=== PATIENT | male | born 1950 | race Caucasian/White ===

== ENCOUNTER → 2024-07-01 13:51 | Outpatient (BNVA) | payer BC, SELFPAY | PROVIDERS: PCP Family Medicine; Visit Provider Surgery ==

== ENCOUNTER 2024-07-19 08:16 | Outpatient (AMB) | payer BC, SELFPAY ==
--- OUTSIDE RECORDS SUMMARY | 2024-07-19 08:30 | XMS_ITS | Encounter Summary ---
Author Organization [facility] Address [address] [place] [address] Care Team Providers Care Journeyman Electrician Name Role Phone Marija King Lovely VARGAS Primary Care Provider [phone] Cathleen Palmer MD Primary Care Provider Encounter Details Date Type Department Care Team ([facility] st Contact Info) Description 11/24/2020 Orders Only [facility] [address] [address] Jose Angel Starkey MD [address] [place] [address] Social History Tobacco Use Types Packs/Day Years Used Date Smoking Tobacco: Former Cigarettes 0.2 51 0 10/31/1964 - 11/01/2015 Smokeless Tobacco: Never Comments:quit 2012 Alcohol Use Standard Drinks/Week Comments Not Asked 0 (1 standard drink = 0.6 oz pur e alcohol) Sex and Gender Information Value Date Recorded Sex Assigned at Male 04/15/2019 8:44 AM EST Legal Sex Male 5:22 AM EDT Gender Identity Male 04/15/2019 8:44 AM EST Sexual Orientation Straight 04/15/2019 8: 44 AM EST documented as of this encounter Miscellaneous Notes * Result Encounter Note - Jose Angel Starkey MD - 11/24/2020 9:45 AM EDT Please let patient know that his blood work from yesterday is stable, and I recommend no changes for now. Thank you. * Result Encounter Note - Malaika Rubio RN - 11/24/2020 9:45 AM EDT My chart message was sent to patient. documented in this encounter Plan of Treatment Upcoming Encounters Date Type Department Care Team (Late st Contact Info) Description 07/11/2025 11:00 AM EDT Office Visit [facility] [address] [facility] [address] [place] [address] Jose Angel Starkey MD [address] [place] [address] 1 yr documented as of this encounter Procedures * Due to [facility] law, this organization might not be sharing negative HIV tests. Procedure Name Priority Date/Time Associated Diagnosis Comments VENIPUNCTURE Routine 11/24/2020 9:45 AM EDT Hypertension, unspecified type documented in this encounter Results * Due to [facility] law, this organization might not be sharing negative HIV tests. * (ABNORMAL) BASIC METABOLIC PANEL WITH (GFR) (11/24/2020 9:45 AM EDT) Glucose 101(H) 65 - 99 mg/dL [facility] Comment: ? Fasting reference interval For someone without known diabetes, a glucose value between 100 and 125 mg/dL is consistent with prediabetes and should be confirmed with a follow-up test. Urea Nitrogen Blood (BUN) 23 7 - 25 mg/dL [facility] Creatinine 1.38(H) 0.70 - 1.18 mg/dL [facility] Comment: For patients >49 years of age, the reference limit for Creatinine is approximately 13% higher for people identified as -Bangladeshi. EGFR 51(L) > OR = 60 mL/min/1. 73m2 [facility] GFR () 59(L) > OR = 60 mL/min/1. 73m2 [facility] BUN/Creatinine Ratio 17 6 - 22 (calc) [facility] Sodium 139 135 - 146 mmol/L [facility] Potassium 4.5 3.5 - 5.3 mmol/L [facility] Chloride 102 98 - 110 mmol/L [facility] Carbon dioxide 28 20 - 32 mmol/L [facility] Calcium 9.3 8.6 - 10.3 mg/dL [facility] 11/24/2020 9:45 AM EDT 11/24/2020 10:29 PM EDT Narrative [facility] - 11/25/2020 12:19 AM EDT Please note that this estimated GFR does not include an adjustment for the patient's height or weight, and can therefore, be viewed as reliable only for patients with heights between 60 and 72 . More precise quantification using a 24-hour urine sample or height-based algorithm is recommended for patients outside of this range of height and for those individuals with more precise needs for GFR calculation. Resulting Agency Comment [id number] us Jose Angel Starkey MD LABORATORY Final Result Performing Organization Address City/State/[facility] Co de Phone Number [facility] [address] [place] [address] documented in this encounter Visit Diagnoses Diagnosis Hypertension, unspecified type documented in this encounter Care Teams Journeyman Electrician Relationship Specialty Start Date End Date Marija King DO PCP - General Family Medicine 08/23/17 05/11/21 [place] [address] PCP - General Family Medicine 09/28/22 documented as of this encounter
--- OUTSIDE RECORDS SUMMARY | 2024-07-19 08:30 | XMS_ITS | Encounter Summary ---
Author Organization [facility] Address [address] [place] [address] Care Team Providers Care Manager Green Name Role Phone Christine Marija Lovely VARGAS Primary Care Provider [phone] Cathleen Palmer MD Primary Care Provider [phone] Reason for Visit * Reason Comments E-prescribing Refill Request Encounter Details Date Type Department Care Team ([facility] Contact Info) Description 06/10/2019 Refill [facility] [address] [address] Jose Angel Starkey MD [address] [place] [address] E-prescribing Refill Request Social History Tobacco Use Types Packs/Day Years [...] AM EST documented as of this encounter Plan of Treatment Upcoming Encounters Date Type Department Care Team ([facility] Contact Info) Description 07/11/2025 11:00 AM EDT Office Visit [facility] [address] [address] Jose Angel Starkey MD [address] [place] [address] 1 yr documented as of this encounter Visit Diagnoses Diagnosis Paroxysmal atrial fibrillation (HCC) Atrial fibrillation documented in this encounter Additional Health Concerns Infection Onset Date Last Indicated Resolved Time COVID-19 Rule-Out 06/08/2020 06/08/2020 06/08/2020 7:17 PM EDT documented as of this encounter Care Teams Manager Green Relationship Specialty Start Date End Date Marija King DO PCP - General Family Medicine 08/23/17 05/11/21 Cathleen Palmer MD [address] [address] PCP - General Family Medicine 09/28/22 documented as of this encounter
--- OUTSIDE RECORDS SUMMARY | 2024-07-19 08:30 | XMS_ITS | Encounter Summary ---
Author Organization [facility] Address [address] [place] [address] Care Team Providers Care Beck Operator Name Role Phone Gabe Do Primary Care Provider [phone] Marija King DO Primary Care Provider [phone] Cathleen Palmer MD Primary Care Provider [phone] Encounter Details Date Type Department Care Team (Late st Contact Info) Description 05/28/2010 Orders Only [facility] [address] [facility] [address] [place] [address] Marcello Ness MD [address] [place] [address] Social History Tobacco Use Types Packs/Day Years Used Date Smoking Tobacco: Every Day Comments:1 cig a day Alcohol Use Standard Drinks/Week Comments Not Asked 0 (1 standard drink = 0.6 oz pur e alcohol) Sex and Gender Information Value Date Recorded Sex Assigned at Male 04/15/2019 8:44 AM EST Legal Sex Male 5:22 AM EDT Gender Identity Male 04/15/2019 8:44 AM EST Sexual Orientation Straight 04/15/2019 8: 44 AM EST documented as of this encounter Progress Notes * Marcello Ness MD - 05/31/2010 2:24 PM EDTQuick Note: Please call and inform patient that he is M,M,R antibody positive and does not require the vaccine. documented in this encounter Plan of Treatment Upcoming Encounters Date Type Department Care Team (Late st Contact Info) Description 07/11/2025 11:00 AM EDT Office Visit [facility] [address] [facility] [address] [place] [address] Jose Angel Starkey MD [address] [place] [address] 1 yr documented as of this encounter Procedures * Due to [place] law, this organization might not be sharing negative HIV tests. Procedure Name Priority Date/Time Associated Diagnosis Comments RUBEOLA IGG AB Routine 05/28/2010 Other specified counseling Need for prophylactic vaccination with typhoid-paratyphoid alone (TAB) Vaccin for DTP RUBELLA IGG AB Routine 05/28/2010 Other specified counseling Need for prophylactic vaccination with typhoid-paratyphoid alone (TAB) Vaccin for DTP MUMPS ANTIBODY (IGG) Routine 05/28/2010 Other specified counseling Need for prophylactic vaccination with typhoid-paratyphoid alone (TAB) Vaccin for DTP documented in this encounter Results * Due to [place] law, this organization might not be sharing negative HIV tests. * MUMPS ANTIBODY (IGG) (05/28/2010) MUMPS VIRUS AB.IGG 2.8 (IMMUNE) SEE BELOW [facility] Comment:REFERENCE: 1.1 OR > INDICATES ANTIBODY 05/28/2010 05/28/2010 3:4 2 PM EST us Marcello Ness MD LABORATORY Final Result [facility] [address] [place] [address] * RUBEOLA IGG AB (05/28/2010) RUBEOLA IGG AB 5.4 (IMMUNE) SEE BELOW [facility] Comment: UNITS: INDEX VALUE REFERENCE: 1.1 OR > INDICATES ANTIBODY 05/28/2010 05/28/2010 3:4 2 PM EST Marcello Ness MD LABORATORY Final Result Performing Organization Address City/[facility]/ZIP Co de Phone Number [facility] [address] [place] [address] * RUBELLA IGG AB (05/28/2010) RUBELLA IGG AB 4.97 (IMMUNE) SEE BELOW [facility] Comment: REFERENCE: 1.1 OR > INDICATES ANTIBODY THE PRESENCE OF RUBELLA IGG ANTIBODY SUGGESTS A CURRENT OR PAST INFECTION OR IMMUNIZATION WITH RUBELLA VIRUS. 05/28/2010 05/28/2010 3:4 2 PM EST Marcello Ness MD LABORATORY Final Result Performing Organization Address [facility] Co de Phone Number [facility] [address] [place] [address] documented in this encounter Visit Diagnoses Diagnosis Other specified counseling Need for prophylactic vaccination with typhoid-paratyphoid alone (TAB) Need for prophylactic vaccination with combined wtwtrforlm-exhekof-vuggdwott (DTP) vaccine documented in this encounter Additional Health Concerns Infection Onset Date Last Indicated Resolved Time COVID-19 Rule-Out 06/08/2020 06/08/2020 06/08/2020 7:17 PM EDT documented as of this encounter Care Teams Beck Operator Relationship Specialty Start Date End Date Gabe Do [facility] [address] [place] [address] PCP - General 03/24/06 08/22/17 Marija King DO [facility] [address] [place] [address] PCP - General Family Medicine 08/23/17 05/11/21 Cathleen Palmer MD [facility] [address] [place] [address] PCP - General Family Medicine 09/28/22 documented as of this encounter
--- OUTSIDE RECORDS SUMMARY | 2024-07-19 08:30 | XMS_ITS | Encounter Summary ---
Author Organization [facility] Address [address] [place] [address] Care Team Providers Care Cement Mixer Name Role Phone HiGabe Primary Care Provider [phone] Marija King DO Primary Care Provider [phone] Cathleen Palmer MD Primary Care Provider [phone] Encounter Details Date Type Department Care Team (Late st Contact Info) Description 08/26/2015 Orders Only [facility] [address] [address] Valentin Vitale MD [address] [place] [address] Medications Social History Tobacco Use Types Packs/Day Years Used Date Smoking Tobacco: Former Comments:quit 2012 Alcohol Use Standard Drinks/Week Comments [...] Description 07/11/2025 11:00 AM EDT Office Visit [facility] [address] [address] oJse Angel Starkey MD [address] [place], [place] [id number] 1 yr documented as of this encounter Visit Diagnoses Diagnosis Paroxysmal atrial fibrillation (HCC)- Primary Atrial fibrillation documented in this encounter Additional Health Concerns Infection Onset Date Last Indicated Resolved Time COVID-19 Rule-Out 06/08/2020 06/08/2020 06/08/2020 7:17 PM EDT documented as of this encounter Care Teams Cement Mixer Relationship Specialty Start Date End Date Gabe Do [facility] [address] [place] [address] PCP - General 03/24/06 08/22/17 Marija King DO [facility] [address] [place] [address] PCP - General Family Medicine 08/23/17 05/11/21 Cathleen Palmer MD [facility] [address] [place] [address] PCP - General Family Medicine 09/28/22 documented as of this encounter
--- OUTSIDE RECORDS SUMMARY | 2024-07-19 08:30 | XMS_ITS | Clinical Summary ---
Author Organization [facility] Address [address] [place] [address] Care Team Providers Care Orderlies Teacher Name Role Phone Cathleen Palmer MD Primary Care Provider [phone] Allergies Active Allergy Reactions Criticality Noted Date Comments Oxycodone Other 01/31/2023 Causes confusion Medications * This document contains information received from the source organization and may not represent a complete record from that organization. Nitroglycerin (NITROSTAT) 0.4 MG SL tabletIndications: Abnormal cardiovascular stress test,Atheroscleros is of coronary artery, angina presence unspecified, unspecified vessel or lesion type, unspecified whether port lions or transplanted heart,Paroxysmal atrial fibrillation (HCC),Hyperlipidem ia, unspecified hyperlipidemia type,Essential hypertension with goal blood pressure less than 130/80 Take one tablet (0.4 mg total) by mouth every 5 (five) minutes if needed for chest pain up to 3 tablets per episode. 90 tablet 3 1 Active famotidine (PEPCID) 20 MG tablet 2 Active Albuterol Sulfate, sensor, 108 (90 Base) MCG/ACT AEROSOL POWDER, BREATH ACTIVATED Inhale 2 puffs every 4 hours by inhalation route as needed. Active DIVALPROEX SODIUM, MIGRAINE, (DEPAKOTE) 500 MG 24 hr tablet TAKE TWO TABLETS BY MOUTH EVERY NIGHT AT BEDTIME 120 tablet 2 3 Active Isosorbide Mononitrate CR (IMDUR) 60 MG 24 hr tablet TAKE 1 TABLET BY MOUTH EVERY DAY IN THE MORNING 90 tablet 3 4 Active amLODIPine Besylate (NORVASC) 10 MG tabletIndications: Hypertension, unspecified type Take one tablet (10 mg total) by mouth 1 (one) time each day. 90 tablet 3 4 Active Rivaroxaban (Xarelto) 20 MG tabletIndications: Paroxysmal atrial fibrillation (HCC) Take one tablet (20 mg total) by mouth 1 (one) time each day with dinner. 90 tablet 3 4 Active Metoprolol Succinate (TOPROL-XL) 50 MG 24 hr tablet Take one tablet (50 mg total) by mouth 1 (one) time each day. 90 tablet 3 4 Active Cyclobenzaprine HCl (FLEXERIL) 10 MG tablet Take 1 tablet by mouth 3 (three) times a day. Active Lisinopril (PRINIVIL,ZESTRIL) 10 MG tabletIndications: Hypertension, unspecified type Take one tablet (10 mg total) by mouth 1 (one) time each day. 90 tablet 3 4 Active Simvastatin (ZOCOR) 40 MG tablet TAKE ONE TABLET (40 MG TOTAL) BY MOUTH EVERY NIGHT. 90 tablet 3 4 Active Wixela Inhub 250-50 MCG/ACT diskus inhaler INHALE 1 PUFF TWICE A DAY 180 each 1 5 Active Active Problems Problem Noted Date Diagnosed Date Paroxysmal atrial fibrillation 06/28/2023 Arteriosclerosis of aorta 05/29/2019 Overview (05/29/2019): Refer to CT of Chest 04/16/2019: There is arteriosclerosis of the aorta and the coronary arteries. Bronchiectasis 05/29/2019 Overview (05/29/2019): Refer to Pulmonary Consult 05/13/2019: Impression: Patient with bronchiectasis Seizure 02/21/2018 Encounters Date Type Department Care Team Description 07/03/2024 3:00 PM EDT Office Visit [facility] [address] [place] [phone] Jayesh Starkey MD Paroxysmal atrial fibrillation (HCC) (Primary Dx); Coronary artery disease, unspecified vessel or lesion type, unspecified whether angina present, unspecified whether port lions or transplanted heart; RBBB (right bundle branch block with left anterior fascicular block) from Last 3 Months Immunizations Name Administration Dates Next Due COVID-19, mRNA (Moderna Pre Fall 2022) Monovalent, 100 mcg/0.5 ml or 50 mcg/0.25 ml dose 08/11/2021,02/08/2021,06/08/2020 COVID-19, mRNA (Moderna Pre Fall 2022) bivalent, 25 mcg/0.25 ml (6 months - 11 years) or 50 mcg/0.5 ml (12+ years) 02/24/2022 Hep A (adult) 05/28/1999 Hep B (adult) 02/05/2004,08/05/2003,12/03/1999 IPV 05/28/1999 Influenza, Quad, Inactivated , Adjuvanted, Preser Fr 02/16/2023,02/08/2021 Influenza,high dose seasonal ,trivalent,PF (Fluzone HD) 04/12/2024 Influenza,high-dose, Quadrivalent 02/24/2022, PCV-20 02/23/2023 PPV23 (Pneumovax) 09/07/2017 Td (adult), adsorbed 05/28/1999 Tdap(Adacel) 05/28/2010 Typhoid, ViCPS 08/05/2003,05/28/1999 Typhoid, parenteral 05/28/2010 Zoster (Shingrix) 02/23/2023 Social History Tobacco Use Types Packs/Day Years Used Date Smoking Tobacco: Former Cigarettes 0.2 51 0 10/31/1964 - 11/01/2015 Passive Smoke Exposure: Past Smokeless Tobacco: Never Tobacco Cessation:Counseling Given: Not Answered Comments:quit 2012 Alcohol Use Standard Drinks/Week Comments Not Asked 0 (1 standard drink = 0.6 oz pur e alcohol) Intimate Partner Violence Answer Date R ecorded Fear of Current or Ex-Partner Not on file Emotionally Abused Not on file 11/02/2022 Physically Abused Not on file 11/02/2022 Sexually Abused Not on file 11/02/2022 Feel Safe at Home Not on file 11/02/2022 Sex and Gender Information Value Date Recorded Sex Assigned at Male 04/15/2019 8:44 AM EST Legal Sex Male 5:22 AM EDT Gender Identity Male 04/15/2019 8:44 AM EST Sexual Orientation Straight 04/15/2019 8: 44 AM EST Last Filed Vital Signs Vital Sign Reading Time Taken Comments Blood Pressure 144/76 07/03/2024 3:05 PM EDT Pulse 67 07/03/2024 3:04 PM EDT Temperature 37.1 ??C (98.7 ??F) 05/28/2010 8:28 AM ES T Respiratory Rate - - Oxygen Saturation 95% 07/03/2024 3:04 PM EDT Inhaled Oxygen Concentration - - Weight 118 kg (259 lb 9.6 oz) 07/03/2024 3:04 PM EDT Height 177.8 cm (5' 10 ) 04/07/2022 2:04 PM EST Body Mass Index 37.25 04/07/2022 2:04 PM EST Plan of Treatment Upcoming Encounters Date Type Department Care Team ([facility] st Contact Info) Description 07/11/2025 11:00 AM EDT Office Visit [facility] Cardiology [address] [address] Jayesh Starkey MD [address] [place] [address] 1 yr Health Maintenance Due Date Last Done Comments Parathyroid Hormone Screening 1949 Colon Cancer Screening 1994 Abdominal Aorta Imaging 2014 DTaP/Tdap/Td (2 - Td or Tdap) 05/28/2020 05/28/2010, 05/28/1999 Zoster (Shingrix) (2 of 2) 04/20/2023 02/23/2023 COVID-19 Vaccine ( season) 2023 02/24/2022, 08/11/2021, 02/08/2021, Additional history exists RSV (1 - 1-dose 75+ series) 2024 Hep A Aged Out 05/28/1999 No longer eligi ble based on patient's age to complete this topic Hepatitis C Screening Completed 08/01/2003 Hep B Completed 02/05/2004, 07/18, 12/03/1999 LDL Cholesterol Discontinued 07/20/2020, 08/27/2015 Upper Endoscopy Discontinued 05/25/2021 Chest Imaging Discontinued 11/02/2022, 09/17, 12/30/2021, Additional history exists Pneumococcal 50+ years Completed 02/23/2023, 2017 EKG Discontinued 06/28/2023, 06/18, 07/20/2020, Additional history exists Influenza Completed 04/12/2024, 01/20, 02/24/2022, Additional history exists HPV Vaccine Aged Out No longer eligi ble based on patient's age to complete this topic Hib Aged Out No longer eligi ble based on patient's age to complete this topic Meningococcal ACWY Aged Out No longer eligible based on patient's age to complete this topic Zoster (Zostavax) Discontinued Procedures * Due to [place] law, this organization might not be sharing negative HIV tests. Procedure Name Priority Date/Time Associated Diagnosis Comments EKG-USE ONLY IN [facility]/OCC MED/CARDIO Routine 06/28/2023 2:25 PM EDT Paroxysmal atrial fibrillation XRAY CHEST, 2 VIEWS, PA & LATERAL (DX: F/U ABNL CXR R91.8/ 793.2) (1 MTH FROM LAST) FC Routine 11/02/2022 12:43 PM EDT ESOPHAGOGASTRODUODENO SCOPY, FLEXIBLE, TRANSORAL; WITH BIOPSY, SINGLE OR MULTIPLE Routine 05/25/2021 Epigastric pain VENIPUNCTURE Routine 07/20/2020 12:05 PM EDT Coronary artery disease, unspecified vessel or lesion type, unspecified whether angina present, unspecified whether port lions or transplanted heart HEP C ANTIBODY (EIA-2) Routine 08/01/2003 4:44 PM EDT from Last 3 Months or Most Recently Relevant to Health Maintenance Results * Due to [place] law, this organization might not be sharing negative HIV tests. * EKG - READ BY ORDERING PROVIDER (06/28/2023 2:25 PM EDT) VENTRICULAR RATE 54 BPM MUS E EKG SYSTEM ATRIAL RATE 54 BPM MUSE EKG SYSTEM P-R INTERVAL 190 ms MUSE EK G SYSTEM QRS DURATION 152 ms MUSE EK G SYSTEM QT 466 ms MUSE EKG SYSTEM QTC 441 ms MUSE EKG SYSTEM P AXIS 9 degrees MUSE EKG SYSTEM R AXIS -35 degrees MUSE EKG SYSTEM T AXIS 9 degrees MUSE EKG SYSTEM EKG INTERPRETATION Sinus bradycardia Left axis deviation Right bundle branch block Abnormal ECG Confirmed by JAYESH STARKEY ([id number]), digital editor KAREN MULTANI ([id number]) on 06/29/2023 7:33:59 AM MUSE EKG SYSTEM 06/28/2023 2:25 PM EDT 06/29/2023 7:33 AM EDT us Jayesh Starkey MD CARDIOVASCULAR-WITH INBSKT RT G Final Result MUSE EKG SYSTEM * XRAY CHEST, 2 VIEWS, PA & LATERAL (DX: F/U ABNL CXR R91.8/ 793.2) (1 MTH FROM LAST) FC (11/02/2022 12:43 PM EDT) Anatomical Region Laterality Modality CHEST Radiographic Erica ging 11/02/2022 5:04 PM EDT Narrative 11/02/2022 5:04 PM EDT CONTRAST: 2 view chest x-ray. Comparison: 09/28/2022 Findings: No consolidation or effusion. Previously noted left base atelectasis has resolved. Cardiac and mediastinal contours are stable. Bones unremarkable. Impression: 1. No acute pulmonary disease. Procedure Note Maninder Isbell MD - 11/02/2022 CONTRAST: 2 view chest x-ray. Comparison: 09/28/2022 Findings: No consolidation or effusion. Previously noted left base atelectasis has resolved. Cardiac and mediastinal contours are stable. Bones unremarkable. Impression: 1. No acute pulmonary disease. us Juan Morse MD IMG XRAY NO CONTRAST ORDERABL ES Final Result * ESOPHAGOGASTRODUODENOSCOPY, FLEXIBLE, TRANSORAL; WITH BIOPSY, SINGLE OR MULTIPLE (05/25/2021) us Aakash Alcantara MD PROCEDURES Final Result * (ABNORMAL) LIPID PANEL WITH REFLEX TO DIRECT LDL (07/20/2020 12:05 PM EDT) Cholesterol 132 <200 mg/dL [facility] HDL Cholesterol 47 > OR = 40 mg/dL [facility] Triglyceride 230(H) <150 mg/dL [facility] Comment: If a non-fasting specimen was collected, consider repeat triglyceride testing on a fasting specimen if clinically indicated. Ash et al. J. of Clin. Lipidol. 2015;9:129-169. LDL Cholesterol 56 mg/dL (calc) [facility] Comment: Reference range: <100 Desirable range <100 mg/dL for primary prevention; ?? <70 mg/dL for patients with CHD or diabetic patients with > or = 2 CHD risk factors. LDL-C is now calculated using the Oliver-López calculation, which is a validated novel method providing better accuracy than the Friedewald equation in the estimation of LDL-C. Oliver SS et al. BEAR. 2013;310(19): 2941-2793 (http://education.[employer].Uniweb.ru/faq/CJP115) CHOL/HDL Ratio 2.8 <5.0 (calc) [facility] Cholesterol Non-HDL 85 <130 mg/dL (calc) [facility] Comment: For patients with diabetes plus 1 major ASCVD risk factor, treating to a non-HDL-C goal of <100 mg/dL (LDL-C of <70 mg/dL) is considered a therapeutic option. 07/20/2020 12:0 5 PM EDT 07/20/2020 9:33 PM EDT Narrative Resulting Agency Comment [id number] us Zhnae Dorantes LOADING MACHINE TOOL SETTER LABORATORY Final Res ult [facility] [address] [place] [address] * HEP C ANTIBODY (EIA-2) (08/01/2003 4:44 PM EDT) HEPATITIS C AB NEGATIVE FC [facility] (CLIA# [id number]) 08/01/2003 4:44 PM EDT 08/01/2003 4:44 PM EDT Narrative [facility] (CLIA# [id number]) - 08/01/2003 4:44 PM EDT Ordered by UNKNOWN PROVIDER SST tube received unspun us Unknown Provider LABORATORY Final Result [facility] (CLIA# [id number]) [address] [place] [address] from Last 3 Months or Most Recently Relevant to Health Maintenance Insurance [employer] FEE FOR SERVICE PPO * Guarantor: [employer] Account Type Relation to Patient Date of Phone Billing Address [place] [address] [place] [address] Care Teams Orderlies Teacher Relationship Specialty Start Date End Date Cathleen Palmer MD [address] [address] PCP - General Family Medicine 09/28/22
--- OUTSIDE RECORDS SUMMARY | 2024-07-19 08:30 | XMS_ITS | Encounter Summary ---
Author Organization [facility] Address [address] [place] [address] Care Team Providers Care Junior Underwriter Name Role Phone Marija King DO Primary Care Provider [phone] Cathleen Palmer MD Primary Care Provider [phone] Encounter Details Date Type Department Care Team ([facility] st Contact Info) Description 07/20/2020 Orders Only [facility] [address] 123 [facility] [address] [place] [address] Zhane Dorantes NP 123 [facility] [address] [place] [address] Social History Tobacco Use Types Packs/Day Years [...] Orientation Straight 04/15/2019 8: 44 AM EST COVID-19 Exposure Response Date Recorded In the last month, have you been in contact with someone who was confirmed or suspected to have Coronavirus / COVID-19? No / Unsure 07/20/2020 11:04 AM EDT documented as of this encounter Miscellaneous Notes * Result Encounter Note - Zhane Dorantes NP - 07/20/2020 12:05 PM EDT Can you please call patient and let him know I reviewed his cholesterol panel and I am VERY HAPPY! I will follow up with him in a few weeks regarding his blood pressures. :) * Result Encounter Note - Emily Saenz - 07/20/2020 12:05 PM EDT Called the patient and reviewed results of his labs as requested. Patient states understanding [facility] is happy with his cholesterol panel but stated he noticed his triglycerides are high. He states he can wait to discuss this at his next appointment, but it is a nurse blood pressure check. Please advise. * Result Encounter Note - Zhane Dorantes NP - 07/20/2020 12:05 PM EDT Yes triglycerides are high but he is trying lifestyle modifications with exercise and dietary changes. So I am not concerned. I can pop in at his nurse blood pressure check and talk with him then. * Result Encounter Note - Emily Saenz - 07/20/2020 12:05 PM EDT Ok thank you. Note added to appointment for nursing to grab you at appointment. * Result Encounter Note - Zhane Dorantes NP - 07/20/2020 12:05 PM EDT Thanks! :) documented in this encounter Plan of Treatment Upcoming Encounters Date Type Department Care Team (Late st Contact Info) Description 07/11/2025 11:00 AM EDT Office Visit [facility] [address] [facility] [address] [place] [address] [place] [address] Jose Angel Starkey MD [address] [place] [address] 1 yr documented as of this encounter Procedures * Due to [facility] law, this organization might not be sharing negative HIV tests. Procedure Name Priority Date/Time Associated Diagnosis Comments VENIPUNCTURE Routine 07/20/2020 12:05 PM EDT Coronary artery disease, unspecified vessel or lesion type, unspecified whether angina present, unspecified whether [place] or transplanted heart documented in this encounter Results * Due to [place] [employer] law, this organization might not be sharing negative HIV tests. * (ABNORMAL) LIPID PANEL WITH REFLEX TO [...] factors. LDL-C is now calculated using the Oliver-Maribel calculation, which is a validated novel method providing better accuracy than the Friedewald equation in the estimation of LDL-C. Oliver SAM et al. BEAR. 2013;310(19): 6008-3878 (http://education.Tippr.Decisive BI/faq/GXV262) CHOL/HDL Ratio 2.8 <5.0 (calc) [facility] Cholesterol Non-HDL 85 <130 mg/dL (calc) [facility] Comment: For patients with diabetes plus 1 major ASCVD risk factor, treating to a non-HDL-C goal of <100 mg/dL (LDL-C of <70 mg/dL) is considered a therapeutic option. 07/20/2020 12:0 5 PM EDT 07/20/2020 9:33 PM EDT Narrative Resulting Agency Comment [id number] us Zhane Dorantes [facility] Final Res ult [facility] [address] [place] [address] documented in this encounter Visit Diagnoses Diagnosis Coronary artery disease, unspecified vessel or lesion type, unspecified whether angina present, unspecified whether [place] or transplanted heart documented in this encounter Care Teams Junior Underwriter Relationship Specialty Start Date End Date Marija King DO PCP - General Family Medicine 08/23/17 05/11/21 Cathleen Palmer MD [address] [address] PCP - General Family Medicine 09/28/22 documented as of this encounter
--- OUTSIDE RECORDS SUMMARY | 2024-07-19 08:30 | XMS_ITS | Encounter Summary ---
Author Organization [facility] Address [address] [place] [address] Care Team Providers Care Perch Mender Name Role Phone Marija King DO Primary Care Provider [phone] Cathleen Palmer MD Primary Care Provider [phone] Reason for Visit * Reason Onset Date Comments Refill Request 06/02/2019 Encounter Details Date Type Department Care Team (Late st Contact Info) Description 06/02/2019 Refill [facility] Pulmonary [address] 123 [facility] [address] [place] [address] Juan Morse MD [address] [place] [address] Refill Request Social History Tobacco Use Types [...] as of this encounter Miscellaneous Notes * Telephone Encounter - Pat Chan RN - 06/03/2019 9:18 AM EDT Med pended. * Telephone Encounter - AkilahLindsay - 06/03/2019 8:47 AM EDT Patient calling to follow up on the request for refills as he would like to have by Monday documented in this encounter Plan of Treatment Upcoming Encounters Date Type Department Care Team (Late st Contact Info) Description 07/11/2025 11:00 AM EDT Office Visit [facility] Cardiology [address] [address] Jose Angel Starkey MD [address] [place] [address] 1 yr documented as of this encounter Visit Diagnoses Not on filedocumented in this encounter Additional Health Concerns Infection Onset Date Last Indicated Resolved Time COVID-19 Rule-Out 06/08/2020 06/08/2020 06/08/2020 7:17 PM EDT documented as of this encounter Care Teams Perch Mender Relationship Specialty Start Date End Date Marija King DO PCP - General Family Medicine 08/23/17 05/11/21 Cathleen Palmer MD [address] [address] PCP - General Family Medicine 09/28/22 documented as of this encounter
--- OUTSIDE RECORDS SUMMARY | 2024-07-19 08:30 | XMS_ITS | Encounter Summary ---
Author Organization [facility] Address [address] [place] [address] Care Team Providers Care Induction Machine Setter Name Role Phone Christine Marija Lovely VARGAS Primary Care Provider [phone] Cathleen Palmre MD Primary Care Provider [phone] Encounter Details Date Type Department Care Team (Late Contact Info) Description 05/03/2019 Orders Only [facility] [address] [place] [phone] Alex Hummel MD [address] [place] [phone] Social History Tobacco Use Types Packs/Day Years [...] Description 07/11/2025 11:00 AM EDT Office Visit [facility] Cardiology [address] [place] [address] Jose Angel Starkey MD [address] [place], [place] [phone] 1 yr documented as of this encounter Procedures * Due to [place] [employer] law, this organization might not be sharing negative HIV tests. Procedure Name Priority Date/Time Associated Diagnosis Comments VENIPUNCTURE Routine 05/03/2019 9:32 AM EST Seizure documented in this encounter Results * Due to [place] [employer] law, this organization might not be sharing negative HIV tests. * (ABNORMAL) VALPROIC ACID (05/03/2019 9:32 AM EST) Valproate 30.5(L) 50.0 - 100.0 mg/L [facility] 05/03/2019 9:32 AM EST 05/04/2019 Narrative Resulting Agency Comment [id number] us Alex Hummel MD LAB SAME DAY RESULT Final Resu lt Performing Organization Address City/State/[facility] Co de Phone Number [facility] [address] [place] [address] documented in this encounter Visit Diagnoses Diagnosis Seizure (HCC) Other convulsions documented in this encounter Additional Health Concerns Infection Onset Date Last Indicated Resolved Time COVID-19 Rule-Out 06/08/2020 06/08/2020 06/08/2020 7:17 PM EDT documented as of this encounter Care Teams Induction Machine Setter Relationship Specialty Start Date End Date Marija King DO PCP - General Family Medicine 08/23/17 05/11/21 Cathleen Palmer MD [address] [address] PCP - General Family Medicine 09/28/22 documented as of this encounter
--- OUTSIDE RECORDS SUMMARY | 2024-07-19 08:30 | XMS_ITS | Encounter Summary ---
Author Organization [facility] Address [address] [place] [address] Care Team Providers Care Janitor Cleaner Name Role Phone Marija King DO Primary Care Provider [phone] Cathleen Palmer MD Primary Care Provider [phone] Encounter Details Date Type Department Care Team (Late Contact Info) Description 05/08/2020 Orders Only [facility] Cardiology [address] [address] Jose Angel Starkey MD [address] [place] [address] Social History Tobacco Use Types Packs/Day Years [...] have Coronavirus / COVID-19? No / Unsure 05/08/2020 10:57 AM EST documented as of this encounter Plan of Treatment Upcoming Encounters Date Type Department Care Team (Late Contact Info) Description 07/11/2025 11:00 AM EDT Office Visit [facility] Cardiology [address] 123 [facility] [address] [place] [address] Jose Angel Starkey MD [address] [place] [address] 1 yr documented as of this encounter Procedures * Due to [facility] law, this organization might not be sharing negative HIV tests. Procedure Name Priority Date/Time Associated Diagnosis Comments VENIPUNCTURE Routine 05/08/2020 11:51 AM EST Chronic chest pain Atherosclerosis of coronary artery, angina presence unspecified, unspecified vessel or lesion type, unspecified whether [place] or transplanted heart [I25.10] CBC INCLUDES DIFFERENTIAL AND PLATELET COUNT Routine 05/08/2020 11:51 AM EST Chronic chest pain Atherosclerosis of coronary artery, angina presence unspecified, unspecified vessel or lesion type, unspecified whether [place] or transplanted heart [I25.10] BASIC METABOLIC PANEL WITH (GFR) Routine 05/08/2020 11:51 AM EST Chronic chest pain Atherosclerosis of coronary artery, angina presence unspecified, unspecified vessel or lesion type, unspecified whether [place] or transplanted heart [I25.10] documented in this encounter Results * Due to [place] [employer] law, this organization might not be sharing negative HIV tests. * (ABNORMAL) BASIC METABOLIC PANEL WITH (GFR) (05/08/2020 11:51 AM EST) Glucose 99 65 - 99 mg/dL [facility] Comment:Fasting reference in terval Urea Nitrogen Blood (BUN) 17 7 - 25 mg/dL [facility] Creatinine 1.21(H) 0.70 - 1.18 mg/dL [facility] Comment: For patients >49 years of age, the reference limit for Creatinine is approximately 13% higher for people identified as -Iranian. EGFR 60 > OR = 60 mL/min/1. 73m2 [facility] GFR () 70 > OR = 60 mL/min/1. 73m2 [facility] BUN/Creatinine Ratio 14 6 - 22 (calc) [facility] Sodium 137 135 - 146 mmol/L [facility] Potassium 4.3 3.5 - 5.3 mmol/L [facility] Chloride 102 98 - 110 mmol/L [facility] Carbon dioxide 28 20 - 32 mmol/L [facility] Calcium 9.2 8.6 - 10.3 mg/dL [facility] 05/08/2020 11:5 1 AM EST 05/08/2020 1:42 PM EST Narrative [facility] - 05/08/2020 4:01 PM EST Please note that this estimated GFR does [...] needs for GFR calculation. Resulting Agency Comment [id number] us Jose Angel Starkey MD LABORATORY Final Result [facility] [address] [place] [address] * CBC INCLUDES DIFFERENTIAL AND PLATELET COUNT (05/08/2020 11:51 AM EST) WBC 6.2 3.8 - 10.8 Thousand/u L [facility] RBC 4.62 4.20 - 5.80 Million/uL [facility] Hemoglobin 14.7 13.2 - 17.1 g/dL [facility] Hematocrit 42.6 38.5 - 50.0 % [facility] MCV 92.2 80.0 - 100.0 fL [facility] MCH 31.8 27.0 - 33.0 pg [facility] MCHC 34.5 32.0 - 36.0 g/dL [facility] RDW 13.2 11.0 - 15.0 % [facility] PLT 181 140 - 400 Thousand/u L [facility] MPV 9.5 7.5 - 12.5 fL [facility] Neutrophils # 3205 1500 - 7800 cells/uL [facility] Lymphocytes # 2331 850 - 3900 cells/uL [facility] Monocytes # 521 200 - 950 cells/uL [facility] Eosinophils # 112 15 - 500 cells/uL [facility] Basophils # 31 0 - 200 cells/uL [facility] Neutrophils % 51.7 % [facility] Lymphocytes % 37.6 % [facility] Monocytes % 8.4 % [facility] Eosinophils % 1.8 % [facility] Basophils % 0.5 % [facility] 05/08/2020 11:5 1 AM EST 05/08/2020 1:42 PM EST Narrative Resulting Agency Comment [id number] Jose Angel Starkey MD LAB SAME DAY RESULT Final Res ult Performing Organization Address [facility] de Phone Number [facility] [address] [place] [phone] * (ABNORMAL) PROTHROMBIN TIME (PT) (INR), BLOOD (05/08/2020 11:51 AM EST) INR 1.2(H) [facility] Comment: Reference Range ? 0.9-1.1 Moderate-intensity Warfarin Therapy 2.0-3.0 Higher-intensity Warfarin Therapy ?? 3.0-4.0 PT 12.7(H) 9.0 - 11.5 sec [facility] Comment: For additional information, please refer to http://education.Axigen Messaging/faq/NIN380 (This link is being provided for informational/ educational purposes only.) 05/08/2020 11:5 1 AM EST 05/08/2020 1:42 PM EST Narrative Resulting Agency Comment [id number] Jose Angel Starkey MD LAB SAME DAY RESULT Final Res ult Performing Organization Address [facility] de Phone Number [facility] [address] [place] [address] documented in this encounter Visit Diagnoses Diagnosis Chronic chest pain Chest pain, unspecified Atherosclerosis of coronary artery, angina presence unspecified, unspecified vessel or lesion type, unspecified whether [place] or transplanted heart [I25.10] documented in this encounter Additional Health Concerns Infection Onset Date Last Indicated Resolved Time COVID-19 Rule-Out 06/08/2020 06/08/2020 06/08/2020 7:17 PM EDT documented as of this encounter Care Teams Janitor Cleaner Relationship Specialty Start Date End Date Marija King DO PCP - General Family Medicine 08/23/17 05/11/21 [place] [address] PCP - General Family Medicine 09/28/22 documented as of this encounter
--- OUTSIDE RECORDS SUMMARY | 2024-07-19 08:31 | XMS_ITS | Encounter Summary ---
Author Organization [facility] Address [address] [place] [address] Care Team Providers Care Employee Relations Consultant Name Role Phone Christine Marija Lovely VARGAS Primary Care Provider [phone] Cathleen Palmer MD Primary Care Provider [phone] Encounter Details Date Type Department Care Team (Late st Contact Info) Description 10/01/2018 [facility] Pulmonary [address] [facility] [address] [place] [address] Juan Morse MD [address] [place] [address] Medications Social History Tobacco Use Types Packs/Day [...] Description 07/11/2025 11:00 AM EDT Office Visit [facility] Cardiology [address] [facility] [address] [place] [address] Jose Angel Starkey MD [address] [place] [address] 1 yr documented as of this encounter Visit Diagnoses Diagnosis Cough documented in this encounter Additional Health Concerns Infection Onset Date Last Indicated Resolved Time COVID-19 Rule-Out 06/08/2020 06/08/2020 06/08/2020 7:17 PM EDT documented as of this encounter Care Teams Employee Relations Consultant Relationship Specialty Start Date End Date Marija King DO PCP - General Family Medicine 08/23/17 05/11/21 Cathleen Palmer MD [address] [address] PCP - General Family Medicine 09/28/22 documented as of this encounter
--- OUTSIDE RECORDS SUMMARY | 2024-07-19 08:31 | XMS_ITS | Encounter Summary ---
Author Organization [facility] Address [address] [place] [address] Care Team Providers Care Ed Case Manager Name Role Phone Cathleen Palmer MD Primary Care Provider [phone] Encounter Details Date Type Department Care Team (Late Contact Info) Description 05/21/2021 Refill [facility] Neurology [address] [facility] [address] [place] [address] Alex Hummel MD [address] [address] Social History Tobacco Use Types Packs/Day Years [...] Description 07/11/2025 11:00 AM EDT Office Visit [facility] Cardiology [address] 123 [facility] [address] [place] [phone] Jose Angel Starkey MD [address] [place] [address] 1 yr documented as of this encounter Visit Diagnoses Not on filedocumented in this encounter Care Teams Ed Case Manager Relationship Specialty Start Date End Date Cathleen Palmer MD [address] [address] PCP - General Family Medicine 09/28/22 documented as of this encounter
--- OUTSIDE RECORDS SUMMARY | 2024-07-19 08:31 | XMS_ITS | Encounter Summary ---
Author Organization [facility] Address [address] [place] [address] Care Team Providers Care Embosser Apprentice Name Role Phone Marija King DO Primary Care Provider [phone] Cathleen Palmer MD Primary Care Provider [phone] Reason for Referral * OUTPT PROCEDURES AND DIAGNOSTICS (Routine) - Closed Specialty Diagnoses / Procedures Referred By Contac t Referred To Contact CT Scan Diagnoses Other nonspecific abnormal finding of lung field Procedures CT CHEST W/O CONTRAST (DX: ? NODULE ON CXR R91.8/ 793.2) (WITHIN 1 WK) Juan Morse MD [address] [place] [address] Phone: tel: fax: Referral ID Status Reason Start Date Expiration Date V isits Requested Visits Authorized [id number] Closed Continuity of Care 04/09/2018 07/08/2018 1 1 Encounter Details Date Type Department Care Team (Late st Contact Info) Description 04/04/[address] [facility] Pulmonary [address] [place] [address] Juan Morse MD [address] [place] [address] Social History Tobacco Use Types Packs/Day Years [...] Description 07/11/2025 11:00 AM EDT Office Visit [facility] Cardiology [address] [place] [address] Jose Angel Starkey MD [address] [place] [address] 1 yr documented as of this encounter Results * Due to [place] state law, this organization might not be sharing negative HIV tests. * (ABNORMAL) CT CHEST W/O CONTRAST (DX: ? NODULE ON CXR R91.8/ 793.2) (WITHIN 1 WK) FC (04/13/2018 9:02 AM EST) [facility](A) [facility] RADIOLOGY SYSTEM Anatomical Region Laterality Modality CHEST Computed Tomogra phy 04/13/2018 9:30 AM EST Narrative 04/13/2018 9:30 AM EST EXAM: ??CT CHEST WO Comparison: CR ??- XRAY CHEST 2 VIEWS PA ?? - 10/31/2017 03:10 PM EDT TECHNIQUE: Helical multidetector imaging performed from the lung apices to the adrenal glands. Images reviewed in reformatted axial, coronal and sagittal planes. ??Imaging was performed with low-dose technique and the latest generation iterative reconstruction and dose-reduction technology. ? FINDINGS: The thyroid gland is normal. ??There is no bulky mediastinal, hilar, or axillary adenopathy. ??There is arteriosclerosis of the aorta and the coronary arteries. ??The central airways are widely patent. Lung windows demonstrate pleural parenchymal scarring at the lung apices. ?? There is a 4 mm right upper lobe pulmonary nodule, image 100. ??3 mm right upper lobe pulmonary nodule, image 101. ??Right middle lobe calcified granuloma, image 156. ??2 mm left lower lobe pulmonary nodule, image 181. ??Mild bilateral lower lobe bronchiectasis with mucous plugging present. ??Patchy consolidation. ?? Bilateral lower lobes suggesting infectious or inflammatory process. ??Bibasilar atelectasis. Axial images through the upper abdomen demonstrate the noncontrast, visualized portions of the liver, pancreas, adrenal glands, and kidneys are normal. ??There are calcified splenic granulomata. There are no suspicious lytic or sclerotic osseous lesions identified. ?? Spondylotic changes of the thoracic spine. IMPRESSION: Bilateral pulmonary nodules measuring between 2 and 4 mm. ??If patient is high risk, consider CT follow-up in 12 months to document ongoing stability. Bilateral lower lobe bronchiectasis with mucous plugging present. Patchy consolidation within the bilateral lower lobe suggesting infectious or inflammatory process. Fleischner 2017 Guidelines were utilized to develop follow up recommendations for this patient. ??The full article can be viewed at: https://goo.gl/emmULK Follow up strategies in solid nodules vary depending on patient risk assessment, with patient's classified as high or low risk. Low risk is associated with young age, smaller nodule size, regular margins, and location in an area other than the upper lobe. High risk factors include older age, heavy smoking, emphysema, carcinogen exposure, larger nodule size, irregular or spiculated margins, and upper lobe location. Nodule size and morphology are the dominant factors. Follow up of subsolid nodules (including ground glass and part solid opacities) is different when compared to solid nodules based on risk of malignancy and a longer doubling time in this group. ??Therefore when follow up is recommended, it is for a longer interval. ?? Also in this group, recommendations may vary depending on a solitary lesion versus multiplicity of lesions. A calculator of estimated risk is available at: https://goo.gl/JEEJEh ##PFU## Procedure Note Gloria Funes MD - 04/13/2018 EXAM: CT CHEST WO Comparison: CR - XRAY CHEST 2 VIEWS PA - 10/31/2017 03:10 PM EDT TECHNIQUE: Helical multidetector imaging performed from the lung apices tothe adrenal glands. Images reviewed in reformatted axial, coronal and sagittal planes. Imaging was performed with low-dose technique and the latest generation iterative reconstruction and dose-reduction technology. FINDINGS: The thyroid gland is normal. There is no bulky mediastinal,hilar, or axillary adenopathy. There is arteriosclerosis of the aorta and the coronary arteries. The central airways are widely patent. Lung windows demonstrate pleural parenchymal scarring at the lung apices. There is a 4 mm right upper lobe pulmonary nodule, image 100. 3 mm rightupper lobe pulmonary nodule, image 101. Right middle lobe calcified granuloma,image 156. 2 mm left lower lobe pulmonary nodule, image 181. Mild bilaterallower lobe bronchiectasis with mucous plugging present. Patchy consolidation. Bilateral lower lobes suggesting infectious or inflammatory process.Bibasilar atelectasis. Axial images through the upper abdomen demonstrate the noncontrast,visualized portions of the liver, pancreas, adrenal glands, and kidneys are normal.There are calcified splenic granulomata. There are no suspicious lytic or sclerotic osseous lesions identified. Spondylotic changes of the thoracic spine. IMPRESSION: Bilateral pulmonary nodules measuring between 2 and 4 mm. If patient ishigh risk, consider CT follow-up in 12 months to document ongoing stability. Bilateral lower lobe bronchiectasis with mucous plugging present. Patchy consolidation within the bilateral lower lobe suggestinginfectious or inflammatory process. Fleischner 2017 Guidelines were utilized to develop follow uprecommendations for this patient. The full article can be viewed at: https://goo.gl/emmULK Follow up strategies in solid nodules vary depending on patient risk assessment, with patient's classified as high or low risk. Low risk is associated with young age, smaller nodule size, regularmargins, and location in an area other than the upper lobe. High risk factors include older age, heavy smoking, emphysema, carcinogen exposure, larger nodule size, irregular or spiculated margins, and upperlobe location. Nodule size and morphology are the dominant factors. Follow up of subsolid nodules (including ground glass and part solidopacities) is different when compared to solid nodules based on risk of malignancyand a longer doubling time in this group. Therefore when follow up isrecommended, it is for a longer interval. Also in this group, recommendations may vary depending on a solitarylesion versus multiplicity of lesions. A calculator of estimated risk is available at: https://goo.gl/JEEJEh ##PFU## us Juan Morse MD IMG CT NO CONTRAST ORDERABLES Final Result documented in this encounter Visit Diagnoses Diagnosis Cough documented in this encounter Additional Health Concerns Infection Onset Date Last Indicated Resolved Time COVID-19 Rule-Out 06/08/2020 06/08/2020 06/08/2020 7:17 PM EDT documented as of this encounter Care Teams Embosser Apprentice Relationship Specialty Start Date End Date Marija King DO PCP - General Family Medicine 08/23/17 05/11/21 [place] [address] PCP - General Family Medicine 09/28/22 documented as of this encounter
--- OUTSIDE RECORDS SUMMARY | 2024-07-19 08:31 | XMS_ITS | Encounter Summary ---
Author Organization [facility] Address [address] [place] [address] Care Team Providers Care Fsr Name Role Phone Marija King DO Primary Care Provider [phone] Encounter Details Date Type Department Care Team (Late st Contact Info) Description 11/17/2020 myChart Message [facility] [employer] Management [address] [place] [address] Mychart, Generic Provider [address] [id number] [facility] Customer Service Request Social History Tobacco Use Types Packs/Day Years Used Date Smoking Tobacco: Former Cigarettes 0.3 55 0 03/20/1964 - 03/20/2011 Smokeless Tobacco: Never Comments:: Alcohol Use Standard Drinks/Week Comments Yes 14 (1 standard drink = 0.6 oz pu re alcohol) pk Sex and Gender Information Value Date Recorded Sex Assigned at Not on file Legal Sex Male 9:18 AM EDT Gender Identity Not on file Sexual Orientation Not on file documented as of this encounter Plan of Treatment Not on file documented as of this encounter Visit Diagnoses Not on filedocumented in this encounter Care Teams Fsr Relationship Specialty Start Date End Date Marija King DO [address] [place] [address] PCP - General 06/03/20 documented as of this encounter
--- OUTSIDE RECORDS SUMMARY | 2024-07-19 08:31 | XMS_ITS | Clinical Summary ---
Author Organization [facility] it Address [address] [place] [address] Care Team Providers Care Edge Plugger Name Role Phone Unavailable Primary Care Provider Unavailabl e Social History Tobacco Use Types Packs/Day Years Used Date Smoking Tobacco: Never Assessed Sex and Gender Information Value Date Recorded Sex Assigned at Not on file Legal Sex Male 11:36 AM EST Gender Identity Not on file Sexual Orientation Not on file Plan of Treatment Health Maintenance Due Date Last Done Comments DTaP,Tdap,and Td Vaccines (1 - Tdap) 1969 Pneumococcal Vaccine: 50+ Ye ars (1 of 1 - PCV) 11/13/1999 Zoster Vaccines (1 of 2) 11/13/1999 Abdominal Aortic Aneurysm (A AA) Screen 02/15/2022 Cholesterol Screening (Lipid Panel) 02/15/2022 Colorectal Cancer Screening: Colonoscopy 02/15/2022 Depression Screening 02/15/2022 Falls Risk Assessment 02/15/2022 Hepatitis C Screening 02/15/2022 Social Influencers of Health Screening 02/15/2022 COVID-19 Vaccine (1 - 2023-2 5 season) 2023 RSV Immunization Adult Patie nts (1 - 1-dose 75+ series) 2024 Influenza Vaccine (Season Ended) 2024 HIB Vaccines Aged Out No longer eligi ble based on patient's age to complete this topic HPV Vaccines Aged Out No longer eligi ble based on patient's age to complete this topic Hepatitis A Vaccines Aged Out No long er eligible based on patient's age to complete this topic Hepatitis B Vaccines Aged Out No long er eligible based on patient's age to complete this topic IPV Vaccines Aged Out No longer eligi ble based on patient's age to complete this topic MMR Vaccines Aged Out No longer eligi ble based on patient's age to complete this topic Meningococcal ACWY Vaccine Aged Out N o longer eligible based on patient's age to complete this topic Meningococcal B Vaccine Aged Out No l onger eligible based on patient's age to complete this topic RSV Immunization Patients Un jovana 20 months Aged Out No longer eligible b ased on patient's age to complete this topic Varicella Vaccines Aged Out No longer eligible based on patient's age to complete this topic
--- OUTSIDE RECORDS SUMMARY | 2024-07-19 08:31 | XMS_ITS | Encounter Summary ---
Author Organization [facility] Address [address] [place] [address] Care Team Providers Care Putty Tinter Maker Name Role Phone Mindy Kingh Lovely VARGAS Primary Care Provider [phone] Cathleen Palmer MD Primary Care Provider [phone] Reason for Visit * Reason Comments Follow Up Encounter Details Date Type Department Care Team ([facility] st Contact Info) Description 02/20/2018 Telephone [facility] Neurology [address] [address] Alex Hummel MD [address] [id number] Follow Up Social History Tobacco Use Types Packs/Day Years [...] 8:44 AM EST Sexual Orientation Straight 04/15/2019 8 :44 AM EST documented as of this encounter Miscellaneous Notes * Telephone Encounter - Duyen Delgadillo - 02/21/2018 10:37 AM EST Spoke to pt - appt scheduled Future Appointments Date Time Provider Department Phone 02/21/18 4:30 PM Alex Hummel MD [facility] [phone] 05/03/18 3:00 PM Juan Morse MD [facility] Pulmonary [address] 08/29/18 3:00 PM Jose Angel Starkey MD [facility] Cardiology [address] * Telephone Encounter - Alex Hummel MD - 02/21/2018 8:41 AM EST I saw the pt in hospital in October. Plan at that time was for him to follow-up with Dr. Coleman, who he had seen previously. Looks like pt never made f/u w/ Dr. Shahid, but called Dr. Shahid's office yesterday asking to be seen same day. Dr. Shahid could not, and then told them she had booked him with another doctor. I happen to have opening from cancellation at 4:30 today in [facility]. Can offer. Notes from hospital Patient: TANISHA HAWKINS Admission Date: 11/05/17 : 48 Patient Status: DIS Donnell Attending of Record: Volodymyr Cruz CONSULTATION REPORT DATE OF ADMISSION: 11/05/2017 CONSULTATION DATE: 11/06/2017 NEUROLOGY CONSULTATION HISTORY OF PRESENT ILLNESS: Mr. Hawkins is a 66-year-old man who is seen in neurologic consultation after a recurrent event of severe amnesia upon awakening. Mr. Hawkins had an event that occurred in July of 2017 where he was at work and then was significantly confused. He did not have any witnessed seizure activity. He had some presyncopal type symptoms associated with this. He was ultimately found to have pneumonia. He was seen by Dr. Aakash Coleman in consultation at that time in the hospital on 08/16/2017. At that time, an EEG was normal. He had a CT and CT angiogram, which showed mild small vessel ischemic disease and was otherwise normal. He did not have an MRI at that time because he had a report of some shrapnel in his chest, felt to be a contraindication to MRI. He then saw Dr. Coleman in clinic on 08/22/2017 and had not had any further events and was discharged from care to follow up on a p.r.n. basis. Later in August, the patient had another event where he had severe amnesia lasting about 4 hours that then resolved. He did not seek medical attention for this. Then, yesterday, the patient awoke not knowing what day it was and asking the same question over and over again. This lasted for 5 to 6 hours and he was prompted to come to the hospital for medical attention by his family. He is now feeling back to normal. His , who is at the bedside at the time of my interview and exam, states that he is 80% back to normal and she still feels like he is not laying down memory or acting quite like himself. His daughter, who was also at the bedside, reported that in the setting of the second event in late August this year he had an aura of a strange smell. He also was noted by his family to not be feeling well the day before each of these events. The patient has 2 to 3 beers daily as a regular routine. The night before this most recent presentation, he had had 5 to 6 beers. The patient thinks this is of no significance. The patient and his are both concerned that Symbicort, which he started for COPD, is causing the spells because they read on the Internet that Symbicort can be associated with memory loss. Mr. Hawkins's past medical history is remarkable for atrial fibrillation for which he is on Xarelto chronically, hypertension, hyperlipidemia, COPD and GERD. HOME MEDICATIONS: Include aspirin 81, Xarelto, simvastatin, Flonase, isosorbide, metoprolol, Symbicort, ranitidine, and an albuterol rescue inhaler. 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 He has some college education. He is a former smoker. He has moderate ongoing alcohol use as above. FAMILY HISTORY: His father had Alzheimer dementia and was diagnosed in his early 70s and at age 83. I reviewed with Mr. Hawkins the concern about shrapnel in his chest. He had an industrial accident in 1970 in which parts of a high [place] steel bearings were shot into his chest wall. He had surgical removal of most of the metal at the time of the accident in 1970, but was told that there were some retained metal fragments that were not pulled out. I reviewed 3 chest x-rays that he has had at our hospital and there is no metallic signal present on these. I reviewed the case with Radiology regarding MRI safety and we think it is likely safe for him to proceed with MRI. I examined Mr. Hawkins. He is a well-developed, well-nourished man who is in no acute distress. Level of arousal is normal. I administered version 7.3 of the [place] Cognitive Assessment. He scored 24/30. He missed 1 point for making an error on the trails B task. He missed 1 point for a subtle error in complex repetition and he missed 4 points on short-term recall. His short-term recall of 5 objects at 5 minutes was 1/5 without prompting. He was 4/5 with categories and 5/5 with multiple choice. ASSESSMENT AND RECOMMENDATIONS: Mr. Hawkins is a 66-year-old man who now presents with a third episode of altered mental status with prominent amnesia in the course of about 3 months. While features of this current presentation are certainly suggestive of transient global amnesia, the recurrent nature of the spells is unusual. This does raise some concern for possible epileptic etiology, and this was discussed with the patient and his family. I attempted, perhaps without success, to explain that I felt why the Symbicort was very unlikely to be associated with these spells as a causative factor. I did advise the patient that he should not drink more than 2 alcoholic beverages in any day as alcohol use can be both the trigger for seizure as well as a trigger for memory dysfunction. It is possible that the patient is underreporting so the alcohol use and there could be a causal connection here. He did not have an ethyl alcohol level checked upon admission. His U-tox was checked and that was normal. I advised that he undergo a repeat EEG. If this were abnormal, it would really point us toward an epileptic etiology, if it is normal it does not really help that much. I also recommended that he undergo an MRI with and without contrast with a seizure protocol to look for any focal abnormalities that might be epileptogenic or look for mesial temporal sclerosis. Discussed with the patient and family the possibility of empirically starting an antiepileptic. He is reluctant to do this. I do not think that we need to restrict his driving at this point in time as none of these spells have involved loss of consciousness from a waking state or loss of motor control. I have recommended to the patient that he establish followup with Dr. Aakash Coleman who he has seen twice before. I will plan to see him in followup in the hospital after the studies are completed. I spent 80 minutes of floor time in Mr. Hawkins's care. The majority of this was in coordination of care and counseling with the patient and his family regarding differential diagnosis and planned evaluation. Electronically Authenticated By: Alex Hummel MD 11/30/2017 02:31 P Alex Hummel MD es TD: 10:37 A TT: 11:09 A Doc #: [id number] cc: MD Alex Das MD Jonathan Tisdell, MD Details: Neuro f/u DOS 11/07/17 Dx: amnesia, transient alteration in awareness Pt seen in f/u. MRI nl (w/ sunny but no thin temporal coronals) EEG nl. Lengthy discussion w/ pt and dtr; later w/ Dr. Coleman. Agreed to start LTG 25 partha x 2 weeks then 25 BID x 2 weeks, then 50 BID. Pt to f/u w/ Dr. Coleman. No need to restrict driving. Avoidance of excess EtOH again reinforced. 45 min for time; thalia in counseling and coord care. at 1142 NOTE FROM T:s office The pt is calling her is experiencing confusion and memory loss all of a sudden she wants to know if they can come in today at any time if you can? Thank you. History Date / Time Action Action By Status Priority Assigned To Action Note 02-20-2018 9:53 AM Create [email or web address] REVIEW NEUROLOGY - [facility]PS - OFFICE STAFF 02-20-2018 9:54 AM [email or web address] REVIEW [email or web address] 02-20-2018 10:38 AM [email or web address] REVIEW Y [email or web address] 02-20-2018 12:26 PM Reply to Sender callie REVIEW Y [email or web address] I cannot see him today, he may have to go to the ED 02-20-2018 12:46 PM [email or web address] REVIEW [email or web address] l/m 02-20-2018 1:22 PM [email or web address] REVIEW [email or web address] I talked to the pt and she said can you fit him in any other day this week she said there not gonna go to the ed because it's too expensive. Im not sure what else to tell her. 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 * Telephone Encounter - Erendira Mccarthy RN - 02/21/2018 8:35 AM EST Per calling back. Please see message below. said last night around 7 p.m. He told hard to describe but I can smell something . said lasted about 3 hours long. could not smell anything; could not describe the smell. Also, please see message below about Sudden memory/confusion. asking is it possible to get him appointment today? . * Telephone Encounter - Duyen Delgadillo - 02/21/2018 8:33 AM EST Pt's calling back in - requesting call back re: pt's memory loss * Telephone Encounter - Duyen Delgadillo - 02/20/2018 2:55 PM EST Pt's calling in again - pt taking Lamotrigine - please call back * Telephone Encounter - Erendira Mccarthy RN - 02/20/2018 2:39 PM EST had sudden memory/confusion. thinks he had a minor seizure . This happened 5:30 a.m. This morning. did not know the year, date, what he was supposed to do today. states seems like all his short term memory is gone . Takes Lamotrigine 25 mg two tabs in a.m. And two tablets at h.s. Pt stopped lamotrigine 3 weeks ago because he ran out of the medicine. Pt stopped the medicine also because was making him confused. Patient asking for office visit gabe please. * Telephone Encounter - Mikaela Lozada - 02/20/2018 1:55 PM EST Baljit called for Tanisha pt of Dr. Hummel, she said he had another episode with his memory today. Please call. documented in this encounter Plan of Treatment Upcoming Encounters Date Type Department Care Team ([facility] st Contact Info) Description 07/11/2025 11:00 AM EDT Office Visit [facility] Cardiology [address] [address] Jose Angel Starkey MD [address] [place] [address] 1 yr documented as of this encounter Visit Diagnoses Not on filedocumented in this encounter Additional Health Concerns Infection Onset Date Last Indicated Resolved Time COVID-19 Rule-Out 06/08/2020 06/08/2020 06/08/2020 7:17 PM EDT documented as of this encounter Care Teams Putty Tinter Maker Relationship Specialty Start Date End Date Marija King DO PCP - General Family Medicine 08/23/17 05/11/21 Cathleen Palmer MD [address] [address] PCP - General Family Medicine 09/28/22 documented as of this encounter
--- OUTSIDE RECORDS SUMMARY | 2024-07-19 08:31 | XMS_ITS | Encounter Summary ---
Author Organization [facility] Address [address] [place] [address] Care Team Providers Care Flag Football Coach Name Role Phone ChristineMarija Lovely VARGAS Primary Care Provider [phone] Cathleen Palmer MD Primary Care Provider [phone] Encounter Details Date Type Department Care Team (Late Contact Info) Description 03/03/2018 Orders Only [facility] Card[facility] [address] [address] Kathryn Bansal DO [address] [place] [address] Medications Social History Tobacco Use Types Packs/Day [...] Description 07/11/2025 11:00 AM EDT Office Visit [facility] Card[facility] [address] [address] Jose Angel Starkey MD [address] [place] [address] 1 yr documented as of this encounter Visit Diagnoses Not on filedocumented in this encounter Additional Health Concerns Infection Onset Date Last Indicated Resolved Time COVID-19 Rule-Out 06/08/2020 06/08/2020 06/08/2020 7:17 PM EDT documented as of this encounter Care Teams Flag Football Coach Relationship Specialty Start Date End Date Marija King DO PCP - General Family Medicine 08/23/17 05/11/21 Cathleen Palmer MD [address] [address] PCP - General Family Medicine 09/28/22 documented as of this encounter
--- OUTSIDE RECORDS SUMMARY | 2024-07-19 08:31 | XMS_ITS | Encounter Summary ---
Author Organization [facility] Address [address] [place] [address] Care Team Providers Care Classification Counselor Name Role Phone Cathleen Palmer MD Primary Care Provider [phone] Encounter Details Date Type Department Care Team (Late Contact Info) Description 12/16/2021 Orders Only [facility] Pulmonary [address] 123 [facility] [address] [place] [phone] Juan Morse MD [address] [place] [address] Medications Social History Tobacco Use Types Packs/Day [...] Description 07/11/2025 11:00 AM EDT Office Visit [facility] Cardiology [address] 123 [facility] [address] [place] [phone] Jose Angel Starkey MD [address] [place] [address] 1 yr documented as of this encounter Visit Diagnoses Not on filedocumented in this encounter Care Teams Classification Counselor Relationship Specialty Start Date End Date Cathleen Palmer MD [address] [address] PCP - General Family Medicine 09/28/22 documented as of this encounter
--- OUTSIDE RECORDS SUMMARY | 2024-07-19 08:31 | XMS_ITS ---
Author Name [facility] Organization Unknown Encounters Encounter Type Encounter Reason Primary Diagnosis Location Date Ambulatory [facility] 12/22/2022 Care Team Organization Name Specialty Phone Email Start Date End Da te [facility] NO PROVIDER Primary Care 04/09/2023 [facility] 023 06/14/2024 [facility] 023 12/22/2022
--- OUTSIDE RECORDS SUMMARY | 2024-07-19 08:31 | XMS_ITS | Encounter Summary ---
Author Organization [facility] Address [address] [place] [address] Care Team Providers Care Tallow Maker Name Role Phone Christine Marija Lovely VARGAS Primary Care Provider [phone] Cathleen Palmer MD Primary Care Provider [phone] Reason for Visit * Reason Onset Date Comments Refill Request 01/28/2019 Encounter Details Date Type Department Care Team (Late Contact Info) Description 01/28/2019 Refill [facility] Cardiology [address] [phone] Kim Roberson, RN Refill Request Social History Tobacco Use Types [...] Description 07/11/2025 11:00 AM EDT Office Visit [facility] Card[facility] [address] [phone] Jose Angel Starkey MD [address] [place] [address] 1 yr documented as of this encounter Visit Diagnoses Not on filedocumented in this encounter Additional Health Concerns Infection Onset Date Last Indicated Resolved Time COVID-19 Rule-Out 06/08/2020 06/08/2020 06/08/2020 7:17 PM EDT documented as of this encounter Care Teams Tallow Maker Relationship Specialty Start Date End Date Marija King DO PCP - General Family Medicine 08/23/17 05/11/21 Cathleen Palmer MD [address] [address] PCP - General Family Medicine 09/28/22 documented as of this encounter
--- OUTSIDE RECORDS SUMMARY | 2024-07-19 08:31 | XMS_ITS | Clinical Summary ---
Author Organization [facility] Address [address] [place] [address] Care Team Providers Care Shine Worker Name Role Phone Marija Kign DO Primary Care Provider [phone] Allergies No known active allergies Medications aspirin 81 mg EC tablet Take 81 mg by mouth daily. Active SYMBICORT 160-4.5 mcg/actuation inhaler Inhale 2 puffs by mouth daily. 5 09/10/2017 Active PROAIR HFA 90 mcg/actuation inhaler INHALE 1 TO 2 PUFFS BY MOUTH EVERY 4 TO 6 HOURS NEEDED 5 06/19/2017 Active fluticasone (FLONASE) 50 mcg/actuation nasal spray SPRAY 1 SPRAY INTO EACH NOSTRIL EVERY DAY 5 10/18/2017 Active ADVAIR DISKUS 100-50 mcg/dose inhaler Inhale 1 puff by mouth 2 times a day. 0 11/07/2017 Active metoprolol succinate XL (TOPROL XL) 25 mg tablet Take 25 mg by mouth daily. 03/03/2018 Active levoFLOXacin (LEVAQUIN) 750 mg tablet 08/18/2017 Active lamoTRIgine (LaMICtal) 25 mg tablet TAKE 1 TAB BY MOUTH EVERY DAY FOR 2 WKS THEN TAKE 2 TAB PER DAY FOR 2 WKS THEN TAKE 50 MG 2X/DAY 2 12/04/2017 Active predniSONE (DELTASONE) 50 mg tablet Take 50 mg by mouth daily. 0 06/19/2017 Active ranitidine (ZANTAC) 150 mg tablet Take 150 mg by mouth every 12 hours. 5 10/11/2017 Active simvastatin (ZOCOR) 40 mg tablet Take 40 mg by mouth nightly. 03/03/2018 Active doxycycline hyclate (VIBRAMYCIN) 100 mg capsule Take 100 mg by mouth 2 times a day. 0 06/19/2017 Active azithromycin (ZITHROMAX) 250 mg tablet Take 250 mg by mouth 3 times a week. mon and mon05/16/2020 Active divalproex ER (DEPAKOTE ER) 500 mg tablet TAKE TWO TABLETS (1,000 MG TOTAL) BY MOUTH EVERY NIGHT AT BEDTIME 05/15/2020 Active isosorbide mononitrate ER (IMDUR) 60 mg tablet TAKE ONE TABLET (60 MG TOTAL) BY MOUTH 1 (ONE) TIME EACH DAY IN THE MORNING 05/16/[address] (PROTONIX) 40 mg tablet Take 1 tablet (40 mg total) by mouth daily. 30 tablet 11 06/09/2020 Active apixaban (Eliquis) 5 mg tablet Take 1 tablet (5 mg total) by mouth every 12 hours. 60 tablet 11 06/09/2020 3:51 PM EDT 06/09/2020 Active Active Problems Problem Noted Date Diagnosed Date Angina pectoris 04/10/2015 Right bundle-branch block 12/05/2014 Benign essential hypertension 12/05/2014 Dyslipidemia 12/05/2014 Smoking 06/29/2012 Arteriosclerosis of coronary artery 06/29/2012 Chest pain 06/29/2012 Family History Medical History Relation Name Comments Other Father Family History of coronary arteriosclerosis Other Paternal Grandfather Family History of coronary arteriosclerosis Relation Name Status Comments Father Paternal Grandfather Social History Tobacco Use Types Packs/Day Years [...] on file Sexual Orientation Not on file Last Filed Vital Signs Vital Sign Reading Time Taken Comments Blood Pressure 139/74 06/09/2020 4:00 PM EDT Pulse 54 06/09/2020 4:45 PM EDT Temperature 36.6 ??C (97.9 ??F) 06/09/2020 11:22 AM E DT Respiratory Rate 18 06/09/2020 4:45 PM EDT Oxygen Saturation 98% 06/09/2020 4:45 PM EDT Inhaled Oxygen Concentration - - Weight 112 kg (247 lb) 06/09/2020 11:22 AM EDT Height 177.8 cm (5' 10 ) 06/09/2020 11:22 AM EDT Body Mass Index 35.44 06/09/2020 11:22 AM EDT Plan of Treatment Health Maintenance Due Date Last Done Comments Cologuard 1950 Colon Cancer Screening 1950 Colonoscopy 1950 FOBT / Fit Test 1950 Hepatitis C Screening 1950 Sigmoidoscopy 1950 Zoster Vaccines (1 of 2) 11/13/1999 DTaP,Tdap,and Td Vaccines (1 - Tdap) 11/19/2002 0903/2002, 05/28/1999 RSV Vaccine (60+ years old a nd patients) (1 - Risk 60-74 years 1-dose series) 2009 Basic Metabolic Panel 12/06/2015 12/05/2014 Pneumococcal Vaccine: 50+ Ye ars (2 of 2 - PCV) 09/07/2018 09/07/2017 COVID-19 Vaccine (2 - season) 2023 Alcohol/Substance Use Screening 03/20/2024 Depression Screening and Follow-Up 03/20/2024 Health Care Proxy Review 03/20/2024 Social Drivers of Health Evelyn ual Screening 03/20/2024 Influenza Vaccine (Season Ended) 2024 03/01/20 20 Hepatitis B Vaccines Completed 02/05/2004, 08/05/2003, 12/03/1999 Procedures * Due to [place] [employer] law, this organization might not be sharing negative HIV tests. Procedure Name Priority Date/Time Associated Diagnosis Comments BASIC METABOLIC PANEL Routine 12/05/2014 9:09 AM EDT from Last 3 Months or Most Recently Relevant to Health Maintenance Results * Due to [place] law, this organization might not be sharing negative HIV tests. * (ABNORMAL) Basic Metabolic Panel (12/05/2014 9:09 AM EDT) Sodium Blood 139 135 - 145 mmol/L [facility] Potassium Blood 4.9 3.5 - 5.3 mmol/L [facility] Chloride Blood 104 97 - 110 mmol/L [facility] Carbon Dioxide 27 24 - 32 mmol/L [facility] Gap 8 5 - 15 [facility] Glucose 102(H) 70 - 99 mg/dL [facility] BUN 9 7 - 23 mg/dL [facility] Creatinine 1.02 0.60 - 1.30 mg/dL [facility] eGFR Non- >60 >60 [facility] Comment: Units = mL/min/1.73 m2 Glomerular Filtration Rate (GFR) is estimated based on the IDMS-Traceable MDRD equation(NKDEP).For Americans multiply results by 1.210. Patients with CKD exhibit values less than 60mL/min/1.73 m2, while results less than 15mL/min/1.73 m2 are consistent with kidney failure. This MDRD equation is not recommended by NKDEP for drug-dosing purposes or for children below 18 years of age. Calcium Blood 9.1 8.7 - 10.7 mg/dL [facility] 12/05/2014 9:09 AM EDT 12/05/2014 9:41 AM EDT us Mitesh Gillespie MD LAB BLOOD ORDERABLES Final Res ult [facility] [address] [place] [address], from Last 3 Months or Most Recently Relevant to Health Maintenance Insurance [employer]IG[employer] PPO/EPO/IND Advance Directives * Full Code (Latest Code Status on File) Date Activated Date Inactivated Comments 06/09/2020 1:31 PM 06/09/2020 7:11 PM * Full Code Date Activated Date Inactivated Comments 06/09/2020 11:18 AM 06/09/2020 1:31 PM Care Teams Shine Worker Relationship Specialty Start Date End Date Marija King DO [address] [place] [address] PCP - General 06/03/20
--- OUTSIDE RECORDS SUMMARY | 2024-07-19 08:31 | XMS_ITS | Encounter Summary ---
Author Organization [facility] Address [address] [place] [address] Care Team Providers Care Mr Teacher Name Role Phone Christine Marija Lovely VARGAS Primary Care Provider [phone] Cathleen Palmer MD Primary Care Provider [phone] Encounter Details Date Type Department Care Team (Late Contact Info) Description 10/31/2017 Orders [facility] Pulmonary [address] [facility] [address] [place] [phone] Juan Morse MD [address] [place] [address] Social History Tobacco Use Types Packs/Day Years [...] Description 07/11/2025 11:00 AM EDT Office Visit [facility] Cardiology [address] [facility] [address] [place] [phone] Jose Angel Starkey MD [address] [place], [place] [id number] 1 yr documented as of this encounter Procedures * Due to [place] state law, this organization might not be sharing negative HIV tests. Procedure Name Priority Date/Time Associated Diagnosis Comments [facility] Routine 10/31/2017 2:46 PM EDT Cough SOB (shortness of breath) CHICKEN FEATHERS (E85)IGE Routine 10/31/2017 2:46 PM EDT Cough SOB (shortness of breath) EOSINOPHILS, ABSOLUTE Routine 10/31/2017 2:46 PM EDT Cough SOB (shortness of breath) documented in this encounter Results * Due to [place] state law, this organization might not be sharing negative HIV tests. * CHICKEN FEATHERS (E85)IGE (10/31/2017 2:46 PM EDT) Chicken Feathers (E85) IgE <0.10 kU/L [facility] Chicken Feathers (E85) Class 0 [facility] 10/31/2017 2:46 PM EDT 10/31/2017 9:49 PM EDT Narrative Resulting Agency Comment [id number] Juan Morse MD LABORATORY Final Result Performing Organization Address [facility]/ZIP Co de Phone Number [facility] [address] [place] [address] * EOSINOPHILS, ABSOLUTE (10/31/2017 2:46 PM EDT) WBC 7.4 3.8 - 10.8 Thousand/u L [facility] Eosinophils # 163 15 - 500 cells/uL [facility] Eosinophils % 2.2 % [facility] 10/31/2017 2:46 PM EDT 10/31/2017 9:49 PM EDT Narrative Resulting Agency Comment [id number] Juan Morse MD LABORATORY Final Result Performing Organization Address City/[facility]/ZIP Co de Phone Number [facility] [address] [place] [address] * [facility] (10/31/2017 2:46 PM EDT) IgE 4 <VU=322 kU/L [facility] Constantino Grass (G6) IgE <0.10 kU/L [facility] Constantino Grass (G6) Class 0 [facility] Effie Grass(Kentucky Blue)(G8) IgE <0.10 kU/L [facility] Effie Grass(Kentucky Blue)(G8) Class 0 [facility] Common Ragweed (Short)(W1) IgE <0.10 kU/L [facility] Common Ragweed (Short)(W1) Class 0 [facility] Uzbek Plantain (W9) IgE <0.10 kU/L [facility] Uzbek Plantain (W9) Class 0 [facility] Rey's Quarters (Goosefoot) (W10) IgE <0.10 kU/L [facility] Rey's Quarters (Goosefoot) (W10) Class 0 [facility] [place] (T7) IgE <0.10 kU/L [facility] [place] (T7) Class 0 [facility] Cat Dander (E1) IgE <0.10 kU/L [facility] Cat Dander (E1) Class 0 [facility] Dog Dander (E5) IgE <0.10 kU/L [facility] Dog Dander (E5) Class 0 [facility] Cladosporium Herbarum (M2) IgE <0.10 kU/L [facility] Cladosporium Herbarum(M2) Class 0 [facility] Alternaria Alternata (M6) IgE <0.10 kU/L [facility] Alternaria Alternata (M6) Class 0 [facility] House Dust (Ripley-Jackie) (H2) IgE <0.10 kU/L [facility] House Dust (Marie-Jackie) (H2) Class 0 [facility] Dermatophagoides Farinae(D2) IgE <0.10 kU/L [facility] Dermatophagoides Farinae(D2) Class 0 [facility] 10/31/2017 2:46 PM EDT 10/31/2017 9:49 PM EDT Narrative Resulting Agency Comment [id number] Juan Morse MD LABORATORY Final Result [facility] [address] [place] [address] documented in this encounter Visit Diagnoses Diagnosis Cough SOB (shortness of breath) Shortness of breath documented in this encounter Additional Health Concerns Infection Onset Date Last Indicated Resolved Time COVID-19 Rule-Out 06/08/2020 06/08/2020 06/08/2020 7:17 PM EDT documented as of this encounter Care Teams Mr Teacher Relationship Specialty Start Date End Date Marija King DO PCP - General Family Medicine 08/23/17 05/11/21 Cathleen Palmer MD [address] [address] PCP - General Family Medicine 09/28/22 documented as of this encounter
--- OUTSIDE RECORDS SUMMARY | 2024-07-19 08:31 | XMS_ITS | Encounter Summary ---
Author Organization [facility] Address [address] [place] [address] Care Team Providers Care Test Developer Name Role Phone Cathleen Palmer MD Primary Care Provider [phone] Reason for Visit * Reason Comments E-prescribing Refill Request Encounter Details Date Type Department Care Team ([facility] st Contact Info) Description 06/14/2021 Refill [facility] Neurology [address] [phone] Alex Hummel MD [address] [facility] [address] [place] [address] [place] [id number] E-prescribing Refill Request Social History Tobacco Use [...] encounter Miscellaneous Notes * Telephone Encounter - Tina Guo RN - 06/14/2021 3:31 PM EDT Any special requests or concerns? none Faxed/E-prescribed medication renewal request(s) for Santos Hawkins 70 y.o. male received from pharmacy. The most recent pharmacy on file was used. Last CPE with this specialty: Not Found Last OV with this specialty: 10/18/2019 Next OV: Future Appointments Date Time Provider Department Phone 07/22/21 10:30 AM Alex Hummel MD [facility] Neurology [address] 05/20/22 10:00 AM Jose Angel Starkey MD [facility] Cardiology [address] Pertinent lab results: Lab Results Component Value Date WBC 6.2 05/08/2020 HGB 14.7 05/08/2020 HCT 39 (L) 06/09/2020 PLATELETS 181 05/08/2020 MCV 92.2 05/08/2020 RDW 13.2 05/08/2020 An open order for CBC does not exist. Lab Results Component Value Date VALPROIC 30.5 (L) 05/03/2019 An open order for a Depakote/Valproic Acid level does not exist. Drug level, platelet count and liver testing recommended yearly for chronic therapy. Based on last lab testing intervals, 1 month supply suggested for Depakote/Valproic Acid. Please arrange updated lab monitoring. No results found for: AST, ALTAn open order for AST, ALT or LFT does not exist. Based recommended yearly WBC count and liver testing, 1 month supply suggested for Ticlopidine due to risk of neutropenia and liver toxicity. Please arrange updated lab monitoring. Allergies: Patient has no known allergies. BP Readings from Last 1 Encounters: 05/17/21 129/65 Current Outpatient Medications on File Prior to Visit Medication Sig Dispense Refill ??? DIVALPROEX SODIUM, MIGRAINE, (DEPAKOTE) 500 MG 24 hr tablet Take two tablets (1,000 mg total) by mouth every night at bedtime 60 tablet 1 ??? Cyclobenzaprine HCl (FLEXERIL) 5 MG tablet 1 pill nightly x 1 week 7 tablet 0 ??? Pantoprazole Sodium (PROTONIX) 40 MG EC tablet Take 40 mg by mouth 1 (one) time each day ??? Metoprolol Succinate (TOPROL-XL) 50 MG 24 hr tablet Take one tablet (50 mg total) by mouth 1 (one) time each day (Patient taking differently: Take 50 mg by mouth 1 (one) time each day Patient is taking 25 mg) 90 tablet 3 ??? Rivaroxaban (Xarelto) tablet Take one tablet (20 mg total) by mouth 1 (one) time each day 90 tablet 3 ??? Simvastatin (ZOCOR) 40 MG tablet TAKE 1 TABLET(40 MG) BY MOUTH EVERY NIGHT AT BEDTIME 90 tablet3 ??? Budesonide-Formoterol Fumarate (Symbicort) 160-4.5 MCG/ACT inhaler Inhale two puffs 2 (two) times a day 30.6 Inhaler 3 ??? Lisinopril (PRINIVIL,ZESTRIL) 10 MG tablet Take one tablet (10 mg total) by mouth 1 (one) time each day 90 tablet 3 ??? amLODIPine Besylate (NORVASC) 10 MG tablet Take one tablet (10 mg total) by mouth 1 (one) time each day Take 1 table 10mg each day 30 tablet 11 ??? Nitroglycerin (NITROSTAT) 0.4 MG SL tablet Take one tablet (0.4 mg total) by mouth every 5 (five) minutes if needed for chest pain up to 3 tablets per episode. 90 tablet 3 ??? Isosorbide Mononitrate CR (IMDUR) 60 MG 24 hr tablet TAKE ONE TABLET (60 MG TOTAL) BY MOUTH 1 (ONE) TIME EACH DAY IN THE MORNING 90 tablet 3 ??? Aspirin 81 MG Tab 1 TABLET DAILY documented in this encounter Plan of Treatment Upcoming Encounters Date Type Department Care Team (Late st Contact Info) Description 07/11/2025 11:00 AM EDT Office Visit [facility] Cardiology [address] [facility] [address] [place] [address] Jose Angel Starkey MD [address] [place] [address] 1 yr documented as of this encounter Visit Diagnoses Not on filedocumented in this encounter Care Teams Test Developer Relationship Specialty Start Date End Date Cathleen Palmer MD [facility] [address] [address] PCP - General Family Medicine 09/28/22 documented as of this encounter
--- OUTSIDE RECORDS SUMMARY | 2024-07-19 08:31 | XMS_ITS | Referral Summary ---
Author Organization [facility] Address [address] [place] [address] Care Team Providers Care Disk Sharpener Name Role Phone Marija King DO Primary Care Provider [phone] Allergies No known active allergies Medications aspirin [...] of coronary artery 06/29/2012 Chest pain 06/29/2012 Social History Tobacco Use Types Packs/Day Years Used Date Smoking Tobacco: Former Cigarettes 0.3 55 0 03/20/1964 - 03/20/2011 Smokeless Tobacco: Never Comments:: Alcohol Use Standard Drinks/Week Comments Yes 14 (1 standard drink = 0.6 oz pu re alcohol) bourbon and coke Sex and Gender Information Value Date Recorded [...] 06/09/2020 11:22 AM EDT Plan of Treatment Not on file Procedures * Due to [place] [employer] law, this organization might not be sharing negative HIV tests. Procedure Name Priority Date/Time Associated Diagnosis Comments BASIC METABOLIC PANEL Routine 12/05/2014 9:09 AM EDT from Last 3 Months or Most Recently Relevant to Health Maintenance Results * Due to [place] [employer] law, this organization might not be sharing negative HIV tests. * (ABNORMAL) Basic Metabolic Panel (12/05/2014 9:09 AM EDT) Sodium Blood 139 135 - 145 mmol/L [facility] Potassium Blood 4.9 3.5 - 5.3 mmol/L [facility] Chloride Blood 104 97 - 110 mmol/L [facility] Carbon Dioxide 27 24 - 32 mmol/L [facility] Gap 8 5 - 15 [facility] Glucose 102(H) 70 - 99 mg/dL [facility] BUN 9 7 - 23 mg/dL [facility] Creatinine 1.02 0.60 - 1.30 mg/dL [facility] eGFR Non- >60 >60 [facility] Comment: Units = [...] Calcium Blood 9.1 8.7 - 10.7 mg/dL [facility] 12/05/2014 9:09 AM EDT 12/05/2014 9:41 AM EDT us Mitesh Gillespie MD LAB BLOOD ORDERABLES Final Res ult [facility] [address] [place] [address], from Last 3 Months or Most Recently Relevant to Health Maintenance Insurance [employer] CIGNA PPO/EPO/IND Advance Directives * Full Code (Latest Code Status on File) Date Activated Date Inactivated Comments 06/09/2020 1:31 PM 06/09/2020 7:11 PM * Full Code Date Activated Date Inactivated Comments 06/09/2020 11:18 AM 06/09/2020 1:31 PM Care Teams Disk Sharpener Relationship Specialty Start Date End Date Marija King DO [address] [place] [address] PCP - General 06/03/20
--- OUTSIDE RECORDS SUMMARY | 2024-07-19 08:31 | XMS_ITS | Encounter Summary ---
Author Organization [facility] Address [address] [place] [address] Care Team Providers Care Business Executive Name Role Phone HiGabe Primary Care Provider [phone] Marija King DO Primary Care Provider [phone] Cathleen Palmer MD Primary Care Provider [phone] Encounter Details Date Type Department Care Team (Late st Contact Info) Description 08/27/2015 Orders Only [facility] Cardiology [address] [phone] Valentin Vitale MD [address] [place] [id number] Social History Tobacco Use Types Packs/Day Years [...] Description 07/11/2025 11:00 AM EDT Office Visit [facility] Cardiology [address] [address] Jose Angel Starkye MD [address] [place], [place] [id number] 1 yr documented as of this encounter Procedures * Due to [place] state law, this organization might not be sharing negative HIV tests. Procedure Name Priority Date/Time Associated Diagnosis Comments CBC INCLUDES DIFFERENTIAL AND PLATELET COUNT Routine 08/27/2015 8:34 AM EDT Abnormal cardiovascular stress test Atherosclerosis of coronary artery, angina presence unspecified, unspecified vessel or lesion type, unspecified whether [place] or transplanted heart [I25.10] Paroxysmal atrial fibrillation (HCC) [I48.0] Hyperlipidemia, unspecified hyperlipidemia type [E78.5] Essential hypertension with goal blood pressure less than 130/80 [I10] TSH, 3RD GENERATION Routine 08/27/2015 8 :34 AM EDT Abnormal cardiovascular stress test Atherosclerosis of coronary artery, angina presence unspecified, unspecified vessel or lesion type, unspecified whether [place] or transplanted heart [I25.10] Paroxysmal atrial fibrillation (HCC) [I48.0] Hyperlipidemia, unspecified hyperlipidemia type [E78.5] Essential hypertension with goal blood pressure less than 130/80 [I10] LIPID PANEL WITH REFLEX TO DIRECT LDL Routine 08/27/2015 8:34 AM EDT Abnormal cardiovascular stress test Atherosclerosis of coronary artery, angina presence unspecified, unspecified vessel or lesion type, unspecified whether [place] or transplanted heart [I25.10] Paroxysmal atrial fibrillation (HCC) [I48.0] Hyperlipidemia, unspecified hyperlipidemia type [E78.5] Essential hypertension with goal blood pressure less than 130/80 [I10] BASIC METABOLIC PANEL WITH (GFR) Routine 08/27/2015 8:34 AM EDT Abnormal cardiovascular stress test Atherosclerosis of coronary artery, angina presence unspecified, unspecified vessel or lesion type, unspecified whether [place] or transplanted heart [I25.10] Paroxysmal atrial fibrillation (HCC) [I48.0] Hyperlipidemia, unspecified hyperlipidemia type [E78.5] Essential hypertension with goal blood pressure less than 130/80 [I10] documented in this encounter Results * Due to [place] law, this organization might not be sharing negative HIV tests. * (ABNORMAL) LIPID PANEL WITH REFLEX TO DIRECT LDL (08/27/2015 8:34 AM EDT) Cholesterol 112(L) 125 - 200 mg/dL [facility] Comment:{CHOLESTEROL, TOTAL {[id number]) HDL Cholesterol 39(L) > OR = 40 mg/dL [facility] Comment:{HDL CHOLESTEROL {[id number]) Triglyceride 176(H) <150 mg/dL [facility] Comment:{TRIGLYCERIDES {[id number]) LDL Cholesterol 38 <130 mg/dL (calc) [facility] Comment: {LDL-CHOLESTEROL {[id number]) Desirable range <100 mg/dL for patients with CHD or diabetes and <70 mg/dL for diabetic patients with known heart disease. CHOL/HDL Ratio 2.9 < OR = 5.0 (calc) [facility] Comment:{CHOL/HDLC RATIO {[id number]) Cholesterol Non-HDL 73 mg/dL (calc) [facility] Comment: {NON HDL CHOLESTEROL {[id number]) Target for non-HDL cholesterol is 30 mg/dL higher than LDL cholesterol target. 08/27/2015 8:34 AM EDT 08/27/2015 7:39 PM EDT Narrative Resulting Agency Comment [id number] Valentin Vitale MD LABORATORY Final Result Performing Organization Address [facility] Co de Phone Number [facility] [address] [place] [address] * TSH, 3RD GENERATION (08/27/2015 8:34 AM EDT) TSH 1.24 0.40 - 4.50 mIU/L [facility] Comment:{TSH {[id number]) 08/27/2015 8:34 AM EDT 08/27/2015 7:39 PM EDT Narrative Resulting Agency Comment [id number] Valentin Vitale MD LABORATORY Final Result Performing Organization Address [facility] Co de Phone Number [facility] [address] [place] [address] * BASIC METABOLIC PANEL WITH (GFR) (08/27/2015 8:34 AM EDT) [facility] Glucose 99 65 - 99 mg/dL [facility] Comment: {GLUCOSE {[id number]) ? Fasting reference interval Urea Nitrogen Blood (BUN) 12 7 - 25 mg/dL [facility] Comment:{UREA NITROGEN (BUN) {[id number]) Creatinine 1.10 0.70 - 1.25 mg/dL [facility] Comment: {CREATININE {[id number]) For patients >49 years of age, the reference limit for Creatinine is approximately 13% higher for people identified as -[place]. GFR 70 > OR = 60 mL/min/1 .73m2 [facility] Comment:{eGFR NON-AFR. AMERI CAN {[id number]) GFR () 81 > OR = 60 mL/min/1 .73m2 [facility] Comment:{eGFR AMERIC AN {[id number]) BUN/Creatinine Ratio NOT APPLICABLE (calc) [facility] Comment:{BUN/CREATININE RATI O {[id number]) Sodium 139 135 - 146 mmol/L [facility] Comment:{SODIUM {[id number]) Potassium 4.7 3.5 - 5.3 mmol/L [facility] Comment:{POTASSIUM {[id number]) Chloride 105 98 - 110 mmol/L [facility] Comment:{CHLORIDE {[id number]) Carbon dioxide 26 19 - 30 mmol/L [facility] Comment:{CARBON DIOXIDE {[id number]) Calcium 9.4 8.6 - 10.3 mg/dL [facility] Comment:{CALCIUM {[id number]) 08/27/2015 8:34 AM EDT 08/27/2015 7:39 PM EDT Narrative [facility] - 08/28/2015 1:33 AM EDT Please note that this estimated [...] needs for GFR calculation. Resulting Agency Comment [id number] Valentin Vitale MD LABORATORY Final Result [facility] [address] [place] [address] * CBC INCLUDES DIFFERENTIAL AND PLATELET COUNT (08/27/2015 8:34 AM EDT) WBC 6.0 3.8 - 10.8 Thousand/u L [facility] Comment:{WHITE BLOOD CELL CO UNT {[id number]) RBC 4.88 4.20 - 5.80 Million/uL [facility] Comment:{RED BLOOD CELL COUN T {[id number]) Hemoglobin 15.2 13.2 - 17.1 g/dL [facility] Comment:{HEMOGLOBIN {[id number]) Hematocrit 44.6 38.5 - 50.0 % [facility] Comment:{HEMATOCRIT {[id number]) MCV 91.5 80.0 - 100.0 fL [facility] Comment:{MCV {[id number]) MCH 31.2 27.0 - 33.0 pg [facility] Comment:{MCH {[id number]) MCHC 34.1 32.0 - 36.0 g/dL [facility] Comment:{MCHC {[id number]) RDW 12.9 11.0 - 15.0 % [facility] Comment:{RDW {[id number]) PLT 191 140 - 400 Thousand/u L [facility] Comment:{PLATELET COUNT {[id number]) MPV 8.9 7.5 - 11.5 fL [facility] Comment:{MPV {[id number]) Neutrophils # 2856 1500 - 7800 cells/uL [facility] Comment:{ABSOLUTE NEUTROPHIL S {[id number]) Lymphocytes # 2508 850 - 3900 cells/uL [facility] Comment:{ABSOLUTE LYMPHOCYTE S {[id number]) Monocytes # 486 200 - 950 cells/uL [facility] Comment:{ABSOLUTE MONOCYTES {[id number]) Eosinophils # 126 15 - 500 cells/uL [facility] Comment:{ABSOLUTE EOSINOPHIL S {[id number]) Basophils # 24 0 - 200 cells/uL [facility] Comment:{ABSOLUTE BASOPHILS {[id number]) Neutrophils % 47.6 % [facility] Comment:{NEUTROPHILS {[id number]) Lymphocytes % 41.8 % [facility] Comment:{LYMPHOCYTES {[id number]) Monocytes % 8.1 % [facility] Comment:{MONOCYTES {[id number]) Eosinophils % 2.1 % [facility] Comment:{EOSINOPHILS {[id number]) Basophils % 0.4 % [facility] Comment:{BASOPHILS {[id number]) 08/27/2015 8:34 AM EDT 08/27/2015 7:39 PM EDT Narrative Resulting Agency Comment [id number] us Valentin Vitale MD LAB SAME DAY RESULT Final Resul t Performing Organization Address City/State/[facility] Co de Phone Number [facility] [address] [place] [address] documented in this encounter Visit Diagnoses Diagnosis Abnormal cardiovascular stress test Other nonspecific abnormal cardiovascular system function study Atherosclerosis of coronary artery, angina presence unspecified, unspecified vessel or lesion type, unspecified whether [place] or transplanted heart [I25.10] Paroxysmal atrial fibrillation (HCC) [I48.0] Atrial fibrillation Hyperlipidemia, unspecified hyperlipidemia type [E78.5] Essential hypertension with goal blood pressure less than 130/80 [I10] documented in this encounter Additional Health Concerns Infection Onset Date Last Indicated Resolved Time COVID-19 Rule-Out 06/08/2020 06/08/2020 06/08/2020 7:17 PM EDT documented as of this encounter Care Teams Business Executive Relationship Specialty Start Date End Date Gabe Do [facility] [address] [place] [address] PCP - General 03/24/06 08/22/17 Marija King DO [facility] [address] [place] [address] PCP - General Family Medicine 08/23/17 05/11/21 [place] [address] PCP - General Family Medicine 09/28/22 documented as of this encounter
--- OUTSIDE RECORDS SUMMARY | 2024-07-19 08:32 | XMS_ITS | Encounter Summary ---
Author Organization [facility] Address [address] [place] [address] Care Team Providers Care Job Tracer Name Role Phone Christine Marija Lovely VARGAS Primary Care Provider [phone] Cathleen Palmer MD Primary Care Provider [phone] Reason for Visit * Reason Onset Date Comments Refill Request 01/28/2019 Encounter Details Date Type Department Care Team (Late Contact Info) Description 01/28/2019 Refill [facility] Cardiology [address] [phone] Kim Roberson, RN Refill Request Social History [...] Description 07/11/2025 11:00 AM EDT Office Visit [facility] Cardiology [address] [phone] Jose Angel Starkey MD [address] [place] [address] 1 yr documented as of this encounter Visit Diagnoses Not on filedocumented in this encounter Additional Health Concerns Infection Onset Date Last Indicated Resolved Time COVID-19 Rule-Out 06/08/2020 06/08/2020 06/08/2020 7:17 PM EDT documented as of this encounter Care Teams Job Tracer Relationship Specialty Start Date End Date Marija King DO PCP - General Family Medicine 08/23/17 05/11/21 Cathleen Palmer MD [address] [address] PCP - General Family Medicine 09/28/22 documented as of this encounter
--- OUTSIDE RECORDS SUMMARY | 2024-07-19 08:32 | XMS_ITS | Encounter Summary ---
Author Organization [facility] Address [address] [place] [address] Care Team Providers Care Electric Range Assembler Name Role Phone Marija King DO Primary Care Provider [phone] Cathleen Palmer MD Primary Care Provider [phone] Encounter Details Date Type Department Care Team (Late Contact Info) Description 12/19/2018 [facility] Pulmonary [address] [facility] [address] [place] [address] Juan Morse MD [address] [place] [address] Social History Tobacco Use Types Packs/Day Years [...] as of this encounter Progress Notes * Tina Fonseca RN - 12/19/2018 3:36 PM EDT FunCaptchat message sent on 12/27 documented in this encounter Plan of Treatment Upcoming Encounters Date Type Department Care Team (Late st Contact Info) Description 07/11/2025 11:00 AM EDT Office Visit [facility] Cardiology [address] [facility] [address] [place] [address] Jose Angel Starkey MD [address] [place] [address] 1 yr documented as of this encounter Procedures * Due to [place] [employer] law, this organization might not be sharing negative HIV tests. Procedure Name Priority Date/Time Associated Diagnosis Comments C-REACTIVE PROTEIN (CRP) - INFLAMMATION Routine 12/19/2018 3:36 PM EDT Recurrent respiratory infection IMMUNOGLOBULIN G,SUBCLASSES 1-4 SERUM Routine 12/19/2018 3:36 PM EDT Recurrent respiratory infection VENIPUNCTURE Routine 12/19/2018 3:36 PM EDT Recurrent respiratory infection documented in this encounter Results * Due to [place] [employer] law, this organization might not be sharing negative HIV tests. * C-REACTIVE PROTEIN (CRP) - INFLAMMATION (12/19/2018 3:36 PM EDT) C reactive protein 0.9 <8.0 mg/L [facility] 12/19/2018 3:36 PM EDT 12/19/2018 11:34 PM EDT Narrative Resulting Agency Comment [id number] Juan Morse MD LABORATORY Final Result Performing Organization Address City/State/[facility] Co de Phone Number [facility] [address] [place] [address] * IMMUNOGLOBULIN QUANTITATION (IGG, IGM, IGA) (12/19/2018 3:36 PM EDT) IgA 142 20 - 320 mg/dL [facility] IgG 1024 600 - 1540 mg/dL [facility] IgM 112 50 - 300 mg/dL [facility] 12/19/2018 3:36 PM EDT 12/19/2018 11:34 PM EDT Narrative Resulting Agency Comment [id number] Juan Morse MD LABORATORY Final Result Performing Organization Address City/[facility]/ZIP Co de Phone Number [facility] [address] [place] [address] * IMMUNOGLOBULIN G,SUBCLASSES 1-4 SERUM (12/19/2018 3:36 PM EDT) IgG subclass 1 504 382 - 929 mg/dL [facility] IgG subclass 2 391 241 - 700 mg/dL [facility] IgG subclass 3 58 22 - 178 mg/dL [facility] IgG subclass 4 14.9 4 - 86 mg/dL [facility] IgG 959 600 - 1540 mg/dL [facility] 12/19/2018 3:36 PM EDT 12/19/2018 11:34 PM EDT Narrative Resulting Agency Comment [id number] Juan Morse MD LABORATORY Final Result Performing Organization Address City/[facility] Co de Phone Number [facility] [address] [place] [address] documented in this encounter Visit Diagnoses Diagnosis Recurrent respiratory infection Other diseases of respiratory system, not elsewhere classified documented in this encounter Additional Health Concerns Infection Onset Date Last Indicated Resolved Time COVID-19 Rule-Out 06/08/2020 06/08/2020 06/08/2020 7:17 PM EDT documented as of this encounter Care Teams Electric Range Assembler Relationship Specialty Start Date End Date Marija King DO PCP - General Family Medicine 08/23/17 05/11/21 Cathleen Palmer MD [address] [address] PCP - General Family Medicine 09/28/22 documented as of this encounter
--- OUTSIDE RECORDS SUMMARY | 2024-07-19 08:32 | XMS_ITS | Encounter Summary ---
Author Organization [facility] Address [address] [place] [address] Care Team Providers Care Radar Tester Name Role Phone Cathleen Palmer MD Primary Care Provider [phone] Encounter Details Date Type Department Care Team (Late st Contact Info) Description 09/29/[address] [facility] Pulmonary [address] [facility] [address] [place] [phone] Juan Morse MD [address] [place] [address] Social History Tobacco Use Types Packs/Day Years Used Date Smoking Tobacco: Former Cigarettes 0.2 51 0 10/31/1964 - 11/01/2015 Passive Smoke Exposure: Never Smokeless Tobacco: Never Comments:quit 2012 Alcohol Use [...] Description 07/11/2025 11:00 AM EDT Office Visit [facility] Cardiology [address] [facility] [address] [place] [phone] Jose Angel Starkey MD [address] [place] [address] 1 yr documented as of this encounter Results * Due to [place] state law, this organization might not be sharing negative HIV tests. * XRAY CHEST, 2 VIEWS, PA & LATERAL (DX: F/U ABNL CXR R91.8/ 793.2) (1 MTH FROM LAST) FC (11/02/2022 12:43 PM EDT) Anatomical Region Laterality Modality CHEST Radiographic Eriac ging 11/02/2022 5:04 PM EDT Narrative 11/02/2022 [...] unremarkable. Impression: 1. No acute pulmonary disease. Juan Morse MD IMG XRAY NO CONTRAST ORDERABL ES Final Result documented in this encounter Visit Diagnoses Not on filedocumented in this encounter Care Teams Radar Tester Relationship Specialty Start Date End Date Cathleen Palmer MD [facility] [address] [address] PCP - General Family Medicine 09/28/22 documented as of this encounter
--- NOTE | 2024-07-19 09:09 | A.OFFVIS_ITS ---
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 Allergies No Known Allergies Allergy (Verified 07/19/24 09:12) Medication List - Last Reconciled 07/19/24 by Ciro Gardner MD amlodipine 10 mg PO DAILY cholecalciferol (vitamin D3) 1,250 mcg PO QWEEK divalproex ER 1,000 mg PO BEDTIME famotidine (Pepcid) 20 mg PO DAILY fluticasone propion-salmeterol 250-50 mcg/dose (Wixela Inhub) inhalation isosorbide mononitrate ER 60 mg PO DAILY lisinopril 10 mg PO DAILY mecobalamin (vitamin B12) 1,000 mcg PO DAILY metoprolol succinate ER 50 mg PO DAILY rivaroxaban (Xarelto) 20 mg PO DAILY simvastatin 40 mg PO BEDTIME HPI 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: Details: Start time: 9.06am, End time: 10.06am ?I spent 55 minutes speaking with the patient on the phone plus an additional 5 minutes reviewing and updating records for a total of 60 minutes HPI Comments Details: Previous weight loss efforts: WW, GLP-1: stopped due to kidney problem Wakes up: 6.30am, Sleeps: 10.15pm Breakfast: 9am (Muffin) 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, 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) Dinner: 6pm (kittitian food) Snacks: 10am (nuts, candy), 4pm (nuts and candy), 9pm (same) Exercise: None Beverages: Coffee: (2 cups/d with black), tea: none, soda: (zero calories Yates drink), juice: none, ETOH: (1/wk glass of wine) [facility] Medical History (Updated 07/19/24 @ 10:00 by Ciro Gardner MD) Bronchitis Asthma Seizure Hyperlipidemia Sleep apnea with use of continuous positive airway pressure (CPAP) GERD (gastroesophageal reflux disease) CAD (coronary artery disease) Hypertension BMI 36.0-36.9,adult Obesity Surgical History (Updated 07/01/24 @ 14:26 by QING Sheldon) History of cardiac cath H/O colonoscopy Social History (Updated 07/01/24 @ 14:28 by QING Sheldon) Alcohol intake: current Alcohol intake frequency: a few times a month Alcohol type: beer Comment: a beer per every few months Patient Tobacco Use Status: Former Tobacco user Telehealth Telehealth Telehealth Platform: Telephone Location of provider rendering services: practice address Location of patient: address on file Patient Identification confirmed using: Name, : Yes Telehealth method: voice only Patient verbally consented to treatment: Yes Patient verbally consented to billing insurance company: Yes Patient informed of any privacy concerns related to visit: Yes Minutes spent on Phone/Video with Pt.: 60 Assessment & Plan Assessment & Plan (1) Obesity: Code(s): E66.9 - Obesity, unspecified Category: Medical Qualifiers: Obesity type: due to excess calories Obesity classification: adult class 2 (BMI 35 - 39.9) Serious obesity comorbidity presence: with serious comorbidity Body mass index: BMI 36.0-36.9 Qualified Code(s): E66.812 - Obesity, class 2; E66.01 - Morbid (severe) obesity due to excess calories; Z68.36 - Body mass index [BMI] 36.0-36.9, adult Plan: 1.? Plan for lap sleeve gastrectomy. If diaphragmatic or ventral hernias are present at time of surgery, these will be repaired laparoscopically as well. I emphasized the importance of close follow-up, adherence to instructions and good communication. The surgery does not replace the need to change your lifestlyle which is the cause of the obesity problem. The surgery provides the motivation to try again to change your lifestyle, it reduces the appetite and make the transition to a better lifestyle easier and doubles the amount of weight you would lose compared to doing the lifestyle change without the surgery. You will need to be on a liquid diet with protein shakes for 2 weeks before surgery to maximize weight loss and boost your nutritional status to recover better from surgery and also for the first two weeks after surgery to let the stomach heal before we introduce other foods. After the first 2 weeks we will introduce protein bars and soft foods like scrambled eggs, cottage cheese and yogurt and after the 6th week will introduce meat, fish and cooked vege tables in small amounts. Over time you should be able to eat everything in small amounts. Side effects like nausea, vomiting, heartburn or abdominal pain are not common in the practice unless you are not following in the practice. This operation requires lifetime commitment to following in our practice and communication with me. You will much less weight and experience side effects if you don?t communicate or not following in the practice. Complications are rare and in our practice is about 1/10 of the national average. However, you can develop bleeding that may require transfusion (hasn?t happened for year in the practice), you may from complications (we did not have any deaths in the practice) and infections. Infections are usually a result of breakdown in communication or not understanding or following directions correctly. They are difficult to treat, they can happen during the first 6 weeks, they may require to be in the hospital for weeks or even months, not being able to eat by mouth and you may have drains and surgeries to try and correct the issue. 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 2. You will receive a link of our software becky to generate an individualized nutritional and exercise plan specific for you. Please send me a screenshot of the plans you will generate Meal to include lean meat (beef, fish, pork, turkey, chicken), or tajik yogurt, or egg whites, or beans with a salad with olive oil and fruits (berries, pears, apples, kiwi). Avoid salt, breads, potatoes, rice, pasta, desserts. ?3. If you choose shakes, each shake would be drunk slowly, like coffee in a period of 2 hours. ?4. If you choose bars, cut each bar in 4 pieces and eat each piece in 30min ?to make each bar last 2 hours. ?5. I emphasized the importance of measuring accurately the food portion and measure it when serving the food in plate ?6. The meal portions include a specific number of forks of meat and salad. You always eat the meat portion but you can replace up to half of salad/vegetables portion with rice, potatoes or pasta, or a fruit ?if you like. The less you do it the better weight loss will be. ?7. One full-size fork is what it can be scooped on the fork without falling aside and not what can be bit with the fork. Use regular forks like those you find in a typical restaurant. ?8.? Please buy the body composition scale we discussed and send me weight measurements as soon as possible and then once a week. Always include your diet and exercise plan. 9. The best choice would be to purchase a stationary bike at home that can track calories. You can create and exercise plan with the [place] becky. ?10. Goal is to lose at least 1.5-2lbs per week ?11. Goal to lose 10% of your weight before surgery, which is about 26lbs. Ultimate weight goal: 225lbs before surgery 12. Please follow the diet plan exactly without any change. If you don't like something about the plan or you feel hungry you need to communicate with me so I can help you revise the plan. You should not change the plan yourself. 13. To be scheduled for EGD due to the history of GERD. The possibility of biopsies was discussed. Patient needs to avoid use of NSAIDs and aspirin for 1 week prior to EGD. You must be on liquids only the day before your endoscopy. Risks of perforation and bleeding was discussed with the patient. This will be an outpatient procedure with IV sedation. Orders: Orders Hemoglobin A1c Today E66.9 - Obesity, unspecified, E78.5 - Hyperlipidemia, unspecified, G47.30 - Sleep apnea, unspecified, I10 - Essential (primary) hypertension, I25.10 - Atherosclerotic heart disease of [place] coronary artery without angina pectoris, J45.909 - Unspecified asthma, uncomplicated, K21.9 - Gastro-esophageal reflux disease without esophagitis, Z68.36 - Body mass index [BMI] 36.0-36.9, adult H Pylori Breath Test Today E66.9 - Obesity, unspecified, E78.5 - Hyperlipidemia, unspecified, G47.30 - Sleep apnea, unspecified, I10 - Essential (primary) hypertension, I25.10 - Atherosclerotic heart disease of [place] coronary artery without angina pectoris, J45.909 - Unspecified asthma, uncomplicated, K21.9 - Gastro-esophageal reflux disease without esophagitis, Z68.36 - Body mass index [BMI] 36.0-36.9, adult Lipid Panel Today E66.9 - Obesity, unspecified, E78.5 - Hyperlipidemia, unspecified, G47.30 - Sleep apnea, unspecified, I10 - Essential (primary) hypertension, I25.10 - Atherosclerotic heart disease of [place] coronary artery without angina pectoris, J45.909 - Unspecified asthma, uncomplicated, K21.9 - Gastro-esophageal reflux disease without esophagitis, Z68.36 - Body mass index [BMI] 36.0-36.9, adult Comprehensive Met. Panel Today E66.9 - Obesity, unspecified, E78.5 - Hyperlipidemia, unspecified, G47.30 - Sleep apnea, unspecified, I10 - Essential (primary) hypertension, I25.10 - Atherosclerotic heart disease of [place] coronary artery without angina pectoris, J45.909 - Unspecified asthma, uncomplicated, K21.9 - Gastro-esophageal reflux disease without esophagitis, Z68.36 - Body mass index [BMI] 36.0-36.9, adult Zinc Today E66.9 - Obesity, unspecified, E78.5 - Hyperlipidemia, unspecified, G47.30 - Sleep apnea, unspecified, I10 - Essential (primary) hypertension, I25.10 - Atherosclerotic heart disease of [place] coronary artery without angina pectoris, J45.909 - Unspecified asthma, uncomplicated, K21.9 - Gastro-esophageal reflux disease without esophagitis, Z68.36 - Body mass index [BMI] 36.0-36.9, adult Vitamin B1 Today E66.9 - Obesity, unspecified, E78.5 - Hyperlipidemia, unspecified, G47.30 - Sleep apnea, unspecified, I10 - Essential (primary) hypertension, I25.10 - Atherosclerotic heart disease of [place] coronary artery without angina pectoris, J45.909 - Unspecified asthma, uncomplicated, K21.9 - Gastro-esophageal reflux disease without esophagitis, Z68.36 - Body mass index [BMI] 36.0-36.9, adult Vitamin A Today E66.9 - Obesity, unspecified, E78.5 - Hyperlipidemia, unspecified, G47.30 - Sleep apnea, unspecified, I10 - Essential (primary) hypertension, I25.10 - Atherosclerotic heart disease of [place] coronary artery without angina pectoris, J45.909 - Unspecified asthma, uncomplicated, K21.9 - Gastro-esophageal reflux disease without esophagitis, Z68.36 - Body mass index [BMI] 36.0-36.9, adult Vitamin D 25-OH Total Today E66.9 - Obesity, unspecified, E78.5 - Hyperlipidemia, unspecified, G47.30 - Sleep apnea, unspecified, I10 - Essential (primary) hypertension, I25.10 - Atherosclerotic heart disease of [place] cor onary artery without angina pectoris, J45.909 - Unspecified asthma, uncomplicated, K21.9 - Gastro-esophageal reflux disease without esophagitis, Z68.36 - Body mass index [BMI] 36.0-36.9, adult XR chest 2V Today E66.9 - Obesity, unspecified, E78.5 - Hyperlipidemia, unspecified, G47.30 - Sleep apnea, unspecified, I10 - Essential (primary) hypertension, I25.10 - Atherosclerotic heart disease of [place] coronary artery without angina pectoris, J45.909 - Unspecified asthma, uncomplicated, K21.9 - Gastro-esophageal reflux disease without esophagitis, Z68.36 - Body mass index [BMI] 36.0-36.9, adult Insulin Today E66.9 - Obesity, unspecified, E78.5 - Hyperlipidemia, unspecified, G47.30 - Sleep apnea, unspecified, I10 - Essential (primary) hypert ension, I25.10 - Atherosclerotic heart disease of [place] coronary artery without angina pectoris, J45.909 - Unspecified asthma, uncomplicated, K21.9 - Gastro- esophageal reflux disease without esophagitis, Z68.36 - Body mass index [BMI] 36.0-36.9, adult Complete Blood Count Auto Diff Today E66.9 - Obesity, unspecified, E78.5 - Hyperlipidemia, unspecified, G47.30 - Sleep apnea, unspecified, I10 - Essential (primary) hypertension, I25.10 - Atherosclerotic heart disease of [place] coronary artery without angina pectoris, J45.909 - Unspecified asthma, uncomplicated, K21.9 - Gastro-esophageal reflux disease without esophagitis, Z68.36 - Body mass index [BMI] 36.0-36.9, adult IRON PROFILE Today E66.9 - Obesity, unspecified, E78.5 - Hyperlipidemia, unspecified, G47.30 - Sleep apnea, unspecified, I10 - Essential (primary) hypertension, I25.10 - Atherosclerotic heart disease of [place] coronary artery without angina pectoris, J45.909 - Unspecified asthma, uncomplicated, K21.9 - Gastro-esophageal reflux disease without esophagitis, Z68.36 - Body mass index [BMI] 36.0-36.9, adult Vitamin B12 and Folate Today E66.9 - Obesity, unspecified, E78.5 - Hyperlipidemia, unspecified, G47.30 - Sleep apnea, unspecified, I10 - Essential (primary) hypertension, I25.10 - Atherosclerotic heart disease of [place] coronary artery without angina pectoris, J45.909 - Unspecified asthma, uncomplicated, K21.9 - Gastro-esophageal reflux disease without esophagitis, Z68.36 - Body mass index [BMI] 36.0-36.9, adult C Reactive Protein Today E66.9 - Obesity, unspecified, E78.5 - Hyperlipidemia, unspecified, G47.30 - Sleep apnea, unspecified, I10 - Essential (primary) hypertension, I25.10 - Atherosclerotic heart disease of [place] coronary artery without angina pectoris, J45.909 - Unspecified asthma, uncomplicated, K21.9 - Gastro-esophageal reflux disease without esophagitis, Z68.36 - Body mass index [BMI] 36.0-36.9, adult TSH reflex Free T4 Today E66.9 - Obesity, unspecified, E78.5 - Hyperlipidemia, unspecified, G47.30 - Sleep apnea, unspecified, I10 - Essential (primary) h ypertension, I25.10 - Atherosclerotic heart disease of [place] coronary artery without angina pectoris, J45.909 - Unspecified asthma, uncomplicated, K21.9 - Gastro-esophageal reflux disease without esophagitis, Z68.36 - Body mass index [BMI] 36.0-36.9, adult Ferritin Today E66.9 - Obesity, unspecified, E78.5 - Hyperlipidemia, unspecified, G47.30 - Sleep apnea, unspecified, I10 - Essential (primary) hypertension, I25.10 - Atherosclerotic heart disease of [place] coronary artery without angina pectoris, J45.909 - Unspecified asthma, uncomplicated, K21.9 - Gastro-esophageal reflux disease without esophagitis, Z68.36 - Body mass index [BMI] 36.0-36.9, adult US abdomen comp w elastography Today E66.9 - Obesity, unspecified, E78.5 - Hyperlipidemia, unspecified, G47.30 - Sleep apnea, unspecified, I10 - Essential (primary) hypertension, I25.10 - Atherosclerotic heart disease of [place] coronary artery without angina pectoris, J45.909 - Unspecified asthma, uncomplicated, K21.9 - Gastro-esophageal reflux disease without esophagitis, Z68.36 - Body mass index [BMI] 36.0-36.9, adult ECG 12 lead EKG Today E66.9 - Obesity, unspecified, E78.5 - Hyperlipidemia, unspecified, G47.30 - Sleep apnea, unspecified, I10 - Essential (primary) hypertension, I25.10 - Atherosclerotic heart disease of [place] coronary artery without angina pectoris, J45.909 - Unspecified asthma, uncomplicated, K21.9 - Gastro-esophageal reflux disease without esophagitis, Z68.36 - Body mass index [BMI] 36.0-36.9, adult CO upper GI w air Today E66.9 - Obesity, unspecified, E78.5 - Hyperlipidemia, unspecified, G47.30 - Sleep apnea, unspecified, I10 - Essential (primary) hypertension, I25.10 - Atherosclerotic heart disease of [place] coronary artery without angina pectoris, J45.909 - Unspecified asthma, uncomplicated, K21.9 - Gastro-esophageal reflux disease without esophagitis, Z68.36 - Body mass index [BMI] 36.0-36.9, adult Referrals Behavioral Health Referral E66.9 - Obesity, unspecified, E78.5 - Hyperlipidemia, unspecified, G47.30 - Sleep apnea, unspecified, I10 - Essential (primary) hypertension, I25.10 - Atherosclerotic heart disease of [place] coronary artery without angina pectoris, J45.909 - Unspecified asthma, uncomplicated, K21.9 - Gastro-esophageal reflux disease without esophagitis, Z68.36 - Body mass index [BMI] 36.0-36.9, adult Nutrition/Dietitian Referral E66.9 - Obesity, unspecified, E78.5 - Hyperlipidemia, unspecified, G47.30 - Sleep apnea, unspecified, I10 - Essential (primary) hypertension, I25.10 - Atherosclerotic heart disease of [place] coronary artery without angina pectoris, J45.909 - Unspecified asthma, uncomplicated, K21.9 - Gastro-esophageal reflux disease without esophagitis, Z68.36 - Body mass index [BMI] 36.0-36.9, adult
[2024-07-19 09:30] VITALS: BMI 36.1
== END 2024-07-19 10:07 | disposition home or self-care (01) ==
LOC: HO.HBS 08:16
PROVIDERS: PCP Family Medicine; Visit Provider Surgery
DX: E66.01 Morbid (severe) obesity due to excess calories (principal); E66.812 Obesity, class 2; Z68.36 Body mass index [BMI] 36.0-36.9, adult
CPT/HCPCS: 99205

== ENCOUNTER → 2024-07-29 08:41 | Outpatient (REF) | payer BC, SELFPAY ==
--- NOTE | ~2024-07-29 | XR_ITS ---
EXAMINATION: XR CHEST CLINICAL INFORMATION: E66.9 - Obesity, unspecified COMPARISON: None available. TECHNIQUE: 2 views of the chest were obtained. FINDINGS: The cardiac, hilar, and mediastinal contours are normal. The lungs are clear bilaterally. There is no pneumothorax or pleural effusion. There is no focal osseous or soft tissue abnormality. XR/XR chest 2V IMPRESSION: No active pulmonary disease. Electronically signed by: Mateo Asif MD 07/29/2024 10:00 AM EDT
--- OUTSIDE RECORDS SUMMARY | 2024-07-29 08:46 | XMS_ITS | Encounter Summary ---
Author Organization [facility] Address [address] [place] [address] Care Team Providers Care Textile Examiner Name Role Phone HiGabe Primary Care Provider [phone] Marija King DO Primary Care Provider [phone] Cathleen Palmer MD Primary Care Provider [phone] Encounter Details Date Type Department Care Team (Late st Contact Info) Description 08/27/2015 Orders Only [facility] Cardiology [address] [address] Valentin Vitale MD [address] [place] [address] Social History Tobacco Use Types Packs/Day Years [...] Description 07/11/2025 11:00 AM EDT Office Visit [facility] Cardiology [address] [address] Jose Angel Starkey MD [address] [place], [place] [id number] 1 yr documented as of this encounter Procedures * Due to [place] state law, this organization might not be sharing negative HIV tests. Procedure Name Priority Date/Time Associated Diagnosis Comments CBC INCLUDES DIFFERENTIAL AND PLATELET COUNT Routine 08/27/2015 8:34 AM EDT Abnormal cardiovascular stress test Atherosclerosis of coronary artery, angina presence unspecified, unspecified vessel or lesion type, unspecified whether [place] or transplanted heart [I25.10] Paroxysmal atrial fibrillation (HCC) [I48.0] Hyperlipidemia, unspecified hyperlipidemia type [E78.5] Essential hypertension with goal blood pressure less than 130/80 [I10] TSH, 3RD GENERATION Routine 08/27/2015 8 :34 AM EDT Abnormal cardiovascular stress test Atherosclerosis of coronary artery, angina presence unspecified, unspecified vessel or lesion type, unspecified whether [place] or transplanted heart [I25.10] Paroxysmal atrial fibrillation (HCC) [I48.0] Hyperlipidemia, unspecified hyperlipidemia type [E78.5] Essential hypertension with goal blood pressure less than 130/80 [I10] LIPID PANEL WITH REFLEX TO DIRECT LDL Routine 08/27/2015 8:34 AM EDT Abnormal cardiovascular stress test Atherosclerosis of coronary artery, angina presence unspecified, unspecified vessel or lesion type, unspecified whether [place] or transplanted heart [I25.10] Paroxysmal atrial fibrillation (HCC) [I48.0] Hyperlipidemia, unspecified hyperlipidemia type [E78.5] Essential hypertension with goal blood pressure less than 130/80 [I10] BASIC METABOLIC PANEL WITH (GFR) Routine 08/27/2015 8:34 AM EDT Abnormal cardiovascular stress test Atherosclerosis of coronary artery, angina presence unspecified, unspecified vessel or lesion type, unspecified whether [place] or transplanted heart [I25.10] Paroxysmal atrial fibrillation (HCC) [I48.0] Hyperlipidemia, unspecified hyperlipidemia type [E78.5] Essential hypertension with goal blood pressure less than 130/80 [I10] documented in this encounter Results * Due to [place] [employer] law, this organization might not be sharing negative HIV tests. * (ABNORMAL) LIPID PANEL WITH REFLEX TO DIRECT LDL (08/27/2015 8:34 AM EDT) Cholesterol 112(L) 125 - 200 mg/dL [facility] Comment:{CHOLESTEROL, TOTAL {[id number]) HDL Cholesterol 39(L) > OR = 40 mg/dL [facility] Comment:{HDL CHOLESTEROL {[id number]) Triglyceride 176(H) <150 mg/dL [facility] Comment:{TRIGLYCERIDES {[id number]) LDL Cholesterol 38 <130 mg/dL (calc) [facility] Comment: {LDL-CHOLESTEROL {[id number]) Desirable range <100 mg/dL for patients with CHD or diabetes and <70 mg/dL for diabetic patients with known heart disease. CHOL/HDL Ratio 2.9 < OR = 5.0 (calc) [facility] Comment:{CHOL/HDLC RATIO {[id number]) Cholesterol Non-HDL 73 mg/dL (calc) [facility] Comment: {NON HDL CHOLESTEROL {[id number]) Target for non-HDL cholesterol is 30 mg/dL higher than LDL cholesterol target. 08/27/2015 8:34 AM EDT 08/27/2015 7:39 PM EDT Narrative Resulting Agency Comment [id number] Valentin Vitale MD LABORATORY Final Result Performing Organization Address [facility] Co de Phone Number [facility] [address] [place] [address] * TSH, 3RD GENERATION (08/27/2015 8:34 AM EDT) TSH 1.24 0.40 - 4.50 mIU/L [facility] Comment:{TSH {[id number]) 08/27/2015 8:34 AM EDT 08/27/2015 7:39 PM EDT Narrative Resulting Agency Comment [id number] Valentin Vitale MD LABORATORY Final Result Performing Organization Address [facility] Co de Phone Number [facility] [address] [place] [address] * BASIC METABOLIC PANEL WITH (GFR) (08/27/2015 8:34 AM EDT) [facility] Glucose 99 65 - 99 mg/dL [facility] Comment: {GLUCOSE {[id number]) ? Fasting reference interval Urea Nitrogen Blood (BUN) 12 7 - 25 mg/dL [facility] Comment:{UREA NITROGEN (BUN) {[id number]) Creatinine 1.10 0.70 - 1.25 mg/dL [facility] Comment: {CREATININE {[id number]) For patients >49 years of age, the reference limit for Creatinine is approximately 13% higher for people identified as -Romanian. GFR 70 > OR = 60 mL/min/1 .73m2 [facility] Comment:{eGFR NON-AFR. AMERI CAN {[id number]) GFR () 81 > OR = 60 mL/min/1 .73m2 [facility] Comment:{eGFR AMERIC AN {[id number]) BUN/Creatinine Ratio NOT APPLICABLE (calc) [facility] Comment:{BUN/CREATININE RATI O {[id number]) Sodium 139 135 - 146 mmol/L [facility] Comment:{SODIUM {[id number]) Potassium 4.7 3.5 - 5.3 mmol/L [facility] Comment:{POTASSIUM {[id number]) Chloride 105 98 - 110 mmol/L [facility] Comment:{CHLORIDE {[id number]) Carbon dioxide 26 19 - 30 mmol/L [facility] Comment:{CARBON DIOXIDE {[id number]) Calcium 9.4 8.6 - 10.3 mg/dL [facility] Comment:{CALCIUM {[id number]) 08/27/2015 8:34 AM EDT 08/27/2015 7:39 [...] needs for GFR calculation. Resulting Agency Comment [id number] Valentin Vitale MD LABORATORY Final Result [facility] [address] [place] [address] * CBC INCLUDES DIFFERENTIAL AND PLATELET COUNT (08/27/2015 8:34 AM EDT) WBC 6.0 3.8 - 10.8 Thousand/u L [facility] Comment:{WHITE BLOOD CELL CO UNT {[id number]) RBC 4.88 4.20 - 5.80 Million/uL [facility] Comment:{RED BLOOD CELL COUN T {[id number]) Hemoglobin 15.2 13.2 - 17.1 g/dL [facility] Comment:{HEMOGLOBIN {[id number]) Hematocrit 44.6 38.5 - 50.0 % [facility] Comment:{HEMATOCRIT {[id number]) MCV 91.5 80.0 - 100.0 fL [facility] Comment:{MCV {[id number]) MCH 31.2 27.0 - 33.0 pg [facility] Comment:{MCH {[id number]) MCHC 34.1 32.0 - 36.0 g/dL [facility] Comment:{MCHC {[id number]) RDW 12.9 11.0 - 15.0 % [facility] Comment:{RDW {[id number]) PLT 191 140 - 400 Thousand/u L [facility] Comment:{PLATELET COUNT {[id number]) MPV 8.9 7.5 - 11.5 fL [facility] Comment:{MPV {[id number]) Neutrophils # 2856 1500 - 7800 cells/uL [facility] Comment:{ABSOLUTE NEUTROPHIL S {[id number]) Lymphocytes # 2508 850 - 3900 cells/uL [facility] Comment:{ABSOLUTE LYMPHOCYTE S {[id number]) Monocytes # 486 200 - 950 cells/uL [facility] Comment:{ABSOLUTE MONOCYTES {[id number]) Eosinophils # 126 15 - 500 cells/uL [facility] Comment:{ABSOLUTE EOSINOPHIL S {[id number]) Basophils # 24 0 - 200 cells/uL [facility] Comment:{ABSOLUTE BASOPHILS {[id number]) Neutrophils % 47.6 % [facility] Comment:{NEUTROPHILS {[id number]) Lymphocytes % 41.8 % [facility] Comment:{LYMPHOCYTES {[id number]) Monocytes % 8.1 % [facility] Comment:{MONOCYTES {[id number]) Eosinophils % 2.1 % [facility] Comment:{EOSINOPHILS {[id number]) Basophils % 0.4 % [facility] Comment:{BASOPHILS {[id number]) 08/27/2015 8:34 AM EDT 08/27/2015 7:39 PM EDT Narrative Resulting Agency Comment [id number] us Valentin Vitale MD LAB SAME DAY RESULT Final Resul t Performing Organization Address City/State/[place] Co de Phone Number [facility] [address] [place] [address] documented in this encounter Visit Diagnoses Diagnosis Abnormal cardiovascular stress test Other nonspecific abnormal cardiovascular system function study Atherosclerosis of coronary artery, angina presence unspecified, unspecified vessel or lesion type, unspecified whether [place] or transplanted heart [I25.10] Paroxysmal atrial fibrillation (HCC) [I48.0] Atrial fibrillation Hyperlipidemia, unspecified hyperlipidemia type [E78.5] Essential hypertension with goal blood pressure less than 130/80 [I10] documented in this encounter Additional Health Concerns Infection Onset Date Last Indicated Resolved Time COVID-19 Rule-Out 06/08/2020 06/08/2020 06/08/2020 7:17 PM EDT documented as of this encounter Care Teams Textile Examiner Relationship Specialty Start Date End Date Gabe Do [facility] [address] [place] [address] PCP - General 03/24/06 08/22/17 Marija King DO [facility] [address] [place] [address] PCP - General Family Medicine 08/23/17 05/11/21 [place] [address] PCP - General Family Medicine 09/28/22 documented as of this encounter
--- OUTSIDE RECORDS SUMMARY | 2024-07-29 08:46 | XMS_ITS | Encounter Summary ---
Author Organization [facility] Address [address] [place] [address] Care Team Providers Care It Senior Software Engineer Java Name Role Phone Marija King DO Primary Care Provider [phone] Cathleen Palmer MD Primary Care Provider [phone] Encounter Details Date Type Department Care Team (Late Contact Info) Description 12/19/2018 [facility] Pulmonary [address] [facility] [address] [place] [address] Juan Morse MD [address] [place] [address] Social History Tobacco Use Types Packs/Day Years [...] Fonseca RN - 12/19/2018 3:36 PM EDT Black-I Roboticst message sent on 12/27 documented in this encounter Plan of Treatment Upcoming Encounters Date Type Department Care Team (Late st Contact Info) Description 07/11/2025 11:00 AM EDT Office Visit [facility] Cardiology [address] [facility] [address] [place] [address] Jose Angel Starkey MD [address] [place] [address] 1 yr documented as of this encounter Procedures * Due to [place] [employer] law, this organization might not be sharing negative HIV tests. Procedure Name Priority Date/Time Associated Diagnosis Comments C-REACTIVE PROTEIN (CRP) - INFLAMMATION Routine 12/19/2018 3:36 PM EDT Recurrent respiratory infection IMMUNOGLOBULIN G,SUBCLASSES 1-4 SERUM Routine 12/19/2018 3:36 PM EDT Recurrent respiratory infection VENIPUNCTURE Routine 12/19/2018 3:36 PM EDT Recurrent respiratory infection documented in this encounter Results * Due to [place] [employer] law, this organization might not be sharing negative HIV tests. * C-REACTIVE PROTEIN (CRP) - INFLAMMATION (12/19/2018 3:36 PM EDT) C reactive protein 0.9 <8.0 mg/L [facility] 12/19/2018 3:36 PM EDT 12/19/2018 11:34 PM EDT Narrative Resulting Agency Comment [id number] Juan Morse MD LABORATORY Final Result Performing Organization Address City/State/[facility] Co de Phone Number [facility] [address] [place] [address] * IMMUNOGLOBULIN QUANTITATION (IGG, IGM, IGA) (12/19/2018 3:36 PM EDT) IgA 142 20 - 320 mg/dL [facility] IgG 1024 600 - 1540 mg/dL [facility] IgM 112 50 - 300 mg/dL [facility] 12/19/2018 3:36 PM EDT 12/19/2018 11:34 PM EDT Narrative Resulting Agency Comment [id number] us Juan Morse MD LABORATORY Final Result Performing Organization Address City/[facility]/ZIP Co de Phone Number [facility] [address] [place] [address] * IMMUNOGLOBULIN G,SUBCLASSES 1-4 SERUM (12/19/2018 3:36 [...] 11:34 PM EDT Narrative Resulting Agency Comment [id number] Juan Morse MD LABORATORY Final Result Performing Organization Address City/[facility] Co de Phone Number [facility] [address] [place] [address] documented in this encounter Visit Diagnoses Diagnosis Recurrent respiratory infection Other diseases of respiratory system, not elsewhere classified documented in this encounter Additional Health Concerns Infection Onset Date Last Indicated Resolved Time COVID-19 Rule-Out 06/08/2020 06/08/2020 06/08/2020 7:17 PM EDT documented as of this encounter Care Teams It Senior Software Engineer Java Relationship Specialty Start Date End Date Marija King DO PCP - General Family Medicine 08/23/17 05/11/21 Cathleen Palmer MD [address] [address] PCP - General Family Medicine 09/28/22 documented as of this encounter
--- OUTSIDE RECORDS SUMMARY | 2024-07-29 08:46 | XMS_ITS | Encounter Summary ---
Author Organization [facility] Address [address] [place] [address] Care Team Providers Care Senior Sustainability Advisor Name Role Phone Christine Marija Lovely VARGAS Primary Care Provider [phone] Cathleen Palmer MD Primary Care Provider [phone] Reason for Visit * Reason Onset Date Comments Refill Request 01/28/2019 Encounter Details Date Type Department Care Team (Late Contact Info) Description 01/28/2019 Refill [facility] Cardiology [address] [phone] Kim Roberson, RN Refill Request Social History [...] Description 07/11/2025 11:00 AM EDT Office Visit [facility] Cardiology [address] [phone] Jose Angel Starkey MD [address] [place] [address] 1 yr documented as of this encounter Visit Diagnoses Not on filedocumented in this encounter Additional Health Concerns Infection Onset Date Last Indicated Resolved Time COVID-19 Rule-Out 06/08/2020 06/08/2020 06/08/2020 7:17 PM EDT documented as of this encounter Care Teams Senior Sustainability Advisor Relationship Specialty Start Date End Date Marija King DO PCP - General Family Medicine 08/23/17 05/11/21 Cathleen Palmer MD [address] [address] PCP - General Family Medicine 09/28/22 documented as of this encounter
--- OUTSIDE RECORDS SUMMARY | 2024-07-29 08:46 | XMS_ITS | Clinical Summary ---
Author Organization [facility] Address [address] [place] [address] Care Team Providers Care Grocery Store Clerk Name Role Phone Marija King DO Primary Care Provider [phone] Allergies No known active allergies Medications aspirin [...] 02/05/2004, 08/05/2003, 12/03/1999 Procedures * Due to [place] [employer] law, this organization might not be sharing negative HIV tests. Procedure Name Priority Date/Time Associated Diagnosis Comments BASIC METABOLIC PANEL Routine 12/05/2014 9:09 AM EDT from Last 3 Months or Most Recently Relevant to Health Maintenance Results * Due to [place] [employer] law, this organization might not be sharing negative HIV tests. * (ABNORMAL) Basic Metabolic Panel (12/05/2014 9:09 AM EDT) Sodium Blood 139 135 - 145 mmol/L [facility] Potassium Blood 4.9 3.5 - 5.3 mmol/L [facility] Chloride Blood 104 97 - 110 mmol/L [facility] Carbon Dioxide 27 24 - 32 mmol/L [facility] Gap 8 5 - 15 [facility] Glucose 102(H) 70 - 99 mg/dL [facility] BUN 9 7 - 23 mg/dL [facility] Creatinine 1.02 0.60 - 1.30 mg/dL [facility] eGFR Non- >60 >60 [facility] Comment: Units = mL/min/1.73 [...] Calcium Blood 9.1 8.7 - 10.7 mg/dL [facility] 12/05/2014 9:09 AM EDT 12/05/2014 9:41 AM EDT us Mitesh Gillespie MD LAB BLOOD ORDERABLES Final Res ult [facility] [address] [place] [address], from Last 3 Months or Most Recently Relevant to Health Maintenance Insurance [address] [employer] PPO/EPO/IND Advance Directives * Full Code (Latest Code Status on File) Date Activated Date Inactivated Comments 06/09/2020 1:31 PM 06/09/2020 7:11 PM * Full Code Date Activated Date Inactivated Comments 06/09/2020 11:18 AM 06/09/2020 1:31 PM Care Teams Grocery Store Clerk Relationship Specialty Start Date End Date Marija King DO [address] [place] [address] PCP - General 06/03/20
--- OUTSIDE RECORDS SUMMARY | 2024-07-29 08:46 | XMS_ITS | Encounter Summary ---
Author Organization [facility] Address [address] [place] [address] Care Team Providers Care Local Company Intermodal Truck Driver Name Role Phone Cathleen Palmer MD Primary Care Provider [phone] Encounter Details Date Type Department Care Team (Late Contact Info) Description 12/16/2021 Orders Only [facility] Pulmonary [address] [facility] [address] [place] [address] Juan Morse MD [address] [place] [address] Medications Social History Tobacco Use Types Packs/Day [...] Description 07/11/2025 11:00 AM EDT Office Visit [facility] Cardiology [address] [facility] [address] [place] [phone] Jose Angel Starkey MD [address] [place] [address] 1 yr documented as of this encounter Visit Diagnoses Not on filedocumented in this encounter Care Teams Local Company Intermodal Truck Driver Relationship Specialty Start Date End Date Cathleen Palmer MD [address] [address] PCP - General Family Medicine 09/28/22 documented as of this encounter
--- OUTSIDE RECORDS SUMMARY | 2024-07-29 08:46 | XMS_ITS | Clinical Summary ---
Author Organization [facility] it Address [address] [place] [address] Care Team Providers Care Taper And Floater Name Role Phone Unavailable Primary Care Provider [...]
--- OUTSIDE RECORDS SUMMARY | 2024-07-29 08:46 | XMS_ITS | Encounter Summary ---
Author Organization [facility] Address [address] [place] [address] Care Team Providers Care Surveillance Supervisor Name Role Phone Christine Marija Lovely VARGAS Primary Care Provider [phone] Cathleen Palmer MD Primary Care Provider [phone] Reason for Visit * Reason Onset Date Comments Refill Request 01/28/2019 Encounter Details Date Type Department Care Team (Late Contact Info) Description 01/28/2019 Refill [facility] Cardiology [address] [phone] Kim Roberson, RN Refill Request Social History [...] Description 07/11/2025 11:00 AM EDT Office Visit [facility] Cardiology [address] [phone] Jose Angel Starkey MD [address] [place] [address] 1 yr documented as of this encounter Visit Diagnoses Not on filedocumented in this encounter Additional Health Concerns Infection Onset Date Last Indicated Resolved Time COVID-19 Rule-Out 06/08/2020 06/08/2020 06/08/2020 7:17 PM EDT documented as of this encounter Care Teams Surveillance Supervisor Relationship Specialty Start Date End Date Marija King DO PCP - General Family Medicine 08/23/17 05/11/21 Cathleen Palmer MD [address] [address] PCP - General Family Medicine 09/28/22 documented as of this encounter
--- OUTSIDE RECORDS SUMMARY | 2024-07-29 08:46 | XMS_ITS | Encounter Summary ---
Author Organization [facility] Address [address] [place] [address] Care Team Providers Care Restorer Paper And Prints Name Role Phone Cathleen Palmer MD Primary Care Provider [phone] Encounter Details Date Type Department Care Team (Late st Contact Info) Description 09/29/2022 Orders Only [facility] Pulmonary [address] [facility] [address] [place] [phone] Juan Morse MD [address] [place] [address] Social History Tobacco Use Types Packs/Day Years [...] [facility] [address] [facility] [address] [place] [phone] Jose Angel Starkey MD [address] [place] [address] 1 yr documented as of this encounter Results * Due to [place] state law, this organization might not be [...] on filedocumented in this encounter Care Teams Restorer Paper And Prints Relationship Specialty Start Date End Date Cathleen Palmer MD [facility] [address] [address] PCP - General Family Medicine 09/28/22 documented as of this encounter
--- OUTSIDE RECORDS SUMMARY | 2024-07-29 08:46 | XMS_ITS | Encounter Summary ---
Author Organization [facility] Address [address] [place] [address] Care Team Providers Care Credit Collections Clerk Name Role Phone Marija King DO Primary Care Provider Cathleen Palmer MD Primary Care Provider [phone] Reason for Visit * Reason Onset Date Comments Refill Request 06/02/2019 Encounter Details Date Type Department Care Team (Late st Contact Info) Description 06/02/2019 Refill [facility] Pulmonary [address] [facility] [address] [place] [address] Juan Morse MD [address] [place] [address] Refill Request Social History Tobacco Use Types [...] Description 07/11/2025 11:00 AM EDT Office Visit [facility] Cardiology [address] [address] Jose Angel Starkey MD [address] [place] [address] 1 yr documented as of this encounter Visit Diagnoses Not on filedocumented in this encounter Additional Health Concerns Infection Onset Date Last Indicated Resolved Time COVID-19 Rule-Out 06/08/2020 06/08/2020 06/08/2020 7:17 PM EDT documented as of this encounter Care Teams Credit Collections Clerk Relationship Specialty Start Date End Date Marija King DO PCP - General Family Medicine 08/23/17 05/11/21 Cathleen Palmer MD [address] [address] PCP - General Family Medicine 09/28/22 documented as of this encounter
--- OUTSIDE RECORDS SUMMARY | 2024-07-29 08:46 | XMS_ITS | Encounter Summary ---
Author Organization [facility] Address [address] [place] [address] Care Team Providers Care Finance Controller Name Role Phone Marija King DO Primary Care Provider Cathleen Palmer MD Primary Care Provider [phone] Reason for Referral * OUTPT PROCEDURES AND DIAGNOSTICS (Routine) - Closed Specialty Diagnoses / Procedures Referred By Contac t Referred To Contact CT Scan Diagnoses Other nonspecific abnormal finding of lung field Procedures CT CHEST W/O CONTRAST (DX: ? NODULE ON CXR R91.8/ 793.2) (WITHIN 1 WK) Juan Morse MD [address] [place] [address] Phone: tel: fax: Referral ID Status Reason Start Date Expiration Date V isits Requested Visits Authorized [id number] Closed Continuity of Care 04/09/2018 07/08/2018 1 1 Encounter Details Date Type Department Care Team (Late st Contact Info) Description 04/04/2018 Orders Only [facility] Pulmonary [address] [facility] [address] [place] [address] Juan Morse MD [address] [place] [address] Social History Tobacco Use Types Packs/Day Years [...] Description 07/11/2025 11:00 AM EDT Office Visit [facility] Cardiology [address] [facility] [address] [place] [address] Jose Angel Starkey MD [address] [place] [address] 1 yr documented as of this encounter Results * Due to [place] state law, this organization might not be sharing negative HIV tests. * (ABNORMAL) CT CHEST W/O CONTRAST (DX: ? NODULE ON CXR R91.8/ 793.2) (WITHIN 1 WK) FC (04/13/2018 9:02 AM EST) [facility](A) [facility] Anatomical Region Laterality Modality CHEST [...] documented as of this encounter Care Teams Finance Controller Relationship Specialty Start Date End Date Marija Kign DO PCP - General Family Medicine 08/23/17 05/11/21 [place] [address] PCP - General Family Medicine 09/28/22 documented as of this encounter
--- OUTSIDE RECORDS SUMMARY | 2024-07-29 08:46 | XMS_ITS | Encounter Summary ---
Author Organization [facility] Address [address] [place] [address] Care Team Providers Care Conversion Worker Name Role Phone Christine Marija Lovely VARGAS Primary Care Provider Cathleen Palmer MD Primary Care Provider [phone] Encounter Details Date Type Department Care Team (Late Contact Info) Description 10/31/2017 Orders [facility] Pulmonary [address] [facility] [address] [place] [phone] Juan Mores MD [address] [place] [address] Social History Tobacco Use Types Packs/Day Years [...] 07/11/2025 11:00 AM EDT Office Visit [facility] Cardiology [address] 123 [facility] [address] [place] [address] Jose Angle Starkey MD [address] [place], [place] [id number] 1 yr documented as of this encounter [...] this encounter Results * Due to [place] state law, this organization might not be sharing negative HIV tests. * CHICKEN FEATHERS (E85)IGE (10/31/2017 2:46 PM EDT) Chicken Feathers (E85) IgE <0.10 kU/L [facility] Chicken Feathers (E85) Class 0 [facility] 10/31/2017 2:46 PM EDT 10/31/2017 9:49 PM EDT Narrative Resulting Agency Comment [id number] Juan Morse MD LABORATORY Final Result Performing Organization Address [facility]/ZIP Co de Phone Number [facility] [address] [place] [address] * EOSINOPHILS, ABSOLUTE (10/31/2017 2:46 PM EDT) WBC 7.4 3.8 - 10.8 Thousand/u L [facility] Eosinophils # 163 15 - 500 cells/uL [facility] Eosinophils % 2.2 % [facility] 10/31/2017 2:46 PM EDT 10/31/2017 9:49 PM EDT Narrative Resulting Agency Comment [id number] Juan Morse MD LABORATORY Final Result Performing Organization Address City/[facility]/ZIP Co de Phone Number [facility] [address] [place] [address] * [facility] (10/31/2017 2:46 PM EDT) IgE 4 <ZG=124 kU/L [facility] Constantino Grass (G6) IgE <0.10 kU/L [facility] Constantino Grass (G6) Class 0 [facility] Effie Grass([place] Blue)(G8) IgE <0.10 kU/L [facility] Effie Grass([place] Blue)(G8) Class 0 [facility] Common Ragweed (Short)(W1) IgE <0.10 kU/L [facility] Common Ragweed (Short)(W1) Class 0 [facility] Malian Plantain (W9) IgE <0.10 kU/L [facility] Malian Plantain (W9) Class 0 [facility] Rey's Quarters (Goosefoot) (W10) IgE <0.10 kU/L [facility] [place]'s Quarters (Goosefoot) (W10) Class 0 [facility] B[place]y [place] (T7) IgE <0.10 kU/L [facility] [place] (T7) Class 0 [facility] Cat Dander [...] (M6) Class 0 [facility] House Dust ([place]top[place]-Jackie) (H2) IgE <0.10 kU/L [facility] House Dust (Marie-Jackie) (H2) Class 0 [facility] Dermatophagoides Farinae(D2) IgE <0.10 kU/L [facility] Dermatophagoides Farinae(D2) Class 0 [facility] 10/31/2017 2:46 PM EDT 10/31/2017 9:49 PM EDT Narrative Resulting Agency Comment [id number] us Juan Morse MD LABORATORY Final Result [facility] [address] [place] [address] documented in this encounter Visit Diagnoses Diagnosis Cough SOB (shortness of breath) Shortness of breath documented in this encounter Additional Health Concerns Infection Onset Date Last Indicated Resolved Time COVID-19 Rule-Out 06/08/2020 06/08/2020 06/08/2020 7:17 PM EDT documented as of this encounter Care Teams Conversion Worker Relationship Specialty Start Date End Date Marija King DO PCP - General Family Medicine 08/23/17 05/11/21 Cathleen Palmer MD [address] [address] PCP - General Family Medicine 09/28/22 documented as of this encounter
--- OUTSIDE RECORDS SUMMARY | 2024-07-29 08:46 | XMS_ITS | Encounter Summary ---
Author Organization [facility] Address [address] [place] [address] Care Team Providers Care Bulk Clerk Name Role Phone Cathleen Palmer MD Primary Care Provider [phone] Reason for Visit * Reason Comments E-prescribing Refill Request Encounter Details Date Type Department Care Team ([facility] st Contact Info) Description 06/14/2021 Refill [facility] Neurology [address] [address] Alex Hummel MD 123 [facility] [address] [place] [address] [place] [address] E-prescribing Refill Request Social History Tobacco Use [...] Phone 07/22/21 10:30 AM Alex Hummel MD [facility] Neurology [address] 05/20/22 10:00 AM Jose Angel Starkey MD [facility] Cardiology [address] Pertinent lab results: Lab [...] Description 07/11/2025 11:00 AM EDT Office Visit [facility] Cardiology [address] 123 [facility] [address] [place] [address] Jose Angel Starkey MD [address] [place] [address] 1 yr documented as of this encounter Visit Diagnoses Not on filedocumented in this encounter Care Teams Bulk Clerk Relationship Specialty Start Date End Date Cathleen Palmer MD [facility] [address] [address] PCP - General Family Medicine 09/28/22 documented as of this encounter
--- OUTSIDE RECORDS SUMMARY | 2024-07-29 08:46 | XMS_ITS | Encounter Summary ---
Author Organization [facility] Address [address] [place] [address] Care Team Providers Care Business Asst Name Role Phone ChristineMarija Lovely VARGAS Primary Care Provider [phone] Cathleen Palmer MD Primary Care Provider [phone] Encounter Details Date Type Department Care Team (Late Contact Info) Description 03/03/2018 Orders Only [facility] Cardiology [address] [address] Kathryn Bansal DO [address] [place] [address] Medications Social History Tobacco Use Types Packs/Day [...] [facility] Card[facility] [address] [address] Jose Angel Starkey MD [address] [place] [address] 1 yr documented as of this encounter Visit Diagnoses Not on filedocumented in this encounter Additional Health Concerns Infection Onset Date Last Indicated Resolved Time COVID-19 Rule-Out 06/08/2020 06/08/2020 06/08/2020 7:17 PM EDT documented as of this encounter Care Teams Business Asst Relationship Specialty Start Date End Date Marija King DO PCP - General Family Medicine 08/23/17 05/11/21 Cathleen Palmer MD [address] [address] PCP - General Family Medicine 09/28/22 documented as of this encounter
--- OUTSIDE RECORDS SUMMARY | 2024-07-29 08:46 | XMS_ITS | Encounter Summary ---
Author Organization [facility] Address [address] [place] [address] Care Team Providers Care Wig Stylist Name Role Phone Cathleen Palmer MD Primary Care Provider [phone] Reason for Visit * Reason Onset Date Comments Refill Request 07/23/2024 Encounter Details Date Type Department Care Team ([facility] st Contact Info) Description 07/23/[address] [facility] Cardiology [address] [address] Jose Angel Starkey MD [address] [place] [address] Refill Request Social History Tobacco Use Types Packs/Day Years Used Date Smoking Tobacco: Former Cigarettes 0.2 51 0 10/31/1964 - 11/01/2015 Passive Smoke Exposure: Past Smokeless Tobacco: Never Comments:quit 2012 Alcohol Use [...] encounter Miscellaneous Notes * Telephone Encounter - Johnston, Sarah, Pharmacy Navigator - 07/24/2024 12:06 PM EDT Any special requests or concerns? none Patient, Santos Hawkins 73 y.o. male sent a ZEBt message with request to renew medication(s). When do you need the medication? by tomorrow Last CPE with this specialty: Not Found Last OV with this specialty: 07/03/2024 Next OV: Future Appointments Date Time Provider Department Phone 07/11/25 11:00 AM Jose Angel Starkey MD [facility] Cardiology [address] Verified pharmacy with patient. Pertinent lab results: No labs suggested for any medication orders signed or pended in this encounter. Refresh if any orders changed. Allergies: Oxycodone Pended medication order(s) and sent to provider. Patient expects medication renewal unless notifiedby this office. BP Readings from Last 1 Encounters: 07/03/24 (!) 144/76 Outstanding Radiology Orders Test Ordered Date Ordering Provider XRAY CHEST, 2 VIEWS, PA & LATERAL (DX: DYSPNEA) 12/16/2021 Jose Angel Starkey MD Current Outpatient Medications on File Prior to Visit Medication Sig Dispense Refill Wixela Inhub 250-50 MCG/ACT diskus inhaler INHALE 1 PUFF TWICE A DAY 180 each 1 Simvastatin (ZOCOR) 40 MG tablet TAKE ONE TABLET (40 MG TOTAL) BY MOUTH EVERY NIGHT. 90 tablet 3 Lisinopril (PRINIVIL,ZESTRIL) 10 MG tablet Take one tablet (10 mg total) by mouth 1 (one) time eachday. 90 tablet 3 Cyclobenzaprine HCl (FLEXERIL) 10 MG tablet Take 1 tablet by mouth 3 (three) times a day. amLODIPine Besylate (NORVASC) 10 MG tablet Take one tablet (10 mg total) by mouth 1 (one) time eachday. 90 tablet 3 Rivaroxaban (Xarelto) 20 MG tablet Take one tablet (20 mg total) by mouth 1 (one) time each day with dinner. 90 tablet 3 Metoprolol Succinate (TOPROL-XL) 50 MG 24 hr tablet Take one tablet (50 mg total) by mouth 1 (one) time each day. 90 tablet 3 Isosorbide Mononitrate CR (IMDUR) 60 MG 24 hr tablet TAKE 1 TABLET BY MOUTH EVERY DAY IN THE MORNING 90 tablet 3 DIVALPROEX SODIUM, MIGRAINE, (DEPAKOTE) 500 MG 24 hr tablet TAKE TWO TABLETS BY MOUTH EVERY NIGHT AT BEDTIME 120 tablet 2 Albuterol Sulfate, sensor, 108 (90 Base) MCG/ACT AEROSOL POWDER, BREATH ACTIVATED Inhale 2 puffs every 4 hours by inhalation route as needed. famotidine (PEPCID) 20 MG tablet Nitroglycerin (NITROSTAT) 0.4 MG SL tablet Take one tablet (0.4 mg total) by mouth every 5 (five) minutes if needed for chest pain up to 3 tablets per episode. 90 tablet 3 documented in this encounter Plan of Treatment Upcoming Encounters Date Type Department Care Team ([facility] st Contact Info) Description 07/11/2025 11:00 AM EDT Office Visit [facility] Cardiology Suite [facility] [address] [address] Jose Angel Starkey MD [address] [place] [address] 1 yr documented as of this encounter Visit Diagnoses Not on filedocumented in this encounter Care Teams Wig Stylist Relationship Specialty Start Date End Date Cathleen Palmer MD [address] [address] PCP - General Family Medicine 09/28/22 documented as of this encounter
--- OUTSIDE RECORDS SUMMARY | 2024-07-29 08:46 | XMS_ITS | Encounter Summary ---
Author Organization [facility] Address [address] [place] [address] Care Team Providers Care Digitizer Operator Name Role Phone Marija King DO Primary Care Provider [phone] Cathleen Palmer MD Primary Care Provider [phone] Encounter Details Date Type Department Care Team (Late Contact Info) Description 05/08/2020 Orders Only [facility] Cardiology [address] [address] Jose Angel Starkey MD [address] [place] [address] Social History Tobacco Use Types Packs/Day Years [...] Description 07/11/2025 11:00 AM EDT Office Visit [facility] Cardiology [address] 123 [facility] [address] [place] [address] Jose Angel Starkey MD [address] [place] [address] 1 yr documented as of this encounter Procedures * Due to [facility] law, this organization might not be sharing negative HIV tests. Procedure Name Priority Date/Time Associated Diagnosis Comments VENIPUNCTURE Routine 05/08/2020 11:51 AM EST Chronic chest pain Atherosclerosis of coronary artery, angina presence unspecified, unspecified vessel or lesion type, unspecified whether [place] or transplanted heart [I25.10] CBC INCLUDES DIFFERENTIAL AND PLATELET COUNT Routine 05/08/2020 11:51 AM EST Chronic chest pain Atherosclerosis of coronary artery, angina presence unspecified, unspecified vessel or lesion type, unspecified whether [place] or transplanted heart [I25.10] BASIC METABOLIC PANEL WITH (GFR) Routine 05/08/2020 11:51 AM EST Chronic chest pain Atherosclerosis of coronary artery, angina presence unspecified, unspecified vessel or lesion type, unspecified whether [place] or transplanted heart [I25.10] documented in this encounter Results * Due to [place] [employer] law, this organization might not be sharing [...] approximately 13% higher for people identified as -Luxembourger. EGFR 60 > OR = 60 mL/min/1. [...] needs for GFR calculation. Resulting Agency Comment [id number] us Jose Angel Starkey MD LABORATORY Final Result [facility] [address] [place] [address] * CBC INCLUDES DIFFERENTIAL AND PLATELET COUNT [...] 1:42 PM EST Narrative Resulting Agency Comment [id number] Jose Angel Starkey MD LAB SAME DAY RESULT Final Res ult Performing Organization Address [facility] de Phone Number [facility] [address] [place] [phone] * (ABNORMAL) PROTHROMBIN TIME (PT) (INR), BLOOD (05/08/2020 11:51 AM EST) INR 1.2(H) [facility] Comment: Reference Range ? 0.9-1.1 Moderate-intensity Warfarin Therapy 2.0-3.0 Higher-intensity Warfarin Therapy ?? 3.0-4.0 PT 12.7(H) 9.0 - 11.5 sec [facility] Comment: For additional information, please refer to http://education.CashEdge/faq/RSD787 (This link is being provided for informational/ educational purposes only.) 05/08/2020 11:5 1 AM EST 05/08/2020 1:42 PM EST Narrative Resulting Agency Comment [id number] Jose Angel Starkey MD LAB SAME DAY RESULT Final Res ult Performing Organization Address [facility] de Phone Number [facility] [address] [place] [address] documented in this encounter Visit Diagnoses Diagnosis Chronic chest pain Chest pain, unspecified Atherosclerosis of coronary artery, angina presence unspecified, unspecified vessel or lesion type, unspecified whether [place] or transplanted heart [I25.10] documented in this encounter Additional Health Concerns Infection Onset Date Last Indicated Resolved Time COVID-19 Rule-Out 06/08/2020 06/08/2020 06/08/2020 7:17 PM EDT documented as of this encounter Care Teams Digitizer Operator Relationship Specialty Start Date End Date Marija King DO PCP - General Family Medicine 08/23/17 05/11/21 [place] [address] PCP - General Family Medicine 09/28/22 documented as of this encounter
--- OUTSIDE RECORDS SUMMARY | 2024-07-29 08:46 | XMS_ITS | Encounter Summary ---
Author Organization [facility] Address [address] [place] [address] Care Team Providers Care Marine Engine Mechanic Name Role Phone Christine Marija Lovely VARGAS Primary Care Provider [phone] Cathleen Palmer MD Primary Care Provider [phone] Encounter Details Date Type Department Care Team (Late st Contact Info) Description 10/01/2018 [facility] Pulmonary [address] 123 [facility] [address] [place] [address] Juan Morse MD [address] [place] [address] Medications Social History Tobacco Use Types Packs/Day [...] Description 07/11/2025 11:00 AM EDT Office Visit [facility] Cardiology [address] 123 [facility] [address] [place] [address] Jose Angel Starkey MD [address] [place] [address] 1 yr documented as of this encounter Visit Diagnoses Diagnosis Cough documented in this encounter Additional Health Concerns Infection Onset Date Last Indicated Resolved Time COVID-19 Rule-Out 06/08/2020 06/08/2020 06/08/2020 7:17 PM EDT documented as of this encounter Care Teams Marine Engine Mechanic Relationship Specialty Start Date End Date Marija King DO PCP - General Family Medicine 08/23/17 05/11/21 Cathleen Palmer MD [address] [address] PCP - General Family Medicine 09/28/22 documented as of this encounter
--- OUTSIDE RECORDS SUMMARY | 2024-07-29 08:46 | XMS_ITS | Encounter Summary ---
Author Organization [facility] Address [address] [place] [address] Care Team Providers Care Dye House Hand Name Role Phone Cathleen Palmer MD Primary Care Provider [phone] Encounter Details Date Type Department Care Team (Late Contact Info) Description 05/21/2021 Refill [facility] Neurology [address] [facility] 230 [place] [address] Alex Hummel MD [address] [address] Social History Tobacco Use Types Packs/Day Years [...] 07/11/2025 11:00 AM EDT Office Visit [facility] Cardiology [address] 123 [facility] 290 [place] [address] Jose Angel Starkey MD [address] [place] [address] 1 yr documented as of this encounter Visit Diagnoses Not on filedocumented in this encounter Care Teams Dye House Hand Relationship Specialty Start Date End Date Cathleen Palmer MD [address] [address] PCP - General Family Medicine 09/28/22 documented as of this encounter
--- OUTSIDE RECORDS SUMMARY | 2024-07-29 08:46 | XMS_ITS | Encounter Summary ---
Author Organization [facility] Address [address] [place] [address] Care Team Providers Care Contact And Service Clerks Supervisor Name Role Phone Mindy Kingh Lovely VARGAS Primary Care Provider [phone] Cathleen Palmer MD Primary Care Provider [phone] Reason for Visit * Reason Comments Follow Up Encounter Details Date Type Department Care Team ([facility] st Contact Info) Description 02/20/2018 Telephone [facility] Neurology [address] [address] Alex Hummel MD [address] [id number] Follow Up Social History Tobacco Use Types [...] Phone 02/21/18 4:30 PM Alex Hummel MD [facility] [phone] 05/03/18 3:00 PM Juan Morse MD [facility] Pulmonary [address] 08/29/18 3:00 PM Jose Angel Starkey MD [facility] Cardiology [address] * Telephone Encounter - [...] 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 He has some college education. He is [...] normal. I administered version 7.3 of the Alvin Cognitive Assessment. He scored 24/30. 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, I could see him next week possibly [...] Upcoming Encounters Date Type Department Care Team ([facility] st Contact Info) Description 07/11/2025 11:00 AM EDT Office Visit [facility] Cardiology [address] [address] Jose Angel Starkey MD [address] [place] [address] 1 yr documented as of this encounter Visit Diagnoses Not on filedocumented in this encounter Additional Health Concerns Infection Onset Date Last Indicated Resolved Time COVID-19 Rule-Out 06/08/2020 06/08/2020 06/08/2020 7:17 PM EDT documented as of this encounter Care Teams Contact And Service Clerks Supervisor Relationship Specialty Start Date End Date Marija King DO PCP - General Family Medicine 08/23/17 05/11/21 Cathleen Palmer MD [address] [address] PCP - General Family Medicine 09/28/22 documented as of this encounter
--- OUTSIDE RECORDS SUMMARY | 2024-07-29 08:46 | XMS_ITS | Encounter Summary ---
Author Organization [facility] Address [address] [place] [address] Care Team Providers Care Spooling Supervisor Name Role Phone Marija King Lovely VARGAS Primary Care Provider [phone] Cathleen Palmer MD Primary Care Provider [phone] Encounter Details Date Type Department Care Team ([facility] st Contact Info) Description 11/24/2020 Orders Only [facility] Cardiology [address] [address] Jose Angel Starkey MD 123 [place] [address] Social History Tobacco Use Types Packs/Day Years [...] Description 07/11/2025 11:00 AM EDT Office Visit [facility] Cardiology [address] 123 [facility] 290 [place] [address] Jose Angel Starkey MD [address] [place] [address] 1 yr documented as of this encounter Procedures * Due to [facility] law, this organization might not be sharing negative HIV tests. Procedure Name Priority Date/Time Associated Diagnosis Comments VENIPUNCTURE Routine 11/24/2020 9:45 AM EDT Hypertension, unspecified type documented in this encounter Results * Due to [facility] law, this organization might not be [...] approximately 13% higher for people identified as -Namibian. EGFR 51(L) > OR = 60 mL/min/1. [...] needs for GFR calculation. Resulting Agency Comment [id number] us Jose Angel Starkey MD LABORATORY Final Result Performing Organization Address City/State/[facility] Co de Phone Number [facility] [address] [place] [address] documented in this encounter Visit Diagnoses Diagnosis Hypertension, unspecified type documented in this encounter Care Teams Spooling Supervisor Relationship Specialty Start Date End Date Marija King DO PCP - General Family Medicine 08/23/17 05/11/21 [place] [address] PCP - General Family Medicine 09/28/22 documented as of this encounter
--- OUTSIDE RECORDS SUMMARY | 2024-07-29 08:46 | XMS_ITS | Encounter Summary ---
Author Organization [facility] Address [address] [place] [address] Care Team Providers Care Field Naturalist Name Role Phone Gabe Do Primary Care Provider [phone] Marija King DO Primary Care Provider [phone] Cathleen Palmer MD Primary Care Provider [phone] Encounter Details Date Type Department Care Team (Late st Contact Info) Description 05/28/2010 Orders Only [facility] Infectious Disease [address] [facility] [address] [place] [address] Marcello Ness MD [address] [place] [address] Social History Tobacco Use Types Packs/Day Years [...] Description 07/11/2025 11:00 AM EDT Office Visit [facility] Cardiology [address] [facility] [address] [place] [address] Jose Angel Starkey MD [address] [place] [address] 1 yr documented as of this encounter Procedures * Due to [place] [employer] law, this organization might not be sharing [...] in this encounter Results * Due to [place] [employer] law, this organization might not be sharing negative HIV tests. * MUMPS ANTIBODY (IGG) (05/28/2010) MUMPS VIRUS AB.IGG 2.8 (IMMUNE) SEE BELOW [facility] Comment:REFERENCE: 1.1 OR > INDICATES ANTIBODY 05/28/2010 05/28/2010 3:4 2 PM EST us Marcello Ness MD LABORATORY Final Result [facility] [address] [place] [address] * RUBEOLA IGG AB (05/28/2010) RUBEOLA IGG AB 5.4 (IMMUNE) SEE BELOW [facility] Comment: UNITS: INDEX VALUE REFERENCE: 1.1 OR > INDICATES ANTIBODY 05/28/2010 05/28/2010 3:4 2 PM EST Marcello Ness MD LABORATORY Final Result Performing Organization Address City/[facility]/ZIP Co de Phone Number [facility] [address] [place] [address] * RUBELLA IGG AB (05/28/2010) RUBELLA IGG AB 4.97 (IMMUNE) SEE BELOW [facility] Comment: REFERENCE: 1.1 OR > INDICATES ANTIBODY THE PRESENCE OF RUBELLA IGG ANTIBODY SUGGESTS A CURRENT OR PAST INFECTION OR IMMUNIZATION WITH RUBELLA VIRUS. 05/28/2010 05/28/2010 3:4 2 PM EST Marcello Ness MD LABORATORY Final Result Performing Organization Address [facility] Co de Phone Number [facility] [address] [place] [address] documented in this encounter Visit Diagnoses Diagnosis Other specified counseling Need for prophylactic vaccination with typhoid-paratyphoid alone (TAB) Need for prophylactic vaccination with combined nxpwvckgbp-pnylpjq-nshmbzgff (DTP) vaccine documented in this encounter Additional Health Concerns Infection Onset Date Last Indicated Resolved Time COVID-19 Rule-Out 06/08/2020 06/08/2020 06/08/2020 7:17 PM EDT documented as of this encounter Care Teams Field Naturalist Relationship Specialty Start Date End Date Gabe Do [facility] [address] [place] [address] PCP - General 03/24/06 08/22/17 Marija King DO [facility] [address] [place] [address] PCP - General Family Medicine 08/23/17 05/11/21 Cathleen Palmer MD [facility] [address] [place] [address] PCP - General Family Medicine 09/28/22 documented as of this encounter
--- OUTSIDE RECORDS SUMMARY | 2024-07-29 08:46 | XMS_ITS | Encounter Summary ---
Author Organization [facility] Address [address] [place] [address] Care Team Providers Care Rhia Name Role Phone Marija King DO Primary Care Provider [phone] Cathleen Palmer MD Primary Care Provider [phone] Encounter Details Date Type Department Care Team ([facility] st Contact Info) Description 07/20/2020 Orders Only [facility] Cardiology [address] [facility] [address] [place] [address] Zhane Dorantes NP 123 [facility] [address] [place] [address] Social History Tobacco Use Types Packs/Day Years [...] his labs as requested. Patient states understanding PUBLIC INFORMATION DIRECTOR is happy with his cholesterol panel but [...] Description 07/11/2025 11:00 AM EDT Office Visit [facility] Cardiology [address] 123 [facility] [address] [place] [address] [place] [address] Jose Angel Starkey MD [address] [place] [address] 1 yr documented as of this encounter Procedures * Due to [place] [facility] law, this organization might not be sharing negative HIV tests. Procedure Name Priority Date/Time Associated Diagnosis Comments VENIPUNCTURE Routine 07/20/2020 12:05 PM EDT Coronary artery disease, unspecified vessel or lesion type, unspecified whether angina present, unspecified whether apache or transplanted heart documented in this encounter Results * Due to [place] [employer] law, this organization might not be sharing [...] LDL-C. Oliver SAM et al. BEAR. 2013;310(19): 8024-6858 (http://education.Zomato.Red Dot Payment/faq/GWT761) CHOL/HDL Ratio 2.8 <5.0 (calc) [facility] Cholesterol Non-HDL 85 <130 mg/dL (calc) [facility] Comment: For patients with diabetes plus 1 major ASCVD risk factor, treating to a non-HDL-C goal of <100 mg/dL (LDL-C of <70 mg/dL) is considered a therapeutic option. 07/20/2020 12:0 5 PM EDT 07/20/2020 9:33 PM EDT Narrative Resulting Agency Comment [id number] us Zhane Dorantes PUBLIC INFORMATION DIRECTOR LABORATORY Final Res ult [facility] [address] [place] [address] documented in this encounter Visit Diagnoses Diagnosis Coronary artery disease, unspecified vessel or lesion type, unspecified whether angina present, unspecified whether apache or transplanted heart documented in this encounter Care Teams Rhia Relationship Specialty Start Date End Date Marija King DO PCP - General Family Medicine 08/23/17 05/11/21 Cathleen Palmer MD [address] [address] PCP - General Family Medicine 09/28/22 documented as of this encounter
--- OUTSIDE RECORDS SUMMARY | 2024-07-29 08:46 | XMS_ITS | Encounter Summary ---
Author Organization [facility] Address [address] [place] [address] Care Team Providers Care Commercial Parts Professional Name Role Phone Christine Marija Lovely VARGAS Primary Care Provider [phone] Cathleen Palmer MD Primary Care Provider [phone] Encounter Details Date Type Department Care Team (Late Contact Info) Description 05/03/2019 Orders Only [facility] [address] [place] [phone] Alex Hummel MD [address] [place] [address] [phone] Social History Tobacco Use Types Packs/Day Years [...] Description 07/11/2025 11:00 AM EDT Office Visit [facility] Cardiology [address] [place] [address] Jose Angel Starkey MD [address] [place], [place] [id number] 1 yr documented as of this encounter Procedures * Due to [place] [employer] law, this organization might not be sharing negative HIV tests. Procedure Name Priority Date/Time Associated Diagnosis Comments VENIPUNCTURE Routine 05/03/2019 9:32 AM EST Seizure documented in this encounter Results * Due to [place] [employer] law, this organization might not be sharing negative HIV tests. * (ABNORMAL) VALPROIC ACID (05/03/2019 9:32 AM EST) Valproate 30.5(L) 50.0 - 100.0 mg/L [facility] 05/03/2019 9:32 AM EST 05/04/2019 Narrative Resulting Agency Comment [id number] us Alex Hummel MD LAB SAME DAY RESULT Final Resu lt Performing Organization Address City/State/[facility] Co de Phone Number [facility] [address] [place] [address] documented in this encounter Visit Diagnoses Diagnosis Seizure (HCC) Other convulsions documented in this encounter Additional Health Concerns Infection Onset Date Last Indicated Resolved Time COVID-19 Rule-Out 06/08/2020 06/08/2020 06/08/2020 7:17 PM EDT documented as of this encounter Care Teams Commercial Parts Professional Relationship Specialty Start Date End Date Marija King DO PCP - General Family Medicine 08/23/17 05/11/21 Cathleen Palmer MD [address] [address] PCP - General Family Medicine 09/28/22 documented as of this encounter
--- OUTSIDE RECORDS SUMMARY | 2024-07-29 08:46 | XMS_ITS | Referral Summary ---
Author Organization [facility] Address [address] [place] [address] Care Team Providers Care Animal Bounty Hunter Name Role Phone Marija King DO Primary Care Provider [phone] Allergies No known active allergies Medications aspirin [...] Not on file Procedures * Due to [place] [employer] law, this organization might not be sharing negative HIV tests. Procedure Name Priority Date/Time Associated Diagnosis Comments BASIC METABOLIC PANEL Routine 12/05/2014 9:09 AM EDT from Last 3 Months or Most Recently Relevant to Health Maintenance Results * Due to [place] [employer] law, this organization might not be sharing negative HIV tests. * (ABNORMAL) Basic Metabolic Panel (12/05/2014 9:09 AM EDT) Sodium Blood 139 135 - 145 mmol/L [facility] Potassium Blood 4.9 3.5 - 5.3 mmol/L [facility] Chloride Blood 104 97 - 110 mmol/L [facility] Carbon Dioxide 27 24 - 32 mmol/L [facility] Gap 8 5 - 15 [facility] Glucose 102(H) 70 - 99 mg/dL [facility] BUN 9 7 - 23 mg/dL [facility] Creatinine 1.02 0.60 - 1.30 mg/dL [facility] eGFR Non- >60 >60 [facility] Comment: Units = mL/min/1.73 [...] Calcium Blood 9.1 8.7 - 10.7 mg/dL [facility] 12/05/2014 9:09 AM EDT 12/05/2014 9:41 AM EDT us Mitesh Gillespie MD LAB BLOOD ORDERABLES Final Res ult [facility] [address] [place] [address], from Last 3 Months or Most Recently Relevant to Health Maintenance Insurance [employer] CIGNA PPO/EPO/IND Advance Directives * Full Code (Latest Code Status on File) Date Activated Date Inactivated Comments 06/09/2020 1:31 PM 06/09/2020 7:11 PM * Full Code Date Activated Date Inactivated Comments 06/09/2020 11:18 AM 06/09/2020 1:31 PM Care Teams Animal Bounty Hunter Relationship Specialty Start Date End Date Marija King DO [address] [place] [address] PCP - General 06/03/20
--- OUTSIDE RECORDS SUMMARY | 2024-07-29 08:46 | XMS_ITS | Clinical Summary ---
Author Organization [facility] Address [address] [place] [address] Care Team Providers Care University Manager Name Role Phone Cathleen Palmer MD Primary Care Provider [phone] Allergies Active Allergy Reactions Criticality Noted Date Comments Oxycodone Other 01/31/2023 Causes confusion Medications * This document contains information received from the source organization and may not represent a complete record from that organization. Nitroglycerin (NITROSTAT) 0.4 MG SL tabletIndications: Abnormal cardiovascular stress test,Atheroscleros is of coronary artery, angina presence unspecified, unspecified vessel or lesion type, unspecified whether zuni or transplanted heart,Paroxysmal atrial fibrillation (HCC),Hyperlipidem ia, unspecified hyperlipidemia type,Essential hypertension with goal blood pressure less than 130/80 Take one tablet (0.4 mg total) by mouth every 5 (five) minutes if needed for chest pain up to 3 tablets per episode. 90 tablet 3 05/08/19 21 Active famotidine (PEPCID) 20 MG tablet 03/20/19 22 Active Albuterol Sulfate, sensor, 108 (90 Base) MCG/ACT AEROSOL POWDER, BREATH ACTIVATED Inhale 2 puffs every 4 hours by inhalation route as needed. Active DIVALPROEX SODIUM, MIGRAINE, (DEPAKOTE) 500 MG 24 hr tablet TAKE TWO TABLETS BY MOUTH EVERY NIGHT AT BEDTIME 120 tablet 2 01/26/20 23 Active amLODIPine Besylate (NORVASC) 10 MG tabletIndications: Hypertension, unspecified type Take one tablet (10 mg total) by mouth 1 (one) time each day. 90 tablet 3 11/21/19 24 Active Rivaroxaban (Xarelto) 20 MG tabletIndications: Paroxysmal atrial fibrillation (HCC) Take one tablet (20 mg total) by mouth 1 (one) time each day with dinner. 90 tablet 3 11/21/19 24 Active Metoprolol Succinate (TOPROL-XL) 50 MG 24 hr tablet Take one tablet (50 mg total) by mouth 1 (one) time each day. 90 tablet 3 11/21/19 24 Active Cyclobenzaprine HCl (FLEXERIL) 10 MG tablet Take 1 tablet by mouth 3 (three) times a day. Active Lisinopril (PRINIVIL,ZESTRIL) 10 MG tabletIndications: Hypertension, unspecified type Take one tablet (10 mg total) by mouth 1 (one) time each day. 90 tablet 3 12/11/19 24 Active Simvastatin (ZOCOR) 40 MG tablet TAKE ONE TABLET (40 MG TOTAL) BY MOUTH EVERY NIGHT. 90 tablet 3 12/12/19 24 Active Wixela Inhub 250-50 MCG/ACT diskus inhaler INHALE 1 PUFF TWICE A DAY 180 each 1 04/17/19 25 Active Isosorbide Mononitrate CR (IMDUR) 60 MG 24 hr tablet Take one tablet (60 mg total) by mouth 1 (one) time each day in the morning. 90 tablet 3 07/25/19 25 Active Isosorbide Mononitrate CR (IMDUR) 60 MG 24 hr tablet TAKE 1 TABLET BY MOUTH EVERY DAY IN THE MORNING 90 tablet 3 06/28/19 24 025 Discontin ued(Reord er (No Cancel Rx)) Active Problems Problem Noted Date Diagnosed Date Paroxysmal atrial fibrillation 06/28/2023 Arteriosclerosis of aorta 05/29/2019 Overview (05/29/2019): Refer to CT of Chest 04/16/2019: There is arteriosclerosis of the aorta and the coronary arteries. Bronchiectasis 05/29/2019 Overview (05/29/2019): Refer to Pulmonary Consult 05/13/2019: Impression: Patient with bronchiectasis Seizure 02/21/2018 Encounters Date Type Department Care Team Description 07/23/2024 [facility] Cardiology [address] [place] [phone] Jayesh Starkey MD Refill Request 07/03/2024 3:00 PM EDT Office Visit [facility] Cardiology [address] [place] [phone] Jayesh Starkey MD Paroxysmal atrial fibrillation (HCC) (Primary Dx); Coronary artery disease, unspecified vessel or lesion type, unspecified whether angina present, unspecified whether zuni or transplanted heart; RBBB (right bundle branch [...] Upcoming Encounters Date Type Department Care Team ([facility] st Contact Info) Description 07/11/2025 11:00 AM EDT Office Visit [facility] Cardiology [address] [place] [phone] Jayesh Starkey MD [address] [place] [address] 1 yr Health Maintenance Due Date Last [...] Zoster (Zostavax) Discontinued Procedures * Due to [place] state [...] type, unspecified whether angina present, unspecified whether zuni or transplanted heart HEP C ANTIBODY (EIA-2) Routine 08/01/2003 4:44 PM EDT from Last 3 Months or Most Recently Relevant to Health Maintenance Results * Due to [place] state law, [...] Abnormal ECG Confirmed by JAYESH STARKEY ([id number]), acquisition editor KAREN MULTANI ([id number]) on 06/29/2023 7:33:59 [...] TRANSORAL; WITH BIOPSY, SINGLE OR MULTIPLE (05/25/2021) Aakash Alcantara MD PROCEDURES Final Result * [...] LDL-C. Oliver SAM et al. BEAR. 2013;310(19): 7151-2812 (http://education.ISIS sentronics/faq/EAI422) CHOL/HDL Ratio 2.8 <5.0 (calc) [facility] Cholesterol Non-HDL 85 <130 mg/dL (calc) [facility] Comment: For patients with diabetes plus 1 major ASCVD risk factor, treating to a non-HDL-C goal of <100 mg/dL (LDL-C of <70 mg/dL) is considered a therapeutic option. 07/20/2020 12:0 5 PM EDT 07/20/2020 9:33 PM EDT Narrative Resulting Agency Comment [id number] us Zhane Dorantes AIRPLANE GAS TANK LINER ASSEMBLER LABORATORY Final Res ult [facility] [address] [place] [address] * HEP C ANTIBODY (EIA-2) (08/01/2003 4:44 PM EDT) HEPATITIS C AB NEGATIVE [facility] (CLIA# [id number]) 08/01/2003 4:44 PM EDT 08/01/2003 4:44 PM EDT Narrative [facility] (CLIA# [id number]) - 08/01/2003 4:44 PM EDT Ordered by UNKNOWN PROVIDER SST tube received unspun us Unknown Provider LABORATORY Final Result [facility] (CLIA# [id number]) [address] [place] [address] from Last 3 Months or Most Recently Relevant to Health Maintenance Insurance [employer] FEE FOR SERVICE PPO * Guarantor: Strap Account Type Relation to Patient Date of Phone Billing Address [employer] [address] [place] [address] Care Teams University Manager Relationship Specialty Start Date End Date Cathleen Palmer MD [address] [address] PCP - General Family Medicine 09/28/22
--- OUTSIDE RECORDS SUMMARY | 2024-07-29 08:46 | XMS_ITS | Encounter Summary ---
Author Organization [facility] Address [address] [place] [address] Care Team Providers Care Polish Maker Name Role Phone HiGabe Primary Care Provider [phone] Marija King DO Primary Care Provider [phone] Cathleen Palmer MD Primary Care Provider [phone] Encounter Details Date Type Department Care Team (Late st Contact Info) Description 08/26/2015 Orders Only [facility] Cardiology [address] [phone] Valentin Vitale MD [address] [place] [phone] Medications Social History Tobacco Use Types Packs/Day [...] Description 07/11/2025 11:00 AM EDT Office Visit [facility] Cardiology [address] [address] Jose Angel Starkey MD [address] [place], [place] [id number] 1 yr documented as of this encounter Visit Diagnoses Diagnosis Paroxysmal atrial fibrillation (HCC)- Primary Atrial fibrillation documented in this encounter Additional Health Concerns Infection Onset Date Last Indicated Resolved Time COVID-19 Rule-Out 06/08/2020 06/08/2020 06/08/2020 7:17 PM EDT documented as of this encounter Care Teams Polish Maker Relationship Specialty Start Date End Date Gabe Do [facility] [address] [place] [address] PCP - General 03/24/06 08/22/17 Marija King DO [facility] [address] [place] [address] PCP - General Family Medicine 08/23/17 05/11/21 Cathleen Palmer MD [facility] [address] [place] [address] PCP - General Family Medicine 09/28/22 documented as of this encounter
--- OUTSIDE RECORDS SUMMARY | 2024-07-29 08:46 | XMS_ITS | Encounter Summary ---
Author Organization [facility] Address [address] [place] [address] Care Team Providers Care Water Hauler Name Role Phone Christine Marija Loevly VARGAS Primary Care Provider Cathleen Palmer MD Primary Care Provider [phone] Reason for Visit * Reason Comments E-prescribing Refill Request Encounter Details Date Type Department Care Team ([facility] Contact Info) Description 06/10/2019 Refill [facility] Cardiology [address] [address] Jose Angel Starkey MD [address] [place] [address] E-prescribing Refill Request Social History Tobacco Use [...] Upcoming Encounters Date Type Department Care Team ([facility] Contact Info) Description 07/11/2025 11:00 AM EDT Office Visit [facility] Cardiology [address] [address] Jose Angel Starkey MD [address] [place] [address] 1 yr documented as of this encounter Visit Diagnoses Diagnosis Paroxysmal atrial fibrillation (HCC) Atrial fibrillation documented in this encounter Additional Health Concerns Infection Onset Date Last Indicated Resolved Time COVID-19 Rule-Out 06/08/2020 06/08/2020 06/08/2020 7:17 PM EDT documented as of this encounter Care Teams Water Hauler Relationship Specialty Start Date End Date Marija King DO PCP - General Family Medicine 08/23/17 05/11/21 Cathleen Palmer MD [address] [address] PCP - General Family Medicine 09/28/22 documented as of this encounter
--- OUTSIDE RECORDS SUMMARY | 2024-07-29 08:46 | XMS_ITS | Encounter Summary ---
Author Organization [facility] Address [address] [place] [address] Care Team Providers Care Traffic Enumerator Name Role Phone Marija King DO Primary Care Provider [phone] Encounter Details Date Type Department Care Team (Late st Contact Info) Description 11/17/2020 myChart Message [facility] Revenue Cycle Management [address] [place] [address] Mychart, Generic Provider [address] [place] [phone] [facility] Customer Service Request Social History Tobacco Use [...] on filedocumented in this encounter Care Teams Traffic Enumerator Relationship Specialty Start Date End Date Marija King DO [address] [place] [address] PCP - General 06/03/20 documented as of this encounter
[2024-07-29 09:03] LABS: MANUAL DIFF FLAG NO
--- NOTE | 2024-07-29 09:09 | ECG_ITS ---
Test Reason : OBESITY Blood Pressure : */* mmHG Vent. Rate : 61 BPM Atrial Rate : 61 BPM P-R Int : 186 ms QRS Dur : 154 ms QT Int : 448 ms P-R-T Axes : 57 -43 32 degrees QTcB Int : 450 ms Normal sinus rhythm Left axis deviation Right bundle branch block Abnormal ECG No previous ECGs available Referred By: Ciro Gardner Electronically Signed By: PAULINO RAZA MD
[2024-07-29 09:18] LABS: Basophils Percent Auto 0.6 % (0-2); Eosinophils Absolute Auto 0.1 X10*3/uL (0.0-0.4); Hematocrit 40.5 % (42.0-52.0); Hemoglobin 14.2 g/dl (14.0-18.0); Imm Gran Abs Auto 0.02 X10*3/uL (0.00-0.03); Imm Gran Pct Auto 0.3 % (0.0-0.4); Lymphocytes Absolute Auto 1.7 X10*3/uL (1.2-4.9); Lymphocytes Percent Auto 26.8 % (20-40); Mean Corpuscular HGB Conc 35.1 g/dl (31.0-36.0); Mean Corpuscular Hemoglobin 30.1 pg (27.0-33.0); Mean Platelet Volume 9.9 fL (9.4-12.4); Monocytes Absolute Auto 0.7 X10*3/uL (0.1-1.2); Monocytes Percent Auto 10.8 % (2-11); Neutrophils Absolute Auto 3.8 x10*3/uL (2.0-8.3); Neutrophils Percent Auto 59.5 % (45-73); Platelet Count 221 X10*3/uL (160-400); Red Blood Count 4.71 X10*6/uL (4.60-5.80); Red Cell Distribution Width 12.1 % (11.0-16.0); White Blood Count 6.4 X10*3/uL (4.8-10.8)
[2024-07-29 09:24] LABS: Estimated Average Glucose 108 mg/dL; Hemoglobin A1C 129.6734 umol/L; Hemoglobin A1c % 5.4 % (<6.0); Total Hemoglobin (HGBA1C) 3667.2918 umol/L
[2024-07-29 10:01] LABS: Alanine Aminotransferase 21 U/L (0-40); Albumin Level 4.5 g/dL (3.5-5.0); Alkaline Phosphatase 39 U/L (39-117); Anion Gap 15 (12-20); Aspartate Amino Transferase 25 U/L (5-37); Bilirubin Total 1.2 mg/dL (0.0-1.0); Blood Urea Nitrogen 31 mg/dL (9-16); C Reactive Protein 1.17 mg/dL (< or = 0.50); Calcium 9.8 mg/dL (8.4-10.2); Carbon Dioxide 26 mmol/L (22-29); Chloride 101 mmol/L (96-108); Cholesterol 104 mg/dL (<200); Estimated Glomerular Filt Rate 54; Glucose Random 95 mg/dL (60-115); HDL Cholesterol 35 mg/dL (>40); Iron 71 mcg/dL (45-160); LDL Cholesterol Calculated 50 mg/dL (<100); Percent Iron Saturation 24 % (15-50); Sodium 137 mmol/L (135-145); Total Iron Binding Capacity 301 mcg/dL (228-428); Total Protein 7.2 g/dL (6.5-8.0); Triglycerides 99 mg/dL (<150); Unsaturated Iron Binding 230 ug/dL
[2024-07-29 10:40] LABS: Folate 16.4 ng/mL (> or = 4.0); Vitamin B12 396 pg/mL (200-900)
[2024-07-29 10:42] LABS: Ferritin 327 ng/mL (20-250); TSH reflex Free T4 1.23 uIU/mL (0.32-4.0); Vitamin D 25-OH Total 65.3 ng/mL (>30)
[2024-07-29 10:45] LABS: Insulin 8 uU/mL (2-29)
== END ==
LOC: HO.CARD 08:41
PROVIDERS: PCP Family Medicine; Visit Provider Surgery
DX: I25.10 Atherosclerotic heart disease of native coronary artery without angina pectoris (principal); I10 Essential (primary) hypertension; E66.9 Obesity, unspecified; Z68.36 Body mass index [BMI] 36.0-36.9, adult; E78.5 Hyperlipidemia, unspecified; K21.9 Gastro-esophageal reflux disease without esophagitis; J45.909 Unspecified asthma, uncomplicated; G47.30 Sleep apnea, unspecified; Z13.1 Encounter for screening for diabetes mellitus
CPT/HCPCS: 36415; 71046; 80053; 80061; 82306; 82607; 82728; 82746; 83036; 83525; 83540; 84425; 84443; 84590; 84630; 85025; 86140; 93005

== ENCOUNTER → 2024-07-29 09:07 | Outpatient (BNV) | payer BC, SELFPAY | PROVIDERS: PCP Family Medicine; Visit Provider Radiology Diagnostic Radiology | DX: E66.9 Obesity, unspecified (principal) | CPT/HCPCS: 71046 ==

== ENCOUNTER → 2024-07-29 09:09 | Outpatient (BNV) | payer BC, SELFPAY | PROVIDERS: PCP Family Medicine; Visit Provider Internal Medicine Cardiovascular Disease | DX: I45.10 Unspecified right bundle-branch block (principal); R94.31 Abnormal electrocardiogram [ECG] [EKG] | CPT/HCPCS: 93010 ==

== ENCOUNTER 2024-08-02 11:11 | Outpatient (AMB) | payer BC, SELFPAY ==
--- NOTE | 2024-08-02 11:00 | A.OFFWM_ITS ---
Intake Intake Visit Reasons: TV BH Intake Allergies No Known Allergies Allergy (Verified 07/19/24 09:12) [facility] Medical History (Updated 07/29/24 @ 21:08 by Ciro Gardner MD) Bronchitis Asthma Seizure Hyperlipidemia Sleep apnea with use of continuous positive airway pressure (CPAP) GERD (gastroesophageal reflux disease) CAD (coronary artery disease) Hypertension BMI 36.0-36.9,adult Obesity Surgical History (Updated 07/01/24 @ 14:26 by QING Sheldon) History of cardiac cath H/O colonoscopy Social History (Updated 07/01/24 @ 14:28 by QING Sheldon) Alcohol intake: current Alcohol intake frequency: a few times a month Alcohol type: beer Comment: a beer per every few months Patient Tobacco Use Status: Former Tobacco user Behavioral Health Assessment Weight Management Therapy Therapy Notes Details The patient is a 73-year-old male presenting for an initial visit to begin a behavioral health assessment as part of the surgical weight loss program. Presenting Concerns Referral Source WMP-Provider. Meet Dr Triana on 07/19/2024 Reason for referral Completion of behavioral health assessment as part of process for weight-loss surgery. Precipitating Event Obesity. Initial weight 251Lbs. Living Situation Current Living Situation Own At risk of losing current housing? No Satisfied with current living situation? Yes Comments PT lives with his , your 11 year old daughter and [id number]. Food/Weight/Diet Expectations of change PT started the program on 07/19/2024 at 251Lbs, The Initial goal is to lose 10% of your weight before surgery, which is about 26lbs. Ultimate weight goal: 225 Lbs. before surgery Weight as of 08/02/2024: 239.4. Patient wants to improve his health and hopefully be at 180 Lbs in about a year. PT is implementing the following: Current meal plan: 2 shakes, 2 bars, and 1 meal. Exercise plan: scale: Yes. Communication with provider: yes, Sundays. History/Relationship with food Example of meals before starting the program: Breakfast: Lunch: Dinner: Snacks: Drinks/Liquids: History/Relationship with weight In the last 10 years, the patient's Lowest weight was and highest History/Relationship with dieting Zainsunita - 2023. Lost 20 lbs. He was having kidney issues, so he had to stop. Social History Family history and relationship on his 3rd marriage. 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 Has 5 children. Oldest 55, youngest 11. Parents . He has a sister and a brother. Parental/Familial mix chemist obligations 11 year old daughter. Developmental history and status None. Social support , family. Community support PCP. Voodoo/Spirituality None. Cultural/Ethnic information . Legal Involvement and History Current or historical involvement with the legal system? None. Education Highest grade completed Bachelors degree. Preferred learning style Auditory Currently enrolled in educational program? No Interested in further educational program? No Employment Employment Status Retired (Worked in [employer]. ) Wants help to find employment? No Meaningful activities Ride motorcycle. Financial Situation Describe current financial situation Comfortable and Occasional struggle Service Service? No Mental Health and Addiction Treatment Current/Past substance abuse? No Comments Alcohol: 1 or less at month. Cigarettes/Tobacco: None Cannabis/Edibles: None Current/Past addictive behavior concerns? No Psychiatric history PT has never been in counseling, denies ever been in crisis or inpatient for mental health. There is no history and/or current concern about SI/Sa and self-harm or other harm. Medical and Physical Health Summary Additional Medical History not covered in history None aditional Sexual History concerns None. Physical exam in the last year? No (upcoming in September/2024.) Pain Screening Current pain? No Pain in the last few months? No Medications Is the patient compliant with medications? Yes (Vit D3, Vit B12 d/c.) Does the patient have Lord Guardian in place? Not applicable Does the patient use complimentary health approaches? No Trauma/Abuse History History of trauma? No Questionnaires PHQ-9 Over the last 2 weeks, how often have you been bothered by any of the following problems? 1. Little interest or pleasure in doing things: not at all 2. Feeling down, depressed, or hopeless: not at all 3. Trouble falling or staying asleep, or sleeping too much: not at all 4. Feeling tired or having little energy: several days 5. Poor appetite or overeating: several days 6. Feeling bad about yourself - or that you are a failure or have let yourself or your family down: not at all 7. Trouble concentrating on things, such as reading the newspaper or watching television: not at all 8. Moving or speaking so slowly that other people could have noticed. Or the opposite - being so fidgety or restless that you have been moving around a lot more than usual: several days 9. Thoughts that you would be better off or of hurting yourself in some way: not at all Total score: 3 Depression Screening Interpretation: Negative (from new PT pack) Depression Screening Done: Yes Source: Developed by Drs. Julián Pete, Minoo Pires, Eric Coto and colleagues, with an educational saima from [employer]. Binge Eating Scale Group 1 A. I don't feel self-conscious about my wt. or body size when I'm with others. B. I feel concerned about how I look to others, but it normally does not make me fell disappointed with myself C. I do get self-conscious about my appearance and wt. which makes me feel disappointed in myself. D. I feel very self-conscious about my wt. and frequently I feel intense shame and disgust for myself. I try to avoid social contacts because of my self- consciousness. Response Group 1: A Group 2 A. I don't have any difficulty eating slowly in the proper manner. B. Although I seem to gobble down foods, I don't end up feeling stuffed because of eating to much. C. At times, I tend to eat quickly and then, I feel uncomfortably full afterwards. D. I have the habit of bolting down my food, without really chewing it. When this happens I usually feel uncomfortably stuffed because I've eaten to much. Response Group 2: C Group 3 A. I feel capable to control my eating urges when I want to. B. I feel like I have failed to control my eating more than the average person. C. I feel utterly helpless when it comes to feeling in control of my eating urges. D. Because I feel so helpless about controlling my eating I have become very desperate about trying to get control. Response Group 3: D Group 4 A. I don't have the habit of eating when I'm bored. B. I sometimes eat when I'm bored, but often I'm able to get busy and get my mind off food. C. I have a regular habit of eating when I'm bored, but occasionally, I can use some other activity to get my mind off eating. D. I have a strong habit of eating when I'm bored. Nothing seems to help me breath the habit. Response Group 4: D Group 5 A. I'm usually physically hungry when I eat something. B. Occasionally, I eat something on impulse even though I really am not hungry. C. I have the regular habit of eating foods, that I might not really enjoy, to satisfy a hungry feeling even though physically, I don't need the food. D. Although I'm not physically hungry, I get a hungry feeling in my mouth that only seems to be satisfied when I eat a food, like sandwich, that fills my mouth. Sometimes, when I eat the food to satisfy my mouth hunger, I then spit the food out so I won't gain weight. Response Group 5: B Group 6 A. I don't feel any guilt or self-hate after I overeat. B. After I overeat, occasionally I feel guilt or self-hate. C. Almost all the time I experience strong guilt or self-hate after I overeat. Response Group 6: A Group 7 A. I don't lose total control of my eating when dieting even after periods when I overeat. B. Sometimes when I eat a forbidden food on a diet, I feel like I blew it and eat even more. C. Frequently, I have the habit of saying to myself, I've blown it now, why not go all the way, when I overeat on a diet. When that happens I eat more. D. I have a regular habit of starting a strict diets for myself but I break the diets by going on an eating binge. My life seems to be either a feast or famine. Response Group 7: A Group 8 A. I rarely eat so much food that I feel uncomfortably stuffed afterwards. B. Usually about once a month, I each such a quantity of food, I end up feeling very stuffed. C. I have regular periods during the month when I eat large amounts of food, either at mealtime or at snacks. D. I eat so much food that I regularly feel quite uncomfortable after eating and sometimes a bit nauseous. Response Group 8: C Group 9 A. My level of calorie intake does not go up very high or go down very low on a regular basis. B. Sometimes after I overeat, I will try to reduce my caloric intake to almost nothing to compensate for the excess calories I've eaten. C. I have a regular habit of overeating during the night. It seems that my routine is not to be hungry in the morning but overeat in the evening. D. In my adult years, I have had week-long periods where I practically starve myself. This follows periods when I overeat. It seems I live a life of either feast or famine. Response Group 9: B Group 10 A. I usually am able to stop eating when I want to. I know when enough is enough. B. Every so often, I experience a compulsion to eat which I can't seem to control. C. Frequently, I experience strong urges to eat which I seem unable to control, but at other times I can control my eating urges. D. I feel incapable of controlling urges to eat. I have a fear of not being able to stop eating voluntarily. Response Group 10: C Group 11 A. I don't have any problem stopping eating when I feel full. B. I usually can stop eating when I feel full but occasionally overeat leaving me feeling uncomfortably stuffed. C. I have a problem stopping eating once I start and usually I feel uncomfortably stuffed after I eat a meal. D. Because I have a problem not being able to stop eating when I want, I sometimes have to induce vomiting to relieve my stuffed feeling. Response Group 11: C Group 12 A. I seem to eat just as much when I'm with others, Family social gatherings as when I'm by myself. B. Sometimes, when I'm with other persons, I don't eat as much as I want to eat because I'm self-conscious about my eating. C. Frequently, I eat only a small amount of food when others are present, because I'm very embarrassed about my eating. D. I feel so ashamed about overeating that I pick times to overeat when I know no one will see me. I feel like a closet eater. Response Group 12: A Group 13 A. I eat three meals a day with only an occasional between meal snack. B. I eat 3 meals a day, but I also normally snack between meals. C. When I am snacking heavily, I get in the habit of skipping regular meals. D. There are regular periods when I seem to be continually eating, with no planned meals. Response Group 13: B Group 14 A. I don't think much about trying to control unwanted eating urges. B. At least some of the time, I feel my thoughts are pre-occupied with trying to control my eating urges. C. I feel that frequently I spend much time thinking about how much I ate or about trying not to eat anymore. D. It seems to me that most of my waking hours are pre-occupied by thoughts about eating or not eating. I feel like I'm constantly struggling not to eat. Response Group 14: A Group 15 A. I don't think about food a great deal. B. I have strong craving for food but they last only for brief periods of time. C. I have days when I can't seem to think about anything else but food. D. Most of my days seem to be pre-occupied with thoughts about food. I feel like I live to eat. Response Group 15: B Group 16 A. I usually know whether or not I'm physically hungry. I take the right portion of food to satisfy me. B. Occasionally, I feel uncertain about knowing whether or not I'm physically hungry. A these times it's hard to know how much food I should take to satisfy me. C. Even though I might know how many calories I should eat, I don't have any idea what is a normal amount of food for me. Response Group 16: C Binge Eating Score: 20 Score less than 17 Minimal Risk Score between 18-26 Moderate Risk Score between 27-46 High Risk Assessment & Plan Assessment & Plan (1) Adjustment disorder: Code(s): F43.20 - Adjustment disorder, unspecified (2) Pre-bariatric surgery psychological evaluation: Code(s): Z71.89 - Other specified counseling Plan The patient is scheduled to return in approximately two weeks to complete the assessment. Based on the information gathered thus far, he appears to be a strong candidate for weight-loss surgery. Next Appointment: August 19, 2024, at 11:00 AM (Phone Call) Telehealth Telehealth Telehealth Platform: [facility] Location of provider rendering services: other Location of patient: address on file Patient Identification confirmed using: Name, : Yes Telehealth method: voice only Patient verbally consented to treatment: Yes Patient verbally consented to billing insurance company: Yes Patient informed of any privacy concerns related to visit: Yes Minutes spent on Phone/Video with Pt.: 50 Coding Level of Care Code New Pt Tele Psy Diag Rogelio ([id number]) Patient Type New Diagnoses Adjustment disorder F43.20 Pre-bariatric surgery psychological evaluation Z71.89 Time Spent (min) 50
--- OUTSIDE RECORDS SUMMARY | 2024-08-02 11:37 | XMS_ITS | Encounter Summary ---
Author Organization [facility] Address [address] [place] [address] Care Team Providers Care Game Engineer Name Role Phone HiGabe Primary Care Provider [phone] Marija King DO Primary Care Provider [phone] Cathleen Palmer MD Primary Care Provider [phone] Encounter Details Date Type Department Care Team (Late st Contact Info) Description 08/26/[address] [facility] Cardiology [address] [address] Valentin Vitale MD [address] [place] [id number] Medications Social History Tobacco Use Types Packs/Day [...] 07/11/2025 11:00 AM EDT Office Visit [facility] Cardiology [address] [address] Jose Angel Starkey MD [address] [place], [place] [id number] 1 yr documented as of this encounter Visit Diagnoses Diagnosis Paroxysmal atrial fibrillation (HCC)- Primary Atrial fibrillation documented in this encounter Additional Health Concerns Infection Onset Date Last Indicated Resolved Time COVID-19 Rule-Out 06/08/2020 06/08/2020 06/08/2020 7:17 PM EDT documented as of this encounter Care Teams Game Engineer Relationship Specialty Start Date End Date Gabe Do [facility] [address] [place] [address] PCP - General 03/24/06 08/22/17 Marija King DO [facility] [address] [place] [address] PCP - General Family Medicine 08/23/17 05/11/21 Cathleen Palmer MD [facility] [address] [place] [address] PCP - General Family Medicine 09/28/22 documented as of this encounter
--- OUTSIDE RECORDS SUMMARY | 2024-08-02 11:37 | XMS_ITS | Encounter Summary ---
Author Organization [facility] Address [address] [place] [address] Care Team Providers Care Gas Leak Tester Name Role Phone Cathleen Palmer MD Primary Care Provider [phone] Encounter Details Date Type Department Care Team (Late Contact Info) Description 05/21/2021 Refill [facility] Neurology [address] 123 [facility] [address] [place] [address] Alex Hummel MD [address] [address] Social History Tobacco Use Types Packs/Day Years [...] Description 07/11/2025 11:00 AM EDT Office Visit [facility] Cardiology [address] 123 [facility] [address] [place] [phone] Jose Angel Starkey MD [address] [place] [address] 1 yr documented as of this encounter Visit Diagnoses Not on filedocumented in this encounter Care Teams Gas Leak Tester Relationship Specialty Start Date End Date Cathleen Palmer MD [address] [address] PCP - General Family Medicine 09/28/22 documented as of this encounter
--- OUTSIDE RECORDS SUMMARY | 2024-08-02 11:37 | XMS_ITS | Clinical Summary ---
Author Organization [facility] Address [address] [place] [address] Care Team Providers Care Receiving Barn Custodian Name Role Phone Cathleen Palmer MD Primary Care Provider [phone] Allergies Active Allergy Reactions Criticality Noted Date Comments Oxycodone Other 01/31/2023 Causes confusion Medications * This document contains information received from the source organization and may not represent a complete record from that organization. Nitroglycerin (NITROSTAT) 0.4 MG SL tabletIndications: Abnormal cardiovascular stress test,Atheroscleros is of coronary artery, angina presence unspecified, unspecified vessel or lesion type, unspecified whether [place] or transplanted heart,Paroxysmal atrial fibrillation (HCC),Hyperlipidem ia, [...] Date Type Department Care Team Description 07/23/2024 [facility] Cardiology [address] [place] [phone] Jayesh Starkey MD Refill Request 07/03/2024 3:00 PM EDT Office Visit [facility] Cardiology [address] [place] [phone] Jayesh Starkey MD Paroxysmal atrial fibrillation (HCC) (Primary Dx); Coronary artery disease, unspecified vessel or lesion type, unspecified whether angina present, unspecified whether [place] or transplanted heart; RBBB (right bundle branch [...] Upcoming Encounters Date Type Department Care Team ([facility] st Contact Info) Description 07/11/2025 11:00 AM EDT Office Visit [facility] Cardiology [address] [place] [address] Jayesh Starkey MD [address] [place] [address] 1 yr Health Maintenance Due Date Last [...] Zoster (Zostavax) Discontinued Procedures * Due to [place] state law, [...] type, unspecified whether angina present, unspecified whether [place] or transplanted heart HEP C ANTIBODY (EIA-2) Routine 08/01/2003 4:44 PM EDT from Last 3 Months or Most Recently Relevant to Health Maintenance Results * Due to [place] state law, [...] Abnormal ECG Confirmed by JAYESH STARKEY ([id number]), editor book KAREN MULTANI ([id number]) on 06/29/2023 7:33:59 AM [...] factors. LDL-C is now calculated using the Olivre-López calculation, which is a validated novel method providing better accuracy than the Friedewald equation in the estimation of LDL-C. Oliver SAM et al. BEAR. 2013;310(19): 3449-4583 (http://education.[employer]/faq/KCX482) CHOL/HDL Ratio 2.8 <5.0 (calc) [facility] Cholesterol Non-HDL 85 <130 mg/dL (calc) [facility] Comment: For patients with diabetes plus 1 major ASCVD risk factor, treating to a non-HDL-C goal of <100 mg/dL (LDL-C of <70 mg/dL) is considered a therapeutic option. 07/20/2020 12:0 5 PM EDT 07/20/2020 9:33 PM EDT Narrative Resulting Agency Comment [id number] us Zhane Dorantes [facility] Final Res ult [facility] [address] [place] [address] * HEP C ANTIBODY (EIA-2) (08/01/2003 4:44 PM EDT) HEPATITIS C AB NEGATIVE [facility] (CLIA# [id number]) 08/01/2003 4:44 PM EDT 08/01/2003 4:44 PM EDT Narrative [facility] (CLIA# [id number]) - 08/01/2003 4:44 PM EDT Ordered by UNKNOWN PROVIDER SST tube received unspun us Unknown Provider LABORATORY Final Result [facility] (CLIA# [id number]) [address] [place] [address] from Last 3 Months or Most Recently Relevant to Health Maintenance Insurance [employer] FEE FOR SERVICE PPO * Guarantor: [employer] Account Type Relation to Patient Date of Phone Billing Address [employer] [address] [place] [address] Care Teams Receiving Barn Custodian Relationship Specialty Start Date End Date Cathleen Palmer MD [address] [address] PCP - General Family Medicine 09/28/22
--- OUTSIDE RECORDS SUMMARY | 2024-08-02 11:37 | XMS_ITS | Encounter Summary ---
Author Organization [facility] Address [address] [place] [address] Care Team Providers Care Digital Watch Assembler Name Role Phone Cathleen Palmer MD Primary Care Provider [phone] Encounter Details Date Type Department Care Team (Late Contact Info) Description 12/16/2021 Orders Only [facility] Pulmonary [address] 123 [facility] [address] [place] [phone] Juan [place] MD [address] [place] [address] Medications Social History Tobacco Use Types Packs/Day [...] 07/11/2025 11:00 AM EDT Office Visit [facility] Cardiology [address] 123 [facility] [address] [place] [phone] Jose Angel Starkey MD [address] [place] [address] 1 yr documented as of this encounter Visit Diagnoses Not on filedocumented in this encounter Care Teams Digital Watch Assembler Relationship Specialty Start Date End Date Cathleen Palmer MD [address] [address] PCP - General Family Medicine 09/28/22 documented as of this encounter
--- OUTSIDE RECORDS SUMMARY | 2024-08-02 11:37 | XMS_ITS | Encounter Summary ---
Author Organization [facility] Address [address] [place] [address] Care Team Providers Care Compliance Vice President Name Role Phone Gabe Do Primary Care Provider [phone] Marija King DO Primary Care Provider [phone] Cathleen Palmer MD Primary Care Provider [phone] Encounter Details Date Type Department Care Team (Late st Contact Info) Description 05/28/2010 Orders Only [facility] Infectious Disease [address] [facility] [address] [place] [address] Marcello Ness MD [address] [place] [address] Social History Tobacco Use Types Packs/Day Years [...] 07/11/2025 11:00 AM EDT Office Visit [facility] Cardiology [address] [facility] [address] [place] [address] Jose Angel Starkey MD [address] [place] [address] 1 yr documented as of this encounter Procedures * Due to [place] Possibility [employer] law, this organization might not be sharing [...] this encounter Results * Due to [place] Possibility [employer] law, this organization might not be sharing negative HIV tests. * MUMPS ANTIBODY (IGG) (05/28/2010) MUMPS VIRUS AB.IGG 2.8 (IMMUNE) SEE BELOW [facility] Comment:REFERENCE: 1.1 OR > INDICATES ANTIBODY 05/28/2010 05/28/2010 3:4 2 PM EST us Marcello Ness MD LABORATORY Final Result [facility] [address] [place] [address] * RUBEOLA IGG AB (05/28/2010) RUBEOLA IGG AB 5.4 (IMMUNE) SEE BELOW [facility] Comment: UNITS: INDEX VALUE REFERENCE: 1.1 OR > INDICATES ANTIBODY 05/28/2010 05/28/2010 3:4 2 PM EST Marcello Ness MD LABORATORY Final Result Performing Organization Address City/[facility]/ZIP Co de Phone Number [facility] [address] [place] [address] * RUBELLA IGG AB (05/28/2010) RUBELLA IGG AB 4.97 (IMMUNE) SEE BELOW [facility] Comment: REFERENCE: 1.1 OR > INDICATES ANTIBODY THE PRESENCE OF RUBELLA IGG ANTIBODY SUGGESTS A CURRENT OR PAST INFECTION OR IMMUNIZATION WITH RUBELLA VIRUS. 05/28/2010 05/28/2010 3:4 2 PM EST Marcello Ness MD LABORATORY Final Result Performing Organization Address [facility] Co de Phone Number [facility] [address] [place] [address] documented in this encounter Visit Diagnoses Diagnosis Other specified counseling Need for prophylactic vaccination with typhoid-paratyphoid alone (TAB) Need for prophylactic vaccination with combined szgumaxmhi-vlueiqn-ppsrejrgt (DTP) vaccine documented in this encounter Additional Health Concerns Infection Onset Date Last Indicated Resolved Time COVID-19 Rule-Out 06/08/2020 06/08/2020 06/08/2020 7:17 PM EDT documented as of this encounter Care Teams Compliance Vice President Relationship Specialty Start Date End Date Gabe Do [facility] [address] [place] [address] PCP - General 03/24/06 08/22/17 Marija King DO [facility] [address] [place] [address] PCP - General Family Medicine 08/23/17 05/11/21 Cathleen Palmer MD [facility] [address] [place] [address] PCP - General Family Medicine 09/28/22 documented as of this encounter
--- OUTSIDE RECORDS SUMMARY | 2024-08-02 11:37 | XMS_ITS | Referral Summary ---
Author Organization [facility] Address [address] [place] [address] Care Team Providers Care Floor Press Operator Name Role Phone Marija King DO Primary Care Provider [phone] Allergies No known active allergies Medications aspirin [...] Not on file Procedures * Due to [place] Platter law, this organization might not be sharing negative HIV tests. Procedure Name Priority Date/Time Associated Diagnosis Comments BASIC METABOLIC PANEL Routine 12/05/2014 9:09 AM EDT from Last 3 Months or Most Recently Relevant to Health Maintenance Results * Due to [place] Platter law, this organization might not be sharing negative HIV tests. * (ABNORMAL) Basic Metabolic Panel (12/05/2014 9:09 AM EDT) Sodium Blood 139 135 - 145 mmol/L [facility] Potassium Blood 4.9 3.5 - 5.3 mmol/L [facility] Chloride Blood 104 97 - 110 mmol/L [facility] Carbon Dioxide 27 24 - 32 mmol/L [facility] Gap 8 5 - 15 [facility] Glucose 102(H) 70 - 99 mg/dL [facility] BUN 9 7 - 23 mg/dL [facility] Creatinine 1.02 0.60 - 1.30 mg/dL [facility] eGFR Non- >60 >60 [facility] Comment: Units = mL/min/1.73 [...] Calcium Blood 9.1 8.7 - 10.7 mg/dL [facility] 12/05/2014 9:09 AM EDT 12/05/2014 9:41 AM EDT us Mitesh Gillespie MD LAB BLOOD ORDERABLES Final Res ult [facility] [address] [place] [address], from Last 3 Months or Most Recently Relevant to Health Maintenance Insurance [employer] CIGNA PPO/EPO/IND Advance Directives * Full Code (Latest Code Status on File) Date Activated Date Inactivated Comments 06/09/2020 1:31 PM 06/09/2020 7:11 PM * Full Code Date Activated Date Inactivated Comments 06/09/2020 11:18 AM 06/09/2020 1:31 PM Care Teams Floor Press Operator Relationship Specialty Start Date End Date Marija King DO [address] [place] [address] PCP - General 06/03/20
--- OUTSIDE RECORDS SUMMARY | 2024-08-02 11:37 | XMS_ITS | Encounter Summary ---
Author Organization [facility] Address [address] [place] [address] Care Team Providers Care Scoring Machine Operator Name Role Phone Marija King DO Primary Care Provider [phone] Cathleen Palmer MD Primary Care Provider [phone] Reason for Referral * OUTPT PROCEDURES AND DIAGNOSTICS (Routine) - Closed Specialty Diagnoses / Procedures Referred By Contac t Referred To Contact CT Scan Diagnoses Other nonspecific abnormal finding of lung field Procedures CT CHEST W/O CONTRAST (DX: ? NODULE ON CXR R91.8/ 793.2) (WITHIN 1 WK) Juan [place] MD [address] [place] [address] Phone: tel: fax: Referral ID Status Reason Start Date Expiration Date V isits Requested Visits Authorized [id number] Closed Continuity of Care 04/09/2018 07/08/2018 1 1 Encounter Details Date Type Department Care Team (Late st Contact Info) Description 04/04/2018 Orders Only [facility] Pulmonary [address] 123 [facility] [address] [place] [address] Juan [place] MD [address] [place] [address] Social History Tobacco Use Types Packs/Day Years [...] Description 07/11/2025 11:00 AM EDT Office Visit [facility] Cardiology [address] [facility] [address] [place] [address] Jose Angel Starkey MD [address] [place] [address] 1 yr documented as of this encounter Results * Due to [place] state law, this organization might not be sharing negative HIV tests. * (ABNORMAL) CT CHEST W/O CONTRAST (DX: ? NODULE ON CXR R91.8/ 793.2) (WITHIN 1 WK) FC (04/13/2018 9:02 AM EST) [facility](A) [facility] Anatomical Region Laterality Modality CHEST [...] documented as of this encounter Care Teams Scoring Machine Operator Relationship Specialty Start Date End Date Marija King DO PCP - General Family Medicine 08/23/17 05/11/21 [place] [address] PCP - General Family Medicine 09/28/22 documented as of this encounter
--- OUTSIDE RECORDS SUMMARY | 2024-08-02 11:37 | XMS_ITS | Encounter Summary ---
Author Organization [facility] Address [address] [place] [address] Care Team Providers Care Raw Juice Weigher Name Role Phone ChristineMarija Lovely VARGAS Primary Care Provider [phone] Cathleen Palmer MD Primary Care Provider [phone] Encounter Details Date Type Department Care Team (Late Contact Info) Description 03/03/2018 Orders Only [facility] Cardiology [address] [address] Kathryn Bansal DO [address] [place] [address] Medications Social History Tobacco Use Types Packs/Day [...] Description 07/11/2025 11:00 AM EDT Office Visit [facility] Cardiology [address] [address] Jose Angel Starkey MD [address] [place] [address] 1 yr documented as of this encounter Visit Diagnoses Not on filedocumented in this encounter Additional Health Concerns Infection Onset Date Last Indicated Resolved Time COVID-19 Rule-Out 06/08/2020 06/08/2020 06/08/2020 7:17 PM EDT documented as of this encounter Care Teams Raw Juice Weigher Relationship Specialty Start Date End Date Marija King DO PCP - General Family Medicine 08/23/17 05/11/21 Cathleen Palmer MD [address] [address] PCP - General Family Medicine 09/28/22 documented as of this encounter
--- OUTSIDE RECORDS SUMMARY | 2024-08-02 11:37 | XMS_ITS | Encounter Summary ---
Author Organization [facility] Address [address] [place] [address] Care Team Providers Care Stone Sandblaster Name Role Phone Christine Marija Lovely VARGAS Primary Care Provider [phone] Cathleen Palmer MD Primary Care Provider [phone] Encounter Details Date Type Department Care Team (Late st Contact Info) Description 10/01/2018 [facility] Pulmonary [address] [facility] [address] [place] [address] Juan [place] MD [address] [place] [address] Medications Social History Tobacco Use Types Packs/Day [...] Description 07/11/2025 11:00 AM EDT Office Visit [facility] Cardiology [address] [facility] [address] [place] [address] Jose Angel Starkey MD [address] [place] [address] 1 yr documented as of this encounter Visit Diagnoses Diagnosis Cough documented in this encounter Additional Health Concerns Infection Onset Date Last Indicated Resolved Time COVID-19 Rule-Out 06/08/2020 06/08/2020 06/08/2020 7:17 PM EDT documented as of this encounter Care Teams Stone Sandblaster Relationship Specialty Start Date End Date Marija King DO PCP - General Family Medicine 08/23/17 05/11/21 Cathleen Palmer MD [address] [address] PCP - General Family Medicine 09/28/22 documented as of this encounter
--- OUTSIDE RECORDS SUMMARY | 2024-08-02 11:37 | XMS_ITS | Encounter Summary ---
Author Organization [facility] Address [address] [place] [address] Care Team Providers Care Range Scientist Name Role Phone Marija King DO Primary Care Provider [phone] Cathleen Palmer MD Primary Care Provider Reason for Visit * Reason Onset Date Comments Refill Request 06/02/2019 Encounter Details Date Type Department Care Team (Late st Contact Info) Description 06/02/2019 Refill [facility] Pulmonary [address] 123 [facility] [address] [place] [address] Juan [place] MD [address] [place] [address] Refill Request Social History Tobacco Use Types [...] Visit [facility] Cardiology [address] [address] Jose Angel Starkey MD [address] [place] [address] 1 yr documented as of this encounter Visit Diagnoses Not on filedocumented in this encounter Additional Health Concerns Infection Onset Date Last Indicated Resolved Time COVID-19 Rule-Out 06/08/2020 06/08/2020 06/08/2020 7:17 PM EDT documented as of this encounter Care Teams Range Scientist Relationship Specialty Start Date End Date Marija King DO PCP - General Family Medicine 08/23/17 05/11/21 Cathleen Palmer MD [address] [address] PCP - General Family Medicine 09/28/22 documented as of this encounter
--- OUTSIDE RECORDS SUMMARY | 2024-08-02 11:37 | XMS_ITS | Encounter Summary ---
Author Organization [facility] Address [address] [place] [address] Care Team Providers Care Podiatrist Orthopedic Name Role Phone Marija King DO Primary Care Provider [phone] Cathleen Palmer MD Primary Care Provider [phone] Encounter Details Date Type Department Care Team ([facility] st Contact Info) Description 07/20/2020 Orders Only [facility] Cardiology [address] 123 [facility] [address] [place] [address] Zhane Dorantes NP 123 [facility] [address] [place] [address] Social History Tobacco Use Types Packs/Day Years [...] his labs as requested. Patient states understanding [facility] is happy with his cholesterol panel but [...] 07/11/2025 11:00 AM EDT Office Visit [facility] Cardiology [address] 123 [facility] [address] [place] [address] [place] [address] Jose Angel Starkey MD [address] [place] [address] 1 yr documented as of this encounter Procedures * Due to [facility] law, this organization might not be sharing negative HIV tests. Procedure Name Priority Date/Time Associated Diagnosis Comments VENIPUNCTURE Routine 07/20/2020 12:05 PM EDT Coronary artery disease, unspecified vessel or lesion type, unspecified whether angina present, unspecified whether torres martinez or transplanted heart documented in this encounter Results * Due to [place] InSample law, this organization might not be sharing [...] LDL-C. Oliver SAM et al. BEAR. 2013;310(19): 1548-6019 (http://education.[employer]/faq/FEP867) CHOL/HDL Ratio 2.8 <5.0 (calc) [facility] Cholesterol Non-HDL 85 <130 mg/dL (calc) [facility] Comment: For patients with diabetes plus 1 major ASCVD risk factor, treating to a non-HDL-C goal of <100 mg/dL (LDL-C of <70 mg/dL) is considered a therapeutic option. 07/20/2020 12:0 5 PM EDT 07/20/2020 9:33 PM EDT Narrative Resulting Agency Comment [id number] us Zhane Dorantes [facility] Final Res ult [facility] [address] [place] [address] documented in this encounter Visit Diagnoses Diagnosis Coronary artery disease, unspecified vessel or lesion type, unspecified whether angina present, unspecified whether torres martinez or transplanted heart documented in this encounter Care Teams Podiatrist Orthopedic Relationship Specialty Start Date End Date Marija King DO PCP - General Family Medicine 08/23/17 05/11/21 Cathleen Palmer MD [address] [address] PCP - General Family Medicine 09/28/22 documented as of this encounter
--- OUTSIDE RECORDS SUMMARY | 2024-08-02 11:37 | XMS_ITS | Encounter Summary ---
Author Organization [facility] Address [address] [place] [address] Care Team Providers Care Stage Setting Painter Apprentice Name Role Phone Christine Marija Lovely VARGAS Primary Care Provider [phone] Cathleen Palmer MD Primary Care Provider [phone] Encounter Details Date Type Department Care Team (Late Contact Info) Description 10/31/2017 Orders [facility] Pulmonary [address] [facility] [address] [place] [phone] Juan Morse MD [address] [place] [address] Social History Tobacco Use Types Packs/Day Years [...] Description 07/11/2025 11:00 AM EDT Office Visit [facility] Cardiology [address] [facility] [address] [place] [phone] Jose Angel Starkey MD [address] [place], [place] [id number] 1 yr documented as of this encounter Procedures * Due to [place] state law, this [...] 9:49 PM EDT Narrative Resulting Agency Comment [id number] Juan Morse MD LABORATORY Final Result Performing Organization Address [facility]/ZIP Co de Phone Number [facility] [address] [place] [address] * EOSINOPHILS, ABSOLUTE (10/31/2017 2:46 PM EDT) WBC 7.4 3.8 - 10.8 Thousand/u L [facility] Eosinophils # 163 15 - 500 cells/uL [facility] Eosinophils % 2.2 % [facility] 10/31/2017 2:46 PM EDT 10/31/2017 9:49 PM EDT Narrative Resulting Agency Comment [id number] Juan Morse MD LABORATORY Final Result Performing Organization Address City/[facility]/ZIP Co de Phone Number [facility] [address] [place] [address] * [facility] (10/31/2017 2:46 PM EDT) IgE 4 <CD=073 kU/L [facility] Constantino Grass (G6) IgE <0.10 kU/L [facility] Constantino Grass (G6) Class 0 [facility] Effie Grass(Kentucky Blue)(G8) IgE <0.10 kU/L [facility] Effie Grass([place]ent[place] Blue)(G8) Class 0 [facility] Common Ragweed (Short)(W1) IgE <0.10 kU/L [facility] Common Ragweed (Short)(W1) Class 0 [facility] Venezuelan Plantain (W9) IgE <0.10 kU/L [facility] Venezuelan Plantain (W9) Class 0 [facility] Rey's Quarters (Goosefoot) (W10) IgE <0.10 kU/L [facility] Rey's Quarters (Goosefoot) (W10) Class 0 [facility] Alna (T7) IgE <0.10 kU/L [facility] Alna (T7) Class 0 [facility] Cat Dander [...] (M6) Class 0 [facility] House Dust ([place]-Jackie) (H2) IgE <0.10 kU/L [facility] House Dust (Marie-Jackie) (H2) Class 0 [facility] Dermatophagoides Farinae(D2) IgE <0.10 kU/L [facility] Dermatophagoides Farinae(D2) Class 0 [facility] 10/31/2017 2:46 PM EDT 10/31/2017 9:49 PM EDT Narrative Resulting Agency Comment [id number] us Juan Morse MD LABORATORY Final Result [facility] [address] [place] [address] documented in this encounter Visit Diagnoses Diagnosis Cough SOB (shortness of breath) Shortness of breath documented in this encounter Additional Health Concerns Infection Onset Date Last Indicated Resolved Time COVID-19 Rule-Out 06/08/2020 06/08/2020 06/08/2020 7:17 PM EDT documented as of this encounter Care Teams Stage Setting Painter Apprentice Relationship Specialty Start Date End Date Marija King DO PCP - General Family Medicine 08/23/17 05/11/21 Cathleen Palmer MD [address] [address] PCP - General Family Medicine 09/28/22 documented as of this encounter
--- OUTSIDE RECORDS SUMMARY | 2024-08-02 11:37 | XMS_ITS | Encounter Summary ---
Author Organization [facility] Address [address] [place] [address] Care Team Providers Care Agronomy Instructor Name Role Phone Marija King DO Primary Care Provider [phone] Encounter Details Date Type Department Care Team (Late st Contact Info) Description 11/17/2020 myChart Message [facility] Management [address] [place] [address] Mychart, Generic Provider [address] [id number] [facility] Customer Service Request Social History Tobacco [...] on filedocumented in this encounter Care Teams Agronomy Instructor Relationship Specialty Start Date End Date Marija King DO [address] [place] [address] PCP - General 06/03/20 documented as of this encounter
--- OUTSIDE RECORDS SUMMARY | 2024-08-02 11:37 | XMS_ITS | Encounter Summary ---
Author Organization [facility] Address [address] [place] [address] Care Team Providers Care Outboard Motor Assembler Name Role Phone Mindy Kingh Lovely VARGAS Primary Care Provider [phone] Cathleen Palmer MD Primary Care Provider [phone] Reason for Visit * Reason Comments Follow Up Encounter Details Date Type Department Care Team ([facility] st Contact Info) Description 02/20/2018 Telephone [facility] Neurology [address] [address] Alex Hummel MD [address] [id number] Follow Up Social History Tobacco Use Types [...] Phone 02/21/18 4:30 PM Alex Hummel MD [facility] [phone] 05/03/18 3:00 PM Juan Morse MD [facility] Pulmonary [address] 08/29/18 3:00 PM Jose Angel Starkey MD [facility] Cardiology [address] * Telephone Encounter - [...] 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 He has some college education. 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, I could see him next week possibly [...] Upcoming Encounters Date Type Department Care Team ([facility] st Contact Info) Description 07/11/2025 11:00 AM EDT Office Visit [facility] Cardiology [address] [address] Jose Angel Starkey MD [address] [place] [address] 1 yr documented as of this encounter Visit Diagnoses Not on filedocumented in this encounter Additional Health Concerns Infection Onset Date Last Indicated Resolved Time COVID-19 Rule-Out 06/08/2020 06/08/2020 06/08/2020 7:17 PM EDT documented as of this encounter Care Teams Outboard Motor Assembler Relationship Specialty Start Date End Date Marija King DO PCP - General Family Medicine 08/23/17 05/11/21 Cathleen Palmer MD [address] [address] PCP - General Family Medicine 09/28/22 documented as of this encounter
--- OUTSIDE RECORDS SUMMARY | 2024-08-02 11:37 | XMS_ITS | Encounter Summary ---
Author Organization [facility] Address [address] [place] [address] Care Team Providers Care Fixed Wing Pilot Name Role Phone Cathleen Palmer MD Primary Care Provider [phone] Encounter Details Date Type Department Care Team (Late st Contact Info) Description 09/29/2022 Orders Only [facility] Pulmonary [address] 123 [facility] [address] [place] [phone] Juan Morse MD [address] [place] [address] Social History Tobacco Use Types Packs/Day Years [...] Description 07/11/2025 11:00 AM EDT Office Visit [facility] Cardiology [address] [facility] [address] [place] [phone] Jose Angel Starkey MD [address] [place] [address] 1 yr documented as of this encounter Results * Due to [place] state law, this organization might not be [...] on filedocumented in this encounter Care Teams Fixed Wing Pilot Relationship Specialty Start Date End Date Cathleen Palmer MD [facility] [address] [address] PCP - General Family Medicine 09/28/22 documented as of this encounter
--- OUTSIDE RECORDS SUMMARY | 2024-08-02 11:37 | XMS_ITS | Encounter Summary ---
Author Organization [facility] Address [address] [place] [address] Care Team Providers Care Mr Teacher Name Role Phone Christine Marija Lovely VARGAS Primary Care Provider [phone] Cathleen Palmer MD Primary Care Provider [phone] Encounter Details Date Type Department Care Team (Late Contact Info) Description 05/03/2019 Orders Only [facility] [address] [place] [phone] Alex Hummel MD [address] [place] [phone] Social History Tobacco Use Types Packs/Day Years [...] Description 07/11/2025 11:00 AM EDT Office Visit [facility] [address] [place] [phone] Jose Angel Starkey MD [address] [place], [place] [phone] 1 yr documented as of this encounter Procedures * Due to [place] [employer] law, this organization might not be sharing negative HIV tests. Procedure Name Priority Date/Time Associated Diagnosis Comments VENIPUNCTURE Routine 05/03/2019 9:32 AM EST Seizure documented in this encounter Results * Due to [place] [employer] law, this organization might not be sharing negative HIV tests. * (ABNORMAL) VALPROIC ACID (05/03/2019 9:32 AM EST) Valproate 30.5(L) 50.0 - 100.0 mg/L [facility] 05/03/2019 9:32 AM EST 05/04/2019 Narrative Resulting Agency Comment [id number] us Alex Hummel MD LAB SAME DAY RESULT Final Resu lt Performing Organization Address City/State/[facility] Co de Phone Number [facility] [address] [place] [address] documented in this encounter Visit Diagnoses Diagnosis Seizure (HCC) Other convulsions documented in this encounter Additional Health Concerns Infection Onset Date Last Indicated Resolved Time COVID-19 Rule-Out 06/08/2020 06/08/2020 06/08/2020 7:17 PM EDT documented as of this encounter Care Teams Mr Teacher Relationship Specialty Start Date End Date Marija King DO PCP - General Family Medicine 08/23/17 05/11/21 Cathleen Palmer MD [address] [address] PCP - General Family Medicine 09/28/22 documented as of this encounter
--- OUTSIDE RECORDS SUMMARY | 2024-08-02 11:37 | XMS_ITS | Clinical Summary ---
Author Organization [facility] it Address [address] [place] [address] Care Team Providers Care Counter Maker Name Role Phone Unavailable Primary Care Provider [...]
--- OUTSIDE RECORDS SUMMARY | 2024-08-02 11:37 | XMS_ITS | Encounter Summary ---
Author Organization [facility] Address [address] [place] [address] Care Team Providers Care Manager Utilization Management Name Role Phone Marija King DO Primary Care Provider [phone] Cathleen Palmer MD Primary Care Provider [phone] Encounter Details Date Type Department Care Team (Late Contact Info) Description 12/19/2018 [facility] Pulmonary [address] 123 [facility] [address] [place] [address] Juan Morse MD [address] [place] [address] Social History Tobacco Use Types Packs/Day Years [...] Fonseca RN - 12/19/2018 3:36 PM EDT [employer] message sent on 12/27 documented in this encounter Plan of Treatment Upcoming Encounters Date Type Department Care Team (Late st Contact Info) Description 07/11/2025 11:00 AM EDT Office Visit [facility] Cardiology [address] [facility] [address] [place] [address] Jose Angel Starkey MD [address] [place] [address] 1 yr documented as of this encounter Procedures * Due to [place] [employer] law, this organization might not be sharing negative HIV tests. Procedure Name Priority Date/Time Associated Diagnosis Comments C-REACTIVE PROTEIN (CRP) - INFLAMMATION Routine 12/19/2018 3:36 PM EDT Recurrent respiratory infection IMMUNOGLOBULIN G,SUBCLASSES 1-4 SERUM Routine 12/19/2018 3:36 PM EDT Recurrent respiratory infection VENIPUNCTURE Routine 12/19/2018 3:36 PM EDT Recurrent respiratory infection documented in this encounter Results * Due to [place] [employer] law, this organization might not be sharing negative HIV tests. * C-REACTIVE PROTEIN (CRP) - INFLAMMATION (12/19/2018 3:36 PM EDT) C reactive protein 0.9 <8.0 mg/L [facility] 12/19/2018 3:36 PM EDT 12/19/2018 11:34 PM EDT Narrative Resulting Agency Comment [id number] Juan Morse MD LABORATORY Final Result Performing Organization Address City/State/[facility] Co de Phone Number [facility] [address] [place] [address] * IMMUNOGLOBULIN QUANTITATION (IGG, IGM, IGA) (12/19/2018 3:36 PM EDT) IgA 142 20 - 320 mg/dL [facility] IgG 1024 600 - 1540 mg/dL [facility] IgM 112 50 - 300 mg/dL [facility] 12/19/2018 3:36 PM EDT 12/19/2018 11:34 PM EDT Narrative Resulting Agency Comment [id number] us Juan Morse MD LABORATORY Final Result Performing Organization Address City/[facility]/ZIP Co de Phone Number [facility] [address] [place] [address] * IMMUNOGLOBULIN G,SUBCLASSES 1-4 SERUM (12/19/2018 3:36 [...] 11:34 PM EDT Narrative Resulting Agency Comment [id number] Juan Morse MD LABORATORY Final Result Performing Organization Address City/[facility] Co de Phone Number [facility] [address] [place] [address] documented in this encounter Visit Diagnoses Diagnosis Recurrent respiratory infection Other diseases of respiratory system, not elsewhere classified documented in this encounter Additional Health Concerns Infection Onset Date Last Indicated Resolved Time COVID-19 Rule-Out 06/08/2020 06/08/2020 06/08/2020 7:17 PM EDT documented as of this encounter Care Teams Manager Utilization Management Relationship Specialty Start Date End Date Marija King DO PCP - General Family Medicine 08/23/17 05/11/21 Cathleen Palmer MD [address] [address] PCP - General Family Medicine 09/28/22 documented as of this encounter
--- OUTSIDE RECORDS SUMMARY | 2024-08-02 11:37 | XMS_ITS | Encounter Summary ---
Author Organization [facility] Address [address] [place] [address] Care Team Providers Care Airplane Gastank Liner Assembler Name Role Phone Christine Marija Lovely VARGAS Primary Care Provider [phone] Cathleen Palmer MD Primary Care Provider [phone] Reason for Visit * Reason Comments E-prescribing Refill Request Encounter Details Date Type Department Care Team ([facility] Contact Info) Description 06/10/2019 Refill [facility] Cardiology [address] [address] Jose Angel Starkey MD [address] [place] [address] E-prescribing Refill Request Social History Tobacco Use [...] Upcoming Encounters Date Type Department Care Team ([facility] Contact Info) Description 07/11/2025 11:00 AM EDT Office Visit [facility] Cardiology [address] [address] Jose Angel Starkey MD [address] [place] [address] 1 yr documented as of this encounter Visit Diagnoses Diagnosis Paroxysmal atrial fibrillation (HCC) Atrial fibrillation documented in this encounter Additional Health Concerns Infection Onset Date Last Indicated Resolved Time COVID-19 Rule-Out 06/08/2020 06/08/2020 06/08/2020 7:17 PM EDT documented as of this encounter Care Teams Airplane Gastank Liner Assembler Relationship Specialty Start Date End Date Marija King DO PCP - General Family Medicine 08/23/17 05/11/21 Cathleen Palmer MD [address] [address] PCP - General Family Medicine 09/28/22 documented as of this encounter
--- OUTSIDE RECORDS SUMMARY | 2024-08-02 11:37 | XMS_ITS | Encounter Summary ---
Author Organization [facility] Address [address] [place] [address] Care Team Providers Care Electronics Production Supervisor Name Role Phone HiGabe Primary Care Provider [phone] Marija King DO Primary Care Provider [phone] Cathleen Palmer MD Primary Care Provider [phone] Encounter Details Date Type Department Care Team (Late st Contact Info) Description 08/27/2015 Orders Only [facility] Cardiology [address] [address] Valentin Vitale MD [address] [place] [id number] Social History Tobacco Use Types Packs/Day Years [...] 07/11/2025 11:00 AM EDT Office Visit [facility] Cardiology [address] [address] Jose Angel Starkey MD [address] [place], [place] [id number] 1 yr documented as of this encounter Procedures * Due to [place] state law, this organization might not be sharing negative HIV tests. Procedure Name Priority Date/Time Associated Diagnosis Comments CBC INCLUDES DIFFERENTIAL AND PLATELET COUNT Routine 08/27/2015 8:34 AM EDT Abnormal cardiovascular stress test Atherosclerosis of coronary artery, angina presence unspecified, unspecified vessel or lesion type, unspecified whether poarch or transplanted heart [I25.10] Paroxysmal atrial fibrillation (HCC) [I48.0] Hyperlipidemia, unspecified hyperlipidemia type [E78.5] Essential hypertension with goal blood pressure less than 130/80 [I10] TSH, 3RD GENERATION Routine 08/27/2015 8 :34 AM EDT Abnormal cardiovascular stress test Atherosclerosis of coronary artery, angina presence unspecified, unspecified vessel or lesion type, unspecified whether poarch or transplanted heart [I25.10] Paroxysmal atrial fibrillation (HCC) [I48.0] Hyperlipidemia, unspecified hyperlipidemia type [E78.5] Essential hypertension with goal blood pressure less than 130/80 [I10] LIPID PANEL WITH REFLEX TO DIRECT LDL Routine 08/27/2015 8:34 AM EDT Abnormal cardiovascular stress test Atherosclerosis of coronary artery, angina presence unspecified, unspecified vessel or lesion type, unspecified whether poarch or transplanted heart [I25.10] Paroxysmal atrial fibrillation (HCC) [I48.0] Hyperlipidemia, unspecified hyperlipidemia type [E78.5] Essential hypertension with goal blood pressure less than 130/80 [I10] BASIC METABOLIC PANEL WITH (GFR) Routine 08/27/2015 8:34 AM EDT Abnormal cardiovascular stress test Atherosclerosis of coronary artery, angina presence unspecified, unspecified vessel or lesion type, unspecified whether poarch or transplanted heart [I25.10] Paroxysmal atrial fibrillation (HCC) [I48.0] Hyperlipidemia, unspecified hyperlipidemia type [E78.5] Essential hypertension with goal blood pressure less than 130/80 [I10] documented in this encounter Results * Due to [place] [employer] law, this organization might not be sharing negative HIV tests. * (ABNORMAL) LIPID PANEL WITH REFLEX TO DIRECT LDL (08/27/2015 8:34 AM EDT) Cholesterol 112(L) 125 - 200 mg/dL [facility] Comment:{CHOLESTEROL, TOTAL {[id number]) HDL Cholesterol 39(L) > OR = 40 mg/dL [facility] Comment:{HDL CHOLESTEROL {[id number]) Triglyceride 176(H) <150 mg/dL [facility] Comment:{TRIGLYCERIDES {[id number]) LDL Cholesterol 38 <130 mg/dL (calc) [facility] Comment: {LDL-CHOLESTEROL {[id number]) Desirable range <100 mg/dL for patients with CHD or diabetes and <70 mg/dL for diabetic patients with known heart disease. CHOL/HDL Ratio 2.9 < OR = 5.0 (calc) [facility] Comment:{CHOL/HDLC RATIO {[id number]) Cholesterol Non-HDL 73 mg/dL (calc) [facility] Comment: {NON HDL CHOLESTEROL {[id number]) Target for non-HDL cholesterol is 30 mg/dL higher than LDL cholesterol target. 08/27/2015 8:34 AM EDT 08/27/2015 7:39 PM EDT Narrative Resulting Agency Comment [id number] Valentin Vitale MD LABORATORY Final Result Performing Organization Address [facility] Co de Phone Number [facility] [address] [place] [address] * TSH, 3RD GENERATION (08/27/2015 8:34 AM EDT) TSH 1.24 0.40 - 4.50 mIU/L [facility] Comment:{TSH {[id number]) 08/27/2015 8:34 AM EDT 08/27/2015 7:39 PM EDT Narrative Resulting Agency Comment [id number] Valentin Vitale MD LABORATORY Final Result Performing Organization Address [facility] Co de Phone Number [facility] [address] [place] [address] * BASIC METABOLIC PANEL WITH (GFR) (08/27/2015 8:34 AM EDT) [facility] Glucose 99 65 - 99 mg/dL [facility] Comment: {GLUCOSE {[id number]) ? Fasting reference interval Urea Nitrogen Blood (BUN) 12 7 - 25 mg/dL [facility] Comment:{UREA NITROGEN (BUN) {[id number]) Creatinine 1.10 0.70 - 1.25 mg/dL [facility] Comment: {CREATININE {[id number]) For patients >49 years of age, the reference limit for Creatinine is approximately 13% higher for people identified as -Puerto Rican. GFR 70 > OR = 60 mL/min/1 .73m2 [facility] Comment:{eGFR NON-AFR. AMERI CAN {[id number]) GFR () 81 > OR = 60 mL/min/1 .73m2 [facility] Comment:{eGFR AMERIC AN {[id number]) BUN/Creatinine Ratio NOT APPLICABLE (calc) [facility] Comment:{BUN/CREATININE RATI O {[id number]) Sodium 139 135 - 146 mmol/L [facility] Comment:{SODIUM {[id number]) Potassium 4.7 3.5 - 5.3 mmol/L [facility] Comment:{POTASSIUM {[id number]) Chloride 105 98 - 110 mmol/L [facility] Comment:{CHLORIDE {[id number]) Carbon dioxide 26 19 - 30 mmol/L [facility] Comment:{CARBON DIOXIDE {[id number]) Calcium 9.4 8.6 - 10.3 mg/dL [facility] Comment:{CALCIUM {[id number]) 08/27/2015 8:34 AM EDT 08/27/2015 7:39 [...] needs for GFR calculation. Resulting Agency Comment [id number] us Valentin Vitale MD LABORATORY Final Result [facility] [address] [place] [address] * CBC INCLUDES DIFFERENTIAL AND PLATELET COUNT (08/27/2015 8:34 AM EDT) WBC 6.0 3.8 - 10.8 Thousand/u L [facility] Comment:{WHITE BLOOD CELL CO UNT {[id number]) RBC 4.88 4.20 - 5.80 Million/uL [facility] Comment:{RED BLOOD CELL COUN T {[id number]) Hemoglobin 15.2 13.2 - 17.1 g/dL [facility] Comment:{HEMOGLOBIN {[id number]) Hematocrit 44.6 38.5 - 50.0 % [facility] Comment:{HEMATOCRIT {[id number]) MCV 91.5 80.0 - 100.0 fL [facility] Comment:{MCV {[id number]) MCH 31.2 27.0 - 33.0 pg [facility] Comment:{MCH {[id number]) MCHC 34.1 32.0 - 36.0 g/dL [facility] Comment:{MCHC {[id number]) RDW 12.9 11.0 - 15.0 % [facility] Comment:{RDW {[id number]) PLT 191 140 - 400 Thousand/u L [facility] Comment:{PLATELET COUNT {[id number]) MPV 8.9 7.5 - 11.5 fL [facility] Comment:{MPV {[id number]) Neutrophils # 2856 1500 - 7800 cells/uL [facility] Comment:{ABSOLUTE NEUTROPHIL S {[id number]) Lymphocytes # 2508 850 - 3900 cells/uL [facility] Comment:{ABSOLUTE LYMPHOCYTE S {[id number]) Monocytes # 486 200 - 950 cells/uL [facility] Comment:{ABSOLUTE MONOCYTES {[id number]) Eosinophils # 126 15 - 500 cells/uL [facility] Comment:{ABSOLUTE EOSINOPHIL S {[id number]) Basophils # 24 0 - 200 cells/uL [facility] Comment:{ABSOLUTE BASOPHILS {[id number]) Neutrophils % 47.6 % [facility] Comment:{NEUTROPHILS {[id number]) Lymphocytes % 41.8 % [facility] Comment:{LYMPHOCYTES {[id number]) Monocytes % 8.1 % [facility] Comment:{MONOCYTES {[id number]) Eosinophils % 2.1 % [facility] Comment:{EOSINOPHILS {[id number]) Basophils % 0.4 % [facility] Comment:{BASOPHILS {[id number]) 08/27/2015 8:34 AM EDT 08/27/2015 7:39 PM EDT Narrative Resulting Agency Comment [id number] us Valentin Vitale MD LAB SAME DAY RESULT Final Resul t Performing Organization Address City/State/[facility] Co de Phone Number [facility] [address] [place] [address] documented in this encounter Visit Diagnoses Diagnosis Abnormal cardiovascular stress test Other nonspecific abnormal cardiovascular system function study Atherosclerosis of coronary artery, angina presence unspecified, unspecified vessel or lesion type, unspecified whether poarch or transplanted heart [I25.10] Paroxysmal atrial fibrillation (HCC) [I48.0] Atrial fibrillation Hyperlipidemia, unspecified hyperlipidemia type [E78.5] Essential hypertension with goal blood pressure less than 130/80 [I10] documented in this encounter Additional Health Concerns Infection Onset Date Last Indicated Resolved Time COVID-19 Rule-Out 06/08/2020 06/08/2020 06/08/2020 7:17 PM EDT documented as of this encounter Care Teams Electronics Production Supervisor Relationship Specialty Start Date End Date Gabe Do [facility] [address] [place] [address] PCP - General 03/24/06 08/22/17 Marija King DO [facility] [address] [place] [address] PCP - General Family Medicine 08/23/17 05/11/21 [place] [address] PCP - General Family Medicine 09/28/22 documented as of this encounter
--- OUTSIDE RECORDS SUMMARY | 2024-08-02 11:37 | XMS_ITS | Encounter Summary ---
Author Organization [facility] Address [address] [place] [address] Care Team Providers Care Digital Learning Platforms Manager Name Role Phone Marija King DO Primary Care Provider [phone] Cathleen Palmer MD Primary Care Provider [phone] Encounter Details Date Type Department Care Team (Late Contact Info) Description 05/08/2020 Orders Only [facility] Cardiology [address] [address] Jose Angel Starkey MD [address] [place] [address] Social History Tobacco Use Types Packs/Day Years [...] Description 07/11/2025 11:00 AM EDT Office Visit [facility] Cardiology [address] [facility] [address] [place] [address] Jose Angel Starkey MD [address] [place] [address] 1 yr documented as of this encounter Procedures * Due to [facility] law, this organization might not be sharing negative HIV tests. Procedure Name Priority Date/Time Associated Diagnosis Comments VENIPUNCTURE Routine 05/08/2020 11:51 AM EST Chronic chest pain Atherosclerosis of coronary artery, angina presence unspecified, unspecified vessel or lesion type, unspecified whether confed[place] gosh[place] or transplanted heart [I25.10] CBC INCLUDES DIFFERENTIAL AND PLATELET COUNT Routine 05/08/2020 11:51 AM EST Chronic chest pain Atherosclerosis of coronary artery, angina presence unspecified, unspecified vessel or lesion type, unspecified whether conf[place] gosh[place] or transplanted heart [I25.10] BASIC METABOLIC PANEL WITH (GFR) Routine 05/08/2020 11:51 AM EST Chronic chest pain Atherosclerosis of coronary artery, angina presence unspecified, unspecified vessel or lesion type, unspecified whether conf[place] g[place] or transplanted heart [I25.10] documented in this encounter Results * Due to [place] [employer] law, this organization might not be sharing [...] approximately 13% higher for people identified as -Beninese. EGFR 60 > OR = 60 mL/min/1. [...] needs for GFR calculation. Resulting Agency Comment [id number] us Jose Angel Starkey MD LABORATORY Final Result [facility] [address] [place] [address] * CBC INCLUDES DIFFERENTIAL AND PLATELET COUNT [...] 1:42 PM EST Narrative Resulting Agency Comment [id number] Jose Angel Starkey MD LAB SAME DAY RESULT Final Res ult Performing Organization Address [facility] de Phone Number [facility] [address] [place] [phone] * (ABNORMAL) PROTHROMBIN TIME (PT) (INR), BLOOD (05/08/2020 11:51 AM EST) INR 1.2(H) [facility] Comment: Reference Range ? 0.9-1.1 Moderate-intensity Warfarin Therapy 2.0-3.0 Higher-intensity Warfarin Therapy ?? 3.0-4.0 PT 12.7(H) 9.0 - 11.5 sec [facility] Comment: For additional information, please refer to http://education.[employer]/faq/QGB027 (This link is being provided for informational/ educational purposes only.) 05/08/2020 11:5 1 AM EST 05/08/2020 1:42 PM EST Narrative Resulting Agency Comment [id number] Jose Angel Starkey MD LAB SAME DAY RESULT Final Res ult Performing Organization Address [facility] de Phone Number [facility] [address] [place] [address] documented in this encounter Visit Diagnoses Diagnosis Chronic chest pain Chest pain, unspecified Atherosclerosis of coronary artery, angina presence unspecified, unspecified vessel or lesion type, unspecified whether confed[place] gosh[place] or transplanted heart [I25.10] documented in this encounter Additional Health Concerns Infection Onset Date Last Indicated Resolved Time COVID-19 Rule-Out 06/08/2020 06/08/2020 06/08/2020 7:17 PM EDT documented as of this encounter Care Teams Digital Learning Platforms Manager Relationship Specialty Start Date End Date Marija King DO PCP - General Family Medicine 08/23/17 05/11/21 [place] [address] PCP - General Family Medicine 09/28/22 documented as of this encounter
--- OUTSIDE RECORDS SUMMARY | 2024-08-02 11:37 | XMS_ITS | Encounter Summary ---
Author Organization [facility] Address [address] [place] [address] Care Team Providers Care Report Analyst Name Role Phone Christine Marija Lovely VARGAS Primary Care Provider [phone] Cathleen Palmer MD Primary Care Provider [phone] Reason for Visit * Reason Onset Date Comments Refill Request 01/28/2019 Encounter Details Date Type Department Care Team (Late Contact Info) Description 01/28/2019 Refill [facility] Cardiology [address] [phone] Kim Roberson, RN Refill Request Social History [...] Description 07/11/2025 11:00 AM EDT Office Visit [facility] Cardiology [address] [phone] Jose Angel Starkey MD [address] [place] [address] 1 yr documented as of this encounter Visit Diagnoses Not on filedocumented in this encounter Additional Health Concerns Infection Onset Date Last Indicated Resolved Time COVID-19 Rule-Out 06/08/2020 06/08/2020 06/08/2020 7:17 PM EDT documented as of this encounter Care Teams Report Analyst Relationship Specialty Start Date End Date Marija King DO PCP - General Family Medicine 08/23/17 05/11/21 Cathleen Palmer MD [address] [address] PCP - General Family Medicine 09/28/22 documented as of this encounter
--- OUTSIDE RECORDS SUMMARY | 2024-08-02 11:37 | XMS_ITS | Clinical Summary ---
Author Organization [facility] Address [address] [place] [address] Care Team Providers Care Campaign Fundraiser Name Role Phone Marija King DO Primary Care Provider [phone] Allergies No known active allergies Medications aspirin [...] 02/05/2004, 08/05/2003, 12/03/1999 Procedures * Due to [place] [employer] law, this organization might not be sharing negative HIV tests. Procedure Name Priority Date/Time Associated Diagnosis Comments BASIC METABOLIC PANEL Routine 12/05/2014 9:09 AM EDT from Last 3 Months or Most Recently Relevant to Health Maintenance Results * Due to [place] [employer] law, this organization might not be sharing negative HIV tests. * (ABNORMAL) Basic Metabolic Panel (12/05/2014 9:09 AM EDT) Sodium Blood 139 135 - 145 mmol/L [facility] Potassium Blood 4.9 3.5 - 5.3 mmol/L [facility] Chloride Blood 104 97 - 110 mmol/L [facility] Carbon Dioxide 27 24 - 32 mmol/L [facility] Gap 8 5 - 15 [facility] Glucose 102(H) 70 - 99 mg/dL [facility] BUN 9 7 - 23 mg/dL [facility] Creatinine 1.02 0.60 - 1.30 mg/dL [facility] eGFR Non- >60 >[address] [facility] Comment: Units = [...] Calcium Blood 9.1 8.7 - 10.7 mg/dL [facility] 12/05/2014 9:09 AM EDT 12/05/2014 9:41 AM EDT us Mitesh Gillespie MD LAB BLOOD ORDERABLES Final Res ult [facility] [address] [place] [address], from Last 3 Months or Most Recently Relevant to Health Maintenance Insurance [employer] PPO/EPO/[place] Advance Directives * Full Code (Latest Code Status on File) Date Activated Date Inactivated Comments 06/09/2020 1:31 PM 06/09/2020 7:11 PM * Full Code Date Activated Date Inactivated Comments 06/09/2020 11:18 AM 06/09/2020 1:31 PM Care Teams Campaign Fundraiser Relationship Specialty Start Date End Date Marija King DO [address] [place] [address] PCP - General 06/03/20
--- OUTSIDE RECORDS SUMMARY | 2024-08-02 11:37 | XMS_ITS | Encounter Summary ---
Author Organization [facility] Address [address] [place] [address] Care Team Providers Care Cabinet Installer Name Role Phone Cathleen Palmer MD Primary Care Provider [phone] Reason for Visit * Reason Comments E-prescribing Refill Request Encounter Details Date Type Department Care Team ([facility] st Contact Info) Description 06/14/2021 Refill [facility] Neurology [address] [address] Alex Hummel MD [address] [facility] [place] [address] [place] [address] E-prescribing Refill Request Social History Tobacco Use [...] Phone 07/22/21 10:30 AM Alex Hummel MD [facility] [address] 05/20/22 10:00 AM Jose Angel Starkey MD [facility] Cardiology [address] Pertinent lab results: [...] Description 07/11/2025 11:00 AM EDT Office Visit [facility] Cardiology [address] [facility] [address] [place] [address] Jose Angel Starkey MD [address] [place] [address] 1 yr documented as of this encounter Visit Diagnoses Not on filedocumented in this encounter Care Teams Cabinet Installer Relationship Specialty Start Date End Date Cathleen Palmer MD [facility] [address] [address] PCP - General Family Medicine 09/28/22 documented as of this encounter
--- OUTSIDE RECORDS SUMMARY | 2024-08-02 11:37 | XMS_ITS | Encounter Summary ---
Author Organization [facility] Address [address] [place] [address] Care Team Providers Care Branch Account Manager Name Role Phone Marija King Lovely VARGAS Primary Care Provider [phone] Cathleen Palmer MD Primary Care Provider [phone] Encounter Details Date Type Department Care Team ([facility] st Contact Info) Description 11/24/2020 Orders Only [facility] Cardiology [address] [address] Jose Angel Starkey MD [address] [place] [address] Social History Tobacco Use Types Packs/Day Years [...] Description 07/11/2025 11:00 AM EDT Office Visit [facility] Cardiology [address] [facility] [address] [place] [address] Jose Angel Starkey MD [address] [place] [address] 1 yr documented as of this encounter Procedures * Due to [facility] law, this organization might not be sharing negative HIV tests. Procedure Name Priority Date/Time Associated Diagnosis Comments VENIPUNCTURE Routine 11/24/2020 9:45 AM EDT Hypertension, unspecified type documented in this encounter Results * Due to [facility] law, this organization might not be [...] approximately 13% higher for people identified as -Belgian. EGFR 51(L) > OR = 60 mL/min/1. [...] needs for GFR calculation. Resulting Agency Comment [id number] us Jose Angel Starkey MD LABORATORY Final Result Performing Organization Address City/State/[facility] Co de Phone Number [facility] [address] [place] [address] documented in this encounter Visit Diagnoses Diagnosis Hypertension, unspecified type documented in this encounter Care Teams Branch Account Manager Relationship Specialty Start Date End Date Marija King DO PCP - General Family Medicine 08/23/17 05/11/21 [place] [address] PCP - General Family Medicine 09/28/22 documented as of this encounter
--- OUTSIDE RECORDS SUMMARY | 2024-08-02 11:38 | XMS_ITS | Encounter Summary ---
Author Organization [facility] Address [address] [place] [address] Care Team Providers Care Assistant Customer Service Manager Name Role Phone Christine Marija Lovely VARGAS Primary Care Provider [phone] Cathleen Palmer MD Primary Care Provider [phone] Reason for Visit * Reason Onset Date Comments Refill Request 01/28/2019 Encounter Details Date Type Department Care Team (Late Contact Info) Description 01/28/2019 Refill [facility] Cardiology [address] [phone] Kim Roberson, RN Refill Request Social History [...] Description 07/11/2025 11:00 AM EDT Office Visit [facility] Cardiology [address] [phone] Jose Angel Starkey MD [address] [place] [address] 1 yr documented as of this encounter Visit Diagnoses Not on filedocumented in this encounter Additional Health Concerns Infection Onset Date Last Indicated Resolved Time COVID-19 Rule-Out 06/08/2020 06/08/2020 06/08/2020 7:17 PM EDT documented as of this encounter Care Teams Assistant Customer Service Manager Relationship Specialty Start Date End Date Marija King DO PCP - General Family Medicine 08/23/17 05/11/21 Cathleen Palmer MD [address] [address] PCP - General Family Medicine 09/28/22 documented as of this encounter
== END 2024-08-02 12:05 | disposition home or self-care (01) ==
LOC: HO.HBST 11:11
PROVIDERS: PCP Family Medicine; Visit Provider Counselor Mental Health
DX: F43.20 Adjustment disorder, unspecified (principal); Z71.89 Other specified counseling
CPT/HCPCS: 90791

== ENCOUNTER → 2024-08-02 11:11 | Outpatient (BNVA) | payer BC, SELFPAY | PROVIDERS: PCP Family Medicine; Visit Provider Counselor Mental Health ==

== ENCOUNTER 2024-08-19 11:04 | Outpatient (AMB) | payer BC, SELFPAY ==
--- NOTE | 2024-08-19 11:00 | A.OFFWM_ITS ---
Intake Intake Visit Reasons: TV BH F/U Allergies No Known Allergies Allergy (Verified 07/19/24 09:12) [facility] Medical History (Updated 08/11/24 @ 12:40 by Ciro Gardner MD) Bronchitis Asthma Seizure Hyperlipidemia Sleep apnea with use of continuous positive airway pressure (CPAP) GERD (gastroesophageal reflux disease) CAD (coronary artery disease) Hypertension BMI 36.0-36.9,adult Obesity Surgical History (Updated 07/01/24 @ 14:26 by Morales Feliciano [facility]) History of cardiac cath H/O colonoscopy Social History (Updated 07/01/24 @ 14:28 by Morales Feliciano CCM) Alcohol intake: current Alcohol intake frequency: a few times a month Alcohol type: beer Comment: a beer per every few months Patient Tobacco Use Status: Former Tobacco user Behavioral Health Assessment Weight Management Therapy Therapy Notes Details The patient is a 73-year-old male who presented for a follow-up visit to complete the behavioral health assessment as part of the surgical weight loss program. He reports a strong interest in improving his quality of life and has been actively engaged in the program since 07/19/2024, starting at a weight of 251 lbs. As of today?s visit, his weight is 228 lbs. The patient reports consistent adherence to the recommended meal and exercise plan and notes positive changes in his eating habits, increased awareness of satiety cues, and an overall improvement in his relationship with food. He denies any history of mental health treatment, psychiatric hospitalizations, or behavioral health crises. He also reports no current or past concerns related to suicidal ideation, suicide attempts, self-harm, or harm to others. There is no history of substance use, and he reports no recent or ongoing concerns related to emotional or stress-related eating. Standardized screening tools were administered, with results from the Binge Eating Scale (BES) indicating a low risk for binge eating behavior. Patient Health Questionnaire (PHQ) scores showed no active symptoms or concerns related to depression. Additionally, the mental status examination was within normal li mits, indicating no impairments in cognitive or emotional functioning. Based on the current assessment, the patient demonstrates appropriate psychological readiness to proceed with bariatric surgery. He appears motivated, is making measurable progress, and is actively participating in lifestyle changes. Presenting Concerns Referral Source WMP-Provider. Meet Dr Triana on 07/19/2024 Reason for referral Completion of behavioral health assessment as part of process for weight-loss surgery. Precipitating Event Obesity. Initial weight 251Lbs. Living Situation Current Living Situation Own At risk of losing current housing? No Satisfied with current living situation? Yes Comments PT lives with his , your 11 year old daughter and [id number]. Food/Weight/Diet Expectations of change PT started the program on 07/19/2024 at 251Lbs, The Initial goal is to lose 10% of your weight before surgery, which is about 26lbs. Ultimate weight goal: 225 Lbs. before surgery Weight as of 08/02/2024: 239.4. Weight as of today 08/19/2024: 228 lbs. Patient wants to improve his health and hopefully be at 180 lbs in about a year. PT is implementing the following: Current meal plan: 2 shakes, 2 bars, and 1 meal. Exercise plan: daily walk (does over a mile) for 150 calories and 150 calories on the bike. scale: Yes. Communication with provider: yes, Sundays. History/Relationship with food The patient reports a long-standing enjoyment of food and notes that, due to frequent travel for work, he became accustomed to trying a variety of foods and eating larger portions. He acknowledges a pattern of eating quickly and often out of boredom. However, he denies engaging in stress- or emotionally driven eating behaviors. Example of meals before starting the program: Breakfast: Ervin's breakfast sandwich. Lunch: Big Mac with fries and soda. Dinner: steak and a beer. Snacks: different sweets. candy, chocolate, pastries. Drinks/Liquids: soda: none. Water: 4 at day with some pack 0 karina flavor. Energy drinks: none. Juice: none. Coffee: 2 cups in the morning with w/artificial sweetener. History/Relationship with weight PT denies being overweight in childhood, he was very active in his early 20s. He doesn't remember the last time he was under 200Lbs. He believes weight has been an issue for him for the last 20 years. In the last 10 years, the patient's Lowest weight was 230 lbs. and the highest. History/Relationship with dieting [place] - 2023. Lost 20 lbs. He was having kidney issues, so he had to stop. Atkins, gym membership, self-diet. Binge Eating Do you frequently eat large amounts of food in short periods of time, not feeling physically hungry? No Do you feel out of control when you eat a large amount of food in a short period of time? No Do you eat large amounts of food rapidly and typically alone? No Night Eating Do you wake up at least once during the night to eat? No If you wake up in the night, do you find that it is necessary to eat something in order to fall back asleep? No Do you have little or no appetite in the morning and feel very hungry in the evening, often overeating between dinner and when you go to bed? No Social History Family history and relationship on his 3rd marriage. 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 Has 5 children. Oldest 55, youngest 11. Parents . He has a sister and a brother. Parental/Familial shade hanger obligations 11 year old daughter. Developmental history and status None. Social support , family. Community support PCP. Zoroastrianism/Spirituality None. Cultural/Ethnic information . Legal Involvement and History Current or historical involvement with the legal system? None. Education Highest grade completed Bachelors degree. Preferred learning style Auditory Currently enrolled in educational program? No Interested in further educational program? 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 ) Wants help to find employment? No Meaningful activities Ride motorcycle. Financial Situation Describe current financial situation Comfortable and Occasional struggle Service Service? No Mental Health and Addiction Treatment Current/Past substance abuse? No Comments Alcohol: 1 or less at month. Cigarettes/Tobacco: None Cannabis/Edibles: None Current/Past addictive behavior concerns? No Psychiatric history PT has never been in counseling, denies ever been in crisis or inpatient for mental health. There is no history and/or current concern about SI/Sa and self-harm or other harm. Medical and Physical Health Summary Additional Medical History not covered in history None aditional Sexual History concerns None. Physical exam in the last year? No (upcoming in September/2024.) Pain Screening Current pain? No Pain in the last few months? No Medications Is the patient compliant with medications? Yes (Vit D3, Vit B12 d/c.) Does the patient have Lord Guardian in place? Not applicable Does the patient use complimentary health approaches? No Trauma/Abuse History History of trauma? No Questionnaires PHQ-9 Over the last 2 weeks, how often have you been bothered by any of the following problems? 1. Little interest or pleasure in doing things: not at all 2. Feeling down, depressed, or hopeless: not at all 3. Trouble falling or staying asleep, or sleeping too much: not at all 4. Feeling tired or having little energy: not at all 5. Poor appetite or overeating: not at all 6. Feeling bad about yourself - or that you are a failure or have let yourself or your family down: not at all 7. Trouble concentrating on things, such as reading the newspaper or watching television: not at all 8. Moving or speaking so slowly that other people could have noticed. Or the opposite - being so fidgety or restless that you have been moving around a lot more than usual: not at all 9. Thoughts that you would be better off or of hurting yourself in some way: not at all Total score: 0 Depression Screening Interpretation: Negative Depression Screening Done: Yes 41045 - PHQ-9 Billing: Yes Source: Developed by Drs. Julián Pete, Minoo Pires, Eric Coto and colleagues, with an educational saima from [employer]. Binge Eating Scale Group 1 A. I don't feel self-conscious about my wt. or body size when I'm with others. B. I feel concerned about how I look to others, but it normally does not make me fell disappointed with myself C. I do get self-conscious about my appearance and wt. which makes me feel disappointed in myself. D. I feel very self-conscious about my wt. and frequently I feel intense shame and disgust for myself. I try to avoid social contacts because of my self-consci ousness. Response Group 1: A Group 2 A. I don't have any difficulty eating slowly in the proper manner. B. Although I seem to gobble down foods, I don't end up feeling stuffed because of eating to much. C. At times, I tend to eat quickly and then, I feel uncomfortably full af terwards. D. I have the habit of bolting down my food, without really chewing it. When this happens I usually feel uncomfortably stuffed because I've eaten to much. Response Group 2: C Group 3 A. I feel capable to control my eating urges when I want to. B. I feel like I have failed to control my eating more than the average person. C. I feel utterly helpless when it comes to feeling in control of my eating urges. D. Because I feel so helpless about controlling my eating I have become very desperate about trying to get control. Response Group 3: D Group 4 A. I don't have the habit of eating when I'm bored. B. I sometimes eat when I'm bored, but often I'm able to get busy and get my mind off food. C. I have a regular habit of eating when I'm bored, but occasionally, I can use some other activity to get my mind off eating. D. I have a strong habit of eating when I'm bored. Nothing seems to help me breath the habit. Response Group 4: D Group 5 A. I'm usually physically hungry when I eat something. B. Occasionally, I eat something on impulse even though I really am not hungry. C. I have the regular habit of eating foods, that I might not really enjoy, to satisfy a hungry feeling even though physically, I don't need the food. D. Although I'm not physically hungry, I get a hungry feeling in my mouth that only seems to be satisfied when I eat a food, like sandwich, that fills my mouth. Sometimes, when I eat the food to satisfy my mouth hunger, I then spit the food out so I won't gain weight. Response Group 5: B Group 6 A. I don't feel any guilt or self-hate after I overeat. B. After I overeat, occasionally I feel guilt or self-hate. C. Almost all the time I experience strong guilt or self-hate after I overeat. Response Group 6: A Group 7 A. I don't lose total control of my eating when dieting even after periods when I overeat. B. Sometimes when I eat a forbidden food on a diet, I feel like I blew it and eat even more. C. Frequently, I have the habit of saying to myself, I've blown it now, why not go all the way, when I overeat on a diet. When that happens I eat more. D. I have a regular habit of starting a strict diets for myself but I break the diets by going on an eating binge. My life seems to be either a feast or famine. Response Group 7: A Group 8 A. I rarely eat so much food that I feel uncomfortably stuffed afterwards. B. Usually about once a month, I each such a quantity of food, I end up feeling very stuffed. C. I have regular periods during the month when I eat large amounts of food, either at mealtime or at snacks. D. I eat so much food that I regularly feel quite uncomfortable after eating and sometimes a bit nauseous. Response Group 8: C Group 9 A. My level of calorie intake does not go up very high or go down very low on a regular basis. B. Sometimes after I overeat, I will try to reduce my caloric intake to almost nothing to compensate for the excess calories I've eaten. C. I have a regular habit of overeating during the night. It seems that my routine is not to be hungry in the morning but overeat in the evening. D. In my adult years, I have had week-long periods where I practically starve myself. This follows periods when I overeat. It seems I live a life of either feast or famine. Response Group 9: B Group 10 A. I usually am able to stop eating when I want to. I know when enough is enough. B. Every so often, I experience a compulsion to eat which I can't seem to control. C. Frequently, I experience strong urges to eat which I seem unable to control, but at other times I can control my eating urges. D. I feel incapable of controlling urges to eat. I have a fear of not being able to stop eating voluntarily. Response Group 10: C Group 11 A. I don't have any problem stopping eating when I feel full. B. I usually can stop eating when I feel full but occasionally overeat leaving me feeling uncomfortably stuffed. C. I have a problem stopping eating once I start and usually I feel uncomfortably stuffed after I eat a meal. D. Because I have a problem not being able to stop eating when I want, I sometimes have to induce vomiting to relieve my stuffed feeling. Response Group 11: C Group 12 A. I seem to eat just as much when I'm with others, Family social gatherings as when I'm by myself. B. Sometimes, when I'm with other persons, I don't eat as much as I want to eat because I'm self-conscious about my eating. C. Frequently, I eat only a small amount of food when others are present, because I'm very embarrassed about my eating. D. I feel so ashamed about overeating that I pick times to overeat when I know no one will see me. I feel like a closet eater. Response Group 12: A Group 13 A. I eat three meals a day with only an occasional between meal snack. B. I eat 3 meals a day, but I also normally snack between meals. C. When I am snacking heavily, I get in the habit of skipping regular meals. D. There are regular periods when I seem to be continually eating, with no planned meals. Response Group 13: B Group 14 A. I don't think much about trying to control unwanted eating urges. B. At least some of the time, I feel my thoughts are pre-occupied with trying to control my eating urges. C. I feel that frequently I spend much time thinking about how much I ate or about trying not to eat anymore. D. It seems to me that most of my waking hours are pre-occupied by thoughts about eating or not eating. I feel like I'm constantly struggling not to eat. Response Group 14: A Group 15 A. I don't think about food a great deal. B. I have strong craving for food but they last only for brief periods of time. C. I have days when I can't seem to think about anything else but food. D. Most of my days seem to be pre-occupied with thoughts about food. I feel like I live to eat. Response Group 15: B Group 16 A. I usually know whether or not I'm physically hungry. I take the right portion of food to satisfy me. B. Occasionally, I feel uncertain about knowing whether or not I'm physically hungry. A these times it's hard to know how much food I should take to satisfy me. C. Even though I might know how many calories I should eat, I don't have any idea what is a normal amount of food for me. Response Group 16: C Binge Eating Score: 20 Score less than 17 Minimal Risk Score between 18-26 Moderate Risk Score between 27-46 High Risk Assessment & Plan Assessment & Plan (1) Adjustment disorder: Code(s): F43.20 - Adjustment disorder, unspecified (2) Pre-bariatric surgery psychological evaluation: Code(s): Z71.89 - Other specified counseling Plan From a behavioral health standpoint, the patient is cleared to proceed and may be submitted for surgery when clinically appropriate. A post-operative follow-up is recommended within 1 to 3 weeks after surgery to monitor psychological adjustment, assess ongoing needs, and support continued progress. Next becky: 1-3 weeks PO. Telehealth Telehealth Telehealth Platform: [email or web address] Location of provider rendering services: other (Home office. [place], [place]) Location of patient: address on file Patient Identification confirmed using: Name, : Yes Telehealth method: voice only Patient verbally consented to treatment: Yes Patient verbally consented to billing insurance company: Yes Patient informed of any privacy concerns related to visit: Yes Minutes spent on Phone/Video with Pt.: 45 Coding Level of Care Code Established Pt Tele Psytx >53 mins (02131) Patient Type Established Diagnoses Adjustment disorder F43.20 Pre-bariatric surgery psychological evaluation Z71.89 Additional Codes PHQ-9 - 60216 - PHQ-9 Billing: Yes ([id number]) Time Spent (min) 60
--- OUTSIDE RECORDS SUMMARY | 2024-08-19 12:17 | XMS_ITS | Clinical Summary ---
Author Organization [facility] Address [address] [place] [address] Care Team Providers Care Fall Intern Name Role Phone Cathleen Palmer MD Primary Care Provider Allergies Active Allergy Reactions Criticality Noted Date Comments Oxycodone Other 01/31/2023 Causes confusion Medications * This document contains information received from the source organization and may not represent a complete record from that organization. Nitroglycerin (NITROSTAT) 0.4 MG SL tabletIndications: Abnormal cardiovascular stress test,Atheroscleros is of coronary artery, angina presence unspecified, unspecified vessel or lesion type, unspecified whether yomba shoshone or transplanted heart,Paroxysmal atrial fibrillation (HCC),Hyperlipidem ia, [...] Date Type Department Care Team Description 07/23/2024 [facility] Cardiology [address] [place] [phone] Jayesh Starkey MD Refill Request 07/03/2024 3:00 PM EDT Office Visit [facility] Cardiology [address] [place] [phone] Jayesh Starkey MD Paroxysmal atrial fibrillation (HCC) (Primary Dx); Coronary artery disease, unspecified vessel or lesion type, unspecified whether angina present, unspecified whether yomba shoshone or transplanted heart; RBBB (right bundle branch block with left anterior fascicular block) from Last 3 Months Immunizations Immunization Administration Dates Next Due COVID-19, mRNA (Moderna [...] Upcoming Encounters Date Type Department Care Team ([facility] st Contact Info) Description 07/11/2025 11:00 AM EDT Office Visit [facility] Cardiology [address] [place] [phone] Jayesh Starkey MD [address] [place] [address] 1 yr Health Maintenance Due Date Last [...] Zoster (Zostavax) Discontinued Procedures * Due to [place] state law, this [...] type, unspecified whether angina present, unspecified whether yomba shoshone or transplanted heart HEP C ANTIBODY (EIA-2) Routine 08/01/2003 4:44 PM EDT from Last 3 Months or Most Recently Relevant to Health Maintenance Results * Due to [place] state law, [...] Abnormal ECG Confirmed by JAYESH STARKEY ([id number]), scientific editor KAREN MULTANI ([id number]) on 06/29/2023 7:33:59 [...] LDL-C. Oliver SAM et al. BEAR. 2013;310(19): 5320-9435 (http://education.Joyus/faq/GEZ001) CHOL/HDL Ratio 2.8 <5.0 (calc) [facility] Cholesterol Non-HDL 85 <130 mg/dL (calc) [facility] Comment: For patients with diabetes plus 1 major ASCVD risk factor, treating to a non-HDL-C goal of <100 mg/dL (LDL-C of <70 mg/dL) is considered a therapeutic option. 07/20/2020 12:0 5 PM EDT 07/20/2020 9:33 PM EDT Narrative Resulting Agency Comment [id number] us Zhane Dorantes BIOMEDICAL MANAGER LABORATORY Final Res ult [facility] [address] [place] [address] * HEP C ANTIBODY (EIA-2) (08/01/2003 4:44 PM EDT) HEPATITIS C AB NEGATIVE [facility] (CLIA# [id number]) 08/01/2003 4:44 PM EDT 08/01/2003 4:44 PM EDT Narrative [facility] (CLIA# [id number]) - 08/01/2003 4:44 PM EDT Ordered by UNKNOWN PROVIDER SST tube received unspun us Unknown Provider LABORATORY Final Result [facility] (CLIA# [id number]) [address] [place] [address] from Last 3 Months or Most Recently Relevant to Health Maintenance Insurance BCBS FEE FOR SERVICE PPO * Guarantor: [employer] Account Type Relation to Patient Date of Phone Billing Address [employer] [address] [place] [address] Care Teams Fall Intern Relationship Specialty Start Date End Date Cathleen Palmer MD [address] [address] PCP - General Family Medicine 09/28/22
== END 2024-08-19 12:06 | disposition home or self-care (01) ==
LOC: HO.HBST 11:04
PROVIDERS: PCP Family Medicine; Visit Provider Counselor Mental Health
DX: F43.20 Adjustment disorder, unspecified (principal); Z71.89 Other specified counseling
CPT/HCPCS: 90837

== ENCOUNTER → 2024-08-19 11:04 | Outpatient (BNVA) | payer BC, SELFPAY | PROVIDERS: PCP Family Medicine; Visit Provider Counselor Mental Health ==

== ENCOUNTER 2024-08-20 08:41 | Outpatient (REF) | payer BC, SELFPAY ==
--- NOTE | ~2024-08-20 | FL_ITS ---
EXAMINATION: XR FLUOROSCOPY UPPER GI WITH AIR CLINICAL INFORMATION: Obesity. COMPARISON: None available. TECHNIQUE: Routine upper GI air contrast study was performed in upright and lying position. FINDINGS: Following oral administration of thick barium and effervescent granules there is normal propagation of bolus from the oral cavity through the pharynx, esophagus into stomach without obstruction, narrowing or stricture. No laryngeal penetration or aspiration seen. On plain patient supine and prone there is mild to moderate gastroesophageal reflux without hiatal hernia. The course, caliber and peristalsis stomach, duodenal bulb and this CT is normal. The mucosal pattern of stomach and duodenum is normal. FLUOROSCOPY TIME: 1 minute 28 seconds DOSE AREA PRODUCT: 1578 uGy-m2 (microgray-meter squared) FL/FL upper GI w air IMPRESSION: There is moderate gastroesophageal reflux without hiatal hernia. Rest of the upper GI exam is unremarkable. Electronically signed by: Moshe Mac MD 08/20/2024 10:56 AM EDT
--- OUTSIDE RECORDS SUMMARY | 2024-08-20 09:07 | XMS_ITS | Clinical Summary ---
Author Organization [facility] Address [address] [place] [address] Care Team Providers Care Natural Resource Officer Name Role Phone Cathleen Palmer MD Primary Care Provider [phone] Allergies Active Allergy Reactions Criticality Noted Date Comments Oxycodone Other 01/31/2023 Causes confusion Medications * This document contains information received from the source organization and may not represent a complete record from that organization. Nitroglycerin (NITROSTAT) 0.4 MG SL tabletIndications: Abnormal cardiovascular stress test,Atheroscleros is of coronary artery, angina presence unspecified, unspecified vessel or lesion type, unspecified whether t[place] apache or transplanted heart,Paroxysmal atrial fibrillation (HCC),Hyperlipidem ia, [...] Type Department Care Team Description 07/23/[facility] [address] [place] [phone] Jayesh Starkey MD Refill Request 07/03/2024 3:00 PM EDT Office Visit [facility] Cardiology [address] [place] [phone] Jayesh Starkey MD Paroxysmal atrial fibrillation (HCC) (Primary Dx); Coronary artery disease, unspecified vessel or lesion type, unspecified whether angina present, unspecified whether t[place] apache or transplanted heart; RBBB (right bundle branch [...] Upcoming Encounters Date Type Department Care Team ([facility] st Contact Info) Description 07/11/2025 11:00 AM EDT Office Visit [facility] Cardiology [address] [place] [phone] Jayesh Starkey MD [address] [place] [address] 1 yr Health Maintenance Due Date Last [...] Zoster (Zostavax) Discontinued Procedures * Due to [place] state law, [...] type, unspecified whether angina present, unspecified whether t[place] apache or transplanted heart HEP C ANTIBODY (EIA-2) Routine 08/01/2003 4:44 PM EDT from Last 3 Months or Most Recently Relevant to Health Maintenance Results * Due to [place] state [...] Abnormal ECG Confirmed by JAYESH STARKEY (132), features editor KAREN MULTANI ([id number]) on 06/29/2023 7:33:59 [...] LDL-C. Oliver SAM et al. BEAR. 2013;310(19): 8927-6674 (http://education.Branded Reality/faq/QGD269) CHOL/HDL Ratio 2.8 <5.0 (calc) [facility] Cholesterol Non-HDL 85 <130 mg/dL (calc) [facility] Comment: For patients with diabetes plus 1 major ASCVD risk factor, treating to a non-HDL-C goal of <100 mg/dL (LDL-C of <70 mg/dL) is considered a therapeutic option. 07/20/2020 12:0 5 PM EDT 07/20/2020 9:33 PM EDT Narrative Resulting Agency Comment [id number] us Zhane Dorantes REACH TRUCK OPERATOR LABORATORY Final Res ult [facility] [address] [place] [address] * HEP C ANTIBODY (EIA-2) (08/01/2003 4:44 PM EDT) HEPATITIS C AB NEGATIVE [facility] (CLIA# [id number]) 08/01/2003 4:44 PM EDT 08/01/2003 4:44 PM EDT Narrative [facility] (CLIA# [id number]) - 08/01/2003 4:44 PM EDT Ordered by UNKNOWN PROVIDER SST tube received unspun us Unknown Provider LABORATORY Final Result [facility] (CLIA# [id number]) [address] [place] [address] from Last 3 Months or Most Recently Relevant to Health Maintenance Insurance BCBS FEE FOR SERVICE PPO * Guarantor: [employer] Account Type Relation to Patient Date of Phone Billing Address [employer] [address] [place] [address] Care Teams Natural Resource Officer Relationship Specialty Start Date End Date Cathleen Palmer MD [address] [address] PCP - General Family Medicine 09/28/22
== END 2024-08-20 08:42 | disposition home or self-care (01) ==
LOC: HO.XRAY 08:41
PROVIDERS: PCP Family Medicine; Visit Provider Surgery
DX: E66.9 Obesity, unspecified (principal); Z68.36 Body mass index [BMI] 36.0-36.9, adult; E78.5 Hyperlipidemia, unspecified; I25.10 Atherosclerotic heart disease of native coronary artery without angina pectoris; I10 Essential (primary) hypertension; K21.9 Gastro-esophageal reflux disease without esophagitis; J45.909 Unspecified asthma, uncomplicated; G47.30 Sleep apnea, unspecified
CPT/HCPCS: 74246

== ENCOUNTER → 2024-08-20 08:43 | Outpatient (BNV) | payer BC, SELFPAY | PROVIDERS: PCP Family Medicine; Visit Provider Radiology Diagnostic Radiology | DX: K21.9 Gastro-esophageal reflux disease without esophagitis (principal) | CPT/HCPCS: 74246 ==

== ENCOUNTER → 2024-09-03 07:28 | Outpatient (BNV) | payer BC, SELFPAY | PROVIDERS: PCP Family Medicine; Visit Provider Radiology Diagnostic Radiology | DX: N28.1 Cyst of kidney, acquired (principal) | CPT/HCPCS: 76700 ==

== ENCOUNTER 2024-09-03 08:28 | Outpatient (REF) | payer BC, SELFPAY ==
--- NOTE | ~2024-09-03 | US_ITS ---
EXAMINATION: US COMPLETE ABDOMEN WITH LIVER ELASTOGRAPHY CLINICAL INFORMATION: Obesity, unspecified. COMPARISON: None available. TECHNIQUE: Real-time imaging of the abdominal viscera. Noninvasive ultrasound liver fibrosis assessment is performed using Bala ElastPQ point quantification shear wave elastography (pSWE) with a C5-2 MHz transducer. Multiple elastography samples are obtained. FINDINGS: PANCREAS: The visualized pancreatic head and body are normal in appearance. The remainder of the pancreas is obscured from visualization by the overlying bowel gas. ABDOMINAL AORTA: No aortic aneurysm is seen. INFERIOR VENA CAVA: Visualized portions are normal. LIVER: The liver demonstrates normal size and contour. There is diffusely increased parenchymal echogenicity. No focal lesion or intrahepatic biliary duct dilatation. The right lobe measures 15.0 cm in length. The left lobe measures 11.9 cm in length. Portal flow is towards the liver (hepatopetal). Shear wave liver elastography median stiffness is 1.2 m/s (reference: normal median stiffness is 1.3 m/s or less). IQR/median stiffness to assess sampling precision is 0.22 (reference: good quality data set is IQR/median stiffness of 0.15 or less). GALLBLADDER: The gallbladder is physiologically distended without evidence of stones, sludge, polyps, wall thickening or pericholecystic fluid. COMMON BILE DUCT: Normal in caliber measuring 0.3 cm in diameter. RIGHT KIDNEY: No hydronephrosis. No renal calculi or focal parenchymal lesions. The kidney measures 10.8 cm in maximum dimension. LEFT KIDNEY: No hydronephrosis. No renal calculi or focal parenchymal lesions. The kidney measures 12.0 cm in maximum dimension. There is an upper pole simple cyst measuring 1.3 cm. SPLEEN: Unremarkable. The spleen measures 11.0 cm in maximum dimension. FREE FLUID: None seen. US/US abdomen comp w elastography IMPRESSION: 1. Mildly diffusely increased echogenicity to the liver, suggestive of hepatic steatosis. No focal discrete lesion evident. No intra or extrahepatic biliary dilatation. 2. Liver elastography: Although measurements suggest a high probability of normal liver stiffness, there is statistical variability of the sampling which decreases accuracy. 3. Normal gallbladder. 4. There is a simple upper pole left renal cyst measuring 1.3 cm. Kidneys are otherwise normal. REFERENCE: Society of Radiologists in Ultrasound Liver Stiffness Thresholds (2019): LIVER STIFFNESS THRESHOLDS: *Liver Stiffness equal or less than 1.3 m/s: High probability of being normal. *Liver Stiffness less than 1.7 m/s: In the absence of other known clinical signs, rules out compensated advanced chronic liver disease. *Liver Stiffness 1.7-2.1 m/s: Suggestive of compensated advanced chronic liver disease but need further test for confirmation. *Liver Stiffness over 2.1 m/s: Rules in compensated advanced chronic liver disease. *Liver Stiffness over 2.4 m/s: Suggestive of clinically significant portal hypertension. QUALITY OF DATA SET: *IQR/Median value equal or less than 0.15 implies a quality data set. *IQR/Median value over 0.15 implies a poor quality data set. SIGNIFICANT CHANGE FROM PRIOR EXAM: Significant change if liver stiffness measurement is 10% or greater from prior exam. OTHER CONSIDERATIONS: The stage of liver fibrosis may be overestimated in the setting of acute hepatitis, liver inflammation, elevated liver function tests, hepatic vascular congestion, obstructive cholestasis, non-fasting state, and infiltrative diseases such as amyloidosis and lymphoma. In some patients with NAFLD, the liver stiffness thresholds for compensated advanced chronic liver disease may be lower. In causes other than viral hepatitis and NAFLD, liver stiffness thresholds are not well established. Electronically signed by: Mateo Asif MD 09/03/2024 08:35 AM EDT
--- OUTSIDE RECORDS SUMMARY | 2024-09-03 08:42 | XMS_ITS | Clinical Summary ---
Author Organization [facility] Address [address] [place] [address] Care Team Providers Care Materials Mgmt Tech Name Role Phone Cathleen Palmer MD Primary Care Provider [phone] Allergies Active Allergy Reactions Criticality Noted Date Comments Oxycodone Other 01/31/2023 Causes confusion Medications * This document contains information received from the source organization and may not represent a complete record from that organization. Nitroglycerin (NITROSTAT) 0.4 MG SL tabletIndications: Abnormal cardiovascular stress test,Atheroscleros is of coronary artery, angina presence unspecified, unspecified vessel or lesion type, unspecified whether three affiliated or transplanted heart,Paroxysmal atrial fibrillation (HCC),Hyperlipidem ia, [...] AT BEDTIME 120 tablet 2 3 Active amLODIPine Besylate (NORVASC) 10 MG tabletIndications: [...] A DAY 180 each 1 5 Active Isosorbide Mononitrate CR (IMDUR) 60 MG 24 hr tablet Take one tablet (60 mg total) by mouth 1 (one) time each day in the morning. 90 tablet 3 5 Active Active Problems Problem Noted Date Diagnosed Date Paroxysmal atrial fibrillation 06/28/2023 Arteriosclerosis of aorta 05/29/2019 Overview (05/29/2019): Refer to CT of Chest 04/16/2019: There is arteriosclerosis of the aorta and the coronary arteries. Bronchiectasis 05/29/2019 Overview (05/29/2019): Refer to Pulmonary Consult 05/13/2019: Impression: Patient with bronchiectasis Seizure 02/21/2018 Encounters Date Type Department Care Team Description 07/23/2024 Refill [facility] Cardiology [address] [phone] Jayesh Starkey MD Refill Request 07/03/2024 3:00 PM EDT Office Visit [facility] Cardiology [address] [phone] Jayesh Starkey MD Paroxysmal atrial fibrillation (HCC) (Primary Dx); Coronary artery disease, unspecified vessel or lesion type, unspecified whether angina present, unspecified whether three affiliated or transplanted heart; RBBB (right bundle branch [...] 11:00 AM EDT Office Visit [facility] Cardiology [address] [facility] [address] [place] [address] Jayesh Starkey MD [address] [place] [address] 1 yr Health Maintenance Due Date Last [...] (Zostavax) Discontinued Procedures * Due to [place] FITiST law, this organization might not be sharing [...] type, unspecified whether angina present, unspecified whether three affiliated or transplanted heart HEP C ANTIBODY (EIA-2) Routine 08/01/2003 4:44 PM EDT from Last 3 Months or Most Recently Relevant to Health Maintenance Results * Due to [place] FITiST law, this organization might not be sharing [...] Abnormal ECG Confirmed by JAYESH STARKEY (132), publishing editor KAREN MULTANI ([id number]) on 06/29/2023 7:33:59 [...] LDL-C. Oliver SS et al. BEAR. 2013;310(19): 9328-5486 (http://education.[employer].The Spoken Thought/faq/ZWP924) CHOL/HDL Ratio 2.8 <5.0 (calc) [facility] Cholesterol Non-HDL 85 <130 mg/dL (calc) [facility] Comment: For patients with diabetes plus 1 major ASCVD risk factor, treating to a non-HDL-C goal of <100 mg/dL (LDL-C of <70 mg/dL) is considered a therapeutic option. 07/20/2020 12:0 5 PM EDT 07/20/2020 9:33 PM EDT Narrative Resulting Agency Comment [id number] Zhane Dorantes WING MAILER MACHINE OPERATOR LABORATORY Final Res ult [facility] [address] [place] [address] * HEP C ANTIBODY (EIA-2) (08/01/2003 4:44 PM EDT) HEPATITIS C AB NEGATIVE [facility] (CLIA# [id number]) 08/01/2003 4:44 PM EDT 08/01/2003 4:44 PM EDT Narrative [facility] (CLIA# [id number]) - 08/01/2003 4:44 PM EDT Ordered by UNKNOWN PROVIDER SST tube received unspun us Unknown Provider LABORATORY Final Result [facility] (CLIA# [id number]) [address] [place] [address] from Last 3 Months or Most Recently Relevant to Health Maintenance Insurance BCBS FEE FOR SERVICE PPO * Guarantor: [employer] Account Type Relation to Patient Date of Phone Billing Address [address] [place] [address] Care Teams Materials Mgmt Tech Relationship Specialty Start Date End Date Cathleen Palmer MD [address] [address] PCP - General Family Medicine 09/28/22
== END 2024-09-03 08:29 | disposition home or self-care (01) ==
LOC: HO.US 08:28
PROVIDERS: PCP Family Medicine; Visit Provider Surgery
DX: E66.9 Obesity, unspecified (principal); Z68.36 Body mass index [BMI] 36.0-36.9, adult; E78.5 Hyperlipidemia, unspecified; I25.10 Atherosclerotic heart disease of native coronary artery without angina pectoris; I10 Essential (primary) hypertension; K21.9 Gastro-esophageal reflux disease without esophagitis; J45.909 Unspecified asthma, uncomplicated; G47.30 Sleep apnea, unspecified
CPT/HCPCS: 76700; 76981

== ENCOUNTER 2024-09-05 11:53 | Day surgery (SDC) | payer BC, SELFPAY ==
--- OUTSIDE RECORDS SUMMARY | 2024-07-30 15:03 | XMS_ITS | Encounter Summary ---
Author Organization [facility] Address [address] [place] [address] Care Team Providers Care Railroad Yard Worker Name Role Phone Gabe Do Primary Care Provider [phone] Marija King DO Primary Care Provider [phone] Cathleen Palmer MD Primary Care Provider [phone] Encounter Details Date Type Department Care Team (Late st Contact Info) Description 05/28/2010 Orders Only [facility] Infectious Disease [address] [facility] [address] [place] [address] Marcello Ness MD [address] [place] [address] Social History Tobacco Use Types Packs/Day Years [...] Description 07/11/2025 11:00 AM EDT Office Visit [facility] Cardiology [address] [facility] [address] [place] [address] Jose Angel Starkey MD [address] [place] [address] 1 yr documented as of this encounter Procedures * Due to [place] [employer] law, this organization might not be sharing [...] in this encounter Results * Due to [place] [employer] law, this organization might not be sharing negative HIV tests. * MUMPS ANTIBODY (IGG) (05/28/2010) MUMPS VIRUS AB.IGG 2.8 (IMMUNE) SEE BELOW [facility] Comment:REFERENCE: 1.1 OR > INDICATES ANTIBODY 05/28/2010 05/28/2010 3:4 2 PM EST us Marcello Ness MD LABORATORY Final Result [facility] [address] [place] [address] * RUBEOLA IGG AB (05/28/2010) RUBEOLA IGG AB 5.4 (IMMUNE) SEE BELOW [facility] Comment: UNITS: INDEX VALUE REFERENCE: 1.1 OR > INDICATES ANTIBODY 05/28/2010 05/28/2010 3:4 2 PM EST Marcello Ness MD LABORATORY Final Result Performing Organization Address City/[facility]/ZIP Co de Phone Number [facility] [address] [place] [address] * RUBELLA IGG AB (05/28/2010) RUBELLA IGG AB 4.97 (IMMUNE) SEE BELOW [facility] Comment: REFERENCE: 1.1 OR > INDICATES ANTIBODY THE PRESENCE OF RUBELLA IGG ANTIBODY SUGGESTS A CURRENT OR PAST INFECTION OR IMMUNIZATION WITH RUBELLA VIRUS. 05/28/2010 05/28/2010 3:4 2 PM EST Marcello Ness MD LABORATORY Final Result Performing Organization Address [facility] Co de Phone Number [facility] [address] [place] [address] documented in this encounter Visit Diagnoses Diagnosis Other specified counseling Need for prophylactic vaccination with typhoid-paratyphoid alone (TAB) Need for prophylactic vaccination with combined orcfojcyzo-hmptxok-daafchelp (DTP) vaccine documented in this encounter Additional Health Concerns Infection Onset Date Last Indicated Resolved Time COVID-19 Rule-Out 06/08/2020 06/08/2020 06/08/2020 7:17 PM EDT documented as of this encounter Care Teams Railroad Yard Worker Relationship Specialty Start Date End Date Gabe Do [facility] [address] [place] [address] PCP - General 03/24/06 08/22/17 Marija King DO [facility] [address] [place] [address] PCP - General Family Medicine 08/23/17 05/11/21 Cathleen Palmer MD [facility] [address] [place] [address] PCP - General Family Medicine 09/28/22 documented as of this encounter
--- OUTSIDE RECORDS SUMMARY | 2024-07-30 15:03 | XMS_ITS | Encounter Summary ---
Author Organization [facility] Address [address] [place] [address] Care Team Providers Care Furniture Associate Name Role Phone Cathleen Palmer MD Primary Care Provider [phone] Reason for Visit * Reason Comments E-prescribing Refill Request Encounter Details Date Type Department Care Team ([facility] st Contact Info) Description 06/14/2021 Refill [facility] Neurology [address] [address] Alex Hummel MD 123 [facility] [address] [place] [address] E-prescribing Refill Request Social History Tobacco Use [...] Phone 07/22/21 10:30 AM Alex Hummel MD [facility] Neurology [address] 05/20/22 10:00 AM Jose Angel Starkey MD [facility] Cardiology [address] Pertinent lab results: Lab [...] Description 07/11/2025 11:00 AM EDT Office Visit [facility] Cardiology [address] 123 [facility] [address] [place] [address] Jose Angel Starkey MD [address] [place] [address] 1 yr documented as of this encounter Visit Diagnoses Not on filedocumented in this encounter Care Teams Furniture Associate Relationship Specialty Start Date End Date Cathleen Palmer MD [facility] [address] [address] PCP - General Family Medicine 09/28/22 documented as of this encounter
--- OUTSIDE RECORDS SUMMARY | 2024-07-30 15:03 | XMS_ITS | Encounter Summary ---
Author Organization [facility] Address [address] [place] [address] Care Team Providers Care Manufacturing Worker Name Role Phone Christine Marija Lovely VARGAS Primary Care Provider [phone] Cathleen Palmer MD Primary Care Provider [phone] Encounter Details Date Type Department Care Team (Late st Contact Info) Description 10/01/2018 [facility] Pulmonary [address] 123 [facility] [address] [place] [address] Juan Morse MD [address] [place] [address] Medications Social History Tobacco Use Types Packs/Day [...] 07/11/2025 11:00 AM EDT Office Visit [facility] Cardiology [address] 123 [facility] [address] [place] [address] Jose Angel Starkey MD [address] [place] [address] 1 yr documented as of this encounter Visit Diagnoses Diagnosis Cough documented in this encounter Additional Health Concerns Infection Onset Date Last Indicated Resolved Time COVID-19 Rule-Out 06/08/2020 06/08/2020 06/08/2020 7:17 PM EDT documented as of this encounter Care Teams Manufacturing Worker Relationship Specialty Start Date End Date Marija King DO PCP - General Family Medicine 08/23/17 05/11/21 Cathleen Palmer MD [address] [address] PCP - General Family Medicine 09/28/22 documented as of this encounter
--- OUTSIDE RECORDS SUMMARY | 2024-07-30 15:03 | XMS_ITS | Encounter Summary ---
Author Organization [facility] Address [address] [place] [address] Care Team Providers Care Painter Set Name Role Phone Christine Marija Lovely VARGAS Primary Care Provider [phone] Cathleen Palmer MD Primary Care Provider [phone] Encounter Details Date Type Department Care Team (Late Contact Info) Description 10/31/2017 Orders [facility] Pulmonary [address] 123 [facility] [address] [place] [address] Juan Morse MD [address] [place] [address] Social History Tobacco Use Types Packs/Day Years [...] Description 07/11/2025 11:00 AM EDT Office Visit [facility] Cardiology [address] 123 [facility] [address] [place] [address] Jose Angel Starkey MD [address] [place], [place] [id number] 1 yr documented as of this encounter Procedures * Due to [place] state law, this [...] in this encounter Results * Due to [place] state law, this organization might not be sharing negative HIV tests. * CHICKEN FEATHERS (E85)IGE (10/31/2017 2:46 PM EDT) Chicken Feathers (E85) IgE <0.10 kU/L [facility] Chicken Feathers (E85) Class 0 [facility] 10/31/2017 2:46 PM EDT 10/31/2017 9:49 PM EDT Narrative Resulting Agency Comment [id number] Juan Morse MD LABORATORY Final Result Performing Organization Address [facility]/ZIP Co de Phone Number [facility] [address] [place] [address] * EOSINOPHILS, ABSOLUTE (10/31/2017 2:46 PM EDT) WBC 7.4 3.8 - 10.8 Thousand/u L [facility] Eosinophils # 163 15 - 500 cells/uL [facility] Eosinophils % 2.2 % [facility] 10/31/2017 2:46 PM EDT 10/31/2017 9:49 PM EDT Narrative Resulting Agency Comment [id number] Juan Morse MD LABORATORY Final Result Performing Organization Address City/[facility]/ZIP Co de Phone Number [facility] [address] [place] [address] * [facility] (10/31/2017 2:46 PM EDT) IgE 4 <BC=947 kU/L [facility] Constantino Grass (G6) IgE <0.10 kU/L [facility] Constantino Grass (G6) Class 0 [facility] Effie Grass(Kentucky Blue)(G8) IgE <0.10 kU/L [facility] Effie Grass(Kentucky Blue)(G8) Class 0 [facility] Common Ragweed (Short)(W1) IgE <0.10 kU/L [facility] Common Ragweed (Short)(W1) Class 0 [facility] Bruneian Plantain (W9) IgE <0.10 kU/L [facility] Bruneian Plantain (W9) Class 0 [facility] Rey's Quarters (Goosefoot) (W10) IgE <0.10 kU/L [facility] Rey's Quarters (Goosefoot) (W10) Class 0 [facility] [place] (T7) IgE <0.10 kU/L [facility] [place] (T7) Class 0 [facility] Cat Dander [...] (M6) Class 0 [facility] House Dust ([place]-Jackie) (H2) IgE <0.10 kU/L [facility] House Dust (Marie-Jackie) (H2) Class 0 [facility] Dermatophagoides Farinae(D2) IgE <0.10 kU/L [facility] Dermatophagoides Farinae(D2) Class 0 [facility] 10/31/2017 2:46 PM EDT 10/31/2017 9:49 PM EDT Narrative Resulting Agency Comment [id number] Juan Morse MD LABORATORY Final Result [facility] [address] [place] [address] documented in this encounter Visit Diagnoses Diagnosis Cough SOB (shortness of breath) Shortness of breath documented in this encounter Additional Health Concerns Infection Onset Date Last Indicated Resolved Time COVID-19 Rule-Out 06/08/2020 06/08/2020 06/08/2020 7:17 PM EDT documented as of this encounter Care Teams Painter Set Relationship Specialty Start Date End Date Marija King DO PCP - General Family Medicine 08/23/17 05/11/21 Cathleen Palmer MD [address] [address] PCP - General Family Medicine 09/28/22 documented as of this encounter
--- OUTSIDE RECORDS SUMMARY | 2024-07-30 15:03 | XMS_ITS | Encounter Summary ---
Author Organization [facility] Address [address] [place] [address] Care Team Providers Care Home Health Care Coordinator Name Role Phone Mindy Kingh Lovely VARGAS Primary Care Provider [phone] Cathleen Palmer MD Primary Care Provider [phone] Reason for Visit * Reason Comments Follow Up Encounter Details Date Type Department Care Team ([facility] st Contact Info) Description 02/20/2018 Telephone [facility] Neurology [address] [address] Alex Hummel MD [address] [id number] Follow Up Social History Tobacco Use Types [...] Phone 02/21/18 4:30 PM Alex Hummel MD [facility] [phone] 05/03/18 3:00 PM Juan Morse MD [facility] Pulmonary [address] 08/29/18 3:00 PM Jose Angel Starkey MD [facility] Cardiology [address] * Telephone Encounter [...] 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 He has some college education. 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, I could see him next week possibly [...] Upcoming Encounters Date Type Department Care Team ([facility] st Contact Info) Description 07/11/2025 11:00 AM EDT Office Visit [facility] Cardiology [address] [address] Jose Angel Starkey MD [address] [place] [address] 1 yr documented as of this encounter Visit Diagnoses Not on filedocumented in this encounter Additional Health Concerns Infection Onset Date Last Indicated Resolved Time COVID-19 Rule-Out 06/08/2020 06/08/2020 06/08/2020 7:17 PM EDT documented as of this encounter Care Teams Home Health Care Coordinator Relationship Specialty Start Date End Date Marija King DO PCP - General Family Medicine 08/23/17 05/11/21 Cathleen Palmer MD [address] [address] PCP - General Family Medicine 09/28/22 documented as of this encounter
--- OUTSIDE RECORDS SUMMARY | 2024-07-30 15:03 | XMS_ITS | Encounter Summary ---
Author Organization [facility] Address [address] [place] [address] Care Team Providers Care Renewable Energy Broker Name Role Phone Marija King DO Primary Care Provider [phone] Cathleen Palmer MD Primary Care Provider [phone] Reason for Visit * Reason Onset Date Comments Refill Request 06/02/2019 Encounter Details Date Type Department Care Team (Late st Contact Info) Description 06/02/2019 Refill [facility] Pulmonary [address] 123 [facility] [address] [place] [address] Juan Morse MD [address] [place] [address] Refill Request Social History Tobacco Use Types [...] 07/11/2025 11:00 AM EDT Office Visit [facility] Cardiology [address] [address] Jose Angel Starkey MD [address] [place] [address] 1 yr documented as of this encounter Visit Diagnoses Not on filedocumented in this encounter Additional Health Concerns Infection Onset Date Last Indicated Resolved Time COVID-19 Rule-Out 06/08/2020 06/08/2020 06/08/2020 7:17 PM EDT documented as of this encounter Care Teams Renewable Energy Broker Relationship Specialty Start Date End Date Marija King DO PCP - General Family Medicine 08/23/17 05/11/21 Cathleen Palmer MD [address] [address] PCP - General Family Medicine 09/28/22 documented as of this encounter
--- OUTSIDE RECORDS SUMMARY | 2024-07-30 15:03 | XMS_ITS | Encounter Summary ---
Author Organization [facility] Address [address] [place] [address] Care Team Providers Care Patient Experience Coordinator Name Role Phone Marija King DO Primary Care Provider [phone] Cathleen Palmer MD Primary Care Provider [phone] Encounter Details Date Type Department Care Team ([facility] st Contact Info) Description 07/20/2020 Orders Only [facility] Cardiology [address] 123 [facility] [address] [place] [address] Zhane Dorantes NP 123 [facility] [address] [place] [address] Social History Tobacco Use Types Packs/Day Years [...] his labs as requested. 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 Procedure Name Priority Date/Time Associated Diagnosis Comments VENIPUNCTURE Routine 07/20/2020 12:05 PM EDT Coronary artery disease, unspecified vessel or lesion type, unspecified whether angina present, unspecified whether chuloonawick or transplanted heart documented in this encounter Results * Due to [place] [employer] law, this organization might not be sharing [...] LDL-C. Oliver SAM et al. BEAR. 2013;310(19): 8453-7648 (http://education.ClickTale.SEDLine/faq/JKK887) CHOL/HDL Ratio 2.8 <5.0 (calc) [facility] Cholesterol Non-HDL 85 <130 mg/dL (calc) [facility] Comment: For patients with diabetes plus 1 major ASCVD risk factor, treating to a non-HDL-C goal of <100 mg/dL (LDL-C of <70 mg/dL) is considered a therapeutic option. 07/20/2020 12:0 5 PM EDT 07/20/2020 9:33 PM EDT Narrative Resulting Agency Comment [id number] us Zhane Dorantes MANAGER [employer] LABORATORY Final Res ult [facility] [address] [place] [address] documented in this encounter Visit Diagnoses Diagnosis Coronary artery disease, unspecified vessel or lesion type, unspecified whether angina present, unspecified whether chuloonawick or transplanted heart documented in this encounter Care Teams Patient Experience Coordinator Relationship Specialty Start Date End Date Marija King DO PCP - General Family Medicine 08/23/17 05/11/21 Cathleen Palmer MD [address] [address] PCP - General Family Medicine 09/28/22 documented as of this encounter
--- OUTSIDE RECORDS SUMMARY | 2024-07-30 15:03 | XMS_ITS | Encounter Summary ---
Author Organization [facility] Address [address] [place] [address] Care Team Providers Care Animal Care Service Worker Name Role Phone IhGabe Primary Care Provider [phone] Marija King DO Primary Care Provider [phone] Cathleen Palmer MD Primary Care Provider Encounter Details Date Type Department Care Team (Late st Contact Info) Description 08/27/2015 Orders Only [facility] Cardiology [address] [address] Valentin Vitale MD [address] [place] [address] Social History Tobacco Use Types Packs/Day Years [...] Description 07/11/2025 11:00 AM EDT Office Visit [facility] Cardiology [address] [address] Jose Angel Strakey MD [address] [place], [place] [address] 1 yr documented as of this encounter Procedures * Due to [place] state law, this organization might not be sharing negative HIV tests. Procedure Name Priority Date/Time Associated Diagnosis Comments CBC INCLUDES DIFFERENTIAL AND PLATELET COUNT Routine 08/27/2015 8:34 AM EDT Abnormal cardiovascular stress test Atherosclerosis of coronary artery, angina presence unspecified, unspecified vessel or lesion type, unspecified whether [place] or transplanted heart [I25.10] Paroxysmal atrial fibrillation (HCC) [I48.0] Hyperlipidemia, unspecified hyperlipidemia type [E78.5] Essential hypertension with goal blood pressure less than 130/80 [I10] TSH, 3RD GENERATION Routine 08/27/2015 8 :34 AM EDT Abnormal cardiovascular stress test Atherosclerosis of coronary artery, angina presence unspecified, unspecified vessel or lesion type, unspecified whether [place] or transplanted heart [I25.10] Paroxysmal atrial fibrillation (HCC) [I48.0] Hyperlipidemia, unspecified hyperlipidemia type [E78.5] Essential hypertension with goal blood pressure less than 130/80 [I10] LIPID PANEL WITH REFLEX TO DIRECT LDL Routine 08/27/2015 8:34 AM EDT Abnormal cardiovascular stress test Atherosclerosis of coronary artery, angina presence unspecified, unspecified vessel or lesion type, unspecified whether [place] or transplanted heart [I25.10] Paroxysmal atrial fibrillation (HCC) [I48.0] Hyperlipidemia, unspecified hyperlipidemia type [E78.5] Essential hypertension with goal blood pressure less than 130/80 [I10] BASIC METABOLIC PANEL WITH (GFR) Routine 08/27/2015 8:34 AM EDT Abnormal cardiovascular stress test Atherosclerosis of coronary artery, angina presence unspecified, unspecified vessel or lesion type, unspecified whether [place] or transplanted heart [I25.10] Paroxysmal atrial fibrillation (HCC) [I48.0] Hyperlipidemia, unspecified hyperlipidemia type [E78.5] Essential hypertension with goal blood pressure less than 130/80 [I10] documented in this encounter Results * Due to [place] [employer] law, this organization might not be sharing negative HIV tests. * (ABNORMAL) LIPID PANEL WITH REFLEX TO DIRECT LDL (08/27/2015 8:34 AM EDT) Cholesterol 112(L) 125 - 200 mg/dL [facility] Comment:{CHOLESTEROL, TOTAL {[id number]) HDL Cholesterol 39(L) > OR = 40 mg/dL [facility] Comment:{HDL CHOLESTEROL {[id number]) Triglyceride 176(H) <150 mg/dL [facility] Comment:{TRIGLYCERIDES {[id number]) LDL Cholesterol 38 <130 mg/dL (calc) [facility] Comment: {LDL-CHOLESTEROL {[id number]) Desirable range <100 mg/dL for patients with CHD or diabetes and <70 mg/dL for diabetic patients with known heart disease. CHOL/HDL Ratio 2.9 < OR = 5.0 (calc) [facility] Comment:{CHOL/HDLC RATIO {[id number]) Cholesterol Non-HDL 73 mg/dL (calc) [facility] Comment: {NON HDL CHOLESTEROL {[id number]) Target for non-HDL cholesterol is 30 mg/dL higher than LDL cholesterol target. 08/27/2015 8:34 AM EDT 08/27/2015 7:39 PM EDT Narrative Resulting Agency Comment [id number] Valentin Vitale MD LABORATORY Final Result Performing Organization Address [facility] Co de Phone Number [facility] [address] [place] [address] * TSH, 3RD GENERATION (08/27/2015 8:34 AM EDT) TSH 1.24 0.40 - 4.50 mIU/L [facility] Comment:{TSH {[id number]) 08/27/2015 8:34 AM EDT 08/27/2015 7:39 PM EDT Narrative Resulting Agency Comment [id number] Valentin Vitale MD LABORATORY Final Result Performing Organization Address [facility] Co de Phone Number [facility] [address] [place] [address] * BASIC METABOLIC PANEL WITH (GFR) (08/27/2015 8:34 AM EDT) [facility] Glucose 99 65 - 99 mg/dL [facility] Comment: {GLUCOSE {[id number]) ? Fasting reference interval Urea Nitrogen Blood (BUN) 12 7 - 25 mg/dL [facility] Comment:{UREA NITROGEN (BUN) {[id number]) Creatinine 1.10 0.70 - 1.25 mg/dL [facility] Comment: {CREATININE {[id number]) For patients >49 years of age, the reference limit for Creatinine is approximately 13% higher for people identified as -Romanian. GFR 70 > OR = 60 mL/min/1 .73m2 [facility] Comment:{eGFR NON-AFR. AMERI CAN {[id number]) GFR () 81 > OR = 60 mL/min/1 .73m2 [facility] Comment:{eGFR AMERIC AN {[id number]) BUN/Creatinine Ratio NOT APPLICABLE (calc) [facility] Comment:{BUN/CREATININE RATI O {[id number]) Sodium 139 135 - 146 mmol/L [facility] Comment:{SODIUM {[id number]) Potassium 4.7 3.5 - 5.3 mmol/L [facility] Comment:{POTASSIUM {[id number]) Chloride 105 98 - 110 mmol/L [facility] Comment:{CHLORIDE {[id number]) Carbon dioxide 26 19 - 30 mmol/L [facility] Comment:{CARBON DIOXIDE {[id number]) Calcium 9.4 8.6 - 10.3 mg/dL [facility] Comment:{CALCIUM {[id number]) 08/27/2015 8:34 AM EDT 08/27/2015 7:39 [...] needs for GFR calculation. Resulting Agency Comment [id number] Valentin Vitale MD LABORATORY Final Result [facility] [address] [place] [address] * CBC INCLUDES DIFFERENTIAL AND PLATELET COUNT (08/27/2015 8:34 AM EDT) WBC 6.0 3.8 - 10.8 Thousand/u L [facility] Comment:{WHITE BLOOD CELL CO UNT {[id number]) RBC 4.88 4.20 - 5.80 Million/uL [facility] Comment:{RED BLOOD CELL COUN T {[id number]) Hemoglobin 15.2 13.2 - 17.1 g/dL [facility] Comment:{HEMOGLOBIN {[id number]) Hematocrit 44.6 38.5 - 50.0 % [facility] Comment:{HEMATOCRIT {[id number]) MCV 91.5 80.0 - 100.0 fL [facility] Comment:{MCV {[id number]) MCH 31.2 27.0 - 33.0 pg [facility] Comment:{MCH {[id number]) MCHC 34.1 32.0 - 36.0 g/dL [facility] Comment:{MCHC {[id number]) RDW 12.9 11.0 - 15.0 % [facility] Comment:{RDW {[id number]) PLT 191 140 - 400 Thousand/u L [facility] Comment:{PLATELET COUNT {[id number]) MPV 8.9 7.5 - 11.5 fL [facility] Comment:{MPV {[id number]) Neutrophils # 2856 1500 - 7800 cells/uL [facility] Comment:{ABSOLUTE NEUTROPHIL S {[id number]) Lymphocytes # 2508 850 - 3900 cells/uL [facility] Comment:{ABSOLUTE LYMPHOCYTE S {[id number]) Monocytes # 486 200 - 950 cells/uL [facility] Comment:{ABSOLUTE MONOCYTES {[id number]) Eosinophils # 126 15 - 500 cells/uL [facility] Comment:{ABSOLUTE EOSINOPHIL S {[id number]) Basophils # 24 0 - 200 cells/uL [facility] Comment:{ABSOLUTE BASOPHILS {[id number]) Neutrophils % 47.6 % [facility] Comment:{NEUTROPHILS {[id number]) Lymphocytes % 41.8 % [facility] Comment:{LYMPHOCYTES {[id number]) Monocytes % 8.1 % [facility] Comment:{MONOCYTES {[id number]) Eosinophils % 2.1 % [facility] Comment:{EOSINOPHILS {[id number]) Basophils % 0.4 % [facility] Comment:{BASOPHILS {[id number]) 08/27/2015 8:34 AM EDT 08/27/2015 7:39 PM EDT Narrative Resulting Agency Comment [id number] us Valentin Vitale MD LAB SAME DAY RESULT Final Resul t Performing Organization Address City/State/[facility] Co de Phone Number [facility] [address] [place] [address] documented in this encounter Visit Diagnoses Diagnosis Abnormal cardiovascular stress test Other nonspecific abnormal cardiovascular system function study Atherosclerosis of coronary artery, angina presence unspecified, unspecified vessel or lesion type, unspecified whether [place] or transplanted heart [I25.10] Paroxysmal atrial fibrillation (HCC) [I48.0] Atrial fibrillation Hyperlipidemia, unspecified hyperlipidemia type [E78.5] Essential hypertension with goal blood pressure less than 130/80 [I10] documented in this encounter Additional Health Concerns Infection Onset Date Last Indicated Resolved Time COVID-19 Rule-Out 06/08/2020 06/08/2020 06/08/2020 7:17 PM EDT documented as of this encounter Care Teams Animal Care Service Worker Relationship Specialty Start Date End Date Gabe Do [facility] [address] [place] [address] PCP - General 03/24/06 08/22/17 Marija King DO [facility] [address] [place] [address] PCP - General Family Medicine 08/23/17 05/11/21 [place] [address] PCP - General Family Medicine 09/28/22 documented as of this encounter
--- OUTSIDE RECORDS SUMMARY | 2024-07-30 15:03 | XMS_ITS | Encounter Summary ---
Author Organization [facility] Address [address] [place] [address] Care Team Providers Care Mitten Stitcher Name Role Phone Marija King Lovely VARGAS Primary Care Provider [phone] Cathleen Palmer MD Primary Care Provider [phone] Encounter Details Date Type Department Care Team ([facility] st Contact Info) Description 11/24/2020 Orders Only [facility] Cardiology [address] [address] Jose Angel Starkey MD [address] [place] [address] Social History Tobacco Use Types Packs/Day Years [...] Description 07/11/2025 11:00 AM EDT Office Visit [facility] Cardiology [address] 123 [facility] [address] [place] [address] Jose Angel Starkey MD [address] [place] [address] 1 yr documented as of this encounter Procedures * Due to [facility] law, this organization might not be sharing negative HIV tests. Procedure Name Priority Date/Time Associated Diagnosis Comments VENIPUNCTURE Routine 11/24/2020 9:45 AM EDT Hypertension, unspecified type documented in this encounter Results * Due to [facility] law, this organization might not be [...] approximately 13% higher for people identified as -Sudanese. EGFR 51(L) > OR = 60 mL/min/1. [...] needs for GFR calculation. Resulting Agency Comment [id number] us Jose Angel Starkey MD LABORATORY Final Result Performing Organization Address City/State/[facility] Co de Phone Number [facility] [address] [place] [address] documented in this encounter Visit Diagnoses Diagnosis Hypertension, unspecified type documented in this encounter Care Teams Mitten Stitcher Relationship Specialty Start Date End Date Marija King DO PCP - General Family Medicine 08/23/17 05/11/21 [place] [address] PCP - General Family Medicine 09/28/22 documented as of this encounter
--- OUTSIDE RECORDS SUMMARY | 2024-07-30 15:03 | XMS_ITS | Encounter Summary ---
Author Organization [facility] Address [address] [place] [address] Care Team Providers Care Eap Specialist Name Role Phone Christine Marija Lovely VARGAS Primary Care Provider [phone] Cathleen Palmer MD Primary Care Provider [phone] Encounter Details Date Type Department Care Team (Late Contact Info) Description 05/03/2019 Orders Only [facility] [address] [place] [phone] Alex Hummel MD [address] [place] [address] [id number] Social History Tobacco Use Types Packs/Day Years [...] 07/11/2025 11:00 AM EDT Office Visit [facility] [address] [place] [address] Jose Angel Starkey MD [address] [place], [place] [phone] 1 yr documented as of this encounter Procedures * Due to [place] [employer] law, this organization might not be sharing negative HIV tests. Procedure Name Priority Date/Time Associated Diagnosis Comments VENIPUNCTURE Routine 05/03/2019 9:32 AM EST Seizure documented in this encounter Results * Due to [place] [employer] law, this organization might not be sharing negative HIV tests. * (ABNORMAL) VALPROIC ACID (05/03/2019 9:32 AM EST) Valproate 30.5(L) 50.0 - 100.0 mg/L [facility] 05/03/2019 9:32 AM EST 05/04/2019 Narrative Resulting Agency Comment [id number] us Alex Hummel MD LAB SAME DAY RESULT Final Resu lt Performing Organization Address City/State/[facility] Co de Phone Number [facility] [address] [place] [address] documented in this encounter Visit Diagnoses Diagnosis Seizure (HCC) Other convulsions documented in this encounter Additional Health Concerns Infection Onset Date Last Indicated Resolved Time COVID-19 Rule-Out 06/08/2020 06/08/2020 06/08/2020 7:17 PM EDT documented as of this encounter Care Teams Eap Specialist Relationship Specialty Start Date End Date Marija King DO PCP - General Family Medicine 08/23/17 05/11/21 Cathleen Palmer MD [address] [address] PCP - General Family Medicine 09/28/22 documented as of this encounter
--- OUTSIDE RECORDS SUMMARY | 2024-07-30 15:03 | XMS_ITS | Encounter Summary ---
Author Organization [facility] Address [address] [place] [address] Care Team Providers Care Street Light Lamp Cleaner Name Role Phone Marija King DO Primary Care Provider [phone] Cathleen Palmer MD Primary Care Provider [phone] Encounter Details Date Type Department Care Team (Late Contact Info) Description 05/08/2020 Orders Only [facility] Cardiology [address] [address] Jose Angel Starkey MD [address] [place] [address] Social History Tobacco Use Types Packs/Day Years [...] 07/11/2025 11:00 AM EDT Office Visit [facility] Cardiology [address] 123 [facility] [address] [place] [address] Jose Angel Starkey MD [address] [place] [address] 1 yr documented as of this encounter Procedures * Due to [facility] law, this organization might not be sharing negative HIV tests. Procedure Name Priority Date/Time Associated Diagnosis Comments VENIPUNCTURE Routine 05/08/2020 11:51 AM EST Chronic chest pain Atherosclerosis of coronary artery, angina presence unspecified, unspecified vessel or lesion type, unspecified whether [place] or transplanted heart [I25.10] CBC INCLUDES DIFFERENTIAL AND PLATELET COUNT Routine 05/08/2020 11:51 AM EST Chronic chest pain Atherosclerosis of coronary artery, angina presence unspecified, unspecified vessel or lesion type, unspecified whether [place] or transplanted heart [I25.10] BASIC METABOLIC PANEL WITH (GFR) Routine 05/08/2020 11:51 AM EST Chronic chest pain Atherosclerosis of coronary artery, angina presence unspecified, unspecified vessel or lesion type, unspecified whether [place] or transplanted heart [I25.10] documented in this encounter Results * Due to [place] [employer] law, this organization might not be sharing [...] approximately 13% higher for people identified as -German. EGFR 60 > OR = 60 mL/min/1. [...] needs for GFR calculation. Resulting Agency Comment [id number] us Jose Angel Starkey MD LABORATORY Final Result [facility] [address] [place] [address] * CBC INCLUDES DIFFERENTIAL AND PLATELET COUNT [...] 1:42 PM EST Narrative Resulting Agency Comment [id number] Jose Angel Starkey MD LAB SAME DAY RESULT Final Res ult Performing Organization Address [facility] de Phone Number [facility] [address] [place] [phone] * (ABNORMAL) PROTHROMBIN TIME (PT) (INR), BLOOD (05/08/2020 11:51 AM EST) INR 1.2(H) [facility] Comment: Reference Range ? 0.9-1.1 Moderate-intensity Warfarin Therapy 2.0-3.0 Higher-intensity Warfarin Therapy ?? 3.0-4.0 PT 12.7(H) 9.0 - 11.5 sec [facility] Comment: For additional information, please refer to http://education.PageScience/faq/LFC365 (This link is being provided for informational/ educational purposes only.) 05/08/2020 11:5 1 AM EST 05/08/2020 1:42 PM EST Narrative Resulting Agency Comment [id number] Jose Angel Starkey MD LAB SAME DAY RESULT Final Res ult Performing Organization Address [facility] de Phone Number [facility] [address] [place] [address] documented in this encounter Visit Diagnoses Diagnosis Chronic chest pain Chest pain, unspecified Atherosclerosis of coronary artery, angina presence unspecified, unspecified vessel or lesion type, unspecified whether [place] or transplanted heart [I25.10] documented in this encounter Additional Health Concerns Infection Onset Date Last Indicated Resolved Time COVID-19 Rule-Out 06/08/2020 06/08/2020 06/08/2020 7:17 PM EDT documented as of this encounter Care Teams Street Light Lamp Cleaner Relationship Specialty Start Date End Date Marija King DO PCP - General Family Medicine 08/23/17 05/11/21 [place] [address] PCP - General Family Medicine 09/28/22 documented as of this encounter
--- OUTSIDE RECORDS SUMMARY | 2024-07-30 15:03 | XMS_ITS | Encounter Summary ---
Author Organization [facility] Address [address] [place] [address] Care Team Providers Care Back Panel Padder Name Role Phone Christine Marija Lovely VARGAS Primary Care Provider [phone] Cathleen Palmer MD Primary Care Provider [phone] Reason for Visit * Reason Comments E-prescribing Refill Request Encounter Details Date Type Department Care Team ([facility] Contact Info) Description 06/10/2019 Refill [facility] Cardiology [address] [address] Jose Angel Starkey MD [address] [place] [address] E-prescribing Refill Request Social History Tobacco Use [...] Upcoming Encounters Date Type Department Care Team ([facility] Contact Info) Description 07/11/2025 11:00 AM EDT Office Visit [facility] Cardiology [address] [address] Jose Angel Starkey MD [address] [place] [address] 1 yr documented as of this encounter Visit Diagnoses Diagnosis Paroxysmal atrial fibrillation (HCC) Atrial fibrillation documented in this encounter Additional Health Concerns Infection Onset Date Last Indicated Resolved Time COVID-19 Rule-Out 06/08/2020 06/08/2020 06/08/2020 7:17 PM EDT documented as of this encounter Care Teams Back Panel Padder Relationship Specialty Start Date End Date Marija King DO PCP - General Family Medicine 08/23/17 05/11/21 Cathleen Palmer MD [address] [address] PCP - General Family Medicine 09/28/22 documented as of this encounter
--- OUTSIDE RECORDS SUMMARY | 2024-07-30 15:03 | XMS_ITS | Encounter Summary ---
Author Organization [facility] Address [address] [place] [address] Care Team Providers Care Commercial Or Institutional Cleaner Name Role Phone Marija King DO Primary Care Provider [phone] Cathleen Palmer MD Primary Care Provider [phone] Reason for Referral * OUTPT PROCEDURES AND DIAGNOSTICS (Routine) - Closed Specialty Diagnoses / Procedures Referred By Contac t Referred To Contact CT Scan Diagnoses Other nonspecific abnormal finding of lung field Procedures CT CHEST W/O CONTRAST (DX: ? NODULE ON CXR R91.8/ 793.2) (WITHIN 1 WK) Juan Morse MD [address] [place] [address] Phone: tel: fax: Referral ID Status Reason Start Date Expiration Date V isits Requested Visits Authorized [id number] Closed Continuity of Care 04/09/2018 07/08/2018 1 1 Encounter Details Date Type Department Care Team (Late st Contact Info) Description 04/04/2018 Orders Only [facility] Pulmonary [address] [facility] [address] [place] [address] Juan Morse MD [address] [place] [address] Social History Tobacco Use Types Packs/Day Years [...] Description 07/11/2025 11:00 AM EDT Office Visit [facility] Cardiology [address] [facility] [address] [place] [address] Jose Angel Starkey MD [address] [place] [address] 1 yr documented as of this encounter Results * Due to [place] state law, this organization might not be sharing negative HIV tests. * (ABNORMAL) CT CHEST W/O CONTRAST (DX: ? NODULE ON CXR R91.8/ 793.2) (WITHIN 1 WK) FC (04/13/2018 9:02 AM EST) [facility] Anatomical Region [...] as of this encounter Care Teams Commercial Or Institutional Cleaner Relationship Specialty Start Date End Date Marija King DO PCP - General Family Medicine 08/23/17 05/11/21 [place] [address] PCP - General Family Medicine 09/28/22 documented as of this encounter
--- OUTSIDE RECORDS SUMMARY | 2024-07-30 15:03 | XMS_ITS | Clinical Summary ---
Author Organization [facility] Address [address] [place] [address] Care Team Providers Care Canteen Manager Name Role Phone Cathleen Palmer MD Primary Care Provider [phone] Allergies Active Allergy Reactions Criticality Noted Date Comments Oxycodone Other 01/31/2023 Causes confusion Medications * This document contains information received from the source organization and may not represent a complete record from that organization. Nitroglycerin (NITROSTAT) 0.4 MG SL tabletIndications: Abnormal cardiovascular stress test,Atheroscleros is of coronary artery, angina presence unspecified, unspecified vessel or lesion type, unspecified whether [place] or transplanted heart,Paroxysmal atrial fibrillation (HCC),Hyperlipidem ia, [...] Date Type Department Care Team Description 07/23/2024 [facility] Cardiology [address] [place] [phone] Jayesh Starkey MD Refill Request 07/03/2024 3:00 PM EDT Office Visit [facility] Cardiology [address] [place] [phone] Jayesh Starkey MD Paroxysmal atrial fibrillation (HCC) (Primary Dx); Coronary artery disease, unspecified vessel or lesion type, unspecified whether angina present, unspecified whether [place] or transplanted heart; RBBB (right bundle branch [...] Upcoming Encounters Date Type Department Care Team ([facility] st Contact Info) Description 07/11/2025 11:00 AM EDT Office Visit [facility] Cardiology [address] [place] [address] Jayesh Starkey MD [address] [place] [address] 1 yr Health Maintenance Due Date Last [...] Zoster (Zostavax) Discontinued Procedures * Due to [place] state law, this organization might not be [...] type, unspecified whether angina present, unspecified whether [place] or transplanted heart HEP C ANTIBODY (EIA-2) Routine 08/01/2003 4:44 PM EDT from Last 3 Months or Most Recently Relevant to Health Maintenance Results * Due to [place] state law, this organization might not be [...] Abnormal ECG Confirmed by JAYESH STARKEY ([id number]), manuscript editor KAREN MULTANI ([id number]) on 06/29/2023 7:33:59 [...] LDL-C. Oliver SAM et al. BEAR. 2013;310(19): 3680-7962 (http://education.DoveConviene/faq/PMI332) CHOL/HDL Ratio 2.8 <5.0 (calc) [facility] Cholesterol Non-HDL 85 <130 mg/dL (calc) [facility] Comment: For patients with diabetes plus 1 major ASCVD risk factor, treating to a non-HDL-C goal of <100 mg/dL (LDL-C of <70 mg/dL) is considered a therapeutic option. 07/20/2020 12:0 5 PM EDT 07/20/2020 9:33 PM EDT Narrative Resulting Agency Comment [id number] us Zhane Dorantes METAL CHECKER LABORATORY Final Res ult [facility] [address] [place] [address] * HEP C ANTIBODY (EIA-2) (08/01/2003 4:44 PM EDT) HEPATITIS C AB NEGATIVE [facility] (CLIA# [id number]) 08/01/2003 4:44 PM EDT 08/01/2003 4:44 PM EDT Narrative [facility] (CLIA# [id number]) - 08/01/2003 4:44 PM EDT Ordered by UNKNOWN PROVIDER SST tube received unspun us Unknown Provider LABORATORY Final Result [facility] (CLIA# [id number]) [address] [place] [address] from Last 3 Months or Most Recently Relevant to Health Maintenance Insurance [employer] FEE FOR SERVICE PPO * Guarantor: [employer] [place] Account Type Relation to Patient Date of Phone Billing Address [employer] [address] [place] [address] Care Teams Canteen Manager Relationship Specialty Start Date End Date Cathleen Palmer MD [address] [address] PCP - General Family Medicine 09/28/22
--- OUTSIDE RECORDS SUMMARY | 2024-07-30 15:03 | XMS_ITS | Encounter Summary ---
Author Organization [facility] Address [address] [place] [address] Care Team Providers Care Physical Meteorologist Name Role Phone HiGabe Primary Care Provider [phone] Marija King DO Primary Care Provider [phone] Cathleen Palmer MD Primary Care Provider [phone] Encounter Details Date Type Department Care Team (Late st Contact Info) Description 08/26/2015 Orders Only [facility] Cardiology [address] [address] Valentin Vitale MD [address] [place] [phone] Medications Social History Tobacco Use Types Packs/Day [...] 07/11/2025 11:00 AM EDT Office Visit [facility] Cardiology [address] [address] Jose Angel Starkey MD [address] [place], [place] [phone] 1 yr documented as of this encounter Visit Diagnoses Diagnosis Paroxysmal atrial fibrillation (HCC)- Primary Atrial fibrillation documented in this encounter Additional Health Concerns Infection Onset Date Last Indicated Resolved Time COVID-19 Rule-Out 06/08/2020 06/08/2020 06/08/2020 7:17 PM EDT documented as of this encounter Care Teams Physical Meteorologist Relationship Specialty Start Date End Date Gabe Do [facility] [address] [place] [address] PCP - General 03/24/06 08/22/17 Marija King DO [facility] [address] [place] [address] PCP - General Family Medicine 08/23/17 05/11/21 Cathleen Palmer MD [facility] [address] [place] [address] PCP - General Family Medicine 09/28/22 documented as of this encounter
--- OUTSIDE RECORDS SUMMARY | 2024-07-30 15:03 | XMS_ITS | Encounter Summary ---
Author Organization [facility] Address [address] [place] [address] Care Team Providers Care Button Buttonhole Marker Name Role Phone Cathleen Palmer MD Primary Care Provider [phone] Encounter Details Date Type Department Care Team (Late Contact Info) Description 12/16/2021 Orders Only [facility] Pulmonary [address] 123 [facility] [address] [place] [phone] Juan Morse MD [address] [place] [address] Medications Social History Tobacco Use Types Packs/Day [...] Description 07/11/2025 11:00 AM EDT Office Visit [facility] Cardiology [address] 123 [facility] [address] [place] [phone] Jose Angel Starkey MD [address] [place] [address] 1 yr documented as of this encounter Visit Diagnoses Not on filedocumented in this encounter Care Teams Button Buttonhole Marker Relationship Specialty Start Date End Date Cathleen Palmer MD [address] [address] PCP - General Family Medicine 09/28/22 documented as of this encounter
--- OUTSIDE RECORDS SUMMARY | 2024-07-30 15:03 | XMS_ITS | Encounter Summary ---
Author Organization [facility] Address [address] [place] [address] Care Team Providers Care Instructor Correspondence School Name Role Phone Cathleen Palmer MD Primary Care Provider [phone] Encounter Details Date Type Department Care Team (Late Contact Info) Description 05/21/2021 Refill [facility] Neurology [address] 123 [facility] [address] [place] [address] Alex Hummel MD [address] [address] Social History Tobacco Use Types Packs/Day Years [...] Description 07/11/2025 11:00 AM EDT Office Visit [facility] Cardiology [address] [facility] [address] [place] [phone] Jose Angel Starkey MD [address] [place] [address] 1 yr documented as of this encounter Visit Diagnoses Not on filedocumented in this encounter Care Teams Instructor Correspondence School Relationship Specialty Start Date End Date Cathleen Palmer MD [address] [address] PCP - General Family Medicine 09/28/22 documented as of this encounter
--- OUTSIDE RECORDS SUMMARY | 2024-07-30 15:03 | XMS_ITS | Encounter Summary ---
Author Organization [facility] Address [address] [place] [address] Care Team Providers Care Police Records Clerk Name Role Phone ChristineMarija Lovely VARGAS Primary Care Provider [phone] Cathleen Palmer MD Primary Care Provider [phone] Encounter Details Date Type Department Care Team (Late Contact Info) Description 03/03/2018 Orders Only [facility] Cardiology [address] [address] Kathryn Bansal DO [address] [place] [address] Medications Social History Tobacco Use Types Packs/Day [...] 11:00 AM EDT Office Visit [facility] Cardiology [address] [address] Jose Angel Starkey MD [address] [place] [address] 1 yr documented as of this encounter Visit Diagnoses Not on filedocumented in this encounter Additional Health Concerns Infection Onset Date Last Indicated Resolved Time COVID-19 Rule-Out 06/08/2020 06/08/2020 06/08/2020 7:17 PM EDT documented as of this encounter Care Teams Police Records Clerk Relationship Specialty Start Date End Date Marija King DO PCP - General Family Medicine 08/23/17 05/11/21 Cathleen Palmer MD [address] [address] PCP - General Family Medicine 09/28/22 documented as of this encounter
--- OUTSIDE RECORDS SUMMARY | 2024-07-30 15:04 | XMS_ITS | Encounter Summary ---
Author Organization [facility] Address [address] [place] [address] Care Team Providers Care First Grade Teacher Name Role Phone Mindy Kingh Lovely VARGAS Primary Care Provider [phone] Cathleen Palmer MD Primary Care Provider [phone] Reason for Visit * Reason Onset Date Comments Refill Request 01/28/2019 Encounter Details Date Type Department Care Team (Late Contact Info) Description 01/28/[address] [facility] Cardiology [address] [phone] Kim Roberson, RN Refill Request Social History [...] 07/11/2025 11:00 AM EDT Office Visit [facility] Cardiology [address] [phone] Jose Angel Starkey MD [address] [place] [address] 1 yr documented as of this encounter Visit Diagnoses Not on filedocumented in this encounter Additional Health Concerns Infection Onset Date Last Indicated Resolved Time COVID-19 Rule-Out 06/08/2020 06/08/2020 06/08/2020 7:17 PM EDT documented as of this encounter Care Teams First Grade Teacher Relationship Specialty Start Date End Date Marija King DO PCP - General Family Medicine 08/23/17 05/11/21 Cathleen Palmer MD [address] [address] PCP - General Family Medicine 09/28/22 documented as of this encounter
--- OUTSIDE RECORDS SUMMARY | 2024-07-30 15:04 | XMS_ITS | Encounter Summary ---
Author Organization [facility] Address [address] [place] [address] Care Team Providers Care Head Of Stock Name Role Phone Marija King DO Primary Care Provider [phone] Encounter Details Date Type Department Care Team (Late st Contact Info) Description 11/17/2020 myChart Message [facility] Revenue Cycle Management [address] [place] [address] Mychart, Generic Provider [address] [phone] [facility] Customer Service Request Social History Tobacco Use [...] on filedocumented in this encounter Care Teams Head Of Stock Relationship Specialty Start Date End Date Marija King DO [address] [place] [address] PCP - General 06/03/20 documented as of this encounter
--- OUTSIDE RECORDS SUMMARY | 2024-07-30 15:04 | XMS_ITS | Encounter Summary ---
Author Organization [facility] Address [address] [place] [address] Care Team Providers Care Hvac Commercial Salesperson Name Role Phone Mindy Kingh Lovely VARGAS Primary Care Provider [phone] Cathleen Palmer MD Primary Care Provider [phone] Reason for Visit * Reason Onset Date Comments Refill Request 01/28/2019 Encounter Details Date Type Department Care Team (Late Contact Info) Description 01/28/2019 Refill [facility] Cardiology [address] [phone] Kim Roberson, RN Refill Request Social History [...] 07/11/2025 11:00 AM EDT Office Visit [facility] Cardiology [address] [phone] Jose Angel Starkey MD [address] [place] [address] 1 yr documented as of this encounter Visit Diagnoses Not on filedocumented in this encounter Additional Health Concerns Infection Onset Date Last Indicated Resolved Time COVID-19 Rule-Out 06/08/2020 06/08/2020 06/08/2020 7:17 PM EDT documented as of this encounter Care Teams Hvac Commercial Salesperson Relationship Specialty Start Date End Date Marija King DO PCP - General Family Medicine 08/23/17 05/11/21 Cathleen Palmer MD [address] [address] PCP - General Family Medicine 09/28/22 documented as of this encounter
--- OUTSIDE RECORDS SUMMARY | 2024-07-30 15:04 | XMS_ITS | Clinical Summary ---
Author Organization [facility] Address [address] [place] [address] Care Team Providers Care Corporate Manager Name Role Phone Marija King DO Primary Care Provider Allergies No known active allergies Medications aspirin [...] 08/05/2003, 12/03/1999 Procedures * Due to [place] [employer] law, this organization might not be sharing negative HIV tests. Procedure Name Priority Date/Time Associated Diagnosis Comments BASIC METABOLIC PANEL Routine 12/05/2014 9:09 AM EDT from Last 3 Months or Most Recently Relevant to Health Maintenance Results * Due to [place] [employer] law, this organization might not be sharing negative HIV tests. * (ABNORMAL) Basic Metabolic Panel (12/05/2014 9:09 AM EDT) Sodium Blood 139 135 - 145 mmol/L [facility] Potassium Blood 4.9 3.5 - 5.3 mmol/L [facility] Chloride Blood 104 97 - 110 mmol/L [facility] Carbon Dioxide 27 24 - 32 mmol/L [facility] Gap 8 5 - 15 [facility] Glucose 102(H) 70 - 99 mg/dL [facility] BUN 9 7 - 23 mg/dL [facility] Creatinine 1.02 0.60 - 1.30 mg/dL [facility] eGFR Non- >60 >60 [facility] Comment: Units = [...] Calcium Blood 9.1 8.7 - 10.7 mg/dL [facility] 12/05/2014 9:09 AM EDT 12/05/2014 9:41 AM EDT us Mitesh Gillespie MD LAB BLOOD ORDERABLES Final Res ult [facility] [address] [place] [address], from Last 3 Months or Most Recently Relevant to Health Maintenance Insurance [employer] CIGNA PPO/EPO/IND Advance Directives * Full Code (Latest Code Status on File) Date Activated Date Inactivated Comments 06/09/2020 1:31 PM 06/09/2020 7:11 PM * Full Code Date Activated Date Inactivated Comments 06/09/2020 11:18 AM 06/09/2020 1:31 PM Care Teams Corporate Manager Relationship Specialty Start Date End Date Marija King DO [address] [place] [address] PCP - General 06/03/20
--- OUTSIDE RECORDS SUMMARY | 2024-07-30 15:04 | XMS_ITS | Encounter Summary ---
Author Organization [facility] Address [address] [place] [address] Care Team Providers Care City Driver Name Role Phone Cathleen Palmer MD Primary Care Provider Encounter Details Date Type Department Care Team (Late st Contact Info) Description 09/29/2022 Orders Only [facility] Pulmonary [address] [facility] [address] [place] [id number] Juan Morse MD [address] [place] [address] Social History Tobacco Use Types Packs/Day Years [...] Description 07/11/2025 11:00 AM EDT Office Visit [facility] Cardiology [address] [facility] [address] [place] [id number] Jose Angel Starkey MD [address] [place] [address] 1 yr documented as of this encounter Results * Due to [place] state law, this organization might not be [...] on filedocumented in this encounter Care Teams City Driver Relationship Specialty Start Date End Date Cathleen Palmer MD [facility] [address] [address] PCP - General Family Medicine 09/28/22 documented as of this encounter
--- OUTSIDE RECORDS SUMMARY | 2024-07-30 15:04 | XMS_ITS | Clinical Summary ---
Author Organization [facility] it Address [address] [place] [address] Care Team Providers Care Drone Operator Name Role Phone Unavailable Primary Care Provider [...]
--- OUTSIDE RECORDS SUMMARY | 2024-07-30 15:04 | XMS_ITS | Encounter Summary ---
Author Organization [facility] Address [address] [place] [address] Care Team Providers Care Digital Content Specialist Name Role Phone Marija King DO Primary Care Provider [phone] Cathleen Palmer MD Primary Care Provider [phone] Encounter Details Date Type Department Care Team (Late Contact Info) Description 12/19/2018 [facility] Pulmonary [address] [facility] [address] [place] [address] Juan Morse MD [address] [place] [address] Social History Tobacco Use Types Packs/Day Years [...] Fonseca RN - 12/19/2018 3:36 PM EDT [employer] message sent on 12/27 documented in this encounter Plan of Treatment Upcoming Encounters Date Type Department Care Team (Late st Contact Info) Description 07/11/2025 11:00 AM EDT Office Visit [facility] Cardiology [address] [facility] [address] [place] [address] Jose Angel Starkey MD [address] [place] [address] 1 yr documented as of this encounter Procedures * Due to [place] [employer] law, this organization might not be sharing negative HIV tests. Procedure Name Priority Date/Time Associated Diagnosis Comments C-REACTIVE PROTEIN (CRP) - INFLAMMATION Routine 12/19/2018 3:36 PM EDT Recurrent respiratory infection IMMUNOGLOBULIN G,SUBCLASSES 1-4 SERUM Routine 12/19/2018 3:36 PM EDT Recurrent respiratory infection VENIPUNCTURE Routine 12/19/2018 3:36 PM EDT Recurrent respiratory infection documented in this encounter Results * Due to [place] [employer] law, this organization might not be sharing negative HIV tests. * C-REACTIVE PROTEIN (CRP) - INFLAMMATION (12/19/2018 3:36 PM EDT) C reactive protein 0.9 <8.0 mg/L [facility] 12/19/2018 3:36 PM EDT 12/19/2018 11:34 PM EDT Narrative Resulting Agency Comment [id number] Juan Morse MD LABORATORY Final Result Performing Organization Address City/State/[facility] Co de Phone Number [facility] [address] [place] [address] * IMMUNOGLOBULIN QUANTITATION (IGG, IGM, IGA) (12/19/2018 3:36 PM EDT) IgA 142 20 - 320 mg/dL [facility] IgG 1024 600 - 1540 mg/dL [facility] IgM 112 50 - 300 mg/dL [facility] 12/19/2018 3:36 PM EDT 12/19/2018 11:34 PM EDT Narrative Resulting Agency Comment [id number] Juan Morse MD LABORATORY Final Result Performing Organization Address City/[facility]/ZIP Co de Phone Number [facility] [address] [place] [address] * IMMUNOGLOBULIN G,SUBCLASSES 1-4 SERUM (12/19/2018 3:36 [...] 11:34 PM EDT Narrative Resulting Agency Comment [id number] Juan Morse MD LABORATORY Final Result Performing Organization Address City/[facility] Co de Phone Number [facility] [address] [place] [address] documented in this encounter Visit Diagnoses Diagnosis Recurrent respiratory infection Other diseases of respiratory system, not elsewhere classified documented in this encounter Additional Health Concerns Infection Onset Date Last Indicated Resolved Time COVID-19 Rule-Out 06/08/2020 06/08/2020 06/08/2020 7:17 PM EDT documented as of this encounter Care Teams Digital Content Specialist Relationship Specialty Start Date End Date Marija King DO PCP - General Family Medicine 08/23/17 05/11/21 Cathleen Palmer MD [address] [address] PCP - General Family Medicine 09/28/22 documented as of this encounter
--- OUTSIDE RECORDS SUMMARY | 2024-07-30 15:04 | XMS_ITS | Referral Summary ---
Author Organization [facility] Address [address] [place] [address] Care Team Providers Care Ballet Teacher Name Role Phone Marija King DO Primary Care Provider [phone] Allergies No known active allergies Medications aspirin [...] Not on file Procedures * Due to [place] [employer] law, this organization might not be sharing negative HIV tests. Procedure Name Priority Date/Time Associated Diagnosis Comments BASIC METABOLIC PANEL Routine 12/05/2014 9:09 AM EDT from Last 3 Months or Most Recently Relevant to Health Maintenance Results * Due to [place] [employer] law, this organization might not be sharing negative HIV tests. * (ABNORMAL) Basic Metabolic Panel (12/05/2014 9:09 AM EDT) Sodium Blood 139 135 - 145 mmol/L [facility] Potassium Blood 4.9 3.5 - 5.3 mmol/L [facility] Chloride Blood 104 97 - 110 mmol/L [facility] Carbon Dioxide 27 24 - 32 mmol/L [facility] Gap 8 5 - 15 [facility] Glucose 102(H) 70 - 99 mg/dL [facility] BUN 9 7 - 23 mg/dL [facility] Creatinine 1.02 0.60 - 1.30 mg/dL [facility] eGFR Non- >60 >60 [facility] Comment: Units = [...] Calcium Blood 9.1 8.7 - 10.7 mg/dL [facility] 12/05/2014 9:09 AM EDT 12/05/2014 9:41 AM EDT us Mitesh Gillespie MD LAB BLOOD ORDERABLES Final Res ult [facility] [address] [place] [address], from Last 3 Months or Most Recently Relevant to Health Maintenance Insurance [employer] CIGNA PPO/EPO/IND Advance Directives * Full Code (Latest Code Status on File) Date Activated Date Inactivated Comments 06/09/2020 1:31 PM 06/09/2020 7:11 PM * Full Code Date Activated Date Inactivated Comments 06/09/2020 11:18 AM 06/09/2020 1:31 PM Care Teams Ballet Teacher Relationship Specialty Start Date End Date Marija King DO [address] [place] [address] PCP - General 06/03/20
--- NOTE | 2024-08-16 13:37 | HO.ANESPROP2 ---
Documented by User: Aviva Oliva NP 09/04/24 08:36 HPI - Anesthesia Eval Consult details Narrative: 73yo M for Upper Endoscopy, 09/05/24 Follows [facility] ([place] for: afib: Xarelto nonobstructive CAD by cath 05/2020 RBBB and LAFB. Last office visit 06/2024 - stable and asymptomatic PMFSH Active Problems Active Problems: All Active Problems Vitamin B1 deficiency (Acute) Abnormal EKG (Acute) Bronchitis (Acute) Asthma (Acute) Seizure (Acute) Hyperlipidemia (Acute) Sleep apnea with use of continuous positive airway pressure (CPAP) (Acute) GERD (gastroesophageal reflux disease) (Acute) CAD (coronary artery disease) (Acute) Hypertension (Acute) BMI 36.0-36.9,adult (Acute) Obesity (Acute) Past Medical History Medical History H/O coronary angiogram Hx of sinus bradycardia Hx of atrial tachycardia Heart palpitations Bronchitis Asthma Seizure Hyperlipidemia Sleep apnea with use of continuous positive airway pressure (CPAP) GERD (gastroesophageal reflux disease) CAD (coronary artery disease) Hypertension BMI 36.0-36.9,adult Obesity Surgical History Surgical History History of cardiac cath H/O colonoscopy Social History Social History Alcohol intake: current Alcohol intake frequency: does not drink Alcohol type: beer Comment: a beer per every few months Patient Tobacco Use Status: Former Tobacco user Have you been hit, kicked, punched, or otherwise hurt by someone within the past year? If so, by whom?: No Advance Directives: No Advance Directives Information Provided: Yes Meds Allergies Allergy/AdvReac Type Severity Reaction Status Date / Time No Known Allergies Allergy Verified 07/19/24 09:12 Home Medications ?Medication ?Instructions ?Recorded ?Confirmed ?Last Taken ?Type amlodipine 10 mg tablet 10 mg PO DAILY 07/01/24 09/05/24 09/05/24 History cholecalciferol (vitamin D3) 1,250 1,250 mcg PO QWEEK 07/01/24 09/05/24 Unknown History mcg (50,000 unit) capsule divalproex 500 mg tablet,extended 1,000 mg PO BEDTIME 07/01/24 09/05/24 Unknown History release 24 hr famotidine 20 mg tablet (Pepcid) 20 mg PO DAILY 07/01/24 09/05/24 09/05/24 History fluticasone 250 mcg-salmeterol 50 1 inh inhalation BID 07/01/24 09/05/24 09/05/24 History mcg/dose blistr powdr for inhalation (Wixela Inhub) isosorbide mononitrate 60 mg 60 mg PO DAILY 07/01/24 09/05/24 09/05/24 History tablet,extended release 24 hr lisinopril 10 mg tablet 10 mg PO DAILY 07/01/24 09/05/24 Unknown History mecobalamin (vitamin B12) 1,000 1,000 mcg PO DAILY 07/01/24 09/05/24 Unknown History mcg chewable tablet metoprolol succinate 50 mg 50 mg PO DAILY 07/01/24 09/05/24 09/05/24 History tablet,extended release 24 hr rivaroxaban 20 mg tablet (Xarelto) 20 mg PO DAILY 07/01/24 09/05/24 08/19/24 History simvastatin 40 mg tablet 40 mg PO BEDTIME 07/01/24 09/05/24 Unknown History Exam Pertinent Lab Results Pertinent Lab Results: Laboratory Tests 07/29/24 09:02 WBC 6.4 Hgb 14.2 Hct 40.5 L Plt Count 221 Sodium 137 Potassium 5.0 Chloride 101 Carbon Dioxide 26 BUN 31 H Creatinine 1.29 Narrative Narrative: EKG 07/2024 Vent. Rate : 61 BPM Atrial Rate : 61 BPM P-R Int : 186 ms QRS Dur : 154 ms QT Int : 448 ms P-R-T Axes : 57 -43 32 degrees QTcB Int : 450 ms Normal sinus rhythm Left axis deviation Right bundle branch block Abnormal ECG No previous ECGs available Assessment and Plan Assessment Anesthesia Assessment: Chart Reviewed Documented by User: Anna Barrera MD 09/05/24 14:32 [facility] Past Medical History Medical History H/O coronary angiogram Hx of sinus bradycardia Hx of atrial tachycardia Heart palpitations Bronchitis Asthma Seizure Hyperlipidemia Sleep apnea with use of continuous positive airway pressure (CPAP) GERD (gastroesophageal reflux disease) CAD (coronary artery disease) Hypertension BMI 36.0-36.9,adult Obesity Family History Family history of problems with anesthesia: No Surgical History Surgical History History of cardiac cath H/O colonoscopy History of Problems with Anesthesia: No Social History Social History Alcohol intake: current Alcohol intake frequency: does not drink Alcohol type: beer Comment: a beer per every few months Patient Tobacco Use Status: Former Tobacco user Have you been hit, kicked, punched, or otherwise hurt by someone within the past year? If so, by whom?: No Advance Directives: No Advance Directives Information Provided: Yes Meds Allergies Allergy/AdvReac Type Severity Reaction Status Date / Time No Known Allergies Allergy Verified 07/19/24 09:12 Home Medications ?Medication ?Instructions ?Recorded ?Confirmed ?Last Taken ?Type amlodipine 10 mg tablet 10 mg PO DAILY 07/01/24 09/05/24 09/05/24 History cholecalciferol (vitamin D3) 1,250 1,250 mcg PO QWEEK 07/01/24 09/05/24 Unknown History mcg (50,000 unit) capsule divalproex 500 mg tablet,extended 1,000 mg PO BEDTIME 07/01/24 09/05/24 Unknown History release 24 hr famotidine 20 mg tablet (Pepcid) 20 mg PO DAILY 07/01/24 09/05/24 09/05/24 History fluticasone 250 mcg-salmeterol 50 1 inh inhalation BID 07/01/24 09/05/24 09/05/24 History mcg/dose blistr powdr for inhalation (Wixela Inhub) isosorbide mononitrate 60 mg 60 mg PO DAILY 07/01/24 09/05/24 09/05/24 History tablet,extended release 24 hr lisinopril 10 mg tablet 10 mg PO DAILY 07/01/24 09/05/24 Unknown History mecobalamin (vitamin B12) 1,000 1,000 mcg PO DAILY 07/01/24 09/05/24 Unknown History mcg chewable tablet metoprolol succinate 50 mg 50 mg PO DAILY 07/01/24 09/05/24 09/05/24 History tablet,extended release 24 hr rivaroxaban 20 mg tablet (Xarelto) 20 mg PO DAILY 07/01/24 09/05/24 08/19/24 History simvastatin 40 mg tablet 40 mg PO BEDTIME 07/01/24 09/05/24 Unknown History Exam Airway Mallampati Class: II TM Dist: >3cm Neck ROM: Limited Heart: afib Lungs: cta Assessment and Plan Assessment Anesthesia Assessment: Anesthesia Plan Discussed Final Anesthetic Review Family History of Problems with Anesthesia: No History of Problems with Anesthesia: No NPO: Yes ASA Class: III Final Preanesthetic Review: No Changes in Pt Med Stat, Meds/Allgs Chart Reviewed, Consent Obtained/Reviewed and Anes Risks/Benef Reviewed Patient Risk: Intermediate Procedure Risk: Low Anesthetic Plan Anesthetic Plan: MAC: Disposition: Standard PACU
[2024-09-05 12:05] VITALS: BP 142/64; PULSE 55; RESP 18; TEMP 36.6; O2SAT 98; BMI 31.6
[2024-09-05] MEDS: Lactated Ringers 1,000 ML 80 ML IVCONT (12:26)
--- NOTE | 2024-09-05 15:01 | MHC.SHP ---
Pre-Procedural Eval Section A - 24 Hr Update-Section A only Date of Service: 09/05/24 The patient is an INPATIENT: No The patient has been examined within 24 hours of the surgical procedure. The History & Physical has been completed within 30 days and I have reviewed it.: Yes Section B - Complete if H&P > 30 days Chief Complaint: Morbid (severe) obesity due to excess calories Details of Present Illness: GERD Relevant Family History (Specify if Yes): No Relevant Social History: None Present Medications: None Medical History: No relevant PMH History of Previous Operations: No relevant previous surgery Allergies: Allergies Allergy/AdvReac Type Severity Reaction Status Date / Time No Known Allergies Allergy Verified 07/19/24 09:12 Review of Systems Sugical H&P ROS: Negative: Constitution, Cardiovascular, Respiratory, Neurological, Psychiatric, Hem-Onc, Allergic/Immunologic, Gastrointestinal, Genitourinary, Musculoskeletal, Integumentary, Endocrine and Eyes/Ears/Nose/Throat Exam Surgical H&P Exam: Normal: HEENT, Normal: Heart, Normal: Lungs, Normal: Extremities, Normal: Abdomen, Normal: Skin and Normal: Neurological Plan Diagnosis/Plan: Unchanged (EGD to assess etiology of GERD. Risks of bleeding and perforation were discussed with the patient and he is in agreement with the plan.) I have reviewed the history and physical and performed a pertinent physical examination on my patient. No changes have occurred unless specified. Time Spent With Patient Time: Total time managing care of this patient today ____ minutes.
--- NOTE | 2024-09-05 15:02 | PM.OP ---
Brief Operative Note Date of Service: 09/05/24 Pre-op diagnosis: GERD Procedure: PROCEDURE DATE: 09/05/2024 PREOPERATIVE DIAGNOSIS: GERD POSTOPERATIVE DIAGNOSIS: ?Same as above. Normal endoscopy PROCEDURE: Muoxiczt-lhgnxp-tperwemfghtj with biopsies Surgeon: Cynthia Gardner M.D.. Ph.D. Cleaning Custodian: None ? Anesthesia: IV sedation Estimated blood loss: ?Minimal FINDINGS AND PROCEDURE: ? OPERATIVE INDICATIONS: ?The patient is a 73 year old male known to me who is interested in bariatric surgery. The patient has GERD. Based on this information I recommended an upper endoscopy to evaluate the patient's symptoms. Risks and complications of the surgery were discussed with the patient in advance particularly the possibility of perforation or bleeding that may require surgical intervention. The patient understood the risks and was in agreement with the plan. ? PROCEDURE: After informed consent was obtained by the patient, the patient was ?transferred to the Operating Room and was placed in the supine position.? After successful induction of IV sedation, a mouth block was inserted and the patient was placed in the left lateral decubitus position. An upper endoscopy was performed next, the oropharynx and esophagus appeared within the normal limits. There was no hiatal hernia. The z-line was smooth. Two biopsies were obtained from the distal esophagus 2-3 cm proximal to the GE junction and two additional biopsies from the GE junction. The stomach was entered and it appeared to be of normal size. There was no gastritis. There was no stricture or ulcer. A biopsy was obtained from the gastric fundus and the antrum. No significant bleeding was noted from any of the biopsy sites. Retroflexion of the scope confirmed a normal GE junction. The scope was then advanced into the duodenum which appeared to be normal as well. At that point the duodenum ?and the stomach were decompressed and the scope was withdrawn from the patient's mouth. The patient extubated and was transferred in stable condition to the Recovery Room for further care. I was present and performed all steps of the procedure. There were no residents to assist with this case. Umer Gardner M.D., Ph.D. Surgeon: Ciro Gardner MD Anesthesia: MAC Was an Cleaning Custodian used for this Procedure?: No Estimated blood loss (mL): 0 IV fluids (mL): 400 Urine output (mL): 0 (No [place] to record output) Pathology: other (1) antrum x1, 2) fundus x1, 3) GE junction x2, 4) distal esophagus x2) Condition: stable Disposition: PACU
[2024-09-05 15:33] VITALS: BP 120/55; PULSE 56; RESP 18; TEMP 36.6; O2SAT 98
[2024-09-05 15:48] VITALS: BP 135/61; PULSE 54; RESP 20; TEMP 36.2; O2SAT 96
== END 2024-09-05 16:14 | disposition home or self-care (01) ==
PROVIDERS: PCP Family Medicine; Visit Provider Surgery
PROC: 0DJ08ZZ Inspection of Upper Intestinal Tract, Via Natural or Artificial Opening Endoscopic (ICD-10-PCS; CPT 43235; principal; 2024-09-05 16:10)
DX: K21.9 Gastro-esophageal reflux disease without esophagitis (principal); E66.01 Morbid (severe) obesity due to excess calories; Z68.36 Body mass index [BMI] 36.0-36.9, adult; I25.10 Atherosclerotic heart disease of native coronary artery without angina pectoris; I10 Essential (primary) hypertension; E78.5 Hyperlipidemia, unspecified; G47.30 Sleep apnea, unspecified; R56.9 Unspecified convulsions; J45.909 Unspecified asthma, uncomplicated; Z79.01 Long term (current) use of anticoagulants; Z79.899 Other long term (current) drug therapy; Z99.89 Dependence on other enabling machines and devices; Z98.890 Other specified postprocedural states; Z87.891 Personal history of nicotine dependence
CPT/HCPCS: 43239; 88305; 88313; 88342; J1100; J2003; J2704

== ENCOUNTER → 2024-09-05 11:53 | Outpatient (BNV) | payer BC, SELFPAY | PROVIDERS: PCP Family Medicine; Visit Provider Surgery | DX: K21.9 Gastro-esophageal reflux disease without esophagitis (principal) | CPT/HCPCS: 43239 ==

== ENCOUNTER → 2024-09-17 10:40 | Outpatient (REF) | payer BC, SELFPAY ==
--- NOTE | 2024-09-17 10:43 | CA_ITS ---
Acquisition Time: 2024-09-17 11:02:39 Total Exercise Time: 00:06:11 Test Indications: Abnormal ECG,Pre-Op Evaluation Medications: Protocol: LISE Max HR: 116 BPM 79% of Pred: 146 BPM Max BP: 142/54 mmHG Max Work Load: 7.0 METS Exercise stress test with exercise 6 mins 11 secs of Lise Protocol held at Stage 2, achieving 79% MPHR, requesting to stop due left foot and knee discomfort, with reports of SOB, no chest pain, with isolated PVCs, with normotensive response to exercise. Without any EKG changes at the achieved workload meeting criteria for ischemia. In recovery, Echo images obtained by tech at rest and post peak exercise. Definity contrast utilized. Test reviewed with Dr. Bonilla. Referred By: Ciro Gardner Electronically Signed By: Henok Adams
--- OUTSIDE RECORDS SUMMARY | 2024-09-17 11:51 | XMS_ITS | Patient Health Record ---
Author Organization [facility] Address [address] [place] [address] Care Team Providers Care Body Art Technician Name Role Phone Hi Gabe Primary Care Provider Volodymyr Bush Unavailable [phone] Reason For Referral No Information Medications Medication SIG (Take, Route, Frequency, Duration) Notes Start Date End Date Status Simvastatin 40 MG 1 tab(s) orally once a day (at bedtime) Active Isosorbide Mononitrate ER 30 MG 1 tab(s) orally once a day (in the morning) Active Aspirin 81 MG 1 tab(s) orally once a day Active Xarelto 20 MG 1 tab(s) orally once a day (in the evening) Active Metoprolol Succinate ER 25 MG 1 tab(s) orally once a day Active Social History Tobacco Use: Social History Observation Description Date Details (start date - stop date) Former Smoker NA - NA Smoking: Question Answer Notes Are you a : Former Smoker How long has it been since you last smoked? 1-5 years Problems Problem Type SNOMED Code ICD Code Onset Dates Problem Status W/U Status Risk Notes Problem [id number] Barotitis, initial encounter (T70.0XXA) Active confirmed Problem 965026408 Right acute serous otitis media, recurrence not specified (H65.01) Active confirmed Plan Of Treatment No Information Insurance Providers Payer Name Payer Address Payer Phone Subscriber Number Group Number Insured Name Patient Relationship to Insured Coverage Start Date Coverage End Date [facility] [address] CHRISTIAN Grimes [id number] Santos Hawkins Self - patient is the insured Medical (General) History Medical History History ICD Code coronary artery disease Surgical History Surgery Date(Month/Year) tonsillectomy [place] adenoidectomy rotator cuff tear repair
--- OUTSIDE RECORDS SUMMARY | 2024-09-17 11:51 | XMS_ITS | Clinical Summary ---
Author Organization [facility] it Address [address] [place] [address] Care Team Providers Care Project Management Manager Name Role Phone Unavailable Primary Care Provider [...]
--- OUTSIDE RECORDS SUMMARY | 2024-09-17 11:51 | XMS_ITS | Clinical Summary ---
Author Organization [facility] Address [address] [place] [address] Care Team Providers Care Email Marketing Specialist Name Role Phone Cathleen Palmer MD Primary Care Provider [phone] Allergies Active Allergy Reactions Criticality Noted Date Comments Oxycodone Other 01/31/2023 Causes confusion Medications * This document contains information received from the source organization and may not represent a complete record from that organization. Nitroglycerin (NITROSTAT) 0.4 MG SL tabletIndications :Abnormal cardiovascular stress test,Atherosclero sis of coronary artery, angina presence unspecified, unspecified vessel or lesion type, unspecified whether [place] or transplanted heart,Paroxysmal atrial fibrillation (HCC),Hyperlipide elicia, unspecified hyperlipidemia type,Essential hypertension with goal blood [...] 23 Active amLODIPine Besylate (NORVASC) 10 MG tabletIndications :Hypertension, unspecified type Take one tablet (10 mg total) by mouth 1 (one) time each day. 90 tablet 3 11/21/19 24 Active Rivaroxaban (Xarelto) 20 MG tabletIndications :Paroxysmal atrial fibrillation (HCC) Take one tablet (20 mg total) by mouth 1 (one) time each day with dinner. 90 tablet 3 11/21/19 24 Active Cyclobenzaprine HCl (FLEXERIL) 10 MG tablet Take 1 tablet by mouth 3 (three) times a day. Active Lisinopril (PRINIVIL,ZESTRIL ) 10 MG tabletIndications :Hypertension, unspecified type Take one tablet (10 mg [...] morning. 90 tablet 3 07/25/19 25 Active Metoprolol Succinate (TOPROL-XL) 50 MG 24 hr tablet TAKE 1 TABLET BY MOUTH EVERY DAY 90 tablet 3 09/07/19 25 Active Metoprolol Succinate (TOPROL-XL) 50 MG 24 hr tablet Take one tablet (50 mg total) by mouth 1 (one) time each day. 90 tablet 3 11/21/19 24 2024 Discontinued Active Problems Problem Noted Date Diagnosed Date Paroxysmal atrial fibrillation 06/28/2023 Arteriosclerosis of aorta 05/29/2019 Overview (05/29/2019): Refer to CT of Chest 04/16/2019: There is arteriosclerosis of the aorta and the coronary arteries. Bronchiectasis 05/29/2019 Overview (05/29/2019): Refer to Pulmonary Consult 05/13/2019: Impression: Patient with bronchiectasis Seizure 02/21/2018 Encounters Date Type Department Care Team Description 09/06/2024 Refill [facility] Cardiology [address] [place] [phone] Jayesh Starkey MD E-prescribing Refill Request 07/23/2024 Refill [facility] Cardiology [address] [facility] [address] [place] [address] Jayesh Starkey MD Refill Request 07/03/2024 3:00 PM EDT Office Visit [facility] Cardiology [address] [facility] [address] [place] [address] Jayesh Starkey MD Paroxysmal atrial fibrillation (HCC) (Primary Dx); Coronary artery disease, unspecified vessel or lesion type, unspecified whether angina present, unspecified whether [place] or transplanted heart; RBBB (right bundle branch [...] 67 07/03/2024 3:04 PM EDT Temperature 37.1 C (98.7 F) 05/28/2010 8:28 AM EST Respiratory Rate - - Oxygen Saturation 95% 07/03/2024 3:04 PM EDT Inhaled Oxygen Concentration - - Weight 118 kg (259 lb 9.6 oz) 07/03/2024 3:04 PM EDT Height 177.8 cm (5' 10 ) 04/07/2022 2:04 PM EST Body Mass Index 37.25 04/07/2022 2:04 PM EST Plan of Treatment Upcoming Encounters Date Type Department Care Team ([facility] st Contact Info) Description 12/31/2024 10:30 AM EDT Office Visit [facility] Pulmonary [address] [facility] [address] [place] [address] Juan Morse MD [address] [place] [address] 1yr fu/ SOB/ pft prior/ late mornings 07/11/2025 11:00 AM EDT Office Visit [facility] Cardiology [address] [facility] [address] [place] [address] Jayesh Starkey MD [address] [place] [address] 1 yr Health Maintenance Due Date Last Done Comments Parathyroid Hormone Screening 1949 Colon Cancer Screening 1994 Abdominal Aorta Imaging 2014 DTaP/Tdap/Td (2 - Td or Tdap) 05/28/2020 05/28/2010, 05/28/1999 Zoster (Shingrix) (2 of 2) 04/20/2023 02/23/2023 COVID-19 Vaccine ( season) 2023 02/24/2022, 08/11/2021, 02/08/2021, Additional history exists RSV (1 - 1-dose 75+ series) 2024 Influenza (#1) 2024 04/12/2024, 01/20, 02/24/2022, Additional history exists Hep A Aged Out 05/28/1999 No longer eligi ble based on patient's age to complete this topic Hepatitis C Screening Completed 08/01/2003 Hep B Completed 02/05/2004, 07/18, 12/03/1999 LDL Cholesterol Discontinued 07/20/2020, 08/27/2015 Upper Endoscopy Discontinued 05/25/2021 Chest Imaging Discontinued 11/02/2022, 09/17, 12/30/2021, Additional history exists Pneumococcal 50+ years Completed 02/23/2023, 2017 EKG Discontinued 06/28/2023, 06/18, 07/20/2020, Additional history exists HPV Vaccine Aged Out No longer eligi ble based on patient's age to complete this topic Hib Aged Out No longer eligi ble based on patient's age to complete this topic Meningococcal ACWY Aged Out No longer eligible based on patient's age to complete this topic Zoster (Zostavax) Discontinued Procedures * Due to [place] state law, this organization might not be [...] type, unspecified whether angina present, unspecified whether [place] or transplanted heart HEP C ANTIBODY (EIA-2) Routine 08/01/2003 4:44 PM EDT from Last 3 Months or Most Recently Relevant to Health Maintenance Results * Due to [place] state law, this organization might not be [...] Abnormal ECG Confirmed by JAYESH STARKEY ([id number]), book editor KAREN MULTANI ([id number]) on 06/29/2023 7:33:59 [...] Desirable range <100 mg/dL for primary prevention; <70 mg/dL for patients with CHD or diabetic patients with > or = 2 CHD risk factors. LDL-C is now calculated using the Fabian calculation, which is a validated novel method providing better accuracy than the Friedewald equation in the estimation of LDL-C. Oliver SAM et al. BEAR. 2013;310(19): 2497-7010 (http://education.Metric Insights.com/faq/WQP549) CHOL/HDL Ratio 2.8 <5.0 (calc) [facility] Cholesterol Non-HDL 85 <130 mg/dL (calc) [facility] Comment: For patients with diabetes plus 1 major ASCVD risk factor, treating to a non-HDL-C goal of <100 mg/dL (LDL-C of <70 mg/dL) is considered a therapeutic option. 07/20/2020 12:0 5 PM EDT 07/20/2020 9:33 PM EDT Narrative Resulting Agency Comment [id number] us Zhane Dorantes PHOTO EDITOR LABORATORY Final Res ult [facility] [address] [place] [address] * HEP C ANTIBODY (EIA-2) (08/01/2003 4:44 PM EDT) HEPATITIS C AB NEGATIVE [facility] (CLIA# [id number]) 08/01/2003 4:44 PM EDT 08/01/2003 4:44 PM EDT Narrative [facility] (CLIA# [id number]) - 08/01/2003 4:44 PM EDT Ordered by UNKNOWN PROVIDER SST tube received unspun us Unknown Provider LABORATORY Final Result [facility] (CLIA# [id number]) [address] [place] [address] from Last 3 Months or Most Recently Relevant to Health Maintenance Insurance [employer]BS FEE FOR SERVICE PPO * Guarantor: [email or web address] Account Type Relation to Patient Date of Phone Billing Address [facility] [place] [facility] [address] [place] [address] Care Teams Email Marketing Specialist Relationship Specialty Start Date End Date Cathleen Palmer MD [address] [address] PCP - General Family Medicine 09/28/22
--- OUTSIDE RECORDS SUMMARY | 2024-09-17 11:51 | XMS_ITS | Clinical Summary ---
Author Organization [facility] Address [address] [place] [address] Care Team Providers Care Segregator Name Role Phone Marija King DO Primary Care Provider [phone] Allergies No known active allergies Medications aspirin [...] 54 06/09/2020 4:45 PM EDT Temperature 36.6 C (97.9 F) 06/09/2020 11:22 AM EDT Respiratory Rate 18 06/09/2020 4:45 PM EDT [...] DTaP,Tdap,and Td Vaccines (1 - Tdap) 11/19/2002 090 03/2002, 05/28/1999 RSV Vaccine (60+ years old a [...] 02/05/2004, 08/05/2003, 12/03/1999 Procedures * Due to [place] [employer] law, this organization might not be sharing negative HIV tests. Procedure Name Priority Date/Time Associated Diagnosis Comments BASIC METABOLIC PANEL Routine 12/05/2014 9:09 AM EDT from Last 3 Months or Most Recently Relevant to Health Maintenance Results * Due to [place] [employer] law, this organization might not be sharing negative HIV tests. * (ABNORMAL) Basic Metabolic Panel (12/05/2014 9:09 AM EDT) Sodium Blood 139 135 - 145 mmol/L [facility] Potassium Blood 4.9 3.5 - 5.3 mmol/L [facility] Chloride Blood 104 97 - 110 mmol/L [facility] Carbon Dioxide 27 24 - 32 mmol/L [facility] Gap 8 5 - 15 [facility] Glucose 102(H) 70 - 99 mg/dL [facility] BUN 9 7 - 23 mg/dL [facility] Creatinine 1.02 0.60 - 1.30 mg/dL [facility] eGFR Non- >60 >60 [facility] Comment: Units = [...] Calcium Blood 9.1 8.7 - 10.7 mg/dL [facility] 12/05/2014 9:09 AM EDT 12/05/2014 9:41 AM EDT us Mitesh Gillespie MD LAB BLOOD ORDERABLES Final Res ult [facility] [address] [place] [address], from Last 3 Months or Most Recently Relevant to Health Maintenance Insurance [employer] PPO/EPO/IND Advance Directives * Full Code (Latest Code Status on File) Date Activated Date Inactivated Comments 06/09/2020 1:31 PM 06/09/2020 7:11 PM * Full Code Date Activated Date Inactivated Comments 06/09/2020 11:18 AM 06/09/2020 1:31 PM Care Teams Segregator Relationship Specialty Start Date End Date Marija King DO [address] [place] [address] PCP - General 06/03/20
== END ==
LOC: HO.CARD 10:40
PROVIDERS: PCP Family Medicine; Visit Provider Surgery
DX: R94.31 Abnormal electrocardiogram [ECG] [EKG] (principal)
CPT/HCPCS: 93350; Q9957

== ENCOUNTER → 2024-09-17 10:43 | Outpatient (BNV) | payer BC, SELFPAY | PROVIDERS: PCP Family Medicine | DX: Z01.810 Encounter for preprocedural cardiovascular examination (principal); R94.31 Abnormal electrocardiogram [ECG] [EKG]; I49.3 Ventricular premature depolarization; R06.02 Shortness of breath | CPT/HCPCS: 93350; 93352 ==

== ENCOUNTER 2024-11-15 08:46 | Outpatient (AMB) | payer BC, SELFPAY ==
--- NOTE | 2024-11-15 09:35 | A.OFFVIS_ITS ---
VS Expanded 11/15/24 09:49 Height 5 ft 10 in Weight 200 lb 6 oz BMI 28.7 Body Fat % 29 Body Fat Mass 58.1 Fat Free Mass 142.4 Visceral Fat Rating 11 Body Water % 51.3 Body Water Mass 102.9 Basal Metabolic Rate/Score 1,764 Intake Visit Reasons: TV Pre Op LSG 11/28/24 Allergies No Known Allergies Allergy (Verified 11/15/24 09:35) Medication List - Last Reconciled 11/15/24 by Ciro Gardner MD amlodipine 10 mg PO DAILY divalproex ER 1,000 mg PO BEDTIME famotidine (Pepcid) 20 mg PO DAILY fluticasone propion-salmeterol 250-50 mcg/dose (Wixela Inhub) 1 inh inhalation BID folic acid 0.4 mg PO DAILY isosorbide mononitrate ER 60 mg PO DAILY lisinopril 5 mg PO DAILY mecobalamin (vitamin B12) 1,000 mcg PO DAILY metoprolol succinate ER 50 mg PO DAILY ondansetron 4 mg PO Q12H pantoprazole 40 mg PO DAILY polyethylene glycol 3350 17 grams PO DAILY rivaroxaban (Xarelto) 20 mg PO DAILY simvastatin 40 mg PO BEDTIME sucralfate 10 mL PO BID thiamine HCl (vitamin B1) 100 mg PO DAILY HPI Comments Details: Overall weight loss: 51.2lbs, or 20.33% TBWL Is doing 2 Premier shakes, 2 Fit Crunch protein bars and one meal PFSH Medical History (Updated 11/14/24 @ 10:52 by Margie Pablo RN) LUIZA (obstructive sleep apnea) Bronchiectasis Mild cognitive impairment H/O coronary angiogram Hx of sinus bradycardia Hx of atrial tachycardia Heart palpitations Bronchitis Asthma Seizure Hyperlipidemia GERD (gastroesophageal reflux disease) CAD (coronary artery disease) Hypertension BMI 36.0-36.9,adult Obesity Surgical History (Updated 11/13/24 @ 08:55 by Margie Pablo RN) History of esophagogastroduodenoscopy (EGD) History of cardiac cath H/O colonoscopy Social History Are you a primary nurse care manager to a significant other at home: No Do you presently have visiting nurse or other home services: No Alcohol intake: current Alcohol intake frequency: holidays/special occasions only Alcohol type: beer Comment: a beer per every few months Patient Tobacco Use Status: Former Tobacco user Tobacco use type: Cigarette Years Smoked: 48 Telehealth Telehealth Telehealth Platform: Telephone Location of provider rendering services: practice address Location of patient: address on file Patient Identification confirmed using: Name, : Yes Telehealth method: voice only Patient verbally consented to treatment: Yes Patient verbally consented to billing insurance company: Yes Patient informed of any privacy concerns related to visit: Yes Minutes spent on Phone/Video with Pt.: 30 Assessment & Plan Assessment & Plan (1) Obesity: Code(s): E66.9 - Obesity, unspecified Category: Medical Qualifiers: Obesity type: due to excess calories Obesity classification: adult class 2 (BMI 35 - 39.9) Serious obesity comorbidity presence: with serious comorbidity Body mass index: BMI 36.0-36.9 Qualified Code(s): E66.812 - Obesity, class 2; E66.01 - Morbid (severe) obesity due to excess calories; Z68.36 - Body mass index [BMI] 36.0-36.9, adult Plan: 1. Plan for lap sleeve gastrectomy including upper GI endoscopy. All tests has been completed and reviewed and the patient is cleared for the surgery. ?If diaphragmatic or ventral hernias are present at time of surgery, these will be repaired laparoscopically as well. Risks and complications were discussed in detail including possible conversion to an open procedure, anastomotic leak, bleeding requiring transfusion, small bowel obstruction, , DVT and pulmonary embolism, cardiac, or pulmonary complications, as intermediate school teacher complications such as anastomotic ulcer, insufficient weight loss and vitamin deficiencies. I emphasized the importance of close follow-up, adherence to instructions and good communication. So far he has proven to be an excellent communicator and very compliant with all our directions accomplishing a great weight loss. I believe that he is an excellent candidate and he is ready. 2. Preop prescriptions were provided and explained the purpose of each one. Need to be purchased preop. Start Pantoprazole now as you get it from the pharmacy, 1 pill per day. Sucralfate and Zofran are for after surgery as needed. 3. Bowel prep: please do 7 packets ?of Miralax mixing each one with a an 8oz glass of water, crystal light, gatorade zero, or propel ?on 11/26/24 and the same amount on 11/27/24. The Miralax you begin with one packet at a time in 8oz water or crystal light, gatorade zero, or propel ?as early in the day as you can and you do them back to back until you finish them. Continue the protein shakes during ?the bowel prep. 4. Needs to purchase 1oz medicine cups . 5. Needs to purchase Children's liquid Tylenol for postop pain control. 6. He needs to stop the Xarelto on 11/23/24 (last pill that day). Start the Arixtra (Fondaparinux) injections that day and take one daily until 11/27/24. Do not take the Xarelto or Fondaparinux injections on 11/28/24. 7. Avoid aspirin, motrin, Advil, Aleve, Meloxicam, Excedrin, Ibuprofen, Naproxyn. Tylenol is OK. 8. He needs to purchase the Celebrate multivitamins from the hospital's gift shop, chewable or pills whatever you prefer. 9. Will do basic preop blood work-up on Monday11/19/24 fasting for 12 hours and is scheduled to see the Anesthesiologist prior to the day of surgery. 10. Importance of adherence to postop folllow-up and recommendations was underscored and he understands that. 11. Stop food and bars as of 11/22/24 and continue with 3 PREMIER protein shakes (MIX 4oz of Premier WITH 4oz almond milk) at 7am-9am, 10am-12pm and 1pm-3pm and two more Premier protein shakes (8oz EACH and NOT the whole bottle) at 4pm-6pm and 7pm-9pm 12. No soups, broths or V8 13. The patient's?medical?history has been reviewed and they are considered low risk for post op DVT and therefore DVT prophylaxis is not considered necessary. Travel after surgery was reviewed. The patient has not disclosed any travel plans during the first 30 days after surgery and they have been advised that within the first 30 days after surgery any bus, plane, train or car travel over 2 hours in duration is contraindicated due to the possibility of developing blood clots from immobility. Any travel, needs to include periods of ambulation of 10 minutes in duration every 2 hours.? Patient was instructed to discuss any plans for travel during this period with their bariatric surgeon.? 14. Use your CPAP daily and bring it to the hospital with your mask 15. As of tomorrow, please check your blood pressure daily in the morning. If your blood pressure is: Below 120/70: do not take the Lisinopril, Amlodipine, or Metoprolol 121/71 to 130/80: take the Metoprolol and HALF Amlodipine 131/81 to: 140/90: take the Metoprolol, HALF Amlodipine and HALF Lisinopril Over 141/91: take the whole Metoprolol, whole Amlodipine and HALF Lisinopril 16. Please take at the day of surgery the following medications: Metoprolol, Amlodipine and Lisinopril if the blood pressure that day is high enough to justify it based on the parameters at the previous bullet point. 17. Absolutely no smoking or vaping, or marijuana until the surgery and for at least the first 4 weeks. Only nicotine patches are allowed. 18. Send me weight measurements on Monday11/22/24 and then on 11/28/24, the day of surgery before you go to the hospital. 19. Avoid any steroids by mouth for any reason. Let me know if someone prescribes them to you 20. These instructions supersede anything else you read in the handbook, anything you watched in videos or classes or you were told by any other provider. If there is any conflict, you follow the above instructions and nothing else. Orders: Orders TSH reflex Free T4 Today E66.01 - Morbid (severe) obesity due to excess calories, E66.812 - Obesity, class 2, I10 - Essential (primary) hypertension, Z68.36 - Body mass index [BMI] 36.0-36.9, adult Lipid Panel Today E66.01 - Morbid (severe) obesity due to excess calories, E66.812 - Obesity, class 2, I10 - Essential (primary) hypertension, Z68.36 - Body mass index [BMI] 36.0-36.9, adult Hemoglobin A1c Today E66.01 - Morbid (severe) obesity due to excess calories, E66.812 - Obesity, class 2, I10 - Essential (primary) hypertension, Z68.36 - Body mass index [BMI] 36.0-36.9, adult Type and Screen Today E66.01 - Morbid (severe) obesity due to excess calories, E66.812 - Obesity, class 2, I10 - Essential (primary) hypertension, Z68.36 - Body mass index [BMI] 36.0-36.9, adult Prothrombin Time INR Today E66.01 - Morbid (severe) obesity due to excess calories, E66.812 - Obesity, class 2, I10 - Essential (primary) hypertension, Z68.36 - Body mass index [BMI] 36.0-36.9, adult Comprehensive Met. Panel Today E66.01 - Morbid (severe) obesity due to excess calories, E66.812 - Obesity, class 2, I10 - Essential (primary) hypertension, Z68.36 - Body mass index [BMI] 36.0-36.9, adult Insulin Today E66.01 - Morbid (severe) obesity due to excess calories, E66.812 - Obesity, class 2, I10 - Essential (primary) hypertension, Z68.36 - Body mass index [BMI] 36.0-36.9, adult Complete Blood Count Auto Diff Today E66.01 - Morbid (severe) obesity due to excess calories, E66.812 - Obesity, class 2, I10 - Essential (primary) hypertension, Z68.36 - Body mass index [BMI] 36.0-36.9, adult C Reactive Protein Today E66.01 - Morbid (severe) obesity due to excess calories, E66.812 - Obesity, class 2, I10 - Essential (primary) hypertension, Z68.36 - Body mass index [BMI] 36.0-36.9, adult Partial Thromboplastin Time Today E66.01 - Morbid (severe) obesity due to excess calories, E66.812 - Obesity, class 2, I10 - Essential (primary) hypertension, Z68.36 - Body mass index [BMI] 36.0-36.9, adult Medications: New sucralfate 10 mL PO BID 600 mL 2RF K21.9 - Gastro-esophageal reflux disease without esophagitis ondansetron Only take one every 12 hours as needed if you have nausea 4 mg PO Q12H 20 tabs 0RF nausea and vomiting R11.0 - Nausea polyethylene glycol 3350 Mix each measuring cup with 8oz of water, Crystal light, or Gatorade zero, or Propel and do 7 measuring cups on 11/26/24 and another 7 measuring cups on 11/27/24 17 grams PO DAILY 238 grams 0RF Z01.818 - Encounter for other preprocedural examination fondaparinux 2.5 mg (0.5 mL) subcut Q24H 5 mL 0RF Z79.01 - intermediate frame tender (current) use of anticoagulants pantoprazole 40 mg PO DAILY 90 tabs 0RF K21.9 - Gastro-esophageal reflux disease without esophagitis
--- OUTSIDE RECORDS SUMMARY | 2024-11-15 09:39 | XMS_ITS | Encounter Summary ---
Author Organization [facility] Address [address] [place] [address] Care Team Providers Care Foundry Technician Name Role Phone Marija King DO Primary Care Provider [phone] Cathleen Palmer MD Primary Care Provider Encounter Details Date Type Department Care Team ([facility] st Contact Info) Description 07/20/2020 Orders Only [facility] Cardiology [address] [facility] [address] [place] [address] Zhaen Dorantes NP [address] [facility] [address] [place] [address] Social History Tobacco Use Types Packs/Day Years [...] his labs as requested. Patient states understanding [facility] is happy with his cholesterol panel but [...] Care Team (Late st Contact Info) Description 12/31/2024 10:30 AM EDT Office Visit [facility] Pulmonary [address] [place] [address] Juan Morse MD [address] [place] [address] 1yr fu/ SOB/ pft prior/ late mornings 07/11/2025 11:00 AM EDT Office Visit [facility] Cardiology [address] [facility] [address] [place] [address] Jose Angel Starkey MD [address] [place] [address] 1 yr documented as of this encounter Procedures * Due to [facility] law, this organization might not be sharing negative HIV tests. Procedure Name Priority Date/Time Associated Diagnosis Comments VENIPUNCTURE Routine 07/20/2020 12:05 PM EDT Coronary artery disease, unspecified vessel or lesion type, unspecified whether angina present, unspecified whether cherokee or transplanted heart documented in this encounter Results * Due to [place] DEMANDIT law, this organization might not be sharing [...] LDL-C. Oliver SAM et al. BEAR. 2013;310(19): 4408-7144 (http://education.Healthiest You.Pa-Go Mobile/faq/IYK762) CHOL/HDL Ratio 2.8 <5.0 (calc) [facility] Cholesterol Non-HDL 85 <130 mg/dL (calc) [facility] Comment: For patients with diabetes plus 1 major ASCVD risk factor, treating to a non-HDL-C goal of <100 mg/dL (LDL-C of <70 mg/dL) is considered a therapeutic option. 07/20/2020 12:0 5 PM EDT 07/20/2020 9:33 PM EDT Narrative Resulting Agency Comment [id number] us Zhane Dorantes [facility] Final Res ult [facility] [address] [place] [address] documented in this encounter Visit Diagnoses Diagnosis Coronary artery disease, unspecified vessel or lesion type, unspecified whether angina present, unspecified whether cherokee or transplanted heart documented in this encounter Care Teams Foundry Technician Relationship Specialty Start Date End Date Marija King DO PCP - General Family Medicine 08/23/17 05/11/21 Cathleen Palmer MD [address] [address] PCP - General Family Medicine 09/28/22 documented as of this encounter
--- OUTSIDE RECORDS SUMMARY | 2024-11-15 09:39 | XMS_ITS | Encounter Summary ---
Author Organization [facility] Address [address] [place] [address] Care Team Providers Care Desk Maker Name Role Phone HiGabe Primary Care Provider Marija King DO Primary Care Provider [phone] Cathleen Palmer MD Primary Care Provider [phone] Encounter Details Date Type Department Care Team (Late st Contact Info) Description 05/28/2010 Orders Only [facility] Infectious Disease [address] [facility] [address] [place] [address] Marcello Ness MD [address] [place] [address] Social History Tobacco Use Types Packs/Day Years [...] Description 12/31/2024 10:30 AM EDT Office Visit [facility] Pulmonary [address] [facility] [address] [place] [address] Juan oMrse MD [address] [place] [address] 1yr fu/ SOB/ pft prior/ late mornings 07/11/2025 11:00 AM EDT Office Visit [facility] Cardiology [address] [facility] [address] [place] [address] Jose Angel Starkey MD [address] [place] [address] 1 yr documented as of this encounter Procedures * Due to [place] [employer] law, this organization might not be sharing [...] in this encounter Results * Due to [place] [employer] law, this organization might not be sharing negative HIV tests. * MUMPS ANTIBODY (IGG) (05/28/2010) MUMPS VIRUS AB.IGG 2.8 (IMMUNE) SEE BELOW [facility] Comment:REFERENCE: 1.1 OR > INDICATES ANTIBODY 05/28/2010 05/28/2010 3:4 2 PM EST Marcello Ness MD LABORATORY Final Result [facility] [address] [place] [address] * RUBEOLA IGG AB (05/28/2010) RUBEOLA IGG AB 5.4 (IMMUNE) SEE BELOW [facility] Comment: UNITS: INDEX VALUE REFERENCE: 1.1 OR > INDICATES ANTIBODY 05/28/2010 05/28/2010 3:4 2 PM EST Marcello Ness MD LABORATORY Final Result Performing Organization Address [facility] Co de Phone Number [facility] [address] [place] [address] * RUBELLA IGG AB (05/28/2010) RUBELLA IGG AB 4.97 (IMMUNE) SEE BELOW [facility] Comment: REFERENCE: 1.1 OR > INDICATES ANTIBODY THE PRESENCE OF RUBELLA IGG ANTIBODY SUGGESTS A CURRENT OR PAST INFECTION OR IMMUNIZATION WITH RUBELLA VIRUS. 05/28/2010 05/28/2010 3:4 2 PM EST Marcello Ness MD LABORATORY Final Result Performing Organization Address [facility] Co de Phone Number [facility] [address] [place] [address] documented in this encounter Visit Diagnoses Diagnosis Other specified counseling Need for prophylactic vaccination with typhoid-paratyphoid alone (TAB) Need for prophylactic vaccination with combined dciimxvirj-stmbmtz-muzdubihs (DTP) vaccine documented in this encounter Additional Health Concerns Infection Onset Date Last Indicated Resolved Time COVID-19 Rule-Out 06/08/2020 06/08/2020 06/08/2020 7:17 PM EDT documented as of this encounter Care Teams Desk Maker Relationship Specialty Start Date End Date Gabe Do [facility] [address] [facility] [place] [address] PCP - General 03/24/06 08/22/17 Marija King DO [facility] [address] [facility] [place] [address] PCP - General Family Medicine 08/23/17 05/11/21 [place] [address] PCP - General Family Medicine 09/28/22 documented as of this encounter
--- OUTSIDE RECORDS SUMMARY | 2024-11-15 09:39 | XMS_ITS | Encounter Summary ---
Author Organization [facility] Address [address] [place] [address] Care Team Providers Care Dicer Operator Name Role Phone Eznate Marija Lovely VARGAS Primary Care Provider [phone] Cathleen Palmer MD Primary Care Provider [phone] Encounter Details Date Type Department Care Team (Late Contact Info) Description 10/31/2017 Orders Only [facility] Pulmonary [address] [id number] Juan Mores MD [address] [place] [address] Social History Tobacco Use Types Packs/Day Years [...] Description 12/31/2024 10:30 AM EDT Office Visit [facility] Pulmonary [address] [facility] [address] [place] [address] Juan Morse MD [address] [place], [place] [id number] 1yr fu/ SOB/ pft prior/ late mornings 07/11/2025 11:00 AM EDT Office Visit [facility] Cardiology [address] [facility] [address] [place] [address] Jose Angel Starkey MD [address] [place] [address] 1 yr documented as of this encounter Procedures * Due to [place] [employer] law, this organization might not be sharing negative HIV tests. Procedure Name Priority Date/Time Associated Diagnosis Comments [facility] Routine 10/31/2017 2:46 PM EDT Cough SOB (shortness of breath) CHICKEN FEATHERS (E85)IGE Routine 10/31/2017 2:46 PM EDT Cough SOB (shortness of breath) EOSINOPHILS, ABSOLUTE Routine 10/31/2017 2:46 PM EDT Cough SOB (shortness of breath) documented in this encounter Results * Due to [place] [employer] law, this organization might not be sharing negative HIV tests. * CHICKEN FEATHERS (E85)IGE (10/31/2017 2:46 PM EDT) Chicken Feathers (E85) IgE <0.10 kU/L [facility] Chicken Feathers (E85) Class 0 [facility] 10/31/2017 2:46 PM EDT 10/31/2017 9:49 PM EDT Narrative Resulting Agency Comment [id number] us Juan Morse MD LABORATORY Final Result [facility] [address] [place] [address] * EOSINOPHILS, ABSOLUTE (10/31/2017 2:46 PM EDT) WBC 7.4 3.8 - 10.8 Thousand/u L [facility] Eosinophils # 163 15 - 500 cells/uL [facility] Eosinophils % 2.2 % [facility] 10/31/2017 2:46 PM EDT 10/31/2017 9:49 PM EDT Narrative Resulting Agency Comment [id number] Juan Morse MD LABORATORY Final Result [facility] [address] [place] [address] * [facility] (10/31/2017 2:46 PM EDT) IgE 4 <NT=455 kU/L [facility] Constantino Grass (G6) IgE <0.10 kU/L [facility] Constantino Grass (G6) Class 0 [facility] Effie Grass(Kentucky Blue)(G8) IgE <0.10 kU/L [facility] Effie Grass(Kentucky Blue)(G8) Class 0 [facility] Common Ragweed (Short)(W1) IgE <0.10 kU/L [facility] Common Ragweed (Short)(W1) Class 0 [facility] Bangladeshi Plantain (W9) IgE <0.10 kU/L [facility] Bangladeshi Plantain (W9) Class 0 [facility] Rey's Quarters (Goosefoot) (W10) IgE <0.10 kU/L [facility] Rey's Quarters (Goosefoot) (W10) Class 0 [facility] Mayo (T7) IgE <0.10 kU/L [facility] Mayo (T7) Class 0 [facility] Cat Dander [...] (M6) Class 0 [facility] House Dust (Marie-Jackie) (H2) IgE <0.10 kU/L [facility] House Dust (Marie-Jackie) (H2) Class 0 [facility] Dermatophagoides Farinae(D2) IgE <0.10 kU/L [facility] Dermatophagoides Farinae(D2) Class 0 [facility] 10/31/2017 2:46 PM EDT 10/31/2017 9:49 PM EDT Narrative Resulting Agency Comment [id number] Juan Morse MD LABORATORY Final Result [facility] [address] [place] [address] documented in this encounter Visit Diagnoses Diagnosis Cough SOB (shortness of breath) Shortness of breath documented in this encounter Additional Health Concerns Infection Onset Date Last Indicated Resolved Time COVID-19 Rule-Out 06/08/2020 06/08/2020 06/08/2020 7:17 PM EDT documented as of this encounter Care Teams Dicer Operator Relationship Specialty Start Date End Date Marija King DO PCP - General Family Medicine 08/23/17 05/11/21 Cathleen Palmer MD [address] [address] PCP - General Family Medicine 09/28/22 documented as of this encounter
--- OUTSIDE RECORDS SUMMARY | 2024-11-15 09:39 | XMS_ITS | Encounter Summary ---
Author Organization [facility] Address [address] [place] [address] Care Team Providers Care Saw Operator Name Role Phone Marija King DO Primary Care Provider [phone] Encounter Details Date Type Department Care Team (Late st Contact Info) Description 11/17/2020 myChart Message [facility] Revenue Cycle Management [address] [place] [address] Mychart, Generic Provider [address] [id number] [facility] Customer Service Request Social History Tobacco [...] on filedocumented in this encounter Care Teams Saw Operator Relationship Specialty Start Date End Date Marija King DO [address] [place] [address] PCP - General 06/03/20 documented as of this encounter
--- OUTSIDE RECORDS SUMMARY | 2024-11-15 09:39 | XMS_ITS | Clinical Summary ---
Author Organization [facility] Address [address] [place] [address] Care Team Providers Care Paper Tube Cutter Name Role Phone Marija King DO Primary Care Provider [phone] Allergies No known active allergies Medications aspirin [...] 11/13/1999 DTaP,Tdap,and Td Vaccines (1 - Tdap) 11/19/200203/2002, 05/28/1999 Basic Metabolic Panel 12/06/2015 12/05/2014 Pneumococcal Vaccine: 50+ Ye ars (2 of 2 - PCV) 09/07/2018 09/07/2017 COVID-19 Vaccine (2 - season) 2023 Alcohol/Substance Use Screening 03/20/2024 Depression Screening and Follow-Up 03/20/2024 Health Care Proxy Review 03/20/2024 Social Drivers of Health Evelyn ual Screening 03/20/2024 RSV Vaccine (60+ years old a nd patients) (1 - 1-dose 75+ series) 2024 Influenza Vaccine (#1) 2024 03/01/2020 Hepatitis B Vaccines Completed 02/05/2004, 08/05/2003, 12/03/1999 Procedures * Due to [place] [employer] law, this organization might not be sharing negative HIV tests. Procedure Name Priority Date/Time Associated Diagnosis Comments BASIC METABOLIC PANEL Routine 12/05/2014 9:09 AM EDT from Last 3 Months or Most Recently Relevant to Health Maintenance Results * Due to [place] Payment [employer] law, this organization might not be sharing negative HIV tests. * (ABNORMAL) Basic Metabolic Panel (12/05/2014 9:09 AM EDT) Sodium Blood 139 135 - 145 mmol/L [facility] Potassium Blood 4.9 3.5 - 5.3 mmol/L [facility] Chloride Blood 104 97 - 110 mmol/L [facility] Carbon Dioxide 27 24 - 32 mmol/L [facility] Gap 8 5 - 15 [facility] Glucose 102(H) 70 - 99 mg/dL [facility] BUN 9 7 - 23 mg/dL [facility] Creatinine 1.02 0.60 - 1.30 mg/dL [facility] eGFR Non- >60 >60 [facility] Comment: Units = [...] Calcium Blood 9.1 8.7 - 10.7 mg/dL [facility] 12/05/2014 9:09 AM EDT 12/05/2014 9:41 AM EDT us Mitesh Gillespie MD LAB BLOOD ORDERABLES Final Res ult [facility] [address] [place] [address], [place] from Last 3 Months or Most Recently Relevant to Health Maintenance Insurance [employer] PPO/EPO/IND Advance Directives * Full Code (Latest Code Status on File) Date Activated Date Inactivated Comments 06/09/2020 1:31 PM 06/09/2020 7:11 PM * Full Code Date Activated Date Inactivated Comments 06/09/2020 11:18 AM 06/09/2020 1:31 PM Care Teams Paper Tube Cutter Relationship Specialty Start Date End Date Marija King DO [address] [place] [address] PCP - General 06/03/20
--- OUTSIDE RECORDS SUMMARY | 2024-11-15 09:39 | XMS_ITS | Encounter Summary ---
Author Organization [facility] Address [address] [place] [address] Care Team Providers Care Box Sealing Machine Operator Name Role Phone Marija King DO Primary Care Provider [phone] Cathleen Palmer MD Primary Care Provider [phone] Encounter Details Date Type Department Care Team (Late Contact Info) Description 12/19/2018 [facility] Pulmonary [address] [facility] [address] [place] [address] Juan Morse MD [address] [place] [address] Social History Tobacco Use Types Packs/Day Years [...] Fonseca RN - 12/19/2018 3:36 PM EDT Legal Shinet message sent on 12/27 documented in this encounter Plan of Treatment Upcoming Encounters Date Type Department Care Team (Late st Contact Info) Description 12/31/2024 10:30 AM EDT Office Visit [facility] Pulmonary [address] [facility] [address] [place] [address] Juan Morse MD [address] [place] [address] 1yr fu/ SOB/ pft prior/ late mornings 07/11/2025 11:00 AM EDT Office Visit [facility] Cardiology [address] [facility] [address] [place] [address] Jose Angel Starkey MD [address] [place] [address] 1 yr documented as of this encounter Procedures * Due to [place] [employer] law, this organization might not be sharing negative HIV tests. Procedure Name Priority Date/Time Associated Diagnosis Comments C-REACTIVE PROTEIN (CRP) - INFLAMMATION Routine 12/19/2018 3:36 PM EDT Recurrent respiratory infection IMMUNOGLOBULIN G,SUBCLASSES 1-4 SERUM Routine 12/19/2018 3:36 PM EDT Recurrent respiratory infection VENIPUNCTURE Routine 12/19/2018 3:36 PM EDT Recurrent respiratory infection documented in this encounter Results * Due to [place] [employer] law, this organization might not be sharing negative HIV tests. * C-REACTIVE PROTEIN (CRP) - INFLAMMATION (12/19/2018 3:36 PM EDT) C reactive protein 0.9 <8.0 mg/L [facility] 12/19/2018 3:36 PM EDT 12/19/2018 11:34 PM EDT Narrative Resulting Agency Comment [id number] us Juan Morse MD LABORATORY Final Result [facility] [address] [place] [address] * IMMUNOGLOBULIN QUANTITATION (IGG, IGM, IGA) (12/19/2018 3:36 PM EDT) IgA 142 20 - 320 mg/dL [facility] IgG 1024 600 - 1540 mg/dL [facility] IgM 112 50 - 300 mg/dL [facility] 12/19/2018 3:36 PM EDT 12/19/2018 11:34 PM EDT Narrative Resulting Agency Comment [id number] Juan Morse MD LABORATORY Final Result Performing Organization Address City/State/[facility] Co de Phone Number [facility] [address] [place] [address] * IMMUNOGLOBULIN G,SUBCLASSES 1-4 SERUM (12/19/2018 3:36 [...] 11:34 PM EDT Narrative Resulting Agency Comment [id number] Juan Morse MD LABORATORY Final Result Performing Organization Address City/[facility] de Phone Number [facility] [address] [place] [address] documented in this encounter Visit Diagnoses Diagnosis Recurrent respiratory infection Other diseases of respiratory system, not elsewhere classified documented in this encounter Additional Health Concerns Infection Onset Date Last Indicated Resolved Time COVID-19 Rule-Out 06/08/2020 06/08/2020 06/08/2020 7:17 PM EDT documented as of this encounter Care Teams Box Sealing Machine Operator Relationship Specialty Start Date End Date Marija King DO PCP - General Family Medicine 08/23/17 05/11/21 [place] [address] PCP - General Family Medicine 09/28/22 documented as of this encounter
--- OUTSIDE RECORDS SUMMARY | 2024-11-15 09:39 | XMS_ITS | Patient Health Record ---
Author Organization [facility] Address [address] [place] [address] Care Team Providers Care Clinical Laboratory Technologist Name Role Phone Hi Gabe Primary Care Provider Volodymyr Bush Unavailable [phone] Reason For Referral No Information Medications Medication [...] Problem Status W/U Status Risk Notes Problem Otitic barotrauma (82930122) Barotitis, initial encounter (T70.0XXA) Active confirmed Problem Acute non-suppurative otitis media - serous (488993333) Right acute serous otitis media, recurrence not specified (H65.01) Active confirmed Plan Of Treatment No Information Insurance Providers Payer Name Payer Address Payer Phone Subscriber Number Group Number Insured Name Patient Relationship to Insured Coverage Start Date Coverage End Date [facility] [address] CHRISTIAN Grimes [id number] Santos Hawkins Self - patient is the insured Medical (General) History Medical History History ICD Code coronary artery disease Surgical History Surgery Date(Month/Year) tonsillectomy Basom Teeth adenoidectomy rotator cuff tear repair
--- OUTSIDE RECORDS SUMMARY | 2024-11-15 09:39 | XMS_ITS | Encounter Summary ---
Author Organization [facility] Address [address] [place] [address] Care Team Providers Care Sales Account Associate Name Role Phone Marija King Lovely VARGAS Primary Care Provider [phone] Cathleen Palmer MD Primary Care Provider [phone] Encounter Details Date Type Department Care Team (Late Contact Info) Description 05/03/2019 Orders Only [facility] [address] [place] [phone] Alex Hummel MD [address] [place] [phone] Social History Tobacco Use Types Packs/Day Years [...] Department Care Team (Late Contact Info) Description 12/31/2024 10:30 AM EDT Office Visit [facility] Pulmonary [address] [place] [address] Juan Morse MD [address] [place], [place] [id number] 1yr fu/ SOB/ pft prior/ late mornings 07/11/2025 11:00 AM EDT Office Visit [facility] Cardiology [address] [facility] [address] [place] [address] Jose Angel Starkey MD [address] [place] [address] 1 yr documented as of this encounter Procedures * Due to [place] [employer] law, this organization might not be sharing negative HIV tests. Procedure Name Priority Date/Time Associated Diagnosis Comments VENIPUNCTURE Routine 05/03/2019 9:32 AM EST Seizure documented in this encounter Results * Due to [place] [employer] law, this organization might not be sharing negative HIV tests. * (ABNORMAL) VALPROIC ACID (05/03/2019 9:32 AM EST) Valproate 30.5(L) 50.0 - 100.0 mg/L [facility] 05/03/2019 9:32 AM EST 05/04/2019 Narrative Resulting Agency Comment [id number] us Alex Hummel MD LAB SAME DAY RESULT Final Resu lt Performing Organization Address City/State/[facility] Co de Phone Number [facility] [address] [place] [address] documented in this encounter Visit Diagnoses Diagnosis Seizure (HCC) Other convulsions documented in this encounter Additional Health Concerns Infection Onset Date Last Indicated Resolved Time COVID-19 Rule-Out 06/08/2020 06/08/2020 06/08/2020 7:17 PM EDT documented as of this encounter Care Teams Sales Account Associate Relationship Specialty Start Date End Date Marija King DO PCP - General Family Medicine 08/23/17 05/11/21 Cathleen Palmer MD [place] [id number] [address] [address] PCP - General Family Medicine 09/28/22 documented as of this encounter
--- OUTSIDE RECORDS SUMMARY | 2024-11-15 09:39 | XMS_ITS | Encounter Summary ---
Author Organization [facility] Address [address] [place] [address] Care Team Providers Care Advertisement Compositor Name Role Phone HiGabe Primary Care Provider [phone] Marija King DO Primary Care Provider [phone] Cathleen Palmer MD Primary Care Provider [phone] Encounter Details Date Type Department Care Team (Late st Contact Info) Description 08/27/2015 Orders Only [facility] Cardiology [address] [facility] [address] [place] [address] Valentin Vitale MD [address] [place] [address] Social History Tobacco Use Types Packs/Day Years [...] Description 12/31/2024 10:30 AM EDT Office Visit [facility] Pulmonary [address] [facility] [address] [place] [address] Juan Morse MD [address] [place] [address] 1yr fu/ SOB/ pft prior/ late mornings 07/11/2025 11:00 AM EDT Office Visit [facility] Cardiology [address] [facility] [address] [place] [address] Jose Angel Starkey MD [address] [place] [address] 1 yr documented as of this encounter Procedures * Due to [place] state law, this organization might not be sharing negative HIV tests. Procedure Name Priority Date/Time Associated Diagnosis Comments CBC INCLUDES DIFFERENTIAL AND PLATELET COUNT Routine 08/27/2015 8:34 AM EDT Abnormal cardiovascular stress test Atherosclerosis of coronary artery, angina presence unspecified, unspecified vessel or lesion type, unspecified whether [place] or transplanted heart [I25.10] Paroxysmal atrial fibrillation (HCC) [I48.0] Hyperlipidemia, unspecified hyperlipidemia type [E78.5] Essential hypertension with goal blood pressure less than 130/80 [I10] TSH, 3RD GENERATION Routine 08/27/2015 8 :34 AM EDT Abnormal cardiovascular stress test Atherosclerosis of coronary artery, angina presence unspecified, unspecified vessel or lesion type, unspecified whether [place] or transplanted heart [I25.10] Paroxysmal atrial fibrillation (HCC) [I48.0] Hyperlipidemia, unspecified hyperlipidemia type [E78.5] Essential hypertension with goal blood pressure less than 130/80 [I10] LIPID PANEL WITH REFLEX TO DIRECT LDL Routine 08/27/2015 8:34 AM EDT Abnormal cardiovascular stress test Atherosclerosis of coronary artery, angina presence unspecified, unspecified vessel or lesion type, unspecified whether [place] or transplanted heart [I25.10] Paroxysmal atrial fibrillation (HCC) [I48.0] Hyperlipidemia, unspecified hyperlipidemia type [E78.5] Essential hypertension with goal blood pressure less than 130/80 [I10] BASIC METABOLIC PANEL WITH (GFR) Routine 08/27/2015 8:34 AM EDT Abnormal cardiovascular stress test Atherosclerosis of coronary artery, angina presence unspecified, unspecified vessel or lesion type, unspecified whether [place] or transplanted heart [I25.10] Paroxysmal atrial fibrillation (HCC) [I48.0] Hyperlipidemia, unspecified hyperlipidemia type [E78.5] Essential hypertension with goal blood pressure less than 130/80 [I10] documented in this encounter Results * Due to [place] state law, this organization might not be sharing negative HIV tests. * (ABNORMAL) LIPID PANEL WITH REFLEX TO DIRECT LDL (08/27/2015 8:34 AM EDT) Cholesterol 112(L) 125 - 200 mg/dL [facility] Comment:{CHOLESTEROL, TOTAL {[id number]) HDL Cholesterol 39(L) > OR = 40 mg/dL [facility] Comment:{HDL CHOLESTEROL {[id number]) Triglyceride 176(H) <150 mg/dL [facility] Comment:{TRIGLYCERIDES {[id number]) LDL Cholesterol 38 <130 mg/dL (calc) [facility] Comment: {LDL-CHOLESTEROL {[id number]) Desirable range <100 mg/dL for patients with CHD or diabetes and <70 mg/dL for diabetic patients with known heart disease. CHOL/HDL Ratio 2.9 < OR = 5.0 (calc) [facility] Comment:{CHOL/HDLC RATIO {[id number]) Cholesterol Non-HDL 73 mg/dL (calc) [facility] Comment: {NON HDL CHOLESTEROL {[id number]) Target for non-HDL cholesterol is 30 mg/dL higher than LDL cholesterol target. 08/27/2015 8:34 AM EDT 08/27/2015 7:39 PM EDT Narrative Resulting Agency Comment [id number] us Valentin Vitale MD LABORATORY Final Result [facility] [address] [place] [address] * TSH, 3RD GENERATION (08/27/2015 8:34 AM EDT) TSH 1.24 0.40 - 4.50 mIU/L [facility] Comment:{TSH {[id number]) 08/27/2015 8:34 AM EDT 08/27/2015 7:39 PM EDT Narrative Resulting Agency Comment [id number] us Valentin Vitale MD LABORATORY Final Result [facility] [address] [place] [address] * BASIC METABOLIC PANEL WITH (GFR) (08/27/2015 8:34 AM EDT) Glucose 99 65 - 99 mg/dL [facility] Comment: {GLUCOSE {[id number]) Fasting reference interval Urea Nitrogen Blood (BUN) 12 7 - 25 mg/dL [facility] Comment:{UREA NITROGEN (BUN) {[id number]) Creatinine 1.10 0.70 - 1.25 mg/dL [facility] Comment: {CREATININE {[id number]) For patients >49 years of age, the reference limit for Creatinine is approximately 13% higher for people identified as -Portuguese. GFR 70 > OR = 60 mL/min/1 .73m2 [facility] Comment:{eGFR NON-AFR. AMERI CAN {[id number]) GFR () 81 > OR = 60 mL/min/1 .73m2 [facility] Comment:{eGFR AMERIC AN {[id number]) BUN/Creatinine Ratio NOT APPLICABLE 6 - 22 (calc) [facility] Comment:{BUN/CREATININE RATI O {[id number]) Sodium 139 135 - 146 mmol/L [facility] Comment:{SODIUM {[id number]) Potassium 4.7 3.5 - 5.3 mmol/L [facility] Comment:{POTASSIUM {[id number]) Chloride 105 98 - 110 mmol/L [facility] Comment:{CHLORIDE {[id number]) Carbon dioxide 26 19 - 30 mmol/L [facility] Comment:{CARBON DIOXIDE {[id number]) Calcium 9.4 8.6 - 10.3 mg/dL [facility] Comment:{CALCIUM {[id number]) 08/27/2015 8:34 AM EDT 08/27/2015 7:39 [...] needs for GFR calculation. Resulting Agency Comment [id number] Valentin Vitale MD LABORATORY Final Result [facility] [address] [place] [address] * CBC INCLUDES DIFFERENTIAL AND PLATELET COUNT (08/27/2015 8:34 AM EDT) WBC 6.0 3.8 - 10.8 Thousand/u L [facility] Comment:{WHITE BLOOD CELL CO UNT {[id number]) RBC 4.88 4.20 - 5.80 Million/uL [facility] Comment:{RED BLOOD CELL COUN T {[id number]) Hemoglobin 15.2 13.2 - 17.1 g/dL [facility] Comment:{HEMOGLOBIN {[id number]) Hematocrit 44.6 38.5 - 50.0 % [facility] Comment:{HEMATOCRIT {[id number]) MCV 91.5 80.0 - 100.0 fL [facility] Comment:{MCV {[id number]) MCH 31.2 27.0 - 33.0 pg [facility] Comment:{MCH {[id number]) MCHC 34.1 32.0 - 36.0 g/dL [facility] Comment:{MCHC {[id number]) RDW 12.9 11.0 - 15.0 % [facility] Comment:{RDW {[id number]) PLT 191 140 - 400 Thousand/u L [facility] Comment:{PLATELET COUNT {[id number]) MPV 8.9 7.5 - 11.5 fL [facility] Comment:{MPV {[id number]) Neutrophils # 2856 1500 - 7800 cells/uL [facility] Comment:{ABSOLUTE NEUTROPHIL S {[id number]) Lymphocytes # 2508 850 - 3900 cells/uL [facility] Comment:{ABSOLUTE LYMPHOCYTE S {[id number]) Monocytes # 486 200 - 950 cells/uL [facility] Comment:{ABSOLUTE MONOCYTES {[id number]) Eosinophils # 126 15 - 500 cells/uL [facility] Comment:{ABSOLUTE EOSINOPHIL S {[id number]) Basophils # 24 0 - 200 cells/uL [facility] Comment:{ABSOLUTE BASOPHILS {[id number]) Neutrophils % 47.6 % [facility] Comment:{NEUTROPHILS {[id number]) Lymphocytes % 41.8 % [facility] Comment:{LYMPHOCYTES {[id number]) Monocytes % 8.1 % [facility] Comment:{MONOCYTES {[id number]) Eosinophils % 2.1 % [facility] Comment:{EOSINOPHILS {[id number]) Basophils % 0.4 % [facility] Comment:{BASOPHILS {[id number]) 08/27/2015 8:34 AM EDT 08/27/2015 7:39 PM EDT Narrative Resulting Agency Comment [id number] us Valentin Vitale MD LAB SAME DAY RESULT Final Resul t [facility] [address] [place] [address] documented in this encounter Visit Diagnoses Diagnosis Abnormal cardiovascular stress test Other nonspecific abnormal cardiovascular system function study Atherosclerosis of coronary artery, angina presence unspecified, unspecified vessel or lesion type, unspecified whether [place] or transplanted heart [I25.10] Paroxysmal atrial fibrillation (HCC) [I48.0] Atrial fibrillation Hyperlipidemia, unspecified hyperlipidemia type [E78.5] Essential hypertension with goal blood pressure less than 130/80 [I10] documented in this encounter Additional Health Concerns Infection Onset Date Last Indicated Resolved Time COVID-19 Rule-Out 06/08/2020 06/08/2020 06/08/2020 7:17 PM EDT documented as of this encounter Care Teams Advertisement Compositor Relationship Specialty Start Date End Date Gabe Do [facility] [address] [place] [address] PCP - General 03/24/06 08/22/17 Marija King DO [facility] [address] [place] [address] PCP - General Family Medicine 08/23/17 05/11/21 Cathleen Palmer MD [facility] [address] [address] PCP - General Family Medicine 09/28/22 documented as of this encounter
--- OUTSIDE RECORDS SUMMARY | 2024-11-15 09:39 | XMS_ITS | Encounter Summary ---
Author Organization [facility] Address [address] [place] [address] Care Team Providers Care Economic Analysis Director Name Role Phone Marija King Lovely VARGAS Primary Care Provider [phone] Cathleen Palmer MD Primary Care Provider [phone] Encounter Details Date Type Department Care Team ([facility] st Contact Info) Description 11/24/2020 Orders Only [facility] Cardiology [address] [address] Jose Angel Starkey MD [address] [place] [address] Social History Tobacco Use Types Packs/Day Years [...] Upcoming Encounters Date Type Department Care Team ([facility] st Contact Info) Description 12/31/2024 10:30 AM EDT Office Visit [facility] Pulmonary [address] [facility] [address] [place] [address] Juan Morse MD [address] [place] [address] 1yr fu/ SOB/ pft prior/ late mornings 07/11/2025 11:00 AM EDT Office Visit [facility] Cardiology [address] [facility] [address] [place] [address] Jose Angel Starkey MD [address] [place] [address] 1 yr documented as of this encounter Procedures * Due to [place] [email or web address] law, this organization might not be sharing negative HIV tests. Procedure Name Priority Date/Time Associated Diagnosis Comments VENIPUNCTURE Routine 11/24/2020 9:45 AM EDT Hypertension, unspecified type documented in this encounter Results * Due to [place] [email or web address] law, this organization might not be sharing negative HIV tests. * (ABNORMAL) BASIC METABOLIC PANEL WITH (GFR) (11/24/2020 9:45 AM EDT) Glucose 101(H) 65 - 99 mg/dL [facility] Comment: Fasting reference interval For someone without known [...] approximately 13% higher for people identified as -Cymro. EGFR 51(L) > OR = 60 mL/min/1. [...] needs for GFR calculation. Resulting Agency Comment [id number] us Jose Angel Starkey MD LABORATORY Final Result [facility] [address] [place] [address] documented in this encounter Visit Diagnoses Diagnosis Hypertension, unspecified type documented in this encounter Care Teams Economic Analysis Director Relationship Specialty Start Date End Date Marija King DO PCP - General Family Medicine 08/23/17 05/11/21 [place] [address] PCP - General Family Medicine 09/28/22 documented as of this encounter
--- OUTSIDE RECORDS SUMMARY | 2024-11-15 09:39 | XMS_ITS | Encounter Summary ---
Author Organization [facility] Address [address] [place] [address] Care Team Providers Care All Source Intelligence Analyst Name Role Phone Cathleen Palmer MD Primary Care Provider [phone] Encounter Details Date Type Department Care Team (Late Contact Info) Description 05/21/2021 Refill [facility] Neurology [address] [facility] [address] [place] [address] Alex Hummel MD [address] [address] Social History Tobacco Use Types Packs/Day Years [...] Description 12/31/2024 10:30 AM EDT Office Visit [facility] Pulmonary [address] [facility] [address] [place] [phone] Juan Morse MD [address] [place] [address] 1yr fu/ SOB/ pft prior/ late mornings 07/11/2025 11:00 AM EDT Office Visit [facility] Cardiology [address] [facility] [address] [place] [address] Jose Angel Starkey MD [address] [place] [address] 1 yr documented as of this encounter Visit Diagnoses Not on filedocumented in this encounter Care Teams All Source Intelligence Analyst Relationship Specialty Start Date End Date Cathleen Palmer MD [address] [address] PCP - General Family Medicine 09/28/22 documented as of this encounter
--- OUTSIDE RECORDS SUMMARY | 2024-11-15 09:39 | XMS_ITS | Encounter Summary ---
Author Organization [facility] Address [address] [place] [address] Care Team Providers Care Goal Umpire Name Role Phone Marija King DO Primary Care Provider [phone] Cathleen Palmer MD Primary Care Provider [phone] Reason for Referral * OUTPT PROCEDURES AND DIAGNOSTICS (Routine) - Closed Specialty Diagnoses / Procedures Referred By Contac t Referred To Contact CT Scan Diagnoses Other nonspecific abnormal finding of lung field Procedures CT CHEST W/O CONTRAST (DX: ? NODULE ON CXR R91.8/ 793.2) (WITHIN 1 WK) Juan Morse MD [address] [place] [address] Phone: tel: fax: Referral ID Status Reason Start Date Expiration Date V isits Requested Visits Authorized [id number] Closed Continuity of Care 04/09/2018 07/08/2018 1 1 Encounter Details Date Type Department Care Team (Late st Contact Info) Description 04/04/2018 Orders Only [facility] Pulmonary [address] [facility] [address] [place] [address] Juan Morse MD [address] [place] [address] Social History Tobacco Use Types Packs/Day Years [...] Description 12/31/2024 10:30 AM EDT Office Visit [facility] Pulmonary [address] 123 [facility] [address] [place] [address] Juan Morse MD [address] [place] [address] 1yr fu/ SOB/ pft prior/ late mornings 07/11/2025 11:00 AM EDT Office Visit [facility] Cardiology [address] [facility] [address] [place] [address] Jose Angel Starkey MD [address] [place] [address] 1 yr documented as of this encounter Results * Due to [place] state law, this organization might not be sharing negative HIV tests. * (ABNORMAL) CT CHEST W/O CONTRAST (DX: ? NODULE ON CXR R91.8/ 793.2) (WITHIN 1 WK) FC (04/13/2018 9:02 AM EST) [facility](A) [facility] Anatomical Region Laterality Modality CHEST Computed Tomogra phy 04/13/2018 9:30 AM EST Narrative 04/13/2018 9:30 AM EST EXAM: CT CHEST WO Comparison: CR - [...] gland is normal. There is no bulky mediastinal, hilar, or axillary adenopathy. There is arteriosclerosis of the aorta and the coronary arteries. The central airways are widely patent. Lung windows demonstrate pleural parenchymal scarring at the lung apices. There is a 4 mm right upper lobe pulmonary nodule, image 100. 3 mm right upper lobe pulmonary nodule, image 101. Right middle lobe calcified granuloma, image 156. 2 mm left lower lobe pulmonary nodule, image 181. Mild bilateral lower lobe bronchiectasis with mucous plugging present. Patchy consolidation. Bilateral lower lobes suggesting infectious or inflammatory process. Bibasilar atelectasis. Axial images through the upper abdomen demonstrate the noncontrast, visualized portions of the liver, pancreas, adrenal glands, and kidneys are normal. There are calcified splenic granulomata. There are no suspicious lytic or sclerotic osseous lesions identified. Spondylotic changes of the thoracic spine. IMPRESSION: Bilateral pulmonary nodules measuring between 2 and 4 mm. If patient is high risk, consider CT follow-up in 12 months to document ongoing stability. Bilateral lower lobe bronchiectasis with mucous plugging present. Patchy consolidation within the bilateral lower lobe suggesting infectious or inflammatory process. Fleischner 2017 Guidelines were utilized to develop follow up recommendations for this patient. The full article can be viewed at: https://goo.gl/emmCARLOSK Follow up strategies in solid nodules vary [...] in this group. Therefore when follow up is recommended, it is for a longer interval. Also in this group, recommendations may vary depending on a solitary lesion versus multiplicity of lesions. A calculator of estimated risk is available at: https://goo.gl/Guido ##PFU## Procedure Note Gloria Funes MD - [...] estimated risk is available at: https://goo.gl/JEEJEh ##PFU## Juan Morse MD IMG CT NO CONTRAST ORDERABLES Final Result documented in this encounter Visit Diagnoses Diagnosis Cough documented in this encounter Additional Health Concerns Infection Onset Date Last Indicated Resolved Time COVID-19 Rule-Out 06/08/2020 06/08/2020 06/08/2020 7:17 PM EDT documented as of this encounter Care Teams Goal Umpire Relationship Specialty Start Date End Date Marija King DO PCP - General Family Medicine 08/23/17 05/11/21 [place] [address] PCP - General Family Medicine 09/28/22 documented as of this encounter
--- OUTSIDE RECORDS SUMMARY | 2024-11-15 09:39 | XMS_ITS | Encounter Summary ---
Author Organization [facility] Address [address] [place] [address] Care Team Providers Care Road Traffic Controller Name Role Phone Marija King DO Primary Care Provider [phone] Cathleen Palmer MD Primary Care Provider [phone] Encounter Details Date Type Department Care Team (Late Contact Info) Description 05/08/[address] [facility] Cardiology [address] [address] Jose Angel Starkey MD [address] [place] [address] Social History Tobacco Use Types Packs/Day Years [...] Description 12/31/2024 10:30 AM EDT Office Visit [facility] Pulmonary [address] [facility] [address] [place] [address] Juan Morse MD [address] [place] [address] 1yr fu/ SOB/ pft prior/ late mornings 07/11/2025 11:00 AM EDT Office Visit [facility] Cardiology [address] [facility] [address] [place] [address] Jose Angel Starkey MD [address] [place] [address] 1 yr documented as of this encounter Procedures * Due to [place] [employer] law, this organization might not be [...] this encounter Results * Due to [place] [employer] law, this organization might not be [...] approximately 13% higher for people identified as -Pakistani. EGFR 60 > OR = 60 mL/min/1. [...] needs for GFR calculation. Resulting Agency Comment [id number] us Jose Angel Starkey MD LABORATORY Final Result [facility] [address] [place] [address] * CBC INCLUDES DIFFERENTIAL AND PLATELET COUNT [...] 1:42 PM EST Narrative Resulting Agency Comment [id number] Jose Angel Starkey MD LAB SAME DAY RESULT Final Res ult Performing Organization Address [facility] de Phone Number [facility] [address] [place] [address] * (ABNORMAL) PROTHROMBIN TIME (PT) (INR), BLOOD (05/08/2020 11:51 AM EST) INR 1.2(H) [facility] Comment: Reference Range 0.9-1.1 Moderate-intensity Warfarin Therapy 2.0-3.0 Higher-intensity Warfarin Therapy 3.0-4.0 PT 12.7(H) 9.0 - 11.5 sec [facility] Comment: For additional information, please refer to http://education.[employer]/faq/NLN294 (This link is being provided for informational/ educational purposes only.) 05/08/2020 11:5 1 AM EST 05/08/2020 1:42 PM EST Narrative Resulting Agency Comment [id number] Jose Angel Starkey MD LAB SAME DAY RESULT Final Res ult Performing Organization Address [facility] de Phone Number [facility] [address] [place] [address] documented in this encounter Visit Diagnoses Diagnosis Chronic chest pain Chest pain, unspecified Atherosclerosis of coronary artery, angina presence unspecified, unspecified vessel or lesion type, unspecified whether [place] or transplanted heart [I25.10] documented in this encounter Additional Health Concerns Infection Onset Date Last Indicated Resolved Time COVID-19 Rule-Out 06/08/2020 06/08/2020 06/08/2020 7:17 PM EDT documented as of this encounter Care Teams Road Traffic Controller Relationship Specialty Start Date End Date Marija King DO PCP - General Family Medicine 08/23/17 05/11/21 [place] [address] PCP - General Family Medicine 09/28/22 documented as of this encounter
--- OUTSIDE RECORDS SUMMARY | 2024-11-15 09:39 | XMS_ITS | Encounter Summary ---
Author Organization [facility] Address [address] [place] [address] Care Team Providers Care Automotive Upholsterer Name Role Phone Cathleen Palmer MD Primary Care Provider [phone] Reason for Visit * Reason Comments E-prescribing Refill Request Encounter Details Date Type Department Care Team ([facility] st Contact Info) Description 06/14/2021 Refill [facility] Neurology [address] [address] Alex Hummel MD 123 [facility] [address] [place] [address] [place] [address] E-prescribing Refill Request Social History Tobacco Use [...] Phone 07/22/21 10:30 AM Alex Hummel MD [facility] Neurology [address] 05/20/22 10:00 AM Jose Angel Starkey MD [facility] Cardiology [address] Pertinent lab [...] Upcoming Encounters Date Type Department Care Team ([facility] st Contact Info) Description 12/31/2024 10:30 AM EDT Office Visit [facility] Pulmonary [address] 123 [facility] [address] [place] [address] Juan Morse MD [address] [place] [address] 1yr fu/ SOB/ pft prior/ late mornings 07/11/2025 11:00 AM EDT Office Visit [facility] Cardiology [address] [facility] [address] [place] [address] Jose Angel Starkey MD [address] [place] [address] 1 yr documented as of this encounter Visit Diagnoses Not on filedocumented in this encounter Care Teams Automotive Upholsterer Relationship Specialty Start Date End [place] [address] PCP - General Family Medicine 09/28/22 documented as of this encounter
--- OUTSIDE RECORDS SUMMARY | 2024-11-15 09:39 | XMS_ITS | Encounter Summary ---
Author Organization [facility] Address [address] [place] [address] Care Team Providers Care Medical Assisting Program Director Name Role Phone Marija King DO Primary Care Provider [phone] Cathleen Palmer MD Primary Care Provider [phone] Reason for Visit * Reason Onset Date Comments Refill Request 06/02/2019 Encounter Details Date Type Department Care Team (Late st Contact Info) Description 06/02/2019 Refill [facility] Pulmonary [address] [facility] [address] [place] [address] Juan Morse MD [address] [place] [address] Refill Request Social History Tobacco Use Types [...] EDT Med pended. * Telephone Encounter - Lindsay Isbell - 06/03/2019 8:47 AM EDT Patient calling to follow up on the request for refills as he would like to have by Monday documented in this encounter Plan of Treatment Upcoming Encounters Date Type Department Care Team ([facility] st Contact Info) Description 12/31/2024 10:30 AM EDT Office Visit [facility] Pulmonary [address] [facility] [address] [place] [address] Juan Morse MD [address] [place] [address] 1yr fu/ SOB/ pft prior/ late mornings 07/11/2025 11:00 AM EDT Office Visit [facility] Cardiology [address] [facility] [address] [place] [address] Jose Angel Starkey MD [address] [place] [address] 1 yr documented as of this encounter Visit Diagnoses Not on filedocumented in this encounter Additional Health Concerns Infection Onset Date Last Indicated Resolved Time COVID-19 Rule-Out 06/08/2020 06/08/2020 06/08/2020 7:17 PM EDT documented as of this encounter Care Teams Medical Assisting Program Director Relationship Specialty Start Date End Date Marija King DO PCP - General Family Medicine 08/23/17 05/11/21 Cathleen Palmer MD [address] [address] PCP - General Family Medicine 09/28/22 documented as of this encounter
--- OUTSIDE RECORDS SUMMARY | 2024-11-15 09:39 | XMS_ITS | Encounter Summary ---
Author Organization [facility] Address [address] [place] [address] Care Team Providers Care Team Cdl Driver Name Role Phone Christine Marija Lovely VARGAS Primary Care Provider [phone] Cathleen Palmer MD Primary Care Provider [phone] Reason for Visit * Reason Comments E-prescribing Refill Request Encounter Details Date Type Department Care Team ([facility] Contact Info) Description 06/10/2019 Refill [facility] Cardiology [address] [facility] [address] [place] [address] Jose Angel Starkey MD [address] [place] [address] E-prescribing Refill Request Social History Tobacco Use [...] Upcoming Encounters Date Type Department Care Team ([facility] Contact Info) Description 12/31/2024 10:30 AM EDT Office Visit [facility] Pulmonary [address] [facility] [address] [place] [address] Juan Morse MD [address] [place] [address] 1yr fu/ SOB/ pft prior/ late mornings 07/11/2025 11:00 AM EDT Office Visit [facility] Cardiology [address] [facility] [address] [place] [address] Jose Angel Starkey MD [address] [place] [address] 1 yr documented as of this encounter Visit Diagnoses Diagnosis Paroxysmal atrial fibrillation (HCC) Atrial fibrillation documented in this encounter Additional Health Concerns Infection Onset Date Last Indicated Resolved Time COVID-19 Rule-Out 06/08/2020 06/08/2020 06/08/2020 7:17 PM EDT documented as of this encounter Care Teams Team Cdl Driver Relationship Specialty Start Date End Date Marija King DO PCP - General Family Medicine 08/23/17 05/11/21 Cathleen Palmer MD [address] [address] PCP - General Family Medicine 09/28/22 documented as of this encounter
--- OUTSIDE RECORDS SUMMARY | 2024-11-15 09:39 | XMS_ITS | Encounter Summary ---
Author Organization [facility] Address [address] [place] [address] Care Team Providers Care Surgical First Assistant Name Role Phone HiGabe Primary Care Provider [phone] Marija King DO Primary Care Provider [phone] Cathleen Palmer MD Primary Care Provider [phone] Encounter Details Date Type Department Care Team (Late st Contact Info) Description 08/26/2015 Orders Only [facility] Cardiology [address] [facility] [address] [place] [address] Valentin Vitale MD [address] [place] [address] Medications Social History Tobacco Use Types Packs/Day [...] Description 12/31/2024 10:30 AM EDT Office Visit [facility] Pulmonary [address] [facility] [address] [place] [address] Juan Morse MD [address] [place] [address] 1yr fu/ SOB/ pft prior/ late mornings 07/11/2025 11:00 AM EDT Office Visit [facility] Cardiology [address] [facility] [address] [place] [address] Jose Angel Starkey MD [address] [place] [address] 1 yr documented as of this encounter Visit Diagnoses Diagnosis Paroxysmal atrial fibrillation (HCC)- Primary Atrial fibrillation documented in this encounter Additional Health Concerns Infection Onset Date Last Indicated Resolved Time COVID-19 Rule-Out 06/08/2020 06/08/2020 06/08/2020 7:17 PM EDT documented as of this encounter Care Teams Surgical First Assistant Relationship Specialty Start Date End Date Gabe Do [facility] [address] [place] [address] PCP - General 03/24/06 08/22/17 Marija King DO [facility] [address] [place] [address] PCP - General Family Medicine 08/23/17 05/11/21 Cathleen Palmer MD [facility] [address] [address] PCP - General Family Medicine 09/28/22 documented as of this encounter
--- OUTSIDE RECORDS SUMMARY | 2024-11-15 09:39 | XMS_ITS | Encounter Summary ---
Author Organization [facility] Address [address] [place] [address] Care Team Providers Care Outdoor Adventure Guides Name Role Phone ChristineMarija Lovely VARGAS Primary Care Provider [phone] Cathleen Palmer MD Primary Care Provider [phone] Encounter Details Date Type Department Care Team (Late Contact Info) Description 03/03/2018 Orders Only [facility] Cardiology [address] [facility] [address] [place] [address] Kathryn Bansal DO [address] [place] [address] Medications Social History Tobacco Use Types Packs/Day [...] Description 12/31/2024 10:30 AM EDT Office Visit [facility] Pulmonary [address] [facility] [address] [place] [address] Juan Morse MD [address] [place] [address] 1yr fu/ SOB/ pft prior/ late mornings 07/11/2025 11:00 AM EDT Office Visit [facility] Cardiology [address] [facility] [address] [place] [address] Jose Angel Starkey MD [address] [place] [address] 1 yr documented as of this encounter Visit Diagnoses Not on filedocumented in this encounter Additional Health Concerns Infection Onset Date Last Indicated Resolved Time COVID-19 Rule-Out 06/08/2020 06/08/2020 06/08/2020 7:17 PM EDT documented as of this encounter Care Teams Outdoor Adventure Guides Relationship Specialty Start Date End Date Marija King DO PCP - General Family Medicine 08/23/17 05/11/21 Cathleen Palmer MD [place] [address] [address] [address] PCP - General Family Medicine 09/28/22 documented as of this encounter
--- OUTSIDE RECORDS SUMMARY | 2024-11-15 09:39 | XMS_ITS | Clinical Summary ---
Author Organization [facility] it Address [address] [place] [address] Care Team Providers Care Wood Drill Operator Name Role Phone Unavailable Primary Care [...] Panel) 02/15/2022 Colorectal Cancer Screening: Colonoscopy 02/15/2022 Falls Risk Assessment 02/15/2022 Hepatitis C Screening 02/15/2022 Social Influencers of Health Screening 02/15/2022 COVID-19 Vaccine (1 - 2023-2 5 season) 2023 Depression Screening 03/20/2024 RSV Immunization Adult Patie nts (1 - [...]
--- OUTSIDE RECORDS SUMMARY | 2024-11-15 09:39 | XMS_ITS | Encounter Summary ---
Author Organization [facility] Address [address] [place] [address] Care Team Providers Care Programming Coordinator Name Role Phone Mindy Kingh Lovely VARGAS Primary Care Provider [phone] Cathleen Palmer MD Primary Care Provider [phone] Reason for Visit * Reason Comments Follow Up Encounter Details Date Type Department Care Team ([facility] st Contact Info) Description 02/20/[address] [facility] Neurology [address] [address] Alex Hummel MD [address] [address] Follow Up Social History Tobacco Use Types [...] Phone 02/21/18 4:30 PM Alex Hummel MD [facility] [phone] 05/03/18 3:[address] 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 He has some college education. He is [...] normal. I administered version 7.3 of the [place] Cognitive Assessment. He scored 24/30. He missed [...] 10:37 A TT: 11:09 A Doc #: [id number] cc: MD Alex Das MD Jonathan Tisdell, MD Details: Neuro f/u DOS 11/07/17 Dx: amnesia, transient alteration in awareness Pt seen in f/u. MRI nl (w/ sunny but no thin temporal coronals) EEG nl. Lengthy discussion w/ pt and dtr; later w/ Dr. Coleman. 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 Pulmonary [address] [facility] [address] [place] [address] Juan Morse MD [address] [place] [address] 1yr fu/ SOB/ pft prior/ late mornings 07/11/2025 11:00 AM EDT Office Visit [facility] Cardiology [address] [facility] [address] [place] [address] Jose Angel Starkey MD [address] [place] [address] 1 yr documented as of this encounter Visit Diagnoses Not on filedocumented in this encounter Additional Health Concerns Infection Onset Date Last Indicated Resolved Time COVID-19 Rule-Out 06/08/2020 06/08/2020 06/08/2020 7:17 PM EDT documented as of this encounter Care Teams Programming Coordinator Relationship Specialty Start Date End Date Marija King DO PCP - General Family Medicine 08/23/17 05/11/21 [place] [address] PCP - General Family Medicine 09/28/22 documented as of this encounter
--- OUTSIDE RECORDS SUMMARY | 2024-11-15 09:39 | XMS_ITS | Clinical Summary ---
Author Organization [facility] Address [address] [place] [address] Care Team Providers Care Tattoo Technician Name Role Phone Cathleen Palmer MD Primary Care Provider [phone] Allergies Active Allergy Reactions Criticality Noted Date Comments Oxycodone Other 01/31/2023 Causes confusion Medications * This document contains information received from the source organization and may not represent a complete record from that organization. Nitroglycerin (NITROSTAT) 0.4 MG SL tabletIndications: Abnormal cardiovascular stress test,Atheroscleros is of coronary artery, angina presence unspecified, unspecified vessel or lesion type, unspecified whether catawba or transplanted heart,Paroxysmal atrial fibrillation (HCC),Hyperlipidem ia, [...] mouth 3 (three) times a day. Active Simvastatin (ZOCOR) 40 MG tablet TAKE ONE TABLET (40 MG TOTAL) BY MOUTH EVERY NIGHT. 90 tablet 3 12/12/19 24 Active Isosorbide Mononitrate CR (IMDUR) 60 MG 24 hr tablet Take one tablet (60 mg total) by mouth 1 (one) time each day in the morning. 90 tablet 3 07/25/19 25 Active Metoprolol Succinate (TOPROL-XL) 50 MG 24 hr tablet TAKE 1 TABLET BY MOUTH EVERY DAY 90 tablet 3 09/07/19 25 Active Wixela Inhub 250-50 MCG/ACT diskus inhalerIndications :Bronchiectasis without complication (HCC) Inhale one puff 2 (two) times a day. 1 each 3 10/09/19 25 Active Lisinopril (PRINIVIL,ZESTRIL) 10 MG tabletIndications: Hypertension, unspecified type Take one half tablet (5 mg total) by mouth 1 (one) time each day. 45 tablet 3 10/19/19 25 Active Lisinopril (PRINIVIL,ZESTRIL) 10 MG tabletIndications: Hypertension, unspecified type Take one tablet (10 mg total) by mouth 1 (one) time each day. 90 tablet 3 12/11/19 24 025 Discontin ued(Sig Adjust (No Cancel Rx)) Active Problems Problem Noted Date Diagnosed Date Hypertension 10/18/2024 Paroxysmal atrial fibrillation 06/28/2023 Arteriosclerosis of aorta 05/29/2019 Overview (05/29/2019): Refer to CT of Chest 04/16/2019: There is arteriosclerosis of the aorta and the coronary arteries. Bronchiectasis 05/29/2019 Overview (05/29/2019): Refer to Pulmonary Consult 05/13/2019: Impression: Patient with bronchiectasis Seizure 02/21/2018 Encounters Date Type Department Care Team Description 10/18/2024 Orders Only [facility] Cardiology [address] [facility] [address] [place] [address] Jayesh Starkey MD Medications 10/08/2024 Refill [facility] Pulmonary [address] [facility] [address] [place] [address] Juan Morse MD E-prescribing Refill Request 09/06/2024 Refill [facility] Cardiology [address] [facility] [address] [place] [address] Jayesh Starkey MD E-prescribing Refill Request from Last 3 Months Immunizations Immunization Administration [...] Upcoming Encounters Date Type Department Care Team ([facility] st Contact Info) Description 12/31/2024 10:30 AM EDT Office Visit [facility] Pulmonary [address] [facility] [address] [place] [address] Juan Morse MD [address] [place] [address] 1yr fu/ SOB/ pft prior/ late mornings 07/11/2025 11:00 AM EDT Office Visit [facility] Cardiology [address] [facility] 290 [place] [address] Jayesh Starkey MD [address] [place] [address] 1 yr Health Maintenance Due Date Last [...] 06/18, 07/20/2020, Additional history exists HPV Vaccine (No Doses Required) Completed Hib Aged Out No longer eligi ble based on patient's age to complete this topic Meningococcal ACWY Aged Out No longer eligible based on patient's age to complete this topic Zoster (Zostavax) Discontinued Procedures * Due to [place] state law, this organization might not be [...] type, unspecified whether angina present, unspecified whether catawba or transplanted heart HEP C ANTIBODY (EIA-2) Routine 08/01/2003 4:44 PM EDT from Last 3 Months or Most Recently Relevant to Health Maintenance Results * Due to [place] state law, this organization might not be [...] Abnormal ECG Confirmed by JAYESH STARKEY ([id number]), editorial manager KAREN MULTANI ([id number]) on 06/29/2023 7:33:59 AM [...] LDL-C. Oliver SAM et al. BEAR. 2013;310(19): 1402-8028 (http://education.Gamelet.[employer]raTor[employer] Medical/faq/RMQ861) CHOL/HDL Ratio 2.8 <5.0 (calc) [facility] Cholesterol Non-HDL 85 <130 mg/dL (calc) [facility] Comment: For patients with diabetes plus 1 major ASCVD risk factor, treating to a non-HDL-C goal of <100 mg/dL (LDL-C of <70 mg/dL) is considered a therapeutic option. 07/20/2020 12:0 5 PM EDT 07/20/2020 9:33 PM EDT Narrative Resulting Agency Comment [id number] us Zhane Dorantes SOCIAL MEDIA COMMUNITY MANAGER LABORATORY Final Res ult [facility] [address] [place] [address] * HEP C ANTIBODY (EIA-2) (08/01/2003 4:44 PM EDT) HEPATITIS C AB NEGATIVE [facility] (CLIA# [id number]) 08/01/2003 4:44 PM EDT 08/01/2003 4:44 PM EDT Narrative [facility] (CLIA# [id number]) - 08/01/2003 4:44 PM EDT Ordered by UNKNOWN PROVIDER SST tube received unspun us Unknown Provider LABORATORY Final Result [facility] (CLIA# [id number]) [address] [place] [address] from Last 3 Months or Most Recently Relevant to Health Maintenance Insurance [facility] FEE FOR SERVICE PPO * Guarantor: No [employer] Account Type Relation to Patient Date of Phone Billing Address [facility] Corporate [address] [place] [address] Care Teams Tattoo Technician Relationship Specialty Start Date End Date Cathleen Palmer MD [address] [address] PCP - General Family Medicine 09/28/22
--- OUTSIDE RECORDS SUMMARY | 2024-11-15 09:39 | XMS_ITS | Encounter Summary ---
Author Organization [facility] Address [address] [place] [address] Care Team Providers Care Trigonometry Tutor Name Role Phone Cathleen Palmer MD Primary Care Provider [phone] Reason for Visit * Reason Comments E-prescribing Refill Request Encounter Details Date Type Department Care Team ([facility] Contact Info) Description 10/08/2024 Refill [facility] Pulmonary [address] [address] Juan Morse MD [address] [place] [address] E-prescribing Refill Request Social History Tobacco Use [...] encounter Miscellaneous Notes * Telephone Encounter - Malaika Flores RN - 10/08/2024 8:42 AM EDT wixela Refill Requested by Fax from pharmacy Pulmonary Visit History Last Visit: Date: 12/05/2023 Department: [facility] PULMONARY Provider: JUAN MORSE Visit Type: Office Visit Next Scheduled Visit: Date: 12/31/2024 Department: [facility] PUL[facility] Provider: JUAN MORSE Visit Type: Office Visit Patient's Preferred Pharmacy: [facility]/pharmacy #[id number] [place] [address] [address] [facility] [address] [facility]/pharmacy #[id number] [facility] [address] [id number] [address] [facility] [address] [facility] [address] [facility]/pharmacy #[id number] [address] [facility] [address] [facility] [address] (Medication refill pended for provider to review and send to selected pharmacy) documented in this encounter Plan of Treatment Upcoming Encounters Date Type Department Care Team (Late st Contact Info) Description 12/31/2024 10:30 AM EDT Office Visit [facility] Pulmonary [address] [facility] [address] [place] [address] Juan Morse MD [address] [place] [address] 1yr fu/ SOB/ pft prior/ late mornings 07/11/2025 11:00 AM EDT Office Visit [facility] Cardiology [address] [facility] [address] [place] [address] Jose Angel Starkey MD [address] [place] [address] 1 yr documented as of this encounter Visit Diagnoses Diagnosis Bronchiectasis without complication (HCC) Bronchiectasis without acute exacerbation documented in this encounter Care Teams Trigonometry Tutor Relationship Specialty Start Date End Date Cathleen Palmer MD [address] [address] PCP - General Family Medicine 09/28/22 documented as of this encounter
--- OUTSIDE RECORDS SUMMARY | 2024-11-15 09:39 | XMS_ITS | Encounter Summary ---
Author Organization [facility] Address [address] [place] [address] Care Team Providers Care Drier Operator Name Role Phone Marija King Lovely VARGAS Primary Care Provider Cathleen Palmer MD Primary Care Provider [phone] Encounter Details Date Type Department Care Team (Late Contact Info) Description 10/01/[address] [facility] Pulmonary [address] [address] Juan Morse MD [address] [place] [address] Medications Social History Tobacco Use Types Packs/Day [...] [facility] Pul[facility] [address] [facility] [address] [place] [address] Juan Morse MD [address] [place] [address] 1yr fu/ SOB/ pft prior/ late mornings 07/11/2025 11:00 AM EDT Office Visit [facility] Cardiology [address] [facility] [address] [place] [address] Jose Angel Starkey MD [address] [place] [address] 1 yr documented as of this encounter Visit Diagnoses Diagnosis Cough documented in this encounter Additional Health Concerns Infection Onset Date Last Indicated Resolved Time COVID-19 Rule-Out 06/08/2020 06/08/2020 06/08/2020 7:17 PM EDT documented as of this encounter Care Teams Drier Operator Relationship Specialty Start Date End Date Marija King DO PCP - General Family Medicine 08/23/17 05/11/21 Cathleen Palmer MD [place] [id number] [address] [address] PCP - General Family Medicine 09/28/22 documented as of this encounter
--- OUTSIDE RECORDS SUMMARY | 2024-11-15 09:39 | XMS_ITS | Encounter Summary ---
Author Organization [facility] Address [address] [place] [address] Care Team Providers Care Optometric Technician Name Role Phone Cathleen Palmer MD Primary Care Provider [phone] Encounter Details Date Type Department Care Team (Late Contact Info) Description 12/16/2021 Orders Only [facility] Pulmonary [address] [phone] Juan Morse MD [address] [place] [phone] Medications Social History Tobacco Use Types Packs/Day [...] Description 12/31/2024 10:30 AM EDT Office Visit [facility] Pulmonary [address] [facility] [address] [place] [address] Juan Morse MD [address] [place] [address] 1yr fu/ SOB/ pft prior/ late mornings 07/11/2025 11:00 AM EDT Office Visit [facility] Cardiology [address] [facility] [address] [place] [address] Jose Angel Starkey MD [address] [place] [address] 1 yr documented as of this encounter Visit Diagnoses Not on filedocumented in this encounter Care Teams Optometric Technician Relationship Specialty Start Date End Date Cathleen Palmer MD [address] [address] PCP - General Family Medicine 09/28/22 documented as of this encounter
--- OUTSIDE RECORDS SUMMARY | 2024-11-15 09:39 | XMS_ITS | Encounter Summary ---
Author Organization [facility] Address [address] [place] [address] Care Team Providers Care Kick Press Setter Name Role Phone EzMarija sullivan Lovely VARGAS Primary Care Provider [phone] Cathleen Palmer MD Primary Care Provider [phone] Reason for Visit * Reason Onset Date Comments Refill Request 01/28/2019 Encounter Details Date Type Department Care Team (Late Contact Info) Description 01/28/2019 Refill [facility] Cardiology [address] [facility] [address] [place] [phone] Kim Roberson, RN Refill Request Social History [...] Office Visit [facility] Pulmonary [address] [facility] [address] [place] [address] Juan Morse MD [address] [place] [address] 1yr fu/ SOB/ pft prior/ late mornings 07/11/2025 11:00 AM EDT Office Visit [facility] Cardiology [address] [facility] 290 [place] [address] Jose Angel Starkey MD [address] [place] [address] 1 yr documented as of this encounter Visit Diagnoses Not on filedocumented in this encounter Additional Health Concerns Infection Onset Date Last Indicated Resolved Time COVID-19 Rule-Out 06/08/2020 06/08/2020 06/08/2020 7:17 PM EDT documented as of this encounter Care Teams Kick Press Setter Relationship Specialty Start Date End Date Marija King DO PCP - General Family Medicine 08/23/17 05/11/21 Cathleen Palmer MD [address] [address] PCP - General Family Medicine 09/28/22 documented as of this encounter
--- OUTSIDE RECORDS SUMMARY | 2024-11-15 09:40 | XMS_ITS | Encounter Summary ---
Author Organization [facility] Address [address] [place] [address] Care Team Providers Care Salt Manager Name Role Phone Cathleen Palmer MD Primary Care Provider [phone] Encounter Details Date Type Department Care Team (Late st Contact Info) Description 09/29/2022 Orders Only [facility] Pulmonary [address] [phone] Juan Morse MD [address] [place] [address] Social History Tobacco Use Types Packs/Day Years [...] Description 12/31/2024 10:30 AM EDT Office Visit [facility] Pulmonary [address] [phone] Juan Morse MD [address] [place] [address] 1yr fu/ SOB/ pft prior/ late mornings 07/11/2025 11:00 AM EDT Office Visit [facility] Cardiology [address] [facility] [address] [place] [address] Jose Angel Starkey MD [address] [place] [address] 1 yr documented as of this encounter Results * Due to [place] state law, this organization might not be [...] on filedocumented in this encounter Care Teams Salt Manager Relationship Specialty Start Date End Date Cathleen Palmer MD [facility] [address] [facility] [address] [place] [address] PCP - General Family Medicine 09/28/22 documented as of this encounter
--- OUTSIDE RECORDS SUMMARY | 2024-11-15 09:40 | XMS_ITS | Encounter Summary ---
Author Organization [facility] Address [address] [place] [address] Care Team Providers Care Machine Shop Inspector Name Role Phone EzMarija sullivan Lovely VARGAS Primary Care Provider [phone] Cathleen Palmer MD Primary Care Provider [phone] Reason for Visit * Reason Onset Date Comments Refill Request 01/28/2019 Encounter Details Date Type Department Care Team (Late Contact Info) Description 01/28/2019 Refill [facility] Cardiology [address] [facility] [address] [place] [phone] Kim Roberson, RN Refill Request Social History [...] Office Visit [facility] Pulmonary [address] [facility] [address] [place] [phone] Juan Morse MD [address] [place] [address] 1yr fu/ SOB/ pft prior/ late mornings 07/11/2025 11:00 AM EDT Office Visit [facility] Cardiology [address] [facility] [address] [place] [address] Jose Angel Starkey MD [address] [place] [address] 1 yr documented as of this encounter Visit Diagnoses Not on filedocumented in this encounter Additional Health Concerns Infection Onset Date Last Indicated Resolved Time COVID-19 Rule-Out 06/08/2020 06/08/2020 06/08/2020 7:17 PM EDT documented as of this encounter Care Teams Machine Shop Inspector Relationship Specialty Start Date End Date Marija King DO PCP - General Family Medicine 08/23/17 05/11/21 Cathleen Palmer MD [address] [address] PCP - General Family Medicine 09/28/22 documented as of this encounter
[2024-11-15 09:49] VITALS: BMI 28.7
== END 2024-11-15 10:04 | disposition home or self-care (01) ==
LOC: HO.HBS 08:46
PROVIDERS: PCP Family Medicine; Visit Provider Surgery
DX: E66.812 Obesity, class 2 (principal); E66.01 Morbid (severe) obesity due to excess calories; Z68.36 Body mass index [BMI] 36.0-36.9, adult
CPT/HCPCS: 99214

== ENCOUNTER 2024-11-28 05:51 | Day surgery (SDC) | payer BC, SELFPAY ==
--- OUTSIDE RECORDS SUMMARY | 2024-10-02 13:55 | XMS_ITS | Clinical Summary ---
Author Organization [facility] Address [address] [place] [address] Care Team Providers Care Asparagus Buncher Name Role Phone Cathleen Palmer MD Primary Care Provider [phone] Allergies Active Allergy Reactions Criticality Noted Date Comments Oxycodone Other 01/31/2023 Causes confusion Medications * This document contains information received from the source organization and may not represent a complete record from that organization. Nitroglycerin (NITROSTAT) 0.4 MG SL tabletIndications :Abnormal cardiovascular stress test,Atherosclero sis of coronary artery, angina presence unspecified, unspecified vessel or lesion type, unspecified whether [place] or transplanted heart,Paroxysmal atrial fibrillation (HCC),Hyperlipide elicia, [...] Type Department Care Team Description 09/06/2024 Refill [facility] Cardiology [address] [place] [phone] Jayesh Starkey MD E-prescribing Refill Request 07/23/2024 Refill [facility] Cardiology [address] [facility] [address] [place] [address] Jayesh Starkey MD Refill Request 07/03/2024 3:00 PM EDT Office Visit [facility] Cardiology [address] [facility] [address] [place] [address] Jayesh Starkey MD Paroxysmal atrial fibrillation (HCC) (Primary Dx); Coronary artery disease, unspecified vessel or lesion type, unspecified whether angina present, unspecified whether [place] or transplanted heart; RBBB (right bundle branch [...] Upcoming Encounters Date Type Department Care Team ([facility] st Contact Info) Description 12/31/2024 10:30 AM EDT Office Visit [facility] Pulmonary [address] [facility] [address] [place] [address] Juan Morse MD [address] [place] [address] 1yr fu/ SOB/ pft prior/ late mornings 07/11/2025 11:00 AM EDT Office Visit [facility] Cardiology [address] [facility] [address] [place] [address] Jayesh Starkey MD [address] [place] [address] 1 yr Health Maintenance Due Date Last [...] Zoster (Zostavax) Discontinued Procedures * Due to [place] state law, this organization might not be [...] type, unspecified whether angina present, unspecified whether [place] or transplanted heart HEP C ANTIBODY (EIA-2) Routine 08/01/2003 4:44 PM EDT from Last 3 Months or Most Recently Relevant to Health Maintenance Results * Due to [place] state law, this organization might not be [...] Abnormal ECG Confirmed by JAYESH STARKEY (132), video editor KAREN MULTANI ([id number]) on 06/29/2023 7:33:59 [...] LDL-C. Oliver SAM et al. BEAR. 2013;310(19): 1821-0546 (http://education.GILUPI.com/faq/HPH987) CHOL/HDL Ratio 2.8 <5.0 (calc) [facility] Cholesterol Non-HDL 85 <130 mg/dL (calc) [facility] Comment: For patients with diabetes plus 1 major ASCVD risk factor, treating to a non-HDL-C goal of <100 mg/dL (LDL-C of <70 mg/dL) is considered a therapeutic option. 07/20/2020 12:0 5 PM EDT 07/20/2020 9:33 PM EDT Narrative Resulting Agency Comment [id number] us Zhane Dorantes TRANSACTIONAL ATTORNEY LABORATORY Final Res ult [facility] [address] [place] [address] * HEP C ANTIBODY (EIA-2) (08/01/2003 4:44 PM EDT) HEPATITIS C AB NEGATIVE [facility] (CLIA# [id number]) 08/01/2003 4:44 PM EDT 08/01/2003 4:44 PM EDT Narrative [facility] (CLIA# [id number]) - 08/01/2003 4:44 PM EDT Ordered by UNKNOWN PROVIDER SST tube received unspun us Unknown Provider LABORATORY Final Result [facility] (CLIA# [id number]) [address] [place] [address] from Last 3 Months or Most Recently Relevant to Health Maintenance Insurance BCBS FEE FOR SERVICE PPO * Guarantor: [employer] Account Type Relation to Patient Date of Phone Billing Address [facility] [place] [place] Corporate [address] [place] [address] Care Teams Asparagus Buncher Relationship Specialty Start Date End Date Cathleen Palmer MD [address] [address] PCP - General Family Medicine 09/28/22
--- OUTSIDE RECORDS SUMMARY | 2024-10-02 13:56 | XMS_ITS | Patient Health Record ---
Author Organization [facility] Address [address] [place] [address] Care Team Providers Care Wiping Rag Washer Name Role Phone Hi Gabe Primary Care Provider Volodymyr Bush Unavailable [phone] Reason For Referral No Information Medications Medication [...] Problem Status W/U Status Risk Notes Problem [id number] Barotitis, initial encounter (T70.0XXA) Active confirmed Problem [id number] Right acute serous otitis media, recurrence not specified (H65.01) Active confirmed Plan Of Treatment No Information Insurance Providers Payer Name Payer Address Payer Phone Subscriber Number Group Number Insured Name Patient Relationship to Insured Coverage Start Date Coverage End Date [facility] [address] CHRISTIAN Grimes [id number] Santos Hawkins Self - patient is the insured Medical (General) History Medical History History ICD Code coronary artery disease Surgical History Surgery Date(Month/Year) tonsillectomy [place] Teeth adenoidectomy rotator cuff tear repair
--- OUTSIDE RECORDS SUMMARY | 2024-10-02 13:56 | XMS_ITS | Clinical Summary ---
Author Organization [facility] Address [address] [place] [address] Care Team Providers Care Sales Force Administrator Name Role Phone Marija King DO Primary Care Provider [phone] Allergies No known active allergies Medications aspirin [...] Health Evelyn ual Screening 03/20/2024 Influenza Vaccine (#1) 2024 03/01/2020 Hepatitis B Vaccines Completed 02/05/2004, 08/05/2003, 12/03/1999 Procedures * Due to [place] [employer] law, this organization might not be sharing negative HIV tests. Procedure Name Priority Date/Time Associated Diagnosis Comments BASIC METABOLIC PANEL Routine 12/05/2014 9:09 AM EDT from Last 3 Months or Most Recently Relevant to Health Maintenance Results * Due to [place] [employer] law, this organization might not be sharing negative HIV tests. * (ABNORMAL) Basic Metabolic Panel (12/05/2014 9:09 AM EDT) Sodium Blood 139 135 - 145 mmol/L [facility] Potassium Blood 4.9 3.5 - 5.3 mmol/L [facility] Chloride Blood 104 97 - 110 mmol/L [facility] Carbon Dioxide 27 24 - 32 mmol/L [facility] Gap 8 5 - 15 [facility] Glucose 102(H) 70 - 99 mg/dL [facility] BUN 9 7 - 23 mg/dL [facility] Creatinine 1.02 0.60 - 1.30 mg/dL [facility] eGFR Non- >60 >60 [facility] Comment: Units = [...] Blood 9.1 8.7 - 10.7 mg/dL [facility] 12/05/2014 9:09 AM EDT 12/05/2014 9:41 AM EDT us Mitesh Gillespie MD LAB BLOOD ORDERABLES Final Res ult [facility] [address] [place] [address], [place] from Last 3 Months or Most Recently Relevant to Health Maintenance Insurance [employer] PPO/EPO/IND Advance Directives * Full Code (Latest Code Status on File) Date Activated Date Inactivated Comments 06/09/2020 1:31 PM 06/09/2020 7:11 PM * Full Code Date Activated Date Inactivated Comments 06/09/2020 11:18 AM 06/09/2020 1:31 PM Care Teams Sales Force Administrator Relationship Specialty Start Date End Date Marija King DO [address] [place] [id number] PCP - General 06/03/20
--- OUTSIDE RECORDS SUMMARY | 2024-10-02 13:56 | XMS_ITS | Clinical Summary ---
Author Organization [facility] it Address [address] [place] [address] Care Team Providers Care Charge Authorizer Name Role Phone Unavailable Primary Care Provider [...] - 1-dose 75+ series) 2024 Influenza Vaccine (#1) 2024 HIB Vaccines Aged Out No longer [...]
[2024-11-14 10:49] VITALS: BMI 28.7
--- NOTE | 2024-11-15 13:50 | HO.ANESPROP2 ---
Documented by User: Aviva Oliva NP 11/26/24 12:18 HPI - Anesthesia Eval Consult details Narrative: 74yo M for Gastrectomy Sleeve,EGD,possible Diaphragmatic Hernia,possible Ventral Hernia,possible Open, 11/28/24 Follows Cardiology group in [place] for SVT, PAF (xarelto - artixtra bridge), nonobstructive CAD by cath 2020, RBBB/LAFB, htn. Stable at 06/2024 office visit for 1 year f/u without any futher testing or change to regimen. [facility] Active Problems Active Problems: All Active Problems Vitamin B1 deficiency (Acute) Abnormal EKG (Acute) Bronchitis (Acute) Asthma (Acute) Seizure (Acute) Hyperlipidemia (Acute) Sleep apnea with use of continuous positive airway pressure (CPAP) (Acute) GERD (gastroesophageal reflux disease) (Acute) CAD (coronary artery disease) (Acute) Hypertension (Acute) BMI 36.0-36.9,adult (Acute) Obesity (Acute) Past Medical History Medical History (Updated 11/14/24 @ 10:52 by Margie Pablo RN) LUIZA (obstructive sleep apnea) Bronchiectasis Mild cognitive impairment H/O coronary angiogram Hx of sinus bradycardia Hx of atrial tachycardia Heart palpitations Bronchitis Asthma Seizure Hyperlipidemia GERD (gastroesophageal reflux disease) CAD (coronary artery disease) Hypertension BMI 36.0-36.9,adult Obesity Family History Family history of problems with anesthesia: No Surgical History Surgical History (Updated 11/13/24 @ 08:55 by Margie Pablo RN) History of esophagogastroduodenoscopy (EGD) History of cardiac cath H/O colonoscopy History of Problems with Anesthesia: No Social History Social History Are you a primary rn intensive care unit to a significant other at home: No Do you presently have visiting nurse or other home services: No Alcohol intake: current Alcohol intake frequency: holidays/special occasions only Alcohol type: beer Comment: a beer per every few months Patient Tobacco Use Status: Former Tobacco user Tobacco use type: Cigarette Years Smoked: 48 Use of substances other than those prescribed or required for medical reasons: No Have you been hit, kicked, punched, or otherwise hurt by someone within the past year? If so, by whom?: No Spiritual Healthcare Practices: no Taoist Healthcare Practices: no Cultural Healthcare Practices: no Are you DNR?: No Advance Directives: No (spouse is primary contact) Advance Directives on File: No Poor oral hygiene: No Meds Allergies Allergy/AdvReac Type Severity Reaction Status Date / Time No Known Allergies Allergy Verified 11/15/24 09:35 Home Medications ?Medication ?Instructions ?Recorded ?Confirmed ?Last Taken ?Type amlodipine 10 mg tablet 10 mg PO DAILY 07/01/24 11/28/24 11/28/24 History 5 mg divalproex 500 mg tablet,extended 1,000 mg PO BEDTIME 07/01/24 11/15/24 11/27/24 History release 24 hr famotidine 20 mg tablet (Pepcid) 20 mg PO DAILY 07/01/24 11/15/24 11/27/24 History fluticasone 250 mcg-salmeterol 50 1 inh inhalation BID 07/01/24 11/15/24 11/27/24 History mcg/dose blistr powdr for inhalation (Slimeela Inhub) isosorbide mononitrate 60 mg 60 mg PO DAILY 07/01/24 11/15/24 11/27/24 History tablet,extended release 24 hr lisinopril 10 mg tablet 5 mg PO DAILY 07/01/24 11/28/24 Unknown History mecobalamin (vitamin B12) 1,000 1,000 mcg PO DAILY 07/01/24 11/15/24 10/28/24 History mcg chewable tablet metoprolol succinate 50 mg 50 mg PO DAILY 07/01/24 11/15/24 11/28/24 History tablet,extended release 24 hr rivaroxaban 20 mg tablet (Xarelto) 20 mg PO DAILY 07/01/24 11/15/24 11/23/24 History simvastatin 40 mg tablet 40 mg PO BEDTIME 07/01/24 11/15/24 11/27/24 History folic acid 400 mcg tablet 0.4 mg PO DAILY 11/14/24 11/15/24 10/28/24 History ondansetron 4 mg disintegrating 4 mg PO Q12H PRN nausea and 11/28/24 11/28/24 Unknown History tablet vomiting pantoprazole 40 mg tablet,delayed 40 mg PO DAILY@0630 11/28/24 11/28/24 11/27/24 History release Exam Height,Weight and Vital Signs: Height 5 ft 10 in Weight 90.718 kg Pertinent Lab Results Pertinent Lab Results: Lab Results 11/19/24 11/19/24 Range/Units 11:04 11:12 WBC 5.6 (4.8-10.8) X10*3/uL RBC 4.56 L (4.60-5.80) X10*6/uL Hgb 13.8 L (14.0-18.0) g/dl Hct 40.0 L (42.0-52.0) % MCV 87.7 (80.0-98.0) fL MCH 30.3 (27.0-33.0) pg MCHC 34.5 (31.0-36.0) g/dl RDW 12.4 (11.0-16.0) % Plt Count 199 (160-400) X10*3/uL MPV 10.1 (9.4-12.4) fL Immature Gran % (Auto) 0.2 (0.0-0.4) % Neut % (Auto) 45.3 (45-73) % Lymph % (Auto) 35.7 (20-40) % Door % (Auto) 9.4 (2-11) % Eos % (Auto) 8.7 H (0-4) % Baso % (Auto) 0.7 (0-2) % Lymph # (Auto) 2.0 (1.2-4.9) X10*3/uL Door # (Auto) 0.5 (0.1-1.2) X10*3/uL Eos # (Auto) 0.5 H (0.0-0.4) X10*3/uL Baso # (Auto) 0.0 (0.0-0.2) X10*3/uL Abs Immat Gran (auto) 0.01 (0.00-0.03) X10*3/uL Absolute Neuts (auto) 2.6 (2.0-8.3) x10*3/uL Absolute Nucleated RBC 0.000 (0.0-0.012) X10*3/uL Nucleated RBC % (auto) 0.0 (0.0-0.2) /100WBC PT 14.1 H (10.9-12.4) SEC INR 1.2 H (0.9-1.1) APTT 37.8 H (26.7-34.1) SEC Sodium 143 (135-145) mmol/L Potassium 4.3 (3.3-5.1) mmol/L Chloride 105 (96-108) mmol/L Carbon Dioxide 29 (22-29) mmol/L Anion Gap 13 (12-20) BUN 30 H (9-16) mg/dL Creatinine 1.15 (0.5-1.4) mg/dL Estim Creat Clear Calc 62.8 Estimated GFR > 60 Random Glucose 89 (60-115) mg/dL Estimat Average Glucose 97 mg/dL Hemoglobin A1c % 5.0 (<6.0) % Insulin Level 5 (2-29) uU/mL Calcium 9.4 (8.4-10.2) mg/dL Total Bilirubin 1.0 (0.0-1.0) mg/dL AST 30 (5-37) U/L ALT 40 (0-40) U/L Alkaline Phosphatase 43 (39-117) U/L C-Reactive Protein < 0.10 (< or = 0.50) mg/dL Total Protein 7.0 (6.5-8.0) g/dL Albumin 4.7 (3.5-5.0) g/dL Triglycerides 68 (<150) mg/dL Cholesterol 119 (<200) mg/dL LDL Cholesterol, Calc 63 (<100) mg/dL HDL Cholesterol 43 (>40) mg/dL TSH 1.14 (0.32-4.0) uIU/mL Blood Type O Positive Antibody Screen NEGATIVE Narrative Narrative: EKG 07/2024 Vent. Rate : 61 BPM Atrial Rate : 61 BPM P-R Int : 186 ms QRS Dur : 154 ms QT Int : 448 ms P-R-T Axes : 57 -43 32 degrees QTcB Int : 450 ms Normal sinus rhythm Left axis deviation Right bundle branch block Abnormal ECG No previous ECGs available Stress ECHO 09/2024 Conclusion: There is no evidence of ischemia at achieved workload and HR. There is no increase in LA filling pressures or RVSP with exercise. Assessment and Plan Assessment Anesthesia Assessment: Chart Reviewed Final Anesthetic Review Family History of Problems with Anesthesia: No History of Problems with Anesthesia: No Documented by User: Adelina Lackey MD 11/28/24 08:09 [facility] Past Medical History Medical History (Updated 11/14/24 @ 10:52 by Margie Pablo, TATIANA) LUIZA (obstructive sleep apnea) Bronchiectasis Mild cognitive impairment H/O coronary angiogram Hx of sinus bradycardia Hx of atrial tachycardia Heart palpitations Bronchitis Asthma Seizure Hyperlipidemia GERD (gastroesophageal reflux disease) CAD (coronary artery disease) Hypertension BMI 36.0-36.9,adult Obesity Surgical History Surgical History (Updated 11/13/24 @ 08:55 by Margie Pablo RN) History of esophagogastroduodenoscopy (EGD) History of cardiac cath H/O colonoscopy Social History Social History Are you a primary rn intensive care unit to a significant other at home: No Do you presently have visiting nurse or other home services: No Alcohol intake: current Alcohol intake frequency: holidays/special occasions only Alcohol type: beer Comment: a beer per every few months Patient Tobacco Use Status: Former Tobacco user Tobacco use type: Cigarette Years Smoked: 48 Use of substances other than those prescribed or required for medical reasons: No Have you been hit, kicked, punched, or otherwise hurt by someone within the past year? If so, by whom?: No Spiritual Healthcare Practices: no Taoist Healthcare Practices: no Cultural Healthcare Practices: no Are you DNR?: No Advance Directives: No (spouse is primary contact) Advance Directives on File: No Poor oral hygiene: No Meds Allergies Allergy/AdvReac Type Severity Reaction Status Date / Time No Known Allergies Allergy Verified 11/15/24 09:35 Home Medications ?Medication ?Instructions ?Recorded ?Confirmed ?Last Taken ?Type amlodipine 10 mg tablet 10 mg PO DAILY 07/01/24 11/28/24 11/28/24 History 5 mg divalproex 500 mg tablet,extended 1,000 mg PO BEDTIME 07/01/24 11/15/24 11/27/24 History release 24 hr famotidine 20 mg tablet (Pepcid) 20 mg PO DAILY 07/01/24 11/15/24 11/27/24 History fluticasone 250 mcg-salmeterol 50 1 inh inhalation BID 07/01/24 11/15/24 11/27/24 History mcg/dose blistr powdr for inhalation (Wixela Inhub) isosorbide mononitrate 60 mg 60 mg PO DAILY 07/01/24 11/15/24 11/27/24 History tablet,extended release 24 hr lisinopril 10 mg tablet 5 mg PO DAILY 07/01/24 11/28/24 Unknown History mecobalamin (vitamin B12) 1,000 1,000 mcg PO DAILY 07/01/24 11/15/24 10/28/24 History mcg chewable tablet metoprolol succinate 50 mg 50 mg PO DAILY 07/01/24 11/15/24 11/28/24 History tablet,extended release 24 hr rivaroxaban 20 mg tablet (Xarelto) 20 mg PO DAILY 07/01/24 11/15/24 11/23/24 History simvastatin 40 mg tablet 40 mg PO BEDTIME 07/01/24 11/15/24 11/27/24 History folic acid 400 mcg tablet 0.4 mg PO DAILY 11/14/24 11/15/24 10/28/24 History ondansetron 4 mg disintegrating 4 mg PO Q12H PRN nausea and 11/28/24 11/28/24 Unknown History tablet vomiting pantoprazole 40 mg tablet,delayed 40 mg PO DAILY@0630 11/28/24 11/28/24 11/27/24 History release Exam Airway Mallampati Class: II (edentulous) TM Dist: >3cm Neck ROM: Full Denture: Upper Partial: Lower Loose/Missing/Broken Teeth: Yes, Upper and Lower Heart: RRR Lungs: CTA Assessment and Plan Assessment Anesthesia Assessment: Anesthesia Plan Discussed Final Anesthetic Review NPO: Yes ASA Class: III Final Preanesthetic Review: Meds/Allgs Chart Reviewed, Consent Obtained/Reviewed and Anes Risks/Benef Reviewed Patient Risk: Intermediate Procedure Risk: Intermediate Anesthetic Plan Anesthetic Plan: GA Disposition: Standard PACU
[2024-11-19 11:13] LABS: MANUAL DIFF FLAG NO
[2024-11-19 12:16] LABS: Hematocrit 40.0 % (42.0-52.0); Hemoglobin 13.8 g/dl (14.0-18.0); Imm Gran Abs Auto 0.01 X10*3/uL (0.00-0.03); Imm Gran Pct Auto 0.2 % (0.0-0.4); Lymphocytes Absolute Auto 2.0 X10*3/uL (1.2-4.9); Mean Corpuscular HGB Conc 34.5 g/dl (31.0-36.0); Mean Corpuscular Hemoglobin 30.3 pg (27.0-33.0); Mean Corpuscular Volume 87.7 fL (80.0-98.0); NRBC Abs Auto 0.000 X10*3/uL (0.0-0.012); NRBC Pct Auto 0.0 /100WBC (0.0-0.2); Platelet Count 199 X10*3/uL (160-400); Red Blood Count 4.56 X10*6/uL (4.60-5.80); White Blood Count 5.6 X10*3/uL (4.8-10.8)
[2024-11-19 12:20] LABS: INTERNATIONAL NORM RATIO 1.2 (0.9-1.1); Prothrombin Time 14.1 SEC (10.9-12.4)
[2024-11-19 12:22] LABS: Partial Thromboplastin Time 37.8 SEC (26.7-34.1)
[2024-11-19 13:05] LABS: Hemoglobin A1C 111.2286 umol/L; Total Hemoglobin (HGBA1C) 3623.8677 umol/L
[2024-11-19 13:31] LABS: Alanine Aminotransferase 40 U/L (0-40); Albumin Level 4.7 g/dL (3.5-5.0); Alkaline Phosphatase 43 U/L (39-117); Anion Gap 13 (12-20); Aspartate Amino Transferase 30 U/L (5-37); Blood Urea Nitrogen 30 mg/dL (9-16); Calcium 9.4 mg/dL (8.4-10.2); Carbon Dioxide 29 mmol/L (22-29); Chloride 105 mmol/L (96-108); Cholesterol 119 mg/dL (<200); Creatinine Clr Calc Pharmacy 62.8; Estimated Glomerular Filt Rate > 60; HDL Cholesterol 43 mg/dL (>40); Potassium 4.3 mmol/L (3.3-5.1); Sodium 143 mmol/L (135-145); Total Protein 7.0 g/dL (6.5-8.0); Triglycerides 68 mg/dL (<150)
[2024-11-28] VITALS (17 sets, daily range): BP systolic 128–162; BP diastolic 61–82; PULSE 56–68; RESP 14–18; TEMP 36.1–36.6; O2SAT 93–98; BMI 27.7
[2024-11-28] MEDS: Aprepitant 32 MG/4.4 ML VIAL IVPUSH (06:40)
[2024-11-28] MEDS: Lactated Ringers 1,000 ML 999 ML IV (06:40)
--- NOTE | 2024-11-28 07:33 | MHC.SHP ---
Pre-Procedural Eval Section A - 24 Hr Update-Section A only Date of Service: 11/28/24 The patient is an INPATIENT: Yes The patient has been examined within 24 hours of the surgical procedure. The History & Physical has been completed within 30 days and I have reviewed it.: Yes Section B - Complete if H&P > 30 days Chief Complaint: Obesity Relevant Family History (Specify if Yes): No Relevant Social History: None Present Medications: None Medical History: No relevant PMH History of Previous Operations: No relevant previous surgery Allergies: Allergies Allergy/AdvReac Type Severity Reaction Status Date / Time No Known Allergies Allergy Verified 11/15/24 09:35 Review of Systems Sugical H&P ROS: Negative: Constitution, Cardiovascular, Respiratory, Neurological, Psychiatric, Hem-Onc, Allergic/Immunologic, Gastrointestinal, Genitourinary, Musculoskeletal, Integumentary, Endocrine and Eyes/Ears/Nose/Throat Exam Surgical H&P Exam: Normal: HEENT, Normal: Heart, Normal: Lungs, Normal: Extremities, Normal: Abdomen, Normal: Skin and Normal: Neurological Plan Diagnosis/Plan: Unchanged I have reviewed the history and physical and performed a pertinent physical examination on my patient. No changes have occurred unless specified. Time Spent With Patient Time: Total time managing care of this patient today ____ minutes.
--- NOTE | 2024-11-28 07:33 | PM.OP ---
Brief Operative Note Date of Service: 11/28/24 Pre-op diagnosis: Obesity with comorbidities (see below) Post-op diagnosis: same (& congenital abdominal adhesions) Procedure: INITIAL PATIENT BMI ON PRESENTATION AT OUR OFFICE: 36.1 kg/m2 LAST BMI BEFORE SURGERY: 29.1 kg/m2 COMORBIDITIES: sleep apnea on CPAP, hyperlipidemia, GERD, asthma, epilepsy, hypertension, CAD, atrial fibrilation, liver steatosis ?The patient presented to the Weight Management Program with significant obesity that was negatively impacting the patient's comorbidities as listed above.? The program is a phased program with a special focus on preoperative medical weight management to promote substantial weight loss and prepare the patients for the second phase of the program: bariatric surgery. The patient participated in an intensive weekly lifestyle ?intervention and exercise program during which the patient ?has lost between the initial office visit and the last preoperative visit 51 lbs, or 20.25% of initial actual body weight. It was deemed appropriate for the patient to now have bariatric surgery. In light of the current Covid-19 pandemic and the well documented strong association of obesity and increased risk of worse outcomes if infected with Covid-19 (REFERENCES:https://pubmed.ncbi.nlm.nih.gov/68789466/,?https://pubmed.ncbi.nlm.nih.gov/67257902/), any delay in undergoing bariatric surgery may lead to the patient's worsening health condition and increased?risk of more severe Covid-19 disease if infected. In addition a recent?study from [facility] published in [facility] on 03/15/2021 ([email or web address]) found that, among patients with obesity, substantial weight loss achieved with surgery was associated with improved outcomes of COVID-19 infection. The findings suggest that obesity can be a modifiable risk factor for the severity of COVID-19 infection. In addition, the patient met the BMI-criteria for bariatric surgery based on the BMI on initial presentation. The patient should not be penalized for achieving such weight loss because ?it is not sustainable long-term without surgical intervention and it was achieved in preparation for bariatric surgery ?under my direction and based on my published research ([email or web address]).pdf and?https://www.soard.org/article/[email or web address](65)33828-X/pdf) ?that a 10% preoperative weight loss improves long-term weight loss after surgery and reduces perioperative complications.? Insurance carriers such as [facility] have endorsed my recommendations ?and have included in their policies criteria to include a 10% preoperative weight loss requirement. PROCEDURE: Esophago-gastroscopy, laparoscopic lysis of adhesions, laparoscopic sleeve gastrectomy and laparoscopic gastropexy INDICATIONS: This is a 74 year-old male who was electively scheduled for laparoscopic, possibly open sleeve gastrectomy. The risks and complications of the procedure were discussed with the patient in advance, particularly the possibility of ; pulmonary embolism; staple line leak; bleeding; GERD; cardiac, pulmonary, or renal complications; as well as long-term problems such as insufficient weight loss, vitamin deficiency, strictures, or ulcers. The patient understood all the risks, and was in agreement to proceed with surgery. DESCRIPTION OF PROCEDURE: After informed consent was obtained from the patient, the patient was given preoperative antibiotics, and was transferred to the operating room. After successful induction of general anesthesia, pneumatic compression devices were placed on both lower extremities. An upper endoscopy was performed next. The oropharynx and esophagus appeared to be within normal limits. There was a diaphragmatic hernia present of moderate size consistent with the findings of the preoperative upper GI. The stomach was entered. Then after all fluid and air were suctioned and the stomach was fully decompressed, the scope was withdrawn and secured in the mid esophagus. The patient was then prepped and draped in the usual sterile manner, and abdominal access was established at the right upper quadrant with the Luis Eduardo technique. A 12 mm blunt port was inserted, and the abdomen was insufflated with CO2 to a pressure of 15 mmHg. Under direct visualization, additional ports were placed, specifically two 5 mm Versi-step ports to the left upper quadrant, and a 5 mm Versi-Step port to the right upper quadrant. 1% lidocaine plain was used to infiltrate all port sites as well as all fascia defects. Following that, the patient was placed in a steep reverse Trendelenburg position. An additional 5 mm port was placed to the right flank for the Mediflex retractor that was used to retract the left lobe of the liver. The gastro-esophageal fat pad was opened with the ultrasonic device (Thunderbeat, Olympus) and the anterior esophagus and hiatus were exposed. The angle of His was opened with the ultrasonic device the fundus of the stomach from any diaphragmatic and splenic attachments. I then opened the gastrocolic ligament between the transverse colon and the greater curvature of the stomach with the ultrasonic device to enter the lesser sac and facilitate the ligation of the short gastric vessels. I started at a mid-point along the greater curvature and using the Thunderbeat, all short gastric vessels were divided all the way to the angle of His until the left aaliyah was completely dissected at its entirety. I then divided the gastro-colic ligament distally to a distance of about 3-4 cm proximal to the pylorus. There were extensive congenital adhesions between the pancreas and posterior gastric wall. Those were lysed completely with the ultrasonic device. Adhesiolysis took approximately 45 min to complete. The stomach was then divided transversely with three Endo ADELINE-45 purple and three ADELINE-60 articulating purple loads using the [employer] stapler and loads. Every effort was made that the gastric sleeve had a tubular shape and an even caliber throughout. Once the sleeve resection was completed, the staple line of the gastric sleeve was reinforced with Hemoclips. The resected stomach was retrieved without difficulty from the Luis Eduardo port. A gastropexy was then performed in order to prevent postoperative GERD and partial gastric volvulus. Several interrupted 2.0 Surgidac sutures were placed between the sleeve's staple line and the previously divided greater omentum and gastro-colic ligament using the Endo-Stitch device. ?An upper endoscopy was performed. There was no narrowing at the GE junction. The scope was easily advanced all the way to the pylorus which was clearly visualized. There was no narrowing anywhere and the sleeve's caliber was even throughout. The sleeve's staple line was inspected and there was no evidence of ischemia, bleeding or dehiscence. At that point the gastroscope was withdrawn from the patient?s mouth while we were decompressing the bowel and the stomach from any remaining air. I looked into the lesser sac to see how the sleeve was situating and it was situating well. There was no bleeding from the staple line, spleen, or short gastric vessels. The Mediflex retractor was removed, and the undersurface of the liver was inspected and there was no bleeding. The patient was placed in supine position. I closed the fascial defect of the 12 mm port site with a figure of eight #1 Polysorb suture. Then 30cc Ropivacaine plain with 10 mg of Dexamethasone were used to infiltrate the fascial closure as well as all skin incisions. At this point, the abdomen was deflated, all ports were removed under direct vision, and no bleeding was noted from any of the port sites. The skin incisions were irrigated with saline and were closed with 4-0 absorbable monofilament sutures. Steri-Strips and OpSites were used to cover all incisions. The patient was extubated and was transferred in stable condition to the recovery room for further care. I was present and performed all franco parts of the procedure. Ms. Pham was the ict sales assistant. There were no residents to assist with this case. Umer Gardner MD, PhD, FACS Surgeon: Ciro Gardner MD Anesthesia: GETA, local and other (TAP block) Was an Mold Yard Worker used for this Procedure?: No Mold Yard Worker: Malaika Pham Estimated blood loss (mL): 10 IV fluids (mL): 2,000 Urine output (mL): 0 (No Murguia to record output) Pathology: other (1) Stomach, 2) Gastro-esophageal fat pad) Condition: stable Disposition: PACU
--- NOTE | 2024-11-28 07:40 | PHA.MEDREC ---
Addendum entered by Mily Zarate [facility] 11/28/24 08:33: Reviewed by [facility]. Patient is normally on xarelto which was stopped on 11/23. Bridged with fondaparinux which was last taken yesterday morning. Unsure which med of the two will be continued post-op. Original Note: Pharmacy Consult ? Medication Reconciliation Pharmacy reviewed med rec done by nursing. Went to speak with pt and pt was with ; spoke with nurse who did med rec this AM and she stated the pt told her he takes his BP meds based on a chart from his provider and took 1/2 tab (5mg) of Amlodipine and 1 full tab (50mg) of Metoprolol this morning and pt said he took 1/2 tab (5mg) of his Lisinopril but doesn't remember when he took it last at this time. Claims matches rest of confirmed med rec.
--- NOTE | 2024-11-28 10:01 | PM.DS ---
DS: Providers Provider Date of Service: 11/29/24 Date of admission: 11/28/24 06:16 Date of discharge: 11/29/24 Primary care physician: Cathleen Palmer MD DS: Summary Hospital Course Hospital Course: ADMITTING DIAGNOSIS: obesity, asthma, seizure, GERD, LUIZA on CPAP, CAD, HTN DISCHARGE DIAGNOSIS: same, s/p laparoscopic sleeve gastrectomy and gastropexy PAST SURGICAL HISTORY:? History of esophagogastroduodenoscopy (EGD) History of cardiac cath H/O colonoscopy PROCEDURE: upper endoscopy, laparoscopic sleeve gastrectomy and gastropexy DISCHARGE SUMMARY: History of Present Illness: The patient is a?74 year-old man with a BMI of?27.7 kg/m2 and associated co-morbidities as described above. The patient had extensive work-up, lost?58.8 lbs preoperatively and was electively scheduled for laparoscopic, possible open sleeve gastrectomy and gastropexy. Risks and complications of the surgery were discussed with the patient in advance, particularly the possibility of , pulmonary embolism, anastomotic leak, bleeding, bowel injury, GERD, cardiac, renal or pulmonary complications. The patient understood all the risks and was in agreement with the surgical plan. Hospital Course: The patient underwent an uneventful laparoscopic sleeve gastrectomy with gastropexy on the day of admission. Postoperatively, the patient was transferred to the surgical floor. The patient received IV acetaminophen and IV Dilaudid for pain control. Patient was started on bariatric phase 1 diet POD #0. On postoperative day one, the patient was feeling well without nausea, vomiting, fevers, or tachycardia. The patient had some mild incisional pain and the abdomen was soft.? ? On the morning of postoperative day one, the patient was continued on 1 ounce of water or ice every half hour. During the day, the patient did fairly well, having some incisional pain, but able to ambulate adequately and to tolerate liquids well. Since the patient is doing well, we decided that the patient was ready to be discharged. The patient was given instructions to follow-up in office next week and to call the office for any fever over 101, persistent abdominal pain, nausea, vomiting, GERD, symptoms of DVT such as calf tenderness, or leg swelling, or pulmonary embolism such as chest pain or shortness of breath.? The patient was also instructed to drink 40-60 ounces of liquids per day using the 1-ounce cups. The patient had been given prescriptions for Tylenol for pain, Zofran prn for nausea, and pantoprazole and carafate previously. The patient was encouraged to ambulate and use the incentive spirometer. The patient was allowed to shower, but no baths, and encouraged to stay active at home. All of these instructions were given to the patient personally. All questions were answered and the patient understood all instructions, the instructions were also given to the patient in print. Time Attestation Discharge Coordination Time (in mins): 30 Quality: Safe Use of Opioids Does Pt have an Active Cancer Diagnosis on the Problem List?: No Quality: Stroke Does the patient have a stroke diagnosis?: No Physical Exam Vital Signs: Vital Signs: Last Vital Signs Temp 97.7 F 11/28/24 09:43 Pulse 59 11/28/24 09:55 Resp 18 11/28/24 09:55 BP 147/73 H 11/28/24 09:55 Pulse Ox 93 11/28/24 09:55 O2 Del Method Room Air 11/28/24 09:55 O2 Flow Rate 8 11/28/24 09:43 BMI result Body Mass Index 27.7 DS: Data Data Completed and Pending Pending studies at discharge: Pending at discharge 11/28/24 09:04 Surgical [PTH] Routine Discharge Plan Discharge Anticipated Discharge Date/Time: 11/28/24 09:57 Patient Disposition: Home, Self-Care Discharge Diagnosis: s/p laparoscopic sleeve gastrectomy with gastropexy Referrals: Cathleen Palmer MD [Primary Care Provider, Family Practice] - 1 Week Discharge Medications: Continued pantoprazole 40 mg tablet,delayed release (DR/EC) 40 mg PO DAILY@0630 ondansetron 4 mg tablet,disintegrating 4 mg PO Q12H PRN (Reason: nausea and vomiting) Rx Instructions: Only take one every 12 hours as needed if you have nausea sucralfate 100 mg/mL suspension 10 ml PO BID Qty: 600 2RF simvastatin 40 mg tablet 40 mg PO BEDTIME divalproex 500 mg tablet extended release 24 hr 1,000 mg PO BEDTIME fluticasone propion-salmeterol [Wixela Inhub] 250-50 mcg/dose blister with device 1 inh inhalation BID Held lisinopril 10 mg tablet 5 mg PO DAILY Hold Instructions: Resume on 11/29/24. Only resume according to parameters given by Dr. Gardner Xarelto 20 mg tablet 20 mg PO DAILY Hold Instructions: Resume on 11/29/24. Only resume when instructed to do so by Dr. Gardner amlodipine 10 mg tablet 10 mg PO DAILY Hold Instructions: Resume on 11/29/24. Only resume according to parameters given by Dr. Gardner metoprolol succinate 50 mg tablet extended release 24 hr 50 mg PO DAILY Hold Instructions: Resume on 11/29/24. Only resume according to parameters given by Dr. Gardner isosorbide mononitrate 60 mg tablet extended release 24 hr 60 mg PO DAILY Hold Instructions: Resume on 11/29/24. Only resume according to parameters given by Dr. Gardner Discontinued thiamine HCl (vitamin B1) 100 mg tablet 100 mg PO DAILY Qty: 90 0RF folic acid 400 mcg tablet 0.4 mg PO DAILY polyethylene glycol 3350 17 gram/dose powder 17 g PO DAILY Qty: 238 0RF Rx Instructions: Mix each measuring cup with 8oz of water, Crystal light, or Gatorade zero, or Propel and do 7 measuring cups on 11/26/24 and another 7 measuring cups on 11/27/24 fondaparinux 2.5 mg/0.5 mL syringe 2.5 mg subcut Q24H Qty: 5 0RF famotidine [Pepcid] 20 mg tablet 20 mg PO DAILY mecobalamin (vitamin B12) 1,000 mcg tablet,chewable 1,000 mcg PO DAILY Patient Comments: Tablet Discharge Orders: Discharge Order (Routine); Ordered 11/29/24 Ordered By: Malaika Pham Activity on Discharge: No heavy lifting Stand Alone Forms: Patient Portal Discharge page Print Language: Martiniquais Care Plan Goals: weight loss Health Concerns: obesity Plan of Treatment: No tub baths, sex or returning to work until discussed at first post op appointment. No alcohol, tobacco or illegal drug use. Continue to use incentive spirometer hourly while awake. Walk in home for 5- 10 minutes every 2 hours during the first week. Wear abdominal binder with activity. Follow all meal plan instructions from your bariatric surgeon. Review bariatric handbook and call with any questions. Discharge Instructions 1. Please call your doctor or come back to the emergency room should any new symptoms arise. 2. Activity: abstain from alcohol,? limited stair climbing, no bending, no driving, no exercise, no illicit substances, no lifting, no sex, no tub bath, no work. 4. Diet: follow your bariatric surgeon's recommendations for advancing diet. 5. Dressing Change/Wound Care: Your incisions are covered with waterproof dressings. You can shower with these and pat dry. Do not rub over dressings or incisions. If the area is tender, you may apply an ice pack for short intervals (no more than 20 minutes on, followed by at least 20 minutes off). Do not apply heat. Do not use creams, lotions, or topical antibiotics unless instructed to do so by your surgeon. 6. Call your doctor if: - Your temperature exceeds 101.5 F - You experience excessive pain or swelling - You have an unexpected reaction to medication - You have excessive bleeding - You experience continued vomiting/nausea - Your incision begins to separate - Your incision shows signs of infection such as increased redness, swelling, excessive pain, heat, or drainage (light blood or clear fluid is normal) General instructions: No lifting greater than 10 lbs for the next 6 weeks. No driving within 24 hours of taking narcotic pain medications. If you do not move your bowels in the next 2 days, please take milk of magnesia over the counter. Please follow the post op diet and do not advance your diet until instructed by your surgeon or until you are seen in the office in about 1 week. Please walk around your home every hour or two to prevent blood clots from forming in your legs. You do not need to wake from sleeping to walk. Please sleep in a bed or couch to prevent kinking at the hips and knees. Please take your incentive spirometer (your lung e commerce merchandising coordinator) home with you and use it for the next few days to prevent pneumonias. You may shower; no hot tubs, baths or swimming pools. Please make sure you are consuming 40-60 ounces of total fluids per day. Avoid all carbonation. Please call the office with any questions or concerns such as increasing abdominal pain, fever, chills, shortness of breath, chest pain, leg pain or swelling, or redness or drainage from your incisions. Do not hesitate to contact the office with any questions at . The patient's medical history has been reviewed and they are considered low risk for post op DVT and therefore DVT prophylaxis is not considered necessary. Travel after surgery was reviewed. The patient has not disclosed any travel plans during the first 30 days after surgery and they have been advised that within the first 30 days after surgery any bus, plane, train or car travel over 2 hours in duration is contraindicated due to the possibility of developing blood clots from immobility. Any travel, needs to include periods of ambulation of 10 minutes in duration every 2 hours.? The patient was instructed to discuss any plans for travel during this period with their bariatric surgeon. Assessment: s/p laparoscopic sleeve gastrectomy with gastropexy
[2024-11-28 12:14] LABS: Hematocrit 42.2 % (42.0-52.0); Hemoglobin 14.6 g/dl (14.0-18.0)
[2024-11-28 12:31] LABS: Anion Gap 14 (12-20); Blood Urea Nitrogen 17 mg/dL (9-16); Calcium 9.5 mg/dL (8.4-10.2); Carbon Dioxide 28 mmol/L (22-29); Chloride 101 mmol/L (96-108); Creatinine Clr Calc Pharmacy 57.8; Estimated Glomerular Filt Rate > 60; Potassium 5.1 mmol/L (3.3-5.1); Sodium 138 mmol/L (135-145)
[2024-11-28] MEDS: Lactated Ringers 1,000 ML 100 ML IVCONT ×2 (12:42→22:16)
[2024-11-28] MEDS: 0.9 % Sodium Chloride Flush 3 ML SYRINGE IVFLUSH (20:38)
[2024-11-28] MEDS: Fluticasone/Vilanterol 100/25 BLST.W.DEV 1 PUFF INHALE (20:42)
--- NOTE | 2024-11-29 | ECG_ITS ---
Test Reason : chest pain Blood Pressure : */* mmHG Vent. Rate : 63 BPM Atrial Rate : 63 BPM P-R Int : 192 ms QRS Dur : 158 ms QT Int : 456 ms P-R-T Axes : 61 -46 -9 degrees QTcB Int : 466 ms Normal sinus rhythm Right bundle branch block Left anterior fascicular block Bifascicular block Abnormal ECG When compared with ECG of 29-Jul-2024 09:17, Inverted T waves have replaced nonspecific T wave abnormality in Inferior leads Referred By: Malaika Pham Electronically Signed By: PAULINO RAZA MD
[2024-11-29 03:42] VITALS: BP 148/71; PULSE 72; RESP 18; TEMP 36.8; O2SAT 94
[2024-11-29 06:28] LABS: MANUAL DIFF FLAG NO
[2024-11-29 06:32] LABS: Hematocrit 39.1 % (42.0-52.0); Hemoglobin 14.1 g/dl (14.0-18.0); Imm Gran Abs Auto 0.03 X10*3/uL (0.00-0.03); Imm Gran Pct Auto 0.3 % (0.0-0.4); Lymphocytes Absolute Auto 1.2 X10*3/uL (1.2-4.9); Mean Corpuscular HGB Conc 36.1 g/dl (31.0-36.0); Mean Corpuscular Hemoglobin 30.3 pg (27.0-33.0); Mean Corpuscular Volume 83.9 fL (80.0-98.0); NRBC Abs Auto 0.000 X10*3/uL (0.0-0.012); NRBC Pct Auto 0.0 /100WBC (0.0-0.2); Platelet Count 220 X10*3/uL (160-400); Red Blood Count 4.66 X10*6/uL (4.60-5.80); White Blood Count 9.0 X10*3/uL (4.8-10.8)
[2024-11-29 06:47] LABS: Anion Gap 14 (12-20); Blood Urea Nitrogen 21 mg/dL (9-16); Calcium 8.6 mg/dL (8.4-10.2); Carbon Dioxide 24 mmol/L (22-29); Chloride 102 mmol/L (96-108); Creatinine Clr Calc Pharmacy 67.2; Estimated Glomerular Filt Rate > 60; Potassium 4.3 mmol/L (3.3-5.1); Sodium 136 mmol/L (135-145)
[2024-11-29 07:18] VITALS: BP 152/70; PULSE 61; RESP 16; TEMP 36.3; O2SAT 96
[2024-11-29] MEDS: Fluticasone/Vilanterol 100/25 BLST.W.DEV 1 PUFF INHALE (08:24)
[2024-11-29 08:27] VITALS: PULSE 61; RESP 14
[2024-11-29] MEDS: Lactated Ringers 1,000 ML 100 ML IVCONT (09:32)
[2024-11-29 11:06] VITALS: BP 157/69; PULSE 61; RESP 16; TEMP 36.6; O2SAT 96
--- NOTE | 2024-11-29 12:06 | PM.PNGS ---
Subjective Subjective Date of Service: 11/29/24 Interval history: Pt feels well this morning. Reports a gas bubble discomfort substernally. No episodes of afib reported overnight. Tolerating bariatric stage 1 diet without nausea. Ambulated, voided. Physical Exam Vital Signs: Vital Signs: Last Vital Signs Temp 97.8 F 11/29/24 11:06 Pulse 61 11/29/24 11:06 Resp 16 11/29/24 11:06 BP 157/69 H 11/29/24 11:06 Pulse Ox 96 11/29/24 11:06 O2 Del Method Room Air 11/29/24 11:06 O2 Flow Rate 2 11/28/24 11:20 BMI result Body Mass Index 27.7 Const: General: cooperative, comfortable and no acute distress Orientation/consciousness: patient oriented x3 GI: Other: soft, appropriately tender, nondistended, dressings c/d/i Neuro: General: patient oriented x3 Objective Data Labs 11/29/24 06:08 11/29/24 06:08 Labs: Laboratory Results - last 24 hr 11/28/24 11/29/24 11:51 06:08 MCV 83.9 MCH 30.3 MCHC 36.1 H RDW 12.3 Plt Count 220 MPV 9.9 Immature Gran % (Auto) 0.3 Neut % (Auto) 79.6 H Lymph % (Auto) 12.7 L [place] % (Auto) 7.3 Eos % (Auto) 0.0 Baso % (Auto) 0.1 Lymph # (Auto) 1.2 [place] # (Auto) 0.7 Eos # (Auto) 0.0 Baso # (Auto) 0.0 Abs Immat Gran (auto) 0.03 Absolute Neuts (auto) 7.2 Absolute Nucleated RBC 0.000 Nucleated RBC % (auto) 0.0 Anion Gap 14 14 Estim Creat Clear Calc 57.8 67.2 Estimated GFR > 60 > 60 Random Glucose 116 H 116 H Calcium 9.5 8.6 D Procedures Date of Service Date of Service: 11/29/24 Progress Note: A&P Assessment and plan (1) S/P laparoscopic sleeve gastrectomy: Status: Acute (2) Obesity: Status: Acute Plan s/p laparoscopic sleeve gastrectomy with gastropexy, POD1 Doing well. Will order EKG to rule out cardiac chest pain. Likely gas pain related to insufflation from laparoscopic surgery. Labs reviewed. Pt received instructions from Dr Gardner as well as instructions on home meds and indicates understanding. Discharge today. Time Spent With Patient Time: Total time managing care of this patient today ____ minutes. Quality Stroke Does the patient have a stroke diagnosis?: No VTE Prior VTE?: No VTE Risk Level:: Surgical - low VTE Device Contraindication: N/A - Device Ordered VTE Drug Contraindication: Treatment Not Indicated
== END 2024-11-29 11:11 | disposition home or self-care (01) ==
LOC: HO.SSS 05:52 → HO.SSSA 09:57 → HO.S3 11-29 10:19
PROVIDERS: Physician Assistant Surgical; PCP Family Medicine; Visit Provider Surgery
PROC: (CPT 43845; principal; 2024-11-28 07:30)
DX: E66.01 Morbid (severe) obesity due to excess calories (principal); Z68.36 Body mass index [BMI] 36.0-36.9, adult; K21.9 Gastro-esophageal reflux disease without esophagitis; Q43.3 Congenital malformations of intestinal fixation; K76.0 Fatty (change of) liver, not elsewhere classified; I25.10 Atherosclerotic heart disease of native coronary artery without angina pectoris; I10 Essential (primary) hypertension; I48.91 Unspecified atrial fibrillation; E78.5 Hyperlipidemia, unspecified; G40.909 Epilepsy, unspecified, not intractable, without status epilepticus; J44.9 Chronic obstructive pulmonary disease, unspecified; G47.33 Obstructive sleep apnea (adult) (pediatric); G31.84 Mild cognitive impairment of uncertain or unknown etiology; Z79.01 Long term (current) use of anticoagulants; Z79.51 Long term (current) use of inhaled steroids; Z79.899 Other long term (current) drug therapy; Z98.84 Bariatric surgery status; Z99.89 Dependence on other enabling machines and devices; Z87.891 Personal history of nicotine dependence
CPT/HCPCS: 43775; 43659; 36415; 80048; 80053; 80061; 83036; 83525; 84443; 85014; 85018; 85025; 85610; 85730; 86140; 86850; 86900; 86901; 88304; 88305; 88307; 88342; 93005; A4649; C9145; J0131; J0690; J1100; J1171; J1308; J2003; J2405; J2704; J2795; J3010; J7120

== ENCOUNTER → 2024-11-28 06:16 | Outpatient (BNV) | payer BC, SELFPAY | PROVIDERS: Admitting Provider Surgery; PCP Family Medicine; Visit Provider Surgery | DX: E66.3 Overweight (principal); Z68.29 Body mass index [BMI] 29.0-29.9, adult | CPT/HCPCS: 43659; 43775 ==

== ENCOUNTER → 2024-11-29 09:46 | Outpatient (BNV) | payer BC, SELFPAY | PROVIDERS: PCP Family Medicine; Visit Provider Internal Medicine Cardiovascular Disease | DX: I45.2 Bifascicular block (principal) | CPT/HCPCS: 93010 ==

== ENCOUNTER 2024-12-04 14:39 | Outpatient (AMB) | payer BC, SELFPAY ==
--- NOTE | 2024-12-04 14:47 | A.OFFVIS_ITS ---
VS Expanded 12/04/24 14:58 BP 140/67 H Blood Pressure Location Rt brachial Blood Pressure Position Sitting Pulse 58 Pulse Source Pulse Oximeter Temp 97.0 F Temperature Source Temporal Artery Scan Pulse Oximetry 98 Oxygen Delivery Method Room Air Height 5 ft 10 in Weight 190 lb 6.4 oz BMI 27.3 Body Fat % 20.8 Body Fat Mass 39.6 Fat Free Mass 150.6 Visceral Fat Rating 11.0 Body Water % 56.2 Body Water Mass 107.0 Muscle Mass/Score 143.0 Basal Metabolic Rate/Score 1,973 Intake Visit Reasons: (OV) PO LSG 11/28/24 Allergies No Known Allergies Allergy (Verified 12/04/24 14:50) Medication List - Last Reconciled 12/04/24 by ELOISE Jacques amlodipine 10 mg PO DAILY Held on 11/29/24. Instructions: Resume on 11/29/24. Only resume according to parameters given by Dr. Gardner divalproex ER 1,000 mg PO BEDTIME fluticasone propion-salmeterol 250-50 mcg/dose (Wixela Inhub) 1 inh inhalation BID isosorbide mononitrate ER 60 mg PO DAILY Held on 11/29/24. Instructions: Resume on 11/29/24. Only resume according to parameters given by Dr. Gardner lisinopril 5 mg PO DAILY Held on 11/29/24. Instructions: Resume on 11/29/24. Only resume according to parameters given by Dr. Gardner metoprolol succinate ER 50 mg PO DAILY Held on 11/29/24. Instructions: Resume on 11/29/24. Only resume according to parameters given by Dr. Gardner ondansetron 4 mg PO Q12H PRN pantoprazole 40 mg PO DAILY@0630 rivaroxaban (Xarelto) 20 mg PO DAILY Held on 11/29/24. Instructions: Resume on 11/29/24. Only resume when instructed to do so by Dr. Gardner simvastatin 40 mg PO BEDTIME sucralfate 10 mL PO BID HPI Comments Details: Pt is s/p 6d LSG 11/28/2024. No pain. No nausea. Tolerating 3 Premier shakes, mixed in almond milk. Hydration is adequate. He is dosing his antihypertensive meds according to parameters provided by Dr. Triana- has been taking metoprolol. Xarelto on hold. [facility] Medical History (Updated 12/04/24 @ 15:08 by ELOISE Jacques) LUIZA (obstructive sleep apnea) Bronchiectasis Mild cognitive impairment H/O coronary angiogram Hx of sinus bradycardia Hx of atrial tachycardia Heart palpitations Bronchitis Asthma Seizure Hyperlipidemia GERD (gastroesophageal reflux disease) CAD (coronary artery disease) Hypertension BMI 36.0-36.9,adult Obesity Surgical History (Updated 12/04/24 @ 14:51 by Beronica Garcia CMA) S/P gastric sleeve procedure History of esophagogastroduodenoscopy (EGD) History of cardiac cath H/O colonoscopy Social History (Updated 12/04/24 @ 14:51 by Beronica Garcia CMA) Household Members: Family Housing: Apartment Are you a primary attending ambulatory care to a significant other at home: No Do you presently have visiting nurse or other home services: No Alcohol intake: former Comment: a beer per every few months Patient Tobacco Use Status: Former Tobacco user Tobacco use type: Cigarette Years Smoked: 48 Physical Exam Vital Signs: Last Vital Signs Temp 97.0 F 12/04/24 14:58 Pulse 58 12/04/24 14:58 BP 140/67 H 12/04/24 14:58 Pulse Ox 98 12/04/24 14:58 Oxygen Delivery Method Room Air 12/04/24 14:58 BMI result Body Mass Index 27.3 Const General: cooperative, comfortable and no acute distress Orientation/consciousness: patient oriented x3 GI Other: soft, appropriately tender at incisions, nondistended, steri-strips c/d/i Neuro General: patient oriented x3 Assessment & Plan Assessment & Plan (1) S/P laparoscopic sleeve gastrectomy: Code(s): Z98.84 - Bariatric surgery status Category: Surgical (2) Overweight: Code(s): E66.3 - Overweight Category: Medical Plan May shower tomorrow but no bath or submersion of abdomen in water. May start exercise tomorrow.? No abdominal exercises x 6 weeks. Abdominal binder for the next 2 weeks with activity or exercise. Continue meal plan per Dr Triana until next f/u in 5 weeks. Reviewed pantoprazole and carafate dosing. Reminded of the pace of drinking 2 mL/min or 1oz per 15 min. Will be emailed link for post op video for review.
[2024-12-04 14:58] VITALS: BP 140/67; PULSE 58; TEMP 36.1; O2SAT 98; BMI 27.3
--- OUTSIDE RECORDS SUMMARY | 2024-12-04 18:17 | XMS_ITS | Encounter Summary ---
Author Organization [facility] Address [address] [place] [address] Care Team Providers Care Poultryman Name Role Phone Cathleen Palmer MD Primary Care Provider [phone] Reason for Visit * Reason Comments E-prescribing Refill Request Encounter Details Date Type Department Care Team ([facility] Contact Info) Description 10/08/2024 Refill [facility] Pulmonary [address] [address] Juan Morse MD [address] [place] [address] E-prescribing Refill Request Social History Tobacco Use [...] Visit History Last Visit: Date: 12/05/2023 Department: [facility] PULMONARY Provider: JUAN MORSE Visit Type: Office Visit Next Scheduled Visit: Date: 12/31/2024 Department: [facility] PULMON[facility] Provider: JUAN MORSE Visit Type: Office Visit Patient's Preferred Pharmacy: [facility]/pharmacy #[id number] [place] [address] [address] [facility] [address] [facility]/pharmacy #[id number] [facility] [address] [id number] [address] [facility] [address] [facility] [address] [facility]/pharmacy #[id number] [address] [facility] [address] [facility] [address] (Medication refill pended for provider to review and send to selected pharmacy) documented in this encounter Plan of Treatment Upcoming Encounters Date Type Department Care Team (Late st Contact Info) Description 12/31/2024 10:30 AM EDT Office Visit [facility] Pul[facility] [address] [facility] [address] [place] [address] Juan Morse MD [address] [place] [address] 1yr fu/ SOB/ pft prior/ late mornings 07/11/2025 11:00 AM EDT Office Visit [facility] Cardiology [address] [facility] [address] [place] [address] Jose Angel Starkey MD [address] [place] [address] 1 yr documented as of this encounter Visit Diagnoses Diagnosis Bronchiectasis without complication (HCC) Bronchiectasis without acute exacerbation documented in this encounter Care Teams Poultryman Relationship Specialty Start Date End Date Cathleen Palmer MD [address] [address] PCP - General Family Medicine 09/28/22 documented as of this encounter
--- OUTSIDE RECORDS SUMMARY | 2024-12-04 18:17 | XMS_ITS | Encounter Summary ---
Author Organization [facility] Address [address] [place] [address] Care Team Providers Care Utility Worker [place] Name Role Phone Christine Marija Lovely VARGAS Primary Care Provider [phone] Cathleen Palmer MD Primary Care Provider [phone] Reason for Visit * Reason Comments E-prescribing Refill Request Encounter Details Date Type Department Care Team ([facility] Contact Info) Description 06/10/2019 Refill [facility] Cardiology [address] [facility] [address] [place] [address] Jose Angel Starkey MD [address] [place] [address] E-prescribing Refill Request Social History Tobacco Use [...] Upcoming Encounters Date Type Department Care Team ([facility] Contact Info) Description 12/31/2024 10:30 AM EDT Office Visit [facility] Pulmonary [address] [facility] [address] [place] [address] Juan Morse MD [address] [place] [address] 1yr fu/ SOB/ pft prior/ late mornings 07/11/2025 11:00 AM EDT Office Visit [facility] Cardiology [address] [facility] [address] [place] [address] Jose Angel Starkey MD [address] [place] [address] 1 yr documented as of this encounter Visit Diagnoses Diagnosis Paroxysmal atrial fibrillation (HCC) Atrial fibrillation documented in this encounter Additional Health Concerns Infection Onset Date Last Indicated Resolved Time COVID-19 Rule-Out 06/08/2020 06/08/2020 06/08/2020 7:17 PM EDT documented as of this encounter Care Teams Utility Worker [employer] [place] Relationship Specialty Start Date End Date Marija King DO PCP - General Family Medicine 08/23/17 05/11/21 Cathleen Palmer MD [address] [address] PCP - General Family Medicine 09/28/22 documented as of this encounter
--- OUTSIDE RECORDS SUMMARY | 2024-12-04 18:17 | XMS_ITS | Encounter Summary ---
Author Organization [facility] Address [address] [place] [address] Care Team Providers Care Polisher Numeral Name Role Phone Marija King Lovely VARGAS Primary Care Provider [phone] Cathleen Palmer MD Primary Care Provider [phone] Encounter Details Date Type Department Care Team (Late Contact Info) Description 05/03/2019 Orders Only [facility] [address] [place] [phone] Alex Hummel MD [address] [place] [id number] Social History Tobacco Use Types Packs/Day Years [...] Description 12/31/2024 10:30 AM EDT Office Visit [facility] Pulmonary [address] [place] [phone] Juan Morse MD [address] [place], [place] [id number] 1yr fu/ SOB/ pft prior/ late mornings 07/11/2025 11:00 AM EDT Office Visit [facility] Card[facility] [address] [facility] [address] [place] [address] Jose Angel Starkey MD [address] [place] [address] 1 yr documented as of this encounter Procedures * Due to [place] [employer] law, this organization might not be sharing negative HIV tests. Procedure Name Priority Date/Time Associated Diagnosis Comments VENIPUNCTURE Routine 05/03/2019 9:32 AM EST Seizure documented in this encounter Results * Due to [place] [employer] law, this organization might not be sharing negative HIV tests. * (ABNORMAL) VALPROIC ACID (05/03/2019 9:32 AM EST) Valproate 30.5(L) 50.0 - 100.0 mg/L [facility] 05/03/2019 9:32 AM EST 05/04/2019 Narrative Resulting Agency Comment [id number] Alex Hummel MD LAB SAME DAY RESULT Final Resu lt Performing Organization Address City/State/[facility] Co de Phone Number [facility] [address] [place] [address] documented in this encounter Visit Diagnoses Diagnosis Seizure (HCC) Other convulsions documented in this encounter Additional Health Concerns Infection Onset Date Last Indicated Resolved Time COVID-19 Rule-Out 06/08/2020 06/08/2020 06/08/2020 7:17 PM EDT documented as of this encounter Care Teams Polisher Numeral Relationship Specialty Start Date End Date Marija King DO PCP - General Family Medicine 08/23/17 05/11/21 Cathleen Palmer MD [place] [id number] [address] [address] PCP - General Family Medicine 09/28/22 documented as of this encounter
--- OUTSIDE RECORDS SUMMARY | 2024-12-04 18:17 | XMS_ITS | Clinical Summary ---
Author Organization [facility] Address [address] [place] [address] Care Team Providers Care Direct Mail Clerk Name Role Phone Cathleen Palmer MD Primary Care Provider [phone] Allergies Active Allergy Reactions Criticality Noted Date Comments Oxycodone Other 01/31/2023 Causes confusion Medications * This document contains information received from the source organization and may not represent a complete record from that organization. Nitroglycerin (NITROSTAT) 0.4 MG SL tabletIndications :Abnormal cardiovascular stress test,Atherosclero sis of coronary artery, angina presence unspecified, unspecified vessel or lesion type, unspecified whether tribal or transplanted heart,Paroxysmal atrial fibrillation (HCC),Hyperlipide elicia, [...] BEDTIME 120 tablet 2 01/26/20 23 Active Rivaroxaban (Xarelto) 20 MG tabletIndications :Paroxysmal atrial fibrillation (HCC) Take one tablet (20 mg total) by mouth 1 (one) time each day with dinner. 90 tablet 3 11/21/19 24 Active Cyclobenzaprine HCl (FLEXERIL) 10 MG tablet Take 1 tablet by mouth 3 (three) times a day. Active Isosorbide Mononitrate CR (IMDUR) 60 MG 24 hr tablet Take one tablet (60 mg total) by mouth 1 (one) time each day in the morning. 90 tablet 3 07/25/19 25 Active Metoprolol Succinate (TOPROL-XL) 50 MG 24 hr tablet TAKE 1 TABLET BY MOUTH EVERY DAY 90 tablet 3 09/07/19 25 Active Wixela Inhub 250-50 MCG/ACT diskus inhalerIndication s:Bronchiectasis without complication (HCC) Inhale one puff 2 (two) times a day. 1 each 3 10/09/19 25 Active Lisinopril (PRINIVIL,ZESTRIL ) 10 MG tabletIndications :Hypertension, unspecified type TAKE 1 TABLET BY MOUTH EVERY DAY 90 tablet 3 12/04/19 25 Active Simvastatin (ZOCOR) 40 MG tablet TAKE ONE TABLET (40 MG TOTAL) BY MOUTH EVERY NIGHT. 90 tablet 3 12/04/19 25 Active amLODIPine Besylate (NORVASC) 10 MG tabletIndications :Hypertension, unspecified type TAKE 1 TABLET BY MOUTH EVERY DAY 90 tablet 3 12/04/19 25 Active amLODIPine Besylate (NORVASC) 10 MG tabletIndications :Hypertension, unspecified type Take one tablet (10 mg total) by mouth 1 (one) time each day. 90 tablet 3 11/21/19 24 2024 Discontinued Simvastatin (ZOCOR) 40 MG tablet TAKE ONE TABLET (40 MG TOTAL) BY MOUTH EVERY NIGHT. 90 tablet 3 12/12/19 24 2024 Discontinued Lisinopril (PRINIVIL,ZESTRIL ) 10 MG tabletIndications :Hypertension, unspecified type Take one half tablet (5 mg total) by mouth 1 (one) time each day. 45 tablet 3 10/19/19 25 2024 Discontinued Active Problems Problem Noted Date Diagnosed Date Hypertension 10/18/2024 Paroxysmal atrial fibrillation 06/28/2023 Arteriosclerosis of aorta 05/29/2019 Overview (05/29/2019): Refer to CT of Chest 04/16/2019: There is arteriosclerosis of the aorta and the coronary arteries. Bronchiectasis 05/29/2019 Overview (05/29/2019): Refer to Pulmonary Consult 05/13/2019: Impression: Patient with bronchiectasis Seizure 02/21/2018 Encounters Date Type Department Care Team Description 12/03/2024 Refill [facility] Cardiology [address] [facility] [address] [place] [address] Jayesh Starkey MD E-prescribing Refill Request 10/18/2024 Orders Only [facility] Cardiology [address] [facility] [address] [place] [address] Jayesh Starkey MD Medications 10/08/2024 Refill [facility] Pulmonary [address] [facility] [address] [place] [address] Juan Morse MD E-prescribing Refill Request 09/06/2024 Refill [facility] [address] [facility] [address] [place] [address] Jayesh Starkey MD E-prescribing Refill Request from [...] Upcoming Encounters Date Type Department Care Team ([facility] st Contact Info) Description 12/31/2024 10:30 AM EDT Office Visit [facility] Pulmonary [address] [facility] [address] [place] [address] Juan Morse MD [address] [place] [address] 1yr fu/ SOB/ pft prior/ late mornings 07/11/2025 11:00 AM EDT Office Visit [facility] Cardiology [address] [facility] [address] [place] [address] Jayesh Starkey MD [address] [place] [address] 1 yr Health Maintenance Due Date Last Done Comments Parathyroid Hormone Screening 1949 Colon Cancer Screening 1994 Abdominal Aorta Imaging 2014 DTaP/Tdap/Td (2 - Td or Tdap) 05/28/2020 05/28/2010, 05/28/1999 Zoster (Shingrix) (2 of 2) 04/20/2023 02/23/2023 RSV (1 - 1-dose 75+ series) 2024 COVID-19 Vaccine (2024- season) 2024 02/24/2022, 08/11/2021, 02/08/2021, Additional history exists Influenza (#1) 2024 04/12/2024, 01/20, 02/24/2022, Additional [...] Zoster (Zostavax) Discontinued Procedures * Due to [facility] law, this organization might not [...] type, unspecified whether angina present, unspecified whether tribal or transplanted heart HEP C ANTIBODY (EIA-2) Routine 08/01/2003 4:44 PM EDT from Last 3 Months or Most Recently Relevant to Health Maintenance Results * Due to [facility] law, this organization might not [...] Abnormal ECG Confirmed by JAYESH STARKEY ([id number]), assistant film editor KAREN MULTANI ([id number]) on 06/29/2023 7:33:59 [...] LDL-C. Oliver SS et al. BEAR. 2013;310(19): 4126-1104 (http://education.Wantworthy/faq/PLQ628) CHOL/HDL Ratio 2.8 <5.0 (calc) [facility] Cholesterol Non-HDL 85 <130 mg/dL (calc) [facility] Comment: For patients with diabetes plus 1 major ASCVD risk factor, treating to a non-HDL-C goal of <100 mg/dL (LDL-C of <70 mg/dL) is considered a therapeutic option. 07/20/2020 12:0 5 PM EDT 07/20/2020 9:33 PM EDT Narrative Resulting Agency Comment [id number] us Zhane Dorantes [facility] Final Res ult [facility] [address] [place] [address] * HEP C ANTIBODY (EIA-2) (08/01/2003 4:44 PM EDT) HEPATITIS C AB NEGATIVE [facility] (CLIA# [id number]) 08/01/2003 4:44 PM EDT 08/01/2003 4:44 PM EDT Narrative [facility] (CLIA# [id number]) - 08/01/2003 4:44 PM EDT Ordered by UNKNOWN PROVIDER SST tube received unspun us Unknown Provider LABORATORY Final Result [facility] (CLIA# [id number]) [address] [place] [address] from Last 3 Months or Most Recently Relevant to Health Maintenance Insurance [facility] FEE FOR SERVICE PPO * Guarantor: [employer] [address] [employer] Account Type Relation to Patient Date of Phone Billing Address [facility] [address] [place] [address] Care Teams Direct Mail Clerk Relationship Specialty Start Date End Date Cathleen Palmer MD [place] [address] [address] PCP - General Family Medicine 09/28/22
--- OUTSIDE RECORDS SUMMARY | 2024-12-04 18:17 | XMS_ITS | Encounter Summary ---
Author Organization [facility] Address [address] [place] [address] Care Team Providers Care Sap Plant Maintenance Consultant Name Role Phone Gabe Do Primary Care Provider [phone] Marija King DO Primary Care Provider [phone] Cathleen Palmer MD Primary Care Provider [phone] Encounter Details Date Type Department Care Team (Late st Contact Info) Description 05/28/2010 Orders Only [facility] Infectious Disease [address] [facility] [address] [place] [address] Marcello Ness MD [address] [place] [address] Social History Tobacco Use Types Packs/Day Years [...] 10:30 AM EDT Office Visit [facility] Pulmonary [address] [facility] [address] [place] [address] Juan Morse MD [address] [place] [address] 1yr fu/ SOB/ pft prior/ late mornings 07/11/2025 11:00 AM EDT Office Visit [facility] Cardiology [address] [facility] [address] [place] [address] Jose Angel Starkey MD [address] [place] [address] 1 yr documented as of this encounter Procedures * Due to [place] [employer] law, this organization might not be sharing [...] this encounter Results * Due to [place] [employer] law, this organization might not be sharing negative HIV tests. * MUMPS ANTIBODY (IGG) (05/28/2010) MUMPS VIRUS AB.IGG 2.8 (IMMUNE) SEE BELOW [facility] Comment:REFERENCE: 1.1 OR > INDICATES ANTIBODY 05/28/2010 05/28/2010 3:4 2 PM EST Marcello Ness MD LABORATORY Final Result [facility] [address] [place] [address] * RUBEOLA IGG AB (05/28/2010) RUBEOLA IGG AB 5.4 (IMMUNE) SEE BELOW [facility] Comment: UNITS: INDEX VALUE REFERENCE: 1.1 OR > INDICATES ANTIBODY 05/28/2010 05/28/2010 3:4 2 PM EST Marcello Ness MD LABORATORY Final Result Performing Organization Address [facility] Co de Phone Number [facility] [address] [place] [address] * RUBELLA IGG AB (05/28/2010) RUBELLA IGG AB 4.97 (IMMUNE) SEE BELOW [facility] Comment: REFERENCE: 1.1 OR > INDICATES ANTIBODY THE PRESENCE OF RUBELLA IGG ANTIBODY SUGGESTS A CURRENT OR PAST INFECTION OR IMMUNIZATION WITH RUBELLA VIRUS. 05/28/2010 05/28/2010 3:4 2 PM EST Marcello Ness MD LABORATORY Final Result Performing Organization Address [facility] Co de Phone Number [facility] [address] [place] [address] documented in this encounter Visit Diagnoses Diagnosis Other specified counseling Need for prophylactic vaccination with typhoid-paratyphoid alone (TAB) Need for prophylactic vaccination with combined soxkfempdd-jecpdnf-mqycfduoy (DTP) vaccine documented in this encounter Additional Health Concerns Infection Onset Date Last Indicated Resolved Time COVID-19 Rule-Out 06/08/2020 06/08/2020 06/08/2020 7:17 PM EDT documented as of this encounter Care Teams Sap Plant Maintenance Consultant Relationship Specialty Start Date End Date Gabe Do [facility] [address] [facility] [place] [address] PCP - General 03/24/06 08/22/17 Marija King DO [facility] [address] [facility] [place] [address] PCP - General Family Medicine 08/23/17 05/11/21 [place] [address] PCP - General Family Medicine 09/28/22 documented as of this encounter
--- OUTSIDE RECORDS SUMMARY | 2024-12-04 18:17 | XMS_ITS | Encounter Summary ---
Author Organization [facility] Address [address] [place] [address] Care Team Providers Care Molding Process Technician Name Role Phone Marija King DO Primary Care Provider [phone] Cathleen Palmer MD Primary Care Provider [phone] Encounter Details Date Type Department Care Team ([facility] st Contact Info) Description 07/20/2020 Orders Only [facility] Cardiology [address] [facility] [address] [place] [address] Zhane Dorantes NP [address] [facility] [address] [place] [address] Social History Tobacco Use Types Packs/Day Years [...] his labs as requested. 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 Procedure Name Priority Date/Time Associated Diagnosis Comments VENIPUNCTURE Routine 07/20/2020 12:05 PM EDT Coronary artery disease, unspecified vessel or lesion type, unspecified whether angina present, unspecified whether skokomish or transplanted heart documented in this encounter Results * Due to [place] [employer] law, this organization might not be [...] LDL-C. Oliver SAM et al. BEAR. 2013;310(19): 5689-3865 (http://education.StraighterLine.MagTag/faq/DTJ135) CHOL/HDL Ratio 2.8 <5.0 (calc) [facility] Cholesterol Non-HDL 85 <130 mg/dL (calc) [facility] Comment: For patients with diabetes plus 1 major ASCVD risk factor, treating to a non-HDL-C goal of <100 mg/dL (LDL-C of <70 mg/dL) is considered a therapeutic option. 07/20/2020 12:0 5 PM EDT 07/20/2020 9:33 PM EDT Narrative Resulting Agency Comment [id number] us Zhane Dorantes DATA CODER OPERATOR LABORATORY Final Res ult [facility] [address] [place] [address] documented in this encounter Visit Diagnoses Diagnosis Coronary artery disease, unspecified vessel or lesion type, unspecified whether angina present, unspecified whether skokomish or transplanted heart documented in this encounter Care Teams Molding Process Technician Relationship Specialty Start Date End Date Marija King DO PCP - General Family Medicine 08/23/17 05/11/21 Cathleen [place] MD [address] [address] PCP - General Family Medicine 09/28/22 documented as of this encounter
--- OUTSIDE RECORDS SUMMARY | 2024-12-04 18:17 | XMS_ITS | Encounter Summary ---
Author Organization [facility] Address [address] [place] [address] Care Team Providers Care High Worker Name Role Phone Marija King DO Primary Care Provider [phone] Cathleen Palmer MD Primary Care Provider [phone] Reason for Visit * Reason Onset Date Comments Refill Request 06/02/2019 Encounter Details Date Type Department Care Team (Late st Contact Info) Description 06/02/2019 Refill [facility] Pulmonary [address] [facility] [address] [place] [address] Juan Morse MD [address] [place] [address] Refill Request Social History Tobacco Use Types [...] Upcoming Encounters Date Type Department Care Team ([facility] st Contact Info) Description 12/31/2024 10:30 AM EDT Office Visit [facility] Pulmonary [address] [facility] [address] [place] [address] Juan Morse MD [address] [place] [address] 1yr fu/ SOB/ pft prior/ late mornings 07/11/2025 11:00 AM EDT Office Visit [facility] Cardiology [address] [facility] [address] [place] [address] Jose Angel Starkey MD [address] [place] [address] 1 yr documented as of this encounter Visit Diagnoses Not on filedocumented in this encounter Additional Health Concerns Infection Onset Date Last Indicated Resolved Time COVID-19 Rule-Out 06/08/2020 06/08/2020 06/08/2020 7:17 PM EDT documented as of this encounter Care Teams High Worker Relationship Specialty Start Date End Date Marija King DO PCP - General Family Medicine 08/23/17 05/11/21 Cathleen Palmer MD [address] [address] PCP - General Family Medicine 09/28/22 documented as of this encounter
--- OUTSIDE RECORDS SUMMARY | 2024-12-04 18:18 | XMS_ITS | Clinical Summary ---
Author Organization [facility] Address [address] [place] [address] Care Team Providers Care Operations Specialists Name Role Phone Marija King DO Primary Care Provider [phone] Allergies No known active allergies Medications aspirin [...] (2 of 2 - PCV) 09/07/2018 09/07/2017 Alcohol/Substance Use Screening 03/20/2024 Depression Screening and Follow-Up 03/20/2024 Health Care Proxy Review 03/20/2024 Social Drivers of Health Evelyn ual Screening 03/20/2024 RSV Vaccine (60+ years old a nd patients) (1 - 1-dose 75+ series) 2024 COVID-19 Vaccine (2 - 2024- season) 2024 Influenza Vaccine (#1) 2024 03/01/2020 Hepatitis B Vaccines Completed 02/05/2004, 08/05/2003, 12/03/1999 Procedures * Due to [place] [employer] law, this organization might not be sharing negative HIV tests. Procedure Name Priority Date/Time Associated Diagnosis Comments BASIC METABOLIC PANEL Routine 12/05/2014 9:09 AM EDT from Last 3 Months or Most Recently Relevant to Health Maintenance Results * Due to [place] [employer] law, this organization might not be sharing negative HIV tests. * (ABNORMAL) Basic Metabolic Panel (12/05/2014 9:09 AM EDT) Sodium Blood 139 135 - 145 mmol/L [facility] Potassium Blood 4.9 3.5 - 5.3 mmol/L [facility] Chloride Blood 104 97 - 110 mmol/L [facility] Carbon Dioxide 27 24 - 32 mmol/L [facility] Gap 8 5 - 15 [facility] Glucose 102(H) 70 - 99 mg/dL [facility] BUN 9 7 - 23 mg/dL [facility] Creatinine 1.02 0.60 - 1.30 mg/dL [facility] eGFR Non- >60 >60 [facility] Comment: Units = [...] Blood 9.1 8.7 - 10.7 mg/dL [facility] 12/05/2014 9:09 AM EDT 12/05/2014 9:41 AM EDT us Mitesh Gillespie MD LAB BLOOD ORDERABLES Final Res ult [facility] [address] [place] [address], [place] from Last 3 Months or Most Recently Relevant to Health Maintenance Insurance [employer] PPO/EPO/IND Advance Directives * Full Code (Latest Code Status on File) Date Activated Date Inactivated Comments 06/09/2020 1:31 PM 06/09/2020 7:11 PM * Full Code Date Activated Date Inactivated Comments 06/09/2020 11:18 AM 06/09/2020 1:31 PM Care Teams Operations Specialists Relationship Specialty Start Date End Date Marija King DO [address] [place] [address] PCP - General 06/03/20
--- OUTSIDE RECORDS SUMMARY | 2024-12-04 18:18 | XMS_ITS | Encounter Summary ---
Author Organization [facility] Address [address] [place] [address] Care Team Providers Care Sales Mgr Name Role Phone Eznate Marija Lovely VARGAS Primary Care Provider Cathleen Palmer MD Primary Care Provider [phone] Encounter Details Date Type Department Care Team (Late Contact Info) Description 10/31/2017 Orders Only [facility] Pulmonary [address] [id number] Juan Morse MD [address] [place] [address] Social History Tobacco Use Types Packs/Day Years [...] Description 12/31/2024 10:30 AM EDT Office Visit [facility] Pulmonary [address] [facility] [address] [place] [address] Juan Morse MD [address] [place], [place] [address] 1yr fu/ SOB/ pft prior/ late mornings 07/11/2025 11:00 AM EDT Office Visit [facility] Cardiology [address] [facility] [address] [place] [address] Jose Angel Starkey MD [address] [place] [address] 1 yr documented as of this encounter Procedures * Due to [place] [employer] law, this organization might not be sharing negative HIV tests. Procedure Name Priority Date/Time Associated Diagnosis Comments [facility] Routine 10/31/2017 2:46 PM EDT Cough SOB (shortness of breath) CHICKEN FEATHERS (E85)IGE Routine 10/31/2017 2:46 PM EDT Cough SOB (shortness of breath) EOSINOPHILS, ABSOLUTE Routine 10/31/2017 2:46 PM EDT Cough SOB (shortness of breath) documented in this encounter Results * Due to [place] [employer] law, this organization might not be sharing negative HIV tests. * CHICKEN FEATHERS (E85)IGE (10/31/2017 2:46 PM EDT) Chicken Feathers (E85) IgE <0.10 kU/L [facility] Chicken Feathers (E85) Class 0 [facility] 10/31/2017 2:46 PM EDT 10/31/2017 9:49 PM EDT Narrative Resulting Agency Comment [id number] us Juan Morse MD LABORATORY Final Result [facility] [address] [place] [address] * EOSINOPHILS, ABSOLUTE (10/31/2017 2:46 PM EDT) WBC 7.4 3.8 - 10.8 Thousand/u L [facility] Eosinophils # 163 15 - 500 cells/uL [facility] Eosinophils % 2.2 % [facility] 10/31/2017 2:46 PM EDT 10/31/2017 9:49 PM EDT Narrative Resulting Agency Comment [id number] Juan Morse MD LABORATORY Final Result [facility] [address] [place] [address] * [facility] (10/31/2017 2:46 PM EDT) IgE 4 <SO=102 kU/L [facility] Constantino Grass (G6) IgE <0.10 kU/L [facility] Constantino Grass (G6) Class 0 [facility] Effie Grass(Kentucky Blue)(G8) IgE <0.10 kU/L [facility] Effie Grass(Kentucky Blue)(G8) Class 0 [facility] Common Ragweed (Short)(W1) IgE <0.10 kU/L [facility] Common Ragweed (Short)(W1) Class 0 [facility] Japanese Plantain (W9) IgE <0.10 kU/L [facility] Japanese Plantain (W9) Class 0 [facility] Rey's Quarters (Goosefoot) (W10) IgE <0.10 kU/L [facility] Rey's Quarters (Goosefoot) (W10) Class 0 [facility] K[place]o (T7) IgE <0.10 kU/L [facility] [place]o (T7) Class 0 [facility] Cat Dander [...] IgE <0.10 kU/L [facility] House Dust ([place]-Jackie) (H2) Class 0 [facility] Dermatophagoides Farinae(D2) IgE <0.10 kU/L [facility] Dermatophagoides Farinae(D2) Class 0 [facility] 10/31/2017 2:46 PM EDT 10/31/2017 9:49 PM EDT Narrative Resulting Agency Comment [id number] Juan Morse MD LABORATORY Final Result [facility] [address] [place] [address] documented in this encounter Visit Diagnoses Diagnosis Cough SOB (shortness of breath) Shortness of breath documented in this encounter Additional Health Concerns Infection Onset Date Last Indicated Resolved Time COVID-19 Rule-Out 06/08/2020 06/08/2020 06/08/2020 7:17 PM EDT documented as of this encounter Care Teams Sales Mgr Relationship Specialty Start Date End Date Marija King DO PCP - General Family Medicine 08/23/17 05/11/21 Cathleen Palmer MD [address] [address] PCP - General Family Medicine 09/28/22 documented as of this encounter
--- OUTSIDE RECORDS SUMMARY | 2024-12-04 18:18 | XMS_ITS | Encounter Summary ---
Author Organization [facility] Address [address] [place] [address] Care Team Providers Care Simulation Educator Name Role Phone EzMarija sullivan Lovely VARGAS Primary Care Provider [phone] Cathleen Palmer MD Primary Care Provider [phone] Reason for Visit * Reason Onset Date Comments Refill Request 01/28/2019 Encounter Details Date Type Department Care Team (Late Contact Info) Description 01/28/2019 Refill [facility] Cardiology [address] [facility] [address] [place] [address] Kim Roberson, RN Refill Request Social History [...] Description 12/31/2024 10:30 AM EDT Office Visit [facility] Pulmonary [address] [facility] [address] [place] [address] Juan Morse MD [address] [place] [address] 1yr fu/ SOB/ pft prior/ late mornings 07/11/2025 11:00 AM EDT Office Visit [facility] Cardiology [address] [facility] [address] [place] [address] Jose Angel Starkey MD [address] [place] [address] 1 yr documented as of this encounter Visit Diagnoses Not on filedocumented in this encounter Additional Health Concerns Infection Onset Date Last Indicated Resolved Time COVID-19 Rule-Out 06/08/2020 06/08/2020 06/08/2020 7:17 PM EDT documented as of this encounter Care Teams Simulation Educator Relationship Specialty Start Date End Date Marija King DO PCP - General Family Medicine 08/23/17 05/11/21 Cathleen Palmer MD [address] [address] PCP - General Family Medicine 09/28/22 documented as of this encounter
--- OUTSIDE RECORDS SUMMARY | 2024-12-04 18:18 | XMS_ITS | Patient Health Record ---
Author Organization [facility] Address [address] [place] [address] Care Team Providers Care Senior Lead Java Developer Name Role Phone Hi Gabe Primary Care Provider Volodymyr Bush Unavailable [phone] Reason For Referral No Information Medications Medication [...] W/U Status Risk Notes Problem Otitic barotrauma (71150117) Barotitis, initial encounter (T70.0XXA) Active confirmed Problem Acute non-suppurative otitis media - serous (652585819) Right acute serous otitis media, recurrence not specified (H65.01) Active confirmed Plan Of Treatment No Information Insurance Providers Payer Name Payer Address Payer Phone Subscriber Number Group Number Insured Name Patient Relationship to Insured Coverage Start Date Coverage End Date [facility] Link [address] CHRISTIAN Grimes [id number] Santos Hawkins Self - patient is the insured Medical (General) History Medical History History ICD Code coronary artery disease Surgical History Surgery Date(Month/Year) tonsillectomy [place] Teeth adenoidectomy rotator cuff tear repair
--- OUTSIDE RECORDS SUMMARY | 2024-12-04 18:18 | XMS_ITS | Encounter Summary ---
Author Organization [facility] Address [address] [place] [address] Care Team Providers Care Car Greaser Name Role Phone Marija King Lovely VARGAS Primary Care Provider Cathleen Palmer MD Primary Care Provider [phone] Encounter Details Date Type Department Care Team ([facility] st Contact Info) Description 11/24/2020 Orders Only [facility] Cardiology [address] [address] Jose Angel Starkey MD [address] [place] [address] Social History Tobacco Use Types Packs/Day Years [...] Upcoming Encounters Date Type Department Care Team ([facility] st Contact Info) Description 12/31/2024 10:30 AM EDT Office Visit [facility] Pulmonary [address] [facility] [address] [place] [address] Juan Morse MD [address] [place] [address] 1yr fu/ SOB/ pft prior/ late mornings 07/11/2025 11:00 AM EDT Office Visit [facility] Cardiology [address] [facility] [address] [place] [address] Jose Angel Starkey MD [address] [place] [address] 1 yr documented as of this encounter Procedures * Due to [place] [employer] law, this organization might not be sharing negative HIV tests. Procedure Name Priority Date/Time Associated Diagnosis Comments VENIPUNCTURE Routine 11/24/2020 9:45 AM EDT Hypertension, unspecified type documented in this encounter Results * Due to [place] [employer] law, this organization might not be sharing [...] approximately 13% higher for people identified as -Botswanan. EGFR 51(L) > OR = 60 mL/min/1. [...] needs for GFR calculation. Resulting Agency Comment [id number] us Jose Angel Starkey MD LABORATORY Final Result [facility] [address] [place] [address] documented in this encounter Visit Diagnoses Diagnosis Hypertension, unspecified type documented in this encounter Care Teams Car Greaser Relationship Specialty Start Date End Date Marija King DO PCP - General Family Medicine 08/23/17 05/11/21 [place] [address] PCP - General Family Medicine 09/28/22 documented as of this encounter
--- OUTSIDE RECORDS SUMMARY | 2024-12-04 18:18 | XMS_ITS | Encounter Summary ---
Author Organization [facility] Address [address] [place] [address] Care Team Providers Care Barrel Header Name Role Phone Marija King DO Primary Care Provider [phone] Cathleen Palmer MD Primary Care Provider [phone] Reason for Referral * OUTPT PROCEDURES AND DIAGNOSTICS (Routine) - Closed Specialty Diagnoses / Procedures Referred By Contac t Referred To Contact CT Scan Diagnoses Other nonspecific abnormal finding of lung field Procedures CT CHEST W/O CONTRAST (DX: ? NODULE ON CXR R91.8/ 793.2) (WITHIN 1 WK) Juan Morse MD [address] [place] [address] Phone: tel: fax: Referral ID Status Reason Start Date Expiration Date V isits Requested Visits Authorized [id number] Closed Continuity of Care 04/09/2018 07/08/2018 1 1 Encounter Details Date Type Department Care Team (Late st Contact Info) Description 04/04/2018 Orders Only [facility] Pulmonary [address] [facility] [address] [place] [address] Juan Morse MD [address] [place] [address] Social History Tobacco Use Types Packs/Day Years [...] Description 12/31/2024 10:30 AM EDT Office Visit [facility] Pulmonary [address] [facility] [address] [place] [address] Juan Morse MD [address] [place] [address] 1yr fu/ SOB/ pft prior/ late mornings 07/11/2025 11:00 AM EDT Office Visit [facility] Cardiology [address] [facility] [address] [place] [address] Jose Angel Starkey MD [address] [place] [address] 1 yr documented as of this encounter Results * Due to [place] state law, this organization might not be sharing negative HIV tests. * (ABNORMAL) CT CHEST W/O CONTRAST (DX: ? NODULE ON CXR R91.8/ 793.2) (WITHIN 1 WK) FC (04/13/2018 9:02 AM EST) [facility](A) [facility] Anatomical Region Laterality Modality CHEST [...] documented as of this encounter Care Teams Barrel Header Relationship Specialty Start Date End Date Marija King DO PCP - General Family Medicine 08/23/17 05/11/21 [place] [address] PCP - General Family Medicine 09/28/22 documented as of this encounter
--- OUTSIDE RECORDS SUMMARY | 2024-12-04 18:18 | XMS_ITS | Encounter Summary ---
Author Organization [facility] Address [address] [place] [address] Care Team Providers Care Human Relations Manager Name Role Phone Marija King DO Primary Care Provider Cathleen Palmer MD Primary Care Provider [phone] Encounter Details Date Type Department Care Team (Late Contact Info) Description 05/08/2020 Orders Only [facility] Cardiology [address] [address] Jose Angel Starkey MD [address] [place] [address] Social History Tobacco Use Types Packs/Day Years [...] 10:30 AM EDT Office Visit [facility] Pulmonary [address] 123 [facility] [address] [place] [address] Juan Morse MD [address] [place] [address] 1yr fu/ SOB/ pft prior/ late mornings 07/11/2025 11:00 AM EDT Office Visit [facility] Cardiology [address] [facility] [address] [place] [address] Jose Angel Starkey MD [address] [place] [address] 1 yr documented as of this encounter Procedures * Due to [place] [employer] law, this organization might not be sharing negative HIV tests. Procedure Name Priority Date/Time Associated Diagnosis Comments VENIPUNCTURE Routine 05/08/2020 11:51 AM EST Chronic chest pain Atherosclerosis of coronary artery, angina presence unspecified, unspecified vessel or lesion type, unspecified whether apache or transplanted heart [I25.10] CBC INCLUDES DIFFERENTIAL AND PLATELET COUNT Routine 05/08/2020 11:51 AM EST Chronic chest pain Atherosclerosis of coronary artery, angina presence unspecified, unspecified vessel or lesion type, unspecified whether apache or transplanted heart [I25.10] BASIC METABOLIC PANEL WITH (GFR) Routine 05/08/2020 11:51 AM EST Chronic chest pain Atherosclerosis of coronary artery, angina presence unspecified, unspecified vessel or lesion type, unspecified whether apache or transplanted heart [I25.10] documented in this encounter Results * Due to [place] [employer] law, this organization might not be sharing [...] approximately 13% higher for people identified as -Niuean. EGFR 60 > OR = 60 mL/min/1. [...] needs for GFR calculation. Resulting Agency Comment [id number] us Jose Angel Starkey MD LABORATORY Final Result [facility] [address] [place] [address] * CBC INCLUDES DIFFERENTIAL AND PLATELET COUNT [...] 1:42 PM EST Narrative Resulting Agency Comment [id number] Jose Angel Starkey MD LAB SAME DAY RESULT Final Res ult Performing Organization Address [facility] de Phone Number [facility] [address] [place] [address] * (ABNORMAL) PROTHROMBIN TIME (PT) (INR), BLOOD (05/08/2020 11:51 AM EST) INR 1.2(H) [facility] Comment: Reference Range 0.9-1.1 Moderate-intensity Warfarin Therapy 2.0-3.0 Higher-intensity Warfarin Therapy 3.0-4.0 PT 12.7(H) 9.0 - 11.5 sec [facility] Comment: For additional information, please refer to http://education.Sandag/faq/VJN634 (This link is being provided for informational/ educational purposes only.) 05/08/2020 11:5 1 AM EST 05/08/2020 1:42 PM EST Narrative Resulting Agency Comment [id number] Jose Angel Starkey MD LAB SAME DAY RESULT Final Res ult Performing Organization Address [facility] Co de Phone Number [facility] [address] [place] [address] documented in this encounter Visit Diagnoses Diagnosis Chronic chest pain Chest pain, unspecified Atherosclerosis of coronary artery, angina presence unspecified, unspecified vessel or lesion type, unspecified whether apache or transplanted heart [I25.10] documented in this encounter Additional Health Concerns Infection Onset Date Last Indicated Resolved Time COVID-19 Rule-Out 06/08/2020 06/08/2020 06/08/2020 7:17 PM EDT documented as of this encounter Care Teams Human Relations Manager Relationship Specialty Start Date End Date Marija King DO PCP - General Family Medicine 08/23/17 05/11/21 [place] [address] PCP - General Family Medicine 09/28/22 documented as of this encounter
--- OUTSIDE RECORDS SUMMARY | 2024-12-04 18:18 | XMS_ITS | Encounter Summary ---
Author Organization [facility] Address [address] [place] [address] Care Team Providers Care Perfume And Toilet Water Maker Name Role Phone Cathleen Palmer MD Primary Care Provider [phone] Reason for Visit * Reason Comments E-prescribing Refill Request Encounter Details Date Type Department Care Team ([facility] Contact Info) Description 12/03/2024 Refill [facility] Cardiology [address] [address] Jose Angel Starkey MD [address] [place] [address] E-prescribing Refill Request Social History Tobacco Use [...] encounter Miscellaneous Notes * Telephone Encounter - Sarah Park, Pharmacy Navigator - 12/03/2024 4:18 PM EDT Any special requests or concerns? none Faxed/E-prescribed medication renewal request(s) for Santos Hawkins 74 y.o. male received from pharmacy. Verified pharmacy with patient. Last CPE with this specialty: Not Found Last OV with this specialty: 07/03/2024 Next OV: Future Appointments Date Time Provider Department Phone 12/31/24 10:30 AM Juan Morse MD [facility] Pulmonary [address] 07/11/25 11:00 AM Jose Angel Starkey MD [facility] Cardiology [address] Pertinent lab results: Lab Results Component Value Date CHOLESTEROL 132 07/20/2020 HDL 47 07/20/2020 LDL 56 07/20/2020 TRIGLYCERIDE 230 (H) 07/20/2020 An open order for Lipids does not exist. Lipid testing recommended a minimum of yearly for chronic therapy in diabetics, at provider discretion otherwise based on need to monitor compliance or clinical outcome. 1 year of refills suggested for most lipid lowering medications in this nondiabetic. Consider lipidtesting if clinically indicated Lab Results Component Value Date SODIUM 139 11/24/2020 POTASSIUM 4.5 11/24/2020 CHLOR 102 11/24/2020 CO2 28 11/24/2020 BUN 23 11/24/2020 CREATININE 1.38 (H) 11/24/2020 GFR 51 (L) 11/24/2020 GLUCOSE 101 (H) 11/24/2020 RENE 9.3 11/24/2020 An open order for Basic does not exist. Testing recommended a minimum of yearly for chronic therapy . Based on last lab testing intervals, 1 month supply suggested for potassium, diuretics, and bone density treatments. Please arrange updated lab monitoring. Allergies: Oxycodone BP Readings from Last 1 Encounters: 07/03/24 (!) 144/76 Outstanding Radiology Orders Test Ordered Date Ordering Provider XRAY CHEST, 2 VIEWS, PA & LATERAL (DX: [id number]) 12/16/2021 Jose Angel Starkey MD Medication List prior to this encounter[1] [1] Current Outpatient Medications on File Prior to Visit Medication Sig Dispense Refill Lisinopril (PRINIVIL,ZESTRIL) 10 MG tablet Take one half tablet (5 mg total) by mouth 1 (one) time each day. 45 tablet 3 Wixela Inhub 250-50 MCG/ACT diskus inhaler Inhale one puff 2 (two) times a day. 1 each 3 Metoprolol Succinate (TOPROL-XL) 50 MG 24 hr tablet TAKE 1 TABLET BY MOUTH EVERY DAY 90 tablet 3 Isosorbide Mononitrate CR (IMDUR) 60 MG 24 hr tablet Take one tablet (60 mg total) by mouth 1 (one)time each day in the morning. 90 tablet 3 Simvastatin (ZOCOR) 40 MG tablet TAKE ONE TABLET (40 MG TOTAL) BY MOUTH EVERY NIGHT. 90 tablet 3 Cyclobenzaprine HCl (FLEXERIL) 10 MG tablet Take 1 tablet by mouth 3 (three) times a day. amLODIPine Besylate (NORVASC) 10 MG tablet Take one tablet (10 mg total) by mouth 1 (one) time eachday. 90 tablet 3 Rivaroxaban (Xarelto) 20 MG tablet Take one tablet (20 mg total) by mouth 1 (one) time each day with dinner. 90 tablet 3 DIVALPROEX SODIUM, MIGRAINE, (DEPAKOTE) [...] Description 12/31/2024 10:30 AM EDT Office Visit [facility] Pulmonary [address] [facility] [address] [place] [address] Juan Morse MD [address] [place] [address] 1yr fu/ SOB/ pft prior/ late mornings 07/11/2025 11:00 AM EDT Office Visit [facility] Cardiology [address] [facility] [address] [place] [address] Jose Angel Starkey MD [address] [place] [address] 1 yr documented as of this encounter Visit Diagnoses Diagnosis Hypertension, unspecified type documented in this encounter Care Teams Perfume And Toilet Water Maker Relationship Specialty Start Date End Date Cathleen Palmer MD [address] [address] PCP - General Family Medicine 09/28/22 documented as of this encounter
--- OUTSIDE RECORDS SUMMARY | 2024-12-04 18:18 | XMS_ITS | Encounter Summary ---
Author Organization [facility] Address [address] [place] [address] Care Team Providers Care Outsole Molder Name Role Phone ChristineMarija Lovely VARGAS Primary Care Provider [phone] Cathleen Palmer MD Primary Care Provider [phone] Encounter Details Date Type Department Care Team (Late Contact Info) Description 03/03/2018 Orders Only [facility] Cardiology [address] [facility] [address] [place] [address] Kathryn Bansal DO [address] [place] [address] Medications Social History Tobacco Use Types Packs/Day [...] 10:30 AM EDT Office Visit [facility] Pulmonary [address] [facility] [address] [place] [address] Juan Morse MD [address] [place] [address] 1yr fu/ SOB/ pft prior/ late mornings 07/11/2025 11:00 AM EDT Office Visit [facility] Cardiology [address] [facility] [address] [place] [address] Jose Angel Starkey MD [address] [place] [address] 1 yr documented as of this encounter Visit Diagnoses Not on filedocumented in this encounter Additional Health Concerns Infection Onset Date Last Indicated Resolved Time COVID-19 Rule-Out 06/08/2020 06/08/2020 06/08/2020 7:17 PM EDT documented as of this encounter Care Teams Outsole Molder Relationship Specialty Start Date End Date Marija King DO PCP - General Family Medicine 08/23/17 05/11/21 Cathleen Palmer MD [place] [id number] [address] PCP - General Family Medicine 09/28/22 documented as of this encounter
--- OUTSIDE RECORDS SUMMARY | 2024-12-04 18:18 | XMS_ITS | Encounter Summary ---
Author Organization [facility] Address [address] [place] [address] Care Team Providers Care Reverse Engineer Name Role Phone Marija King DO Primary Care Provider [phone] Cathleen Palmer MD Primary Care Provider [phone] Encounter Details Date Type Department Care Team (Late Contact Info) Description 12/19/2018 [facility] Pulmonary [address] [facility] [address] [place] [address] Juan Morse MD [address] [place] [address] Social History Tobacco Use Types Packs/Day Years [...] Fonseca RN - 12/19/2018 3:36 PM EDT mAPPnt message sent on 12/27 documented in this encounter Plan of Treatment Upcoming Encounters Date Type Department Care Team (Late st Contact Info) Description 12/31/2024 10:30 AM EDT Office Visit [facility] Pulmonary [address] [facility] [address] [place] [address] Juan Morse MD [address] [place] [address] 1yr fu/ SOB/ pft prior/ late mornings 07/11/2025 11:00 AM EDT Office Visit [facility] Cardiology [address] [facility] [address] [place] [address] Jose Angel Starkey MD [address] [place] [address] 1 yr documented as of this encounter Procedures * Due to [place] [employer] law, this organization might not be sharing negative HIV tests. Procedure Name Priority Date/Time Associated Diagnosis Comments C-REACTIVE PROTEIN (CRP) - INFLAMMATION Routine 12/19/2018 3:36 PM EDT Recurrent respiratory infection IMMUNOGLOBULIN G,SUBCLASSES 1-4 SERUM Routine 12/19/2018 3:36 PM EDT Recurrent respiratory infection VENIPUNCTURE Routine 12/19/2018 3:36 PM EDT Recurrent respiratory infection documented in this encounter Results * Due to [place] [employer] law, this organization might not be sharing negative HIV tests. * C-REACTIVE PROTEIN (CRP) - INFLAMMATION (12/19/2018 3:36 PM EDT) C reactive protein 0.9 <8.0 mg/L [facility] 12/19/2018 3:36 PM EDT 12/19/2018 11:34 PM EDT Narrative Resulting Agency Comment [id number] Juan Morse MD LABORATORY Final Result [facility] [address] [place] [address] * IMMUNOGLOBULIN QUANTITATION (IGG, IGM, IGA) (12/19/2018 3:36 PM EDT) IgA 142 20 - 320 mg/dL [facility] IgG 1024 600 - 1540 mg/dL [facility] IgM 112 50 - 300 mg/dL [facility] 12/19/2018 3:36 PM EDT 12/19/2018 11:34 PM EDT Narrative Resulting Agency Comment [id number] Juan Morse MD LABORATORY Final Result Performing Organization Address City/State/[facility] Co de Phone Number [facility] [address] [place] [address] * IMMUNOGLOBULIN G,SUBCLASSES 1-4 SERUM (12/19/2018 3:36 [...] 11:34 PM EDT Narrative Resulting Agency Comment [id number] Juan Morse MD LABORATORY Final Result Performing Organization Address City/[facility] de Phone Number [facility] [address] [place] [address] documented in this encounter Visit Diagnoses Diagnosis Recurrent respiratory infection Other diseases of respiratory system, not elsewhere classified documented in this encounter Additional Health Concerns Infection Onset Date Last Indicated Resolved Time COVID-19 Rule-Out 06/08/2020 06/08/2020 06/08/2020 7:17 PM EDT documented as of this encounter Care Teams Reverse Engineer Relationship Specialty Start Date End Date Marija King DO PCP - General Family Medicine 08/23/17 05/11/21 [place] [address] PCP - General Family Medicine 09/28/22 documented as of this encounter
--- OUTSIDE RECORDS SUMMARY | 2024-12-04 18:18 | XMS_ITS | Encounter Summary ---
Author Organization [facility] Address [address] [place] [address] Care Team Providers Care Cashier Clerk Name Role Phone HiGabe Primary Care Provider [phone] Marija King DO Primary Care Provider [phone] Cathleen Palmer MD Primary Care Provider [phone] Encounter Details Date Type Department Care Team (Late st Contact Info) Description 08/27/2015 Orders Only [facility] Cardiology [address] 123 [facility] [address] [place] [address] Valentin Vitale MD [address] [place] [address] Social History Tobacco Use Types Packs/Day Years [...] [facility] Pulmonary [address] 123 [facility] [address] [place] [address] Juan Morse MD 123 [place] [address] 1yr fu/ SOB/ pft prior/ late mornings 07/11/2025 11:00 AM EDT Office Visit [facility] Cardiology [address] 123 [facility] [address] [place] [address] Jose Angel Starkey MD [address] [place] [address] 1 yr documented as of this encounter Procedures * Due to [place] state law, this organization might not be sharing negative HIV tests. Procedure Name Priority Date/Time Associated Diagnosis Comments CBC INCLUDES DIFFERENTIAL AND PLATELET COUNT Routine 08/27/2015 8:34 AM EDT Abnormal cardiovascular stress test Atherosclerosis of coronary artery, angina presence unspecified, unspecified vessel or lesion type, unspecified whether [place] or transplanted heart [I25.10] Paroxysmal atrial fibrillation (HCC) [I48.0] Hyperlipidemia, unspecified hyperlipidemia type [E78.5] Essential hypertension with goal blood pressure less than 130/80 [I10] TSH, 3RD GENERATION Routine 08/27/2015 8 :34 AM EDT Abnormal cardiovascular stress test Atherosclerosis of coronary artery, angina presence unspecified, unspecified vessel or lesion type, unspecified whether [place] or transplanted heart [I25.10] Paroxysmal atrial fibrillation (HCC) [I48.0] Hyperlipidemia, unspecified hyperlipidemia type [E78.5] Essential hypertension with goal blood pressure less than 130/80 [I10] LIPID PANEL WITH REFLEX TO DIRECT LDL Routine 08/27/2015 8:34 AM EDT Abnormal cardiovascular stress test Atherosclerosis of coronary artery, angina presence unspecified, unspecified vessel or lesion type, unspecified whether [place] or transplanted heart [I25.10] Paroxysmal atrial fibrillation (HCC) [I48.0] Hyperlipidemia, unspecified hyperlipidemia type [E78.5] Essential hypertension with goal blood pressure less than 130/80 [I10] BASIC METABOLIC PANEL WITH (GFR) Routine 08/27/2015 8:34 AM EDT Abnormal cardiovascular stress test Atherosclerosis of coronary artery, angina presence unspecified, unspecified vessel or lesion type, unspecified whether [place] or transplanted heart [I25.10] Paroxysmal atrial fibrillation [...] - 200 mg/dL [facility] Comment:{CHOLESTEROL, TOTAL {[id number]) HDL Cholesterol 39(L) > OR = 40 mg/dL [facility] Comment:{HDL CHOLESTEROL {[id number]) Triglyceride 176(H) <150 mg/dL [facility] Comment:{TRIGLYCERIDES {[id number]) LDL Cholesterol 38 <130 mg/dL (calc) [facility] Comment: {LDL-CHOLESTEROL {[id number]) Desirable range <100 mg/dL for patients with CHD or diabetes and <70 mg/dL for diabetic patients with known heart disease. CHOL/HDL Ratio 2.9 < OR = 5.0 (calc) [facility] Comment:{CHOL/HDLC RATIO {[id number]) Cholesterol Non-HDL 73 mg/dL (calc) [facility] Comment: {NON HDL CHOLESTEROL {[id number]) Target for non-HDL cholesterol is 30 mg/dL higher than LDL cholesterol target. 08/27/2015 8:34 AM EDT 08/27/2015 7:39 PM EDT Narrative Resulting Agency Comment [id number] Valentin Vitale MD LABORATORY Final Result [facility] [address] [place] [address] * TSH, 3RD GENERATION (08/27/2015 8:34 AM EDT) TSH 1.24 0.40 - 4.50 mIU/L [facility] Comment:{TSH {[id number]) 08/27/2015 8:34 AM EDT 08/27/2015 7:39 PM EDT Narrative Resulting Agency Comment [id number] us Valentin Vitale MD LABORATORY Final Result [facility] [address] [place] [address] * BASIC METABOLIC PANEL WITH (GFR) (08/27/2015 8:34 AM EDT) Glucose 99 65 - 99 mg/dL [facility] Comment: {GLUCOSE {[id number]) Fasting reference interval Urea Nitrogen Blood (BUN) 12 7 - 25 mg/dL [facility] Comment:{UREA NITROGEN (BUN) {[id number]) Creatinine 1.10 0.70 - 1.25 mg/dL [facility] Comment: {CREATININE {[id number]) For patients >49 years of age, the reference limit for Creatinine is approximately 13% higher for people identified as -Martiniquais. GFR 70 > OR = 60 mL/min/1 .73m2 [facility] Comment:{eGFR NON-AFR. AMERI CAN {[id number]) GFR () 81 > OR = 60 mL/min/1 .73m2 [facility] Comment:{eGFR AMERIC AN {[id number]) BUN/Creatinine Ratio NOT APPLICABLE 6 - 22 (calc) [facility] Comment:{BUN/CREATININE RATI O {[id number]) Sodium 139 135 - 146 mmol/L [facility] Comment:{SODIUM {[id number]) Potassium 4.7 3.5 - 5.3 mmol/L [facility] Comment:{POTASSIUM {[id number]) Chloride 105 98 - 110 mmol/L [facility] Comment:{CHLORIDE {[id number]) Carbon dioxide 26 19 - 30 mmol/L [facility] Comment:{CARBON DIOXIDE {[id number]) Calcium 9.4 8.6 - 10.3 mg/dL [facility] Comment:{CALCIUM {[id number]) 08/27/2015 8:34 AM EDT 08/27/2015 7:39 [...] needs for GFR calculation. Resulting Agency Comment [id number] Valentin Vitale MD LABORATORY Final Result [facility] [address] [place] [address] * CBC INCLUDES DIFFERENTIAL AND PLATELET COUNT (08/27/2015 8:34 AM EDT) WBC 6.0 3.8 - 10.8 Thousand/u L [facility] Comment:{WHITE BLOOD CELL CO UNT {[id number]) RBC 4.88 4.20 - 5.80 Million/uL [facility] Comment:{RED BLOOD CELL COUN T {[id number]) Hemoglobin 15.2 13.2 - 17.1 g/dL [facility] Comment:{HEMOGLOBIN {[id number]) Hematocrit 44.6 38.5 - 50.0 % [facility] Comment:{HEMATOCRIT {[id number]) MCV 91.5 80.0 - 100.0 fL [facility] Comment:{MCV {[id number]) MCH 31.2 27.0 - 33.0 pg [facility] Comment:{MCH {[id number]) MCHC 34.1 32.0 - 36.0 g/dL [facility] Comment:{MCHC {[id number]) RDW 12.9 11.0 - 15.0 % [facility] Comment:{RDW {[id number]) PLT 191 140 - 400 Thousand/u L [facility] Comment:{PLATELET COUNT {[id number]) MPV 8.9 7.5 - 11.5 fL [facility] Comment:{MPV {[id number]) Neutrophils # 2856 1500 - 7800 cells/uL [facility] Comment:{ABSOLUTE NEUTROPHIL S {[id number]) Lymphocytes # 2508 850 - 3900 cells/uL [facility] Comment:{ABSOLUTE LYMPHOCYTE S {[id number]) Monocytes # 486 200 - 950 cells/uL [facility] Comment:{ABSOLUTE MONOCYTES {[id number]) Eosinophils # 126 15 - 500 cells/uL [facility] Comment:{ABSOLUTE EOSINOPHIL S {[id number]) Basophils # 24 0 - 200 cells/uL [facility] Comment:{ABSOLUTE BASOPHILS {[id number]) Neutrophils % 47.6 % [facility] Comment:{NEUTROPHILS {[id number]) Lymphocytes % 41.8 % [facility] Comment:{LYMPHOCYTES {[id number]) Monocytes % 8.1 % [facility] Comment:{MONOCYTES {[id number]) Eosinophils % 2.1 % [facility] Comment:{EOSINOPHILS {[id number]) Basophils % 0.4 % [facility] Comment:{BASOPHILS {[id number]) 08/27/2015 8:34 AM EDT 08/27/2015 7:39 PM EDT Narrative Resulting Agency Comment [id number] us Valentin Vitale MD LAB SAME DAY RESULT Final Resul t [facility] [address] [place] [address] documented in this encounter Visit Diagnoses Diagnosis Abnormal cardiovascular stress test Other nonspecific abnormal cardiovascular system function study Atherosclerosis of coronary artery, angina presence unspecified, unspecified vessel or lesion type, unspecified whether [place]hi[place] or transplanted heart [I25.10] Paroxysmal atrial fibrillation (HCC) [I48.0] Atrial fibrillation Hyperlipidemia, unspecified hyperlipidemia type [E78.5] Essential hypertension with goal blood pressure less than 130/80 [I10] documented in this encounter Additional Health Concerns Infection Onset Date Last Indicated Resolved Time COVID-19 Rule-Out 06/08/2020 06/08/2020 06/08/2020 7:17 PM EDT documented as of this encounter Care Teams Cashier Clerk Relationship Specialty Start Date End Date Gabe Do [facility] [address] [place] [address] PCP - General 03/24/06 08/22/17 Marija King DO [facility] [address] [place] [address] PCP - General Family Medicine 08/23/17 05/11/21 Cathleen Palmer MD [facility] [address] [address] PCP - General Family Medicine 09/28/22 documented as of this encounter
--- OUTSIDE RECORDS SUMMARY | 2024-12-04 18:18 | XMS_ITS | Encounter Summary ---
Author Organization [facility] Address [address] [place] [address] Care Team Providers Care Electrical Systems Drafter Name Role Phone Marija King Lovely VARGAS Primary Care Provider [phone] Cathleen Palmer MD Primary Care Provider [phone] Encounter Details Date Type Department Care Team (Late Contact Info) Description 10/01/2018 Orders Only [facility] Pulmonary [address] [address] Juan Morse MD [address] [place] [address] Medications Social History Tobacco Use Types Packs/Day [...] Description 12/31/2024 10:30 AM EDT Office Visit [facility] Pulmonary [address] 123 [facility] [address] [place] [address] Juan Morse MD [address] [place] [address] 1yr fu/ SOB/ pft prior/ late mornings 07/11/2025 11:00 AM EDT Office Visit [facility] Cardiology [address] 123 [facility] [address] [place] [address] Jose Angel Starkey MD [address] [place] [address] 1 yr documented as of this encounter Visit Diagnoses Diagnosis Cough documented in this encounter Additional Health Concerns Infection Onset Date Last Indicated Resolved Time COVID-19 Rule-Out 06/08/2020 06/08/2020 06/08/2020 7:17 PM EDT documented as of this encounter Care Teams Electrical Systems Drafter Relationship Specialty Start Date End Date Marija Knig DO PCP - General Family Medicine 08/23/17 05/11/21 Cathleen Palmer MD [place] [address] [address] PCP - General Family Medicine 09/28/22 documented as of this encounter
--- OUTSIDE RECORDS SUMMARY | 2024-12-04 18:18 | XMS_ITS | Encounter Summary ---
Author Organization [facility] Address [address] [place] [address] Care Team Providers Care Finance Effectiveness Manager Name Role Phone EzMarija sullivan Lovely VARGAS Primary Care Provider [phone] Cathleen Palmer MD Primary Care Provider [phone] Reason for Visit * Reason Onset Date Comments Refill Request 01/28/2019 Encounter Details Date Type Department Care Team (Late Contact Info) Description 01/28/2019 Refill [facility] Cardiology [address] 123 [facility] [address] [place] [address] Kim Roberson, RN Refill Request Social History [...] Description 12/31/2024 10:30 AM EDT Office Visit [facility] Pulmonary [address] 123 [facility] [address] [place] [address] Juan Morse MD [address] [place] [address] 1yr fu/ SOB/ pft prior/ late mornings 07/11/2025 11:00 AM EDT Office Visit [facility] Cardiology [address] [facility] 290 [place] [address] Jose Angel Starkey MD [address] [place] [address] 1 yr documented as of this encounter Visit Diagnoses Not on filedocumented in this encounter Additional Health Concerns Infection Onset Date Last Indicated Resolved Time COVID-19 Rule-Out 06/08/2020 06/08/2020 06/08/2020 7:17 PM EDT documented as of this encounter Care Teams Finance Effectiveness Manager Relationship Specialty Start Date End Date Marija King DO PCP - General Family Medicine 08/23/17 05/11/21 Cathleen Palmer MD [address] [address] PCP - General Family Medicine 09/28/22 documented as of this encounter
--- OUTSIDE RECORDS SUMMARY | 2024-12-04 18:18 | XMS_ITS | Encounter Summary ---
Author Organization [facility] Address [address] [place] [address] Care Team Providers Care Account Coordinator Name Role Phone Cathleen Palmer MD Primary Care Provider [phone] Encounter Details Date Type Department Care Team (Late Contact Info) Description 05/21/2021 Refill [facility] Neurology [address] [facility] 230 [place] [address] Alex Hummel MD [address] [address] Social History Tobacco Use Types Packs/Day Years [...] Description 12/31/2024 10:30 AM EDT Office Visit [facility] Pulmonary [address] 123 [facility] [address] [place] [address] Juan Morse MD [address] [place] [address] 1yr fu/ SOB/ pft prior/ late mornings 07/11/2025 11:00 AM EDT Office Visit [facility] Cardiology [address] 123 [facility] [address] [place] [address] Jose Angel Starkey MD [address] [place] [address] 1 yr documented as of this encounter Visit Diagnoses Not on filedocumented in this encounter Care Teams Account Coordinator Relationship Specialty Start Date End Date Cathleen Palmer MD [address] [address] PCP - General Family Medicine 09/28/22 documented as of this encounter
--- OUTSIDE RECORDS SUMMARY | 2024-12-04 18:18 | XMS_ITS | Encounter Summary ---
Author Organization [facility] Address [address] [place] [address] Care Team Providers Care Truck Mechanic Name Role Phone Cathleen Palmer MD Primary Care Provider [phone] Reason for Visit * Reason Comments E-prescribing Refill Request Encounter Details Date Type Department Care Team ([facility] st Contact Info) Description 06/14/2021 Refill [facility] Neurology [address] [address] Alex Hummel MD [address] [facility] [address] [place] [address] [place] [address] E-prescribing Refill Request Social History Tobacco Use [...] Phone 07/22/21 10:30 AM Alex Hummel MD [facility] Neurology [address] 05/20/22 10:00 AM Jose Angel Starkey MD [facility] Cardiology [address] Pertinent lab results: [...] Upcoming Encounters Date Type Department Care Team ([facility] st Contact Info) Description 12/31/2024 10:30 AM EDT Office Visit [facility] Pulmonary [address] 123 [facility] 390 [place] [address] Juan Morse MD [address] [place] [address] 1yr fu/ SOB/ pft prior/ late mornings 07/11/2025 11:00 AM EDT Office Visit [facility] Cardiology [address] 123 [facility] 290 [place] [address] Jose Angel Starkey MD [address] [place] [address] 1 yr documented as of this encounter Visit Diagnoses Not on filedocumented in this encounter Care Teams Truck Mechanic Relationship Specialty Start Date [place] [address] PCP - General Family Medicine 09/28/22 documented as of this encounter
--- OUTSIDE RECORDS SUMMARY | 2024-12-04 18:18 | XMS_ITS | Encounter Summary ---
Author Organization [facility] Address [address] [place] [address] Care Team Providers Care Sand Digger Name Role Phone Marija King DO Primary Care Provider [phone] Encounter Details Date Type Department Care Team (Late st Contact Info) Description 11/17/2020 myChart Message [facility] Revenue Cycle Management [address] [place] [address] Mychart, Generic Provider [address] [place] [id number] [facility] Customer Service Request Social History Tobacco [...] on filedocumented in this encounter Care Teams Sand Digger Relationship Specialty Start Date End Date Marija King DO [address] [place] [address] PCP - General 06/03/20 documented as of this encounter
--- OUTSIDE RECORDS SUMMARY | 2024-12-04 18:18 | XMS_ITS | Encounter Summary ---
Author Organization [facility] Address [address] [place] [address] Care Team Providers Care Dewatering Filtering Supervisor Name Role Phone HiGabe Primary Care Provider [phone] Marija King DO Primary Care Provider [phone] Cathleen Palmer MD Primary Care Provider [phone] Encounter Details Date Type Department Care Team (Late st Contact Info) Description 08/26/2015 Orders Only [facility] Cardiology [address] 123 [facility] 290 [place] [address] Valentin Vitale MD [address] [place] [address] Medications Social History Tobacco Use Types Packs/Day [...] 10:30 AM EDT Office Visit [facility] Pulmonary [address] 123 [facility] [address] [place] [address] Juan Morse MD [address] [place] [address] 1yr fu/ SOB/ pft prior/ late mornings 07/11/2025 11:00 AM EDT Office Visit [facility] Cardiology [address] 123 [facility] [address] [place] [address] Jose Angel Starkey MD [address] [place] [address] 1 yr documented as of this encounter Visit Diagnoses Diagnosis Paroxysmal atrial fibrillation (HCC)- Primary Atrial fibrillation documented in this encounter Additional Health Concerns Infection Onset Date Last Indicated Resolved Time COVID-19 Rule-Out 06/08/2020 06/08/2020 06/08/2020 7:17 PM EDT documented as of this encounter Care Teams Dewatering Filtering Supervisor Relationship Specialty Start Date End Date Gabe Do [facility] [address] [place] [address] PCP - General 03/24/06 08/22/17 Marija King DO [facility] [address] [place] [address] PCP - General Family Medicine 08/23/17 05/11/21 Cathleen Palmer MD [facility] [address] [address] PCP - General Family Medicine 09/28/22 documented as of this encounter
--- OUTSIDE RECORDS SUMMARY | 2024-12-04 18:18 | XMS_ITS | Encounter Summary ---
Author Organization [facility] Address [address] [place] [address] Care Team Providers Care Nurse Assessor Name Role Phone Mindy Kingh Lovely VARGAS Primary Care Provider [phone] Cathleen Palmer MD Primary Care Provider [phone] Reason for Visit * Reason Comments Follow Up Encounter Details Date Type Department Care Team ([facility] st Contact Info) Description 02/20/2018 Telephone [facility] Neurology [address] [address] Alex Hummel MD [address] [id number] Follow Up Social History Tobacco Use Types [...] Phone 02/21/18 4:30 PM Alex Hummel MD [place] [facility] [phone] 05/03/18 3:00 PM Juan Morse MD [facility] Pulmonary [address] 08/29/18 3:00 PM Jose Angel Starkey MD 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 He has some college education. He is [...] normal. I administered version 7.3 of the [place] Cognitive Assessment. He scored 24/30. He missed [...] 10:37 A TT: 11:09 A Doc #: [id number] cc: MD Alex Das MD Jonathan Tisdell, [...] time; thalia in counseling and coord care. Electronically Signed by Alex Hummel ([facility]) on 11/08/17 at 1142 NOTE FROM T:s office The [...] have no availability this week sinceI am care information associate, I could see him next week possibly [...] Department Care Team ([facility] Contact Info) Description 12/31/2024 10:30 AM EDT Office Visit [facility] Pulmonary [address] 123 [facility] [address] [place] [address] Juan Morse MD [address] [place] [address] 1yr fu/ SOB/ pft prior/ late mornings 07/11/2025 11:00 AM EDT Office Visit [facility] Cardiology [address] 123 [facility] 290 [place] [address] Jose Angel Starkey MD [address] [place] [address] 1 yr documented as of this encounter Visit Diagnoses Not on filedocumented in this encounter Additional Health Concerns Infection Onset Date Last Indicated Resolved Time COVID-19 Rule-Out 06/08/2020 06/08/2020 06/08/2020 7:17 PM EDT documented as of this encounter Care Teams Nurse Assessor Relationship Specialty Start Date End Date Marija King DO PCP - General Family Medicine 08/23/17 05/11/21 [place] [address] PCP - General Family Medicine 09/28/22 documented as of this encounter
--- OUTSIDE RECORDS SUMMARY | 2024-12-04 18:18 | XMS_ITS | Encounter Summary ---
Author Organization [facility] Address [address] [place] [address] Care Team Providers Care Home Lending Officer Name Role Phone Cathleen Palmer MD Primary Care Provider [phone] Encounter Details Date Type Department Care Team (Late Contact Info) Description 12/16/2021 Orders Only [facility] Pulmonary [address] [phone] Juan Morse MD [address] [place] [address] Medications Social History Tobacco Use Types Packs/Day [...] 10:30 AM EDT Office Visit [facility] Pulmonary [address] [facility] [address] [place] [address] Juan Morse MD [address] [place] [address] 1yr fu/ SOB/ pft prior/ late mornings 07/11/2025 11:00 AM EDT Office Visit [facility] Cardiology [address] [facility] [address] [place] [address] Jose Angel Starkey MD [address] [place] [address] 1 yr documented as of this encounter Visit Diagnoses Not on filedocumented in this encounter Care Teams Home Lending Officer Relationship Specialty Start Date End Date Cathleen Palmer MD [address] [address] PCP - General Family Medicine 09/28/22 documented as of this encounter
--- OUTSIDE RECORDS SUMMARY | 2024-12-04 18:18 | XMS_ITS | Encounter Summary ---
Author Organization [facility] Address [address] [place] [address] Care Team Providers Care Eggs Inspector Name Role Phone Cathleen Palmer MD Primary Care Provider [phone] Encounter Details Date Type Department Care Team (Late st Contact Info) Description 09/29/2022 Orders Only [facility] Pulmonary [address] [phone] Juan Morse MD [address] [place] [address] Social History Tobacco Use Types Packs/Day Years [...] Office Visit [facility] Pulmonary [address] [phone] Juan Morse MD [address] [place] [address] 1yr fu/ SOB/ pft prior/ late mornings 07/11/2025 11:00 AM EDT Office Visit [facility] Cardiology [address] [facility] [address] [place] [address] Jose Angel Starkey MD [address] [place] [address] 1 yr documented as of this encounter Results * Due to [place] state law, this organization might not be [...] on filedocumented in this encounter Care Teams Eggs Inspector Relationship Specialty Start Date End Date Cathleen Palmer MD [facility] 3640 [facility] [address] [place] [address] PCP - General Family Medicine 09/28/22 documented as of this encounter
== END 2024-12-04 15:56 | disposition home or self-care (01) ==
LOC: HO.HBS 14:39
PROVIDERS: PCP Family Medicine; Visit Provider Physician Assistant Surgical
DX: E66.3 Overweight (principal); Z68.27 Body mass index [BMI] 27.0-27.9, adult; Z90.3 Acquired absence of stomach [part of]; Z98.84 Bariatric surgery status
CPT/HCPCS: 99024

== ENCOUNTER 2024-12-05 10:36 | Outpatient (AMB) | payer BC, SELFPAY ==
--- NOTE | 2024-12-05 10:30 | A.OFFWM_ITS ---
Intake Intake Visit Reasons: TV PO LSG 11/28/24 Allergies No Known Allergies Allergy (Verified 12/04/24 14:50) PFSH Medical History (Updated 12/04/24 @ 15:08 by ELOISE Jacques) LUIZA (obstructive sleep apnea) Bronchiectasis Mild cognitive impairment H/O coronary angiogram Hx of sinus bradycardia Hx of atrial tachycardia Heart palpitations Bronchitis Asthma Seizure Hyperlipidemia GERD (gastroesophageal reflux disease) CAD (coronary artery disease) Hypertension BMI 36.0-36.9,adult Obesity Surgical History (Updated 12/04/24 @ 14:51 by Beronica Garcia CMA) S/P gastric sleeve procedure History of esophagogastroduodenoscopy (EGD) History of cardiac cath H/O colonoscopy Social History (Updated 12/04/24 @ 14:51 by Beronica Garcia CMA) Household Members: Family Housing: Apartment Are you a primary childcare worker to a significant other at home: No Do you presently have visiting nurse or other home services: No Alcohol intake: former Comment: a beer per every few months Patient Tobacco Use Status: Former Tobacco user Tobacco use type: Cigarette Years Smoked: 48 Behavioral Health Assessment Weight Management Therapy Therapy Notes0 Details Subjective: Patient underwent weight loss surgery on 11/28/2024. Current weight is 186 lbs. He denies any pain or difficulties with recovery and reports tolerating the liquid diet well, consistently meeting his daily fluid goal of 40?50 oz (currently averaging over 44 oz). Mood is good and stable. He reports strong support from his and [id number]-wqk. Occasionally experiences hunger sensations but denies persistent food-related thoughts. Objective: Patient presented for a behavioral health post-operative follow-up. A guided emotional check-in was completed to assess current functioning, recovery, mood, and emotional state. Psychoeducation was provided regarding the emotional and psychological adjustments following bariatric surgery. The session included discussion on differentiating hunger from cravings or food thoughts, exploring underlying triggers, and developing strategies to support a positive mindset. Mindfulness techniques were reviewed to help the patient remain attuned to physical and emotional needs while maintaining adherence to post-operative guidelines. The PHQ-9 was administered to screen for depressive symptoms and no concerns were reported. The importance of following Weight Management Program (WMP) recommendations?including appropriate pacing of fluid intake, adherence to meal and exercise plans?was reinforced. Long-term success strategies and available program resources were discussed. The patient was encouraged to join the program?s Facebook group for ongoing support and engagement with community events. Assessment/Response: * Mental status: WNL * Risk reported/identified: None Questionnaires PHQ-9 Over the last 2 weeks, how often have you been bothered by any of the following problems? 1. Little interest or pleasure in doing things: not at all 2. Feeling down, depressed, or hopeless: not at all 3. Trouble falling or staying asleep, or sleeping too much: not at all 4. Feeling tired or having little energy: not at all 5. Poor appetite or overeating: not at all 6. Feeling bad about yourself - or that you are a failure or have let yourself or your family down: not at all 7. Trouble concentrating on things, such as reading the newspaper or watching television: not at all 8. Moving or speaking so slowly that other people could have noticed. Or the opposite - being so fidgety or restless that you have been moving around a lot more than usual: not at all 9. Thoughts that you would be better off or of hurting yourself in some way: not at all Total score: 0 Depression Screening Interpretation: Negative Depression Screening Done: Yes 91751 - PHQ-9 Billing: Yes Source: Developed by Drs. Julián Pete, Minoo Pires, Eric Coto and colleagues, with an educational saima from [employer]. Assessment & Plan Assessment & Plan (1) Adjustment disorder: Code(s): F43.20 - Adjustment disorder, unspecified (2) Status post bariatric surgery: Code(s): Z98.84 - Bariatric surgery status Plan No safety concerns or issues were identified that would necessitate behavioral health monitoring. The patient declined further visits but is aware of the available behavioral health support if needed in the future. Telehealth Telehealth [facility]health [facility]: [facility] Location of provider rendering services: other (Home office. [place], [place]) Location of patient: address on file Patient Identification confirmed using: Name, : Yes Telehealth method: voice only Patient verbally consented to treatment: Yes Patient verbally consented to billing insurance company: Yes Patient informed of any privacy concerns related to visit: Yes Minutes spent on Phone/Video with Pt.: 30 Coding Level of Care Code Established Pt Tele Psytx 30 mins (14769) Patient Type Established Diagnoses Adjustment disorder F43.20 Status post bariatric surgery Z98.84 Additional Codes PHQ-9 - 37695 - PHQ-9 Billing: Yes ([id number]) Time Spent (min) 30
--- OUTSIDE RECORDS SUMMARY | 2024-12-05 12:41 | XMS_ITS | Encounter Summary ---
Author Organization [facility] Address [address] [place] [address] Care Team Providers Care Professor Of Poultry Science Name Role Phone Marija King DO Primary Care Provider [phone] Cathleen Palmer MD Primary Care Provider [phone] Encounter Details Date Type Department Care Team (Late Contact Info) Description 05/08/2020 Orders Only [facility] Cardiology [address] [address] Jose Angel Starkey MD [address] [place] [address] Social History Tobacco Use Types Packs/Day Years [...] Description 12/31/2024 10:30 AM EDT Office Visit [facility] Pulmonary [address] [facility] [address] [place] [address] Juan Morse MD [address] [place] [address] 1yr fu/ SOB/ pft prior/ late mornings 07/11/2025 11:00 AM EDT Office Visit [facility] Cardiology [address] [facility] [address] [place] [address] Jose Angel Starkey MD [address] [place] [address] 1 yr documented as of this encounter Procedures * Due to [place] [employer] law, this organization might not be sharing negative HIV tests. Procedure Name Priority Date/Time Associated Diagnosis Comments VENIPUNCTURE Routine 05/08/2020 11:51 AM EST Chronic chest pain Atherosclerosis of coronary artery, angina presence unspecified, unspecified vessel or lesion type, unspecified whether unga or transplanted heart [I25.10] CBC INCLUDES DIFFERENTIAL AND PLATELET COUNT Routine 05/08/2020 11:51 AM EST Chronic chest pain Atherosclerosis of coronary artery, angina presence unspecified, unspecified vessel or lesion type, unspecified whether unga or transplanted heart [I25.10] BASIC METABOLIC PANEL WITH (GFR) Routine 05/08/2020 11:51 AM EST Chronic chest pain Atherosclerosis of coronary artery, angina presence unspecified, unspecified vessel or lesion type, unspecified whether unga or transplanted heart [I25.10] documented in this encounter Results * Due to [place] [employer] law, this organization might not be [...] approximately 13% higher for people identified as -Kosovan. EGFR 60 > OR = 60 mL/min/1. [...] needs for GFR calculation. Resulting Agency Comment [id number] us Jose Angel Starkey MD LABORATORY Final Result [facility] [address] [place] [address] * CBC INCLUDES DIFFERENTIAL AND PLATELET COUNT [...] 1:42 PM EST Narrative Resulting Agency Comment [id number] Jose Angel Starkey MD LAB SAME DAY RESULT Final Res ult Performing Organization Address [facility] de Phone Number [facility] [address] [place] [address] * (ABNORMAL) PROTHROMBIN TIME (PT) (INR), BLOOD (05/08/2020 11:51 AM EST) INR 1.2(H) [facility] Comment: Reference Range 0.9-1.1 Moderate-intensity Warfarin Therapy 2.0-3.0 Higher-intensity Warfarin Therapy 3.0-4.0 PT 12.7(H) 9.0 - 11.5 sec [facility] Comment: For additional information, please refer to http://education.[employer]/faq/QLQ986 (This link is being provided for informational/ educational purposes only.) 05/08/2020 11:5 1 AM EST 05/08/2020 1:42 PM EST Narrative Resulting Agency Comment [id number] Jose Angel Starkey MD LAB SAME DAY RESULT Final Res ult Performing Organization Address [facility] Co de Phone Number [facility] [address] [place] [address] documented in this encounter Visit Diagnoses Diagnosis Chronic chest pain Chest pain, unspecified Atherosclerosis of coronary artery, angina presence unspecified, unspecified vessel or lesion type, unspecified whether unga or transplanted heart [I25.10] documented in this encounter Additional Health Concerns Infection Onset Date Last Indicated Resolved Time COVID-19 Rule-Out 06/08/2020 06/08/2020 06/08/2020 7:17 PM EDT documented as of this encounter Care Teams Professor Of Poultry Science Relationship Specialty Start Date End Date Marija King DO PCP - General Family Medicine 08/23/17 05/11/21 [place] [address] PCP - General Family Medicine 09/28/22 documented as of this encounter
--- OUTSIDE RECORDS SUMMARY | 2024-12-05 12:41 | XMS_ITS | Encounter Summary ---
Author Organization [facility] Address [address] [place] [address] Care Team Providers Care Vest Tailor Name Role Phone Christine Marija Lovely VARGAS Primary Care Provider [phone] Cathleen Palmer MD Primary Care Provider [phone] Reason for Visit * Reason Comments E-prescribing Refill Request Encounter Details Date Type Department Care Team ([facility] Contact Info) Description 06/10/2019 Refill [facility] Cardiology [address] [facility] [address] [place] [address] Jose Angel Starkey MD [address] [place] [address] E-prescribing Refill Request Social History Tobacco Use [...] Upcoming Encounters Date Type Department Care Team ([facility] Contact Info) Description 12/31/2024 10:30 AM EDT Office Visit [facility] Pulmonary [address] 123 [facility] [address] [place] [address] Juan Morse MD [address] [place] [address] 1yr fu/ SOB/ pft prior/ late mornings 07/11/2025 11:00 AM EDT Office Visit [facility] Cardiology [address] [facility] [address] [place] [address] Jose Angel Starkey MD [address] [place] [address] 1 yr documented as of this encounter Visit Diagnoses Diagnosis Paroxysmal atrial fibrillation (HCC) Atrial fibrillation documented in this encounter Additional Health Concerns Infection Onset Date Last Indicated Resolved Time COVID-19 Rule-Out 06/08/2020 06/08/2020 06/08/2020 7:17 PM EDT documented as of this encounter Care Teams Vest Tailor Relationship Specialty Start Date End Date Marija King DO PCP - General Family Medicine 08/23/17 05/11/21 Cathleen Palmer MD [address] [address] PCP - General Family Medicine 09/28/22 documented as of this encounter
--- OUTSIDE RECORDS SUMMARY | 2024-12-05 12:41 | XMS_ITS | Encounter Summary ---
Author Organization [facility] Address [address] [place] [address] Care Team Providers Care Merchandising Consultant Name Role Phone Marija King Lovely VARGAS Primary Care Provider [phone] Cathleen Palmer MD Primary Care Provider [phone] Encounter Details Date Type Department Care Team (Late Contact Info) Description 05/03/2019 Orders Only [facility] [address] [place] [phone] Alex Hummel MD [address] [place] [id number] Social History Tobacco Use Types Packs/Day Years [...] Description 12/31/2024 10:30 AM EDT Office Visit [facility] Pulmonary [address] [place] [address] Juan Morse MD [address] [place], [place] [id number] 1yr fu/ SOB/ pft prior/ late mornings 07/11/2025 11:00 AM EDT Office Visit [facility] Cardiology [address] [facility] [address] [place] [address] Jose Angel Starkey MD [address] [place] [address] 1 yr documented as of this encounter Procedures * Due to [place] [employer] law, this organization might not be sharing negative HIV tests. Procedure Name Priority Date/Time Associated Diagnosis Comments VENIPUNCTURE Routine 05/03/2019 9:32 AM EST Seizure documented in this encounter Results * Due to [place] [employer] law, this organization might not be sharing negative HIV tests. * (ABNORMAL) VALPROIC ACID (05/03/2019 9:32 AM EST) Valproate 30.5(L) 50.0 - 100.0 mg/L [facility] 05/03/2019 9:32 AM EST 05/04/2019 Narrative Resulting Agency Comment [id number] us Alex Hummel MD LAB SAME DAY RESULT Final Resu lt Performing Organization Address City/State/[facility] Co de Phone Number [facility] [address] [place] [address] documented in this encounter Visit Diagnoses Diagnosis Seizure (HCC) Other convulsions documented in this encounter Additional Health Concerns Infection Onset Date Last Indicated Resolved Time COVID-19 Rule-Out 06/08/2020 06/08/2020 06/08/2020 7:17 PM EDT documented as of this encounter Care Teams Merchandising Consultant Relationship Specialty Start Date End Date Marija King DO PCP - General Family Medicine 08/23/17 05/11/21 Cathleen Palmer MD [place] [address] [address] [address] PCP - General Family Medicine 09/28/22 documented as of this encounter
--- OUTSIDE RECORDS SUMMARY | 2024-12-05 12:41 | XMS_ITS | Encounter Summary ---
Author Organization [facility] Address [address] [place] [address] Care Team Providers Care Exhaust Tender Name Role Phone Marija King DO Primary Care Provider [phone] Cathleen Palmer MD Primary Care Provider [phone] Encounter Details Date Type Department Care Team ([facility] st Contact Info) Description 07/20/2020 Orders Only [facility] Cardiology [address] [facility] [address] [place] [address] Zhane Dorantes NP 123 [facility] [address] [place] [address] Social History Tobacco Use Types Packs/Day Years [...] his labs as requested. Patient states understanding OCCUPATIONAL THERAPY ASSIST is happy with his cholesterol panel but [...] him then. * Result Encounter Note - Emiyl Saenz - 07/20/2020 12:05 PM EDT Ok thank you. Note added to appointment for nursing to grab you at appointment. * Result Encounter Note - Zhane Dorantes NP - 07/20/2020 12:05 PM EDT Thanks! :) documented in this encounter Plan of Treatment Upcoming Encounters Date Type Department Care Team (Late st Contact Info) Description 12/31/2024 10:30 AM EDT Office Visit [facility] Pulmonary [address] [place] [address] Juan Morse MD [address] [place] [address] 1yr fu/ SOB/ pft prior/ late mornings 07/11/2025 11:00 AM EDT Office Visit [facility] Cardiology [address] 123 [facility] [address] [place] [address] Jose Angel Starkey MD [address] [place] [address] 1 yr documented as of this encounter Procedures * Due to [facility] law, this organization might not be sharing negative HIV tests. Procedure Name Priority Date/Time Associated Diagnosis Comments VENIPUNCTURE Routine 07/20/2020 12:05 PM EDT Coronary artery disease, unspecified vessel or lesion type, unspecified whether angina present, unspecified whether muscogee or transplanted heart documented in this encounter Results * Due to [place] [employer] law, this organization might not be sharing [...] LDL-C. Oliver SAM et al. BEAR. 2013;310(19): 8712-7015 (http://education.[employer]ppable/faq/VNM758) CHOL/HDL Ratio 2.8 <5.0 (calc) [facility] Cholesterol Non-HDL 85 <130 mg/dL (calc) [facility] Comment: For patients with diabetes plus 1 major ASCVD risk factor, treating to a non-HDL-C goal of <100 mg/dL (LDL-C of <70 mg/dL) is considered a therapeutic option. 07/20/2020 12:0 5 PM EDT 07/20/2020 9:33 PM EDT Narrative Resulting Agency Comment [id number] us Zhane Dorantes OCCUPATIONAL THERAPY ASSIST LABORATORY Final Res ult [facility] [address] [place] [address] documented in this encounter Visit Diagnoses Diagnosis Coronary artery disease, unspecified vessel or lesion type, unspecified whether angina present, unspecified whether muscogee or transplanted heart documented in this encounter Care Teams Exhaust Tender Relationship Specialty Start Date End Date Marija King DO PCP - General Family Medicine 08/23/17 05/11/21 Cathleen Palmer MD [address] [address] PCP - General Family Medicine 09/28/22 documented as of this encounter
--- OUTSIDE RECORDS SUMMARY | 2024-12-05 12:41 | XMS_ITS | Encounter Summary ---
Author Organization [facility] Address [address] [place] [address] Care Team Providers Care Infection Control Rn Name Role Phone Cathleen Palmer MD Primary Care Provider Reason for Visit * Reason Comments E-prescribing Refill Request Encounter Details Date Type Department Care Team ([facility] Contact Info) Description 10/08/2024 Refill [facility] Pulmonary [address] [address] Juan Morse MD [address] [place] [address] E-prescribing Refill Request Social History Tobacco Use [...] Last Visit: Date: 12/05/2023 Department: [facility]UL[facility] Provider: JUAN MORSE Visit Type: Office Visit Next Scheduled Visit: Date: 12/31/2024 Department: [facility] Provider: JUAN MORSE Visit Type: Office Visit Patient's Preferred Pharmacy: [facility]/pharmacy #[id number] [place] [address] [address] [facility] [address] [facility]/pharmacy #[id number] [facility] [address] [facility][id number] [address] [facility] [address] [facility] [address] [facility]/pharmacy #[id number] [address] [facility] [address] [facility] [address] (Medication refill pended for provider to review and send to selected pharmacy) documented in this encounter Plan of Treatment Upcoming Encounters Date Type Department Care Team (Late st Contact Info) Description 12/31/2024 10:30 AM EDT Office Visit [facility] Pulmonary [address] [facility] [address] [place] [address] Juan Morse MD [address] [place] [address] 1yr fu/ SOB/ pft prior/ late mornings 07/11/2025 11:00 AM EDT Office Visit [facility] Cardiology [address] [facility] [address] [place] [address] Jose Angel Starkey MD [address] [place] [address] 1 yr documented as of this encounter Visit Diagnoses Diagnosis Bronchiectasis without complication (HCC) Bronchiectasis without acute exacerbation documented in this encounter Care Teams Infection Control Rn Relationship Specialty Start Date End Date Cathleen Palmer MD [address] [address] PCP - General Family Medicine 09/28/22 documented as of this encounter
--- OUTSIDE RECORDS SUMMARY | 2024-12-05 12:41 | XMS_ITS | Encounter Summary ---
Author Organization [facility] Address [address] [place] [address] Care Team Providers Care Metal Inspector Name Role Phone Gabe Do Primary Care Provider [phone] Marija King DO Primary Care Provider [phone] Cathleen Palmer MD Primary Care Provider [phone] Encounter Details Date Type Department Care Team (Late st Contact Info) Description 05/28/2010 Orders Only [facility] Infectious Disease [address] [facility] [address] [place] [address] Marcello Ness MD [address] [place] [address] Social History Tobacco Use Types Packs/Day Years [...] Description 12/31/2024 10:30 AM EDT Office Visit [facility] Pulmonary [address] 123 [facility] [address] [place] [address] Juan Morse MD [address] [place] [address] 1yr fu/ SOB/ pft prior/ late mornings 07/11/2025 11:00 AM EDT Office Visit [facility] Cardiology [address] 123 [facility] [address] [place] [address] Jose Angel Starkey MD [address] [place] [address] 1 yr documented as of this encounter Procedures * Due to [place] [employer] law, this organization might not be sharing [...] in this encounter Results * Due to [place] [employer] law, this organization might not be sharing negative HIV tests. * MUMPS ANTIBODY (IGG) (05/28/2010) MUMPS VIRUS AB.IGG 2.8 (IMMUNE) SEE BELOW [facility] Comment:REFERENCE: 1.1 OR > INDICATES ANTIBODY 05/28/2010 05/28/2010 3:4 2 PM EST Marcello Ness MD LABORATORY Final Result [facility] [address] [place] [address] * RUBEOLA IGG AB (05/28/2010) RUBEOLA IGG AB 5.4 (IMMUNE) SEE BELOW [facility] Comment: UNITS: INDEX VALUE REFERENCE: 1.1 OR > INDICATES ANTIBODY 05/28/2010 05/28/2010 3:4 2 PM EST Marcello Ness MD LABORATORY Final Result Performing Organization Address [facility] Co de Phone Number [facility] [address] [place] [address] * RUBELLA IGG AB (05/28/2010) RUBELLA IGG AB 4.97 (IMMUNE) SEE BELOW [facility] Comment: REFERENCE: 1.1 OR > INDICATES ANTIBODY THE PRESENCE OF RUBELLA IGG ANTIBODY SUGGESTS A CURRENT OR PAST INFECTION OR IMMUNIZATION WITH RUBELLA VIRUS. 05/28/2010 05/28/2010 3:4 2 PM EST Marcello Ness MD LABORATORY Final Result Performing Organization Address [facility] Co de Phone Number [facility] [address] [place] [address] documented in this encounter Visit Diagnoses Diagnosis Other specified counseling Need for prophylactic vaccination with typhoid-paratyphoid alone (TAB) Need for prophylactic vaccination with combined hxqzgjxmuj-trkrgzf-cyqanffad (DTP) vaccine documented in this encounter Additional Health Concerns Infection Onset Date Last Indicated Resolved Time COVID-19 Rule-Out 06/08/2020 06/08/2020 06/08/2020 7:17 PM EDT documented as of this encounter Care Teams Metal Inspector Relationship Specialty Start Date End Date Gabe Do [facility] [address] [facility] [address] PCP - General 03/24/06 08/22/17 Marija King DO [facility] [address] [facility] [address] PCP - General Family Medicine 08/23/17 05/11/21 [place] [address] PCP - General Family Medicine 09/28/22 documented as of this encounter
--- OUTSIDE RECORDS SUMMARY | 2024-12-05 12:41 | XMS_ITS | Clinical Summary ---
Author Organization [facility] Address [address] [place] [address] Care Team Providers Care Senior Health Consultant Name Role Phone Cathleen Palmer MD Primary Care Provider [phone] Allergies Active Allergy Reactions Criticality Noted Date Comments Oxycodone Other 01/31/2023 Causes confusion Medications * This document contains information received from the source organization and may not represent a complete record from that organization. Nitroglycerin (NITROSTAT) 0.4 MG SL tabletIndications :Abnormal cardiovascular stress test,Atherosclero sis of coronary artery, angina presence unspecified, unspecified vessel or lesion type, unspecified whether [place] or transplanted heart,Paroxysmal atrial fibrillation (HCC),Hyperlipide elicia, [...] Type Department Care Team Description 12/03/2024 Refill [facility] Cardiology [address] [facility] [address] [place] [address] Jayesh Starkey MD E-prescribing Refill Request 10/18/2024 Orders Only [facility] Cardiology [address] [facility] [address] [place] [address] Jayesh Starkey MD Medications 10/08/2024 Refill [facility] Pulmonary [address] 123 [facility] [address] [place] [address] Juan Morse MD E-prescribing Refill Request 09/06/2024 Refill [facility] [address] [facility] 290 [place] [address] Jayesh Starkey MD E-prescribing Refill Request from [...] Upcoming Encounters Date Type Department Care Team ([facility] st Contact Info) Description 12/31/2024 10:30 AM EDT Office Visit [facility] Pulmonary [address] [facility] [address] [place] [address] Juan Morse MD [address] [place] [address] 1yr fu/ SOB/ pft prior/ late mornings 07/11/2025 11:00 AM EDT Office Visit [facility] Cardiology [address] [facility] 290 [place] [address] Jayesh Starkey MD [address] [place] [address] 1 yr Health Maintenance Due Date Last [...] Zoster (Zostavax) Discontinued Procedures * Due to [facility] law, this organization might not be [...] type, unspecified whether angina present, unspecified whether [place] or transplanted heart HEP C ANTIBODY (EIA-2) Routine 08/01/2003 4:44 PM EDT from Last 3 Months or Most Recently Relevant to Health Maintenance Results * Due to [facility] law, this organization might not be [...] Abnormal ECG Confirmed by JAYESH STARKEY ([id number]), commissioning editor KAREN MULTANI ([id number]) on 06/29/2023 7:33:59 [...] LDL-C. Oliver SS et al. BEAR. 2013;310(19): 6522-4473 (http://education.[employer]/faq/FJU975) CHOL/HDL Ratio 2.8 <5.0 (calc) [facility] Cholesterol Non-HDL 85 <130 mg/dL (calc) [facility] Comment: For patients with diabetes plus 1 major ASCVD risk factor, treating to a non-HDL-C goal of <100 mg/dL (LDL-C of <70 mg/dL) is considered a therapeutic option. 07/20/2020 12:0 5 PM EDT 07/20/2020 9:33 PM EDT Narrative Resulting Agency Comment [id number] us Zhane Dorantes COLLECTION TEAM [facility] Final Res ult [facility] [address] [place] [id number] * HEP C ANTIBODY (EIA-2) (08/01/2003 4:44 PM EDT) HEPATITIS C AB NEGATIVE [facility] (CLIA# [id number]) 08/01/2003 4:44 PM EDT 08/01/2003 4:44 PM EDT Narrative [facility] (CLIA# [id number]) - 08/01/2003 4:44 PM EDT Ordered by UNKNOWN PROVIDER SST tube received unspun us Unknown Provider LABORATORY Final Result [facility] (CLIA# [id number]) [address] [place] [address] from Last 3 Months or Most Recently Relevant to Health Maintenance Insurance [facility] FEE FOR SERVICE PPO * Guarantor: [employer] Account Type Relation to Patient Date of Phone Billing Address [facility] [address] [place] [address] Care Teams Senior Health Consultant Relationship Specialty Start Date End Date Cathleen Palmer MD [place] [id number] [address] [address] PCP - General Family Medicine 09/28/22
--- OUTSIDE RECORDS SUMMARY | 2024-12-05 12:41 | XMS_ITS | Encounter Summary ---
Author Organization [facility] Address [address] [place] [address] Care Team Providers Care Outsoles Channel Opener Name Role Phone Marija King DO Primary Care Provider [phone] Cathleen Palmer MD Primary Care Provider [phone] Reason for Visit * Reason Onset Date Comments Refill Request 06/02/2019 Encounter Details Date Type Department Care Team (Late st Contact Info) Description 06/02/2019 Refill [facility] Pulmonary [address] 123 [facility] [address] [place] [address] Juan Morse MD [address] [place] [address] Refill Request Social History Tobacco Use Types [...] Upcoming Encounters Date Type Department Care Team ([facility] st Contact Info) Description 12/31/2024 10:30 AM EDT Office Visit [facility] Pulmonary [address] [facility] [address] [place] [address] Juan Morse MD [address] [place] [address] 1yr fu/ SOB/ pft prior/ late mornings 07/11/2025 11:00 AM EDT Office Visit [facility] Cardiology [address] [facility] [address] [place] [address] Jose Angel Starkey MD [address] [place] [address] 1 yr documented as of this encounter Visit Diagnoses Not on filedocumented in this encounter Additional Health Concerns Infection Onset Date Last Indicated Resolved Time COVID-19 Rule-Out 06/08/2020 06/08/2020 06/08/2020 7:17 PM EDT documented as of this encounter Care Teams Outsoles Channel Opener Relationship Specialty Start Date End Date Marija King DO PCP - General Family Medicine 08/23/17 05/11/21 Cathleen Palmer MD [address] [address] PCP - General Family Medicine 09/28/22 documented as of this encounter
--- OUTSIDE RECORDS SUMMARY | 2024-12-05 12:42 | XMS_ITS | Encounter Summary ---
Author Organization [facility] Address [address] [place] [address] Care Team Providers Care Automatic Wheel Line Operator Name Role Phone HiGabe Primary Care Provider [phone] Marija King DO Primary Care Provider [phone] Cahtleen Palmer MD Primary Care Provider [phone] Encounter Details Date Type Department Care Team (Late st Contact Info) Description 08/26/2015 Orders Only [facility] Cardiology [address] [facility] [address] [place] [address] Valentin Vitale MD [address] [place] [address] Medications Social History Tobacco Use Types Packs/Day [...] [facility] Pulmonary [address] [facility] [address] [place] [address] Juan Morse MD [address] [place] [address] 1yr fu/ SOB/ pft prior/ late mornings 07/11/2025 11:00 AM EDT Office Visit [facility] Cardiology [address] [facility] 290 [place] [address] Jose Angel Starkey MD [address] [place] [address] 1 yr documented as of this encounter Visit Diagnoses Diagnosis Paroxysmal atrial fibrillation (HCC)- Primary Atrial fibrillation documented in this encounter Additional Health Concerns Infection Onset Date Last Indicated Resolved Time COVID-19 Rule-Out 06/08/2020 06/08/2020 06/08/2020 7:17 PM EDT documented as of this encounter Care Teams Automatic Wheel Line Operator Relationship Specialty Start Date End Date Gabe Do [facility] [address] [place] [address] PCP - General 03/24/06 08/22/17 Marija King DO [facility] [address] [place] [address] PCP - General Family Medicine 08/23/17 05/11/21 Cathleen Palmer MD [facility] [address] [address] PCP - General Family Medicine 09/28/22 documented as of this encounter
--- OUTSIDE RECORDS SUMMARY | 2024-12-05 12:42 | XMS_ITS | Encounter Summary ---
Author Organization [facility] Address [address] [place] [address] Care Team Providers Care Hotel Service Supervisor Name Role Phone Marija King Lovely VARGAS Primary Care Provider [phone] Cathleen Palmer MD Primary Care Provider [phone] Encounter Details Date Type Department Care Team ([facility] st Contact Info) Description 11/24/2020 Orders Only [facility] Cardiology [address] [address] Jose Angel Starkey MD [address] [place] [address] Social History Tobacco Use Types Packs/Day Years [...] Description 12/31/2024 10:30 AM EDT Office Visit [facility] Pulmonary [address] 123 [facility] [address] [place] [address] Juan Morse MD [address] [place] [address] 1yr fu/ SOB/ pft prior/ late mornings 07/11/2025 11:00 AM EDT Office Visit [facility] Cardiology [address] 123 [facility] [address] [place] [address] Jose Angel Starkey MD [address] [place] [address] 1 yr documented as of this encounter Procedures * Due to [place] [employer] law, this organization might not be sharing negative HIV tests. Procedure Name Priority Date/Time Associated Diagnosis Comments VENIPUNCTURE Routine 11/24/2020 9:45 AM EDT Hypertension, unspecified type documented in this encounter Results * Due to [place] [employer] law, this organization might not be sharing [...] approximately 13% higher for people identified as -Togolese. EGFR 51(L) > OR = 60 mL/min/1. [...] needs for GFR calculation. Resulting Agency Comment [id number] us Jose Angel Starkey MD LABORATORY Final Result [facility] [address] [place] [address] documented in this encounter Visit Diagnoses Diagnosis Hypertension, unspecified type documented in this encounter Care Teams Hotel Service Supervisor Relationship Specialty Start Date End Date Marija King DO PCP - General Family Medicine 08/23/17 05/11/21 [place] [address] PCP - General Family Medicine 09/28/22 documented as of this encounter
--- OUTSIDE RECORDS SUMMARY | 2024-12-05 12:42 | XMS_ITS | Clinical Summary ---
Author Organization [facility] Address [address] [place] [address] Care Team Providers Care Firer Watertender Name Role Phone Marija King DO Primary Care Provider [phone] Allergies No known active allergies Medications aspirin [...] 02/05/2004, 08/05/2003, 12/03/1999 Procedures * Due to [place] [employer] law, this organization might not be sharing negative HIV tests. Procedure Name Priority Date/Time Associated Diagnosis Comments BASIC METABOLIC PANEL Routine 12/05/2014 9:09 AM EDT from Last 3 Months or Most Recently Relevant to Health Maintenance Results * Due to [place] [employer] law, this organization might not be sharing negative HIV tests. * (ABNORMAL) Basic Metabolic Panel (12/05/2014 9:09 AM EDT) Sodium Blood 139 135 - 145 mmol/L [facility] Potassium Blood 4.9 3.5 - 5.3 mmol/L [facility] Chloride Blood 104 97 - 110 mmol/L [facility] Carbon Dioxide 27 24 - 32 mmol/L [facility] Gap 8 5 - 15 [facility] Glucose 102(H) 70 - 99 mg/dL [facility] BUN 9 7 - 23 mg/dL [facility] Creatinine 1.02 0.60 - 1.30 mg/dL [facility] eGFR Non- >60 >60 [facility] Comment: Units = [...] Calcium Blood 9.1 8.7 - 10.7 mg/dL [facility] 12/05/2014 9:09 AM EDT 12/05/2014 9:41 AM EDT us Mitesh Gillespie MD LAB BLOOD ORDERABLES Final Res ult [facility] [address] [place] [address], [place] from Last 3 Months or Most Recently Relevant to Health Maintenance Insurance [employer] PPO/EPO/IND Advance Directives * Full Code (Latest Code Status on File) Date Activated Date Inactivated Comments 06/09/2020 1:31 PM 06/09/2020 7:11 PM * Full Code Date Activated Date Inactivated Comments 06/09/2020 11:18 AM 06/09/2020 1:31 PM Care Teams Firer Watertender Relationship Specialty Start Date End Date Marija King DO [address] [place] [address] PCP - General 06/03/20
--- OUTSIDE RECORDS SUMMARY | 2024-12-05 12:42 | XMS_ITS | Encounter Summary ---
Author Organization [facility] Address [address] [place] [address] Care Team Providers Care Contract Coordinator Name Role Phone Cathleen Palmer MD Primary Care Provider [phone] Reason for Visit * Reason Comments E-prescribing Refill Request Encounter Details Date Type Department Care Team ([facility] Contact Info) Description 12/03/2024 Refill [facility] Cardiology [address] [address] Jose Angel Starkey MD [address] [place] [address] E-prescribing Refill Request Social History Tobacco Use [...] Phone 12/31/24 10:30 AM Juan Morse MD [facility] Pulmonary [address] 07/11/25 11:00 AM Jose Angel Starkey MD [facility] Cardiology [address] Pertinent lab results: [...] Description 12/31/2024 10:30 AM EDT Office Visit [facility] Pulmonary [address] [facility] [address] [place] [address] Juan Morse MD [address] [place] [address] 1yr fu/ SOB/ pft prior/ late mornings 07/11/2025 11:00 AM EDT Office Visit [facility] Cardiology [address] [facility] [address] [place] [address] Jose Angel Starkey MD [address] [place] [address] 1 yr documented as of this encounter Visit Diagnoses Diagnosis Hypertension, unspecified type documented in this encounter Care Teams Contract Coordinator Relationship Specialty Start Date End Date Cathleen Palmer MD [address] [address] PCP - General Family Medicine 09/28/22 documented as of this encounter
--- OUTSIDE RECORDS SUMMARY | 2024-12-05 12:42 | XMS_ITS | Encounter Summary ---
Author Organization [facility] Address [address] [place] [address] Care Team Providers Care Pest Control Applicator Name Role Phone EzMarija sullivan Lovely VARGAS Primary Care Provider [phone] Cathleen Palmer MD Primary Care Provider [phone] Reason for Visit * Reason Onset Date Comments Refill Request 01/28/2019 Encounter Details Date Type Department Care Team (Late Contact Info) Description 01/28/2019 Refill [facility] Cardiology [address] 123 [facility] [address] [place] [address] Kim Roberson, RN Refill Request Social History [...] Description 12/31/2024 10:30 AM EDT Office Visit [facility] Pulmonary [address] 123 [facility] [address] [place] [address] Juan Morse MD [address] [place] [address] 1yr fu/ SOB/ pft prior/ late mornings 07/11/2025 11:00 AM EDT Office Visit [facility] Cardiology [address] 123 [facility] [address] [place] [address] Jose Angel Starkey MD [address] [place] [address] 1 yr documented as of this encounter Visit Diagnoses Not on filedocumented in this encounter Additional Health Concerns Infection Onset Date Last Indicated Resolved Time COVID-19 Rule-Out 06/08/2020 06/08/2020 06/08/2020 7:17 PM EDT documented as of this encounter Care Teams Pest Control Applicator Relationship Specialty Start Date End Date Marija King DO PCP - General Family Medicine 08/23/17 05/11/21 Cathleen Palmer MD [address] [address] PCP - General Family Medicine 09/28/22 documented as of this encounter
--- OUTSIDE RECORDS SUMMARY | 2024-12-05 12:42 | XMS_ITS | Encounter Summary ---
Author Organization [facility] Address [address] [place] [address] Care Team Providers Care Gas Pumping Station Supervisor Name Role Phone Cathleen Palmer MD Primary Care Provider [phone] Reason for Visit * Reason Comments E-prescribing Refill Request Encounter Details Date Type Department Care Team ([facility] st Contact Info) Description 06/14/2021 Refill [facility] Neurology [address] [address] Alex Hummel MD 123 [facility] [address] [place] [address] [place] [address] E-prescribing Refill Request Social History Tobacco Use [...] Phone 07/22/21 10:30 AM Alex Hummel MD [facility] Neurology [address] 05/20/22 10:00 AM Jose Angel Starkey MD [facility] Cardiology [address] Pertinent lab results: [...] Upcoming Encounters Date Type Department Care Team ([facility] st Contact Info) Description 12/31/2024 10:30 AM EDT Office Visit [facility] Pulmonary [address] 123 [facility] [address] [place] [address] Juan Morse MD [address] [place] [address] 1yr fu/ SOB/ pft prior/ late mornings 07/11/2025 11:00 AM EDT Office Visit [facility] Cardiology [address] 123 [facility] [address] [place] [address] Jose Angel Starkey MD [address] [place] [address] 1 yr documented as of this encounter Visit Diagnoses Not on filedocumented in this encounter Care Teams Gas Pumping Station Supervisor Relationship Specialty Start Date [place] [address] PCP - General Family Medicine 09/28/22 documented as of this encounter
--- OUTSIDE RECORDS SUMMARY | 2024-12-05 12:42 | XMS_ITS | Clinical Summary ---
Author Organization [facility] ity Address [address] [place] [address] Care Team Providers Care Accordion Tuner Name Role Phone Unavailable Primary Care Provider [...] 02/15/2022 Social Influencers of Health Screening 02/15/2022 Depression Screening 03/20/2024 RSV Immunization Adult Patie nts (1 - 1-dose 75+ series) 2024 COVID-19 Vaccine ( - 2023-2 5 season) 2024 Influenza Vaccine (#1) 2024 HIB Vaccines [...]
--- OUTSIDE RECORDS SUMMARY | 2024-12-05 12:42 | XMS_ITS | Encounter Summary ---
Author Organization [facility] Address [address] [place] [address] Care Team Providers Care Hand Weaver Name Role Phone Marija Knig DO Primary Care Provider [phone] Encounter Details Date Type Department Care Team (Late st Contact Info) Description 11/17/2020 myChart Message [employer] [address] [place] [address] Mychart, Generic Provider [address] [place] [id number] [facility] Customer Service Request Social History Tobacco Use [...] on filedocumented in this encounter Care Teams Hand Weaver Relationship Specialty Start Date End Date Marija King DO [address] [place] [address] PCP - General 06/03/20 documented as of this encounter
--- OUTSIDE RECORDS SUMMARY | 2024-12-05 12:42 | XMS_ITS | Patient Health Record ---
Author Organization [facility] Address [address] [place] [address] Care Team Providers Care Sealing Machine Operator Name Role Phone Hi Gabe Primary Care Provider Volodymyr Bush Unavailable [phone] Reason For Referral No Information Medications Medication [...] W/U Status Risk Notes Problem Otitic barotrauma (43219130) Barotitis, initial encounter (T70.0XXA) Active confirmed Problem Acute non-suppurative otitis media - serous (621451771) Right acute serous otitis media, recurrence not specified (H65.01) Active confirmed Plan Of Treatment No Information Insurance Providers Payer Name Payer Address Payer Phone Subscriber Number Group Number Insured Name Patient Relationship to Insured Coverage Start Date Coverage End Date [facility] Link [address] CHRISTIAN Grimes [id number] [phone] [id number] Santos Hawkins Self - patient is the insured Medical (General) History Medical History History ICD Code coronary artery disease Surgical History Surgery Date(Month/Year) tonsillectomy [place] Te[facility] adenoidectomy rotator cuff tear repair
--- OUTSIDE RECORDS SUMMARY | 2024-12-05 12:42 | XMS_ITS | Encounter Summary ---
Author Organization [facility] Address [address] [place] [address] Care Team Providers Care Packaging Machine Supplies Distributor Name Role Phone Cathleen Palmer MD Primary Care Provider [phone] Encounter Details Date Type Department Care Team (Late Contact Info) Description 05/21/2021 Refill [facility] Neurology [address] [facility] [address] [place] [address] Alex Hummel MD [address] [address] Social History Tobacco Use Types Packs/Day Years [...] Description 12/31/2024 10:30 AM EDT Office Visit [facility] Pulmonary [address] 123 [facility] [address] [place] [address] Juan Morse MD [address] [place] [address] 1yr fu/ SOB/ pft prior/ late mornings 07/11/2025 11:00 AM EDT Office Visit [facility] Cardiology [address] [facility] [address] [place] [address] Jose Angel Starkey MD [address] [place] [address] 1 yr documented as of this encounter Visit Diagnoses Not on filedocumented in this encounter Care Teams Packaging Machine Supplies Distributor Relationship Specialty Start Date End Date Cathleen Palmer MD [address] [address] PCP - General Family Medicine 09/28/22 documented as of this encounter
--- OUTSIDE RECORDS SUMMARY | 2024-12-05 12:42 | XMS_ITS | Encounter Summary ---
Author Organization [facility] Address [address] [place] [address] Care Team Providers Care Hedis Review Nurse Name Role Phone EzMarija sullivan Lovely VARGAS Primary Care Provider [phone] Cathleen Palmer MD Primary Care Provider [phone] Reason for Visit * Reason Onset Date Comments Refill Request 01/28/2019 Encounter Details Date Type Department Care Team (Late Contact Info) Description 01/28/2019 Refill [facility] Cardiology [address] [facility] [address] [place] [address] Kim Roberson, RN Refill Request Social History [...] Description 12/31/2024 10:30 AM EDT Office Visit [facility] Pulmonary [address] [facility] [address] [place] [address] Juan Morse MD [address] [place] [address] 1yr fu/ SOB/ pft prior/ late mornings 07/11/2025 11:00 AM EDT Office Visit [facility] Cardiology [address] [facility] [address] [place] [address] Jose Angel Starkey MD [address] [place] [address] 1 yr documented as of this encounter Visit Diagnoses Not on filedocumented in this encounter Additional Health Concerns Infection Onset Date Last Indicated Resolved Time COVID-19 Rule-Out 06/08/2020 06/08/2020 06/08/2020 7:17 PM EDT documented as of this encounter Care Teams Hedis Review Nurse Relationship Specialty Start Date End Date Marija King DO PCP - General Family Medicine 08/23/17 05/11/21 Cathleen Palmer MD [address] [address] PCP - General Family Medicine 09/28/22 documented as of this encounter
--- OUTSIDE RECORDS SUMMARY | 2024-12-05 12:42 | XMS_ITS | Encounter Summary ---
Author Organization [facility] Address [address] [place] [address] Care Team Providers Care Features Reporter Name Role Phone Marija King DO Primary Care Provider Cathleen Palmer MD Primary Care Provider [phone] Encounter Details Date Type Department Care Team (Late Contact Info) Description 12/19/2018 [facility] Pulmonary [address] [facility] [address] [place] [address] Juan Morse MD [address] [place] [address] Social History Tobacco Use Types Packs/Day Years [...] Fonseca RN - 12/19/2018 3:36 PM EDT RackWaret message sent on 12/27 documented in this encounter Plan of Treatment Upcoming Encounters Date Type Department Care Team (Late st Contact Info) Description 12/31/2024 10:30 AM EDT Office Visit [facility] Pulmonary [address] [facility] [address] [place] [address] Juan Morse MD [address] [place] [address] 1yr fu/ SOB/ pft prior/ late mornings 07/11/2025 11:00 AM EDT Office Visit [facility] Cardiology [address] [facility] [address] [place] [address] Jose Angel Starkey MD [address] [place] [address] 1 yr documented as of this encounter Procedures * Due to [place] law, this organization might not be sharing negative HIV tests. Procedure Name Priority Date/Time Associated Diagnosis Comments C-REACTIVE PROTEIN (CRP) - INFLAMMATION Routine 12/19/2018 3:36 PM EDT Recurrent respiratory infection IMMUNOGLOBULIN G,SUBCLASSES 1-4 SERUM Routine 12/19/2018 3:36 PM EDT Recurrent respiratory infection VENIPUNCTURE Routine 12/19/2018 3:36 PM EDT Recurrent respiratory infection documented in this encounter Results * Due to [place] law, this organization might not be sharing negative HIV tests. * C-REACTIVE PROTEIN (CRP) - INFLAMMATION (12/19/2018 3:36 PM EDT) C reactive protein 0.9 <8.0 mg/L [facility] 12/19/2018 3:36 PM EDT 12/19/2018 11:34 PM EDT Narrative Resulting Agency Comment [id number] Juan Morse MD LABORATORY Final Result [facility] [address] [place] [address] * IMMUNOGLOBULIN QUANTITATION (IGG, IGM, IGA) (12/19/2018 3:36 PM EDT) IgA 142 20 - 320 mg/dL [facility] IgG 1024 600 - 1540 mg/dL [facility] IgM 112 50 - 300 mg/dL [facility] 12/19/2018 3:36 PM EDT 12/19/2018 11:34 PM EDT Narrative Resulting Agency Comment [id number] Juan Morse MD LABORATORY Final Result Performing Organization Address City/State/[facility] Co de Phone Number [facility] [address] [place] [address] * IMMUNOGLOBULIN G,SUBCLASSES 1-4 SERUM (12/19/2018 3:36 [...] 11:34 PM EDT Narrative Resulting Agency Comment [id number] Juan Morse MD LABORATORY Final Result Performing Organization Address City/[facility] de Phone Number [facility] [address] [place] [address] documented in this encounter Visit Diagnoses Diagnosis Recurrent respiratory infection Other diseases of respiratory system, not elsewhere classified documented in this encounter Additional Health Concerns Infection Onset Date Last Indicated Resolved Time COVID-19 Rule-Out 06/08/2020 06/08/2020 06/08/2020 7:17 PM EDT documented as of this encounter Care Teams Features Reporter Relationship Specialty Start Date End Date Marija King DO PCP - General Family Medicine 08/23/17 05/11/21 [place] [address] PCP - General Family Medicine 09/28/22 documented as of this encounter
--- OUTSIDE RECORDS SUMMARY | 2024-12-05 12:42 | XMS_ITS | Encounter Summary ---
Author Organization [facility] Address [address] [place] [address] Care Team Providers Care Adjunct Faculty For Medical Terminology Name Role Phone HiGabe Primary Care Provider [phone] Marija King DO Primary Care Provider [phone] Cathleen Palmer MD Primary Care Provider [phone] Encounter Details Date Type Department Care Team (Late st Contact Info) Description 08/27/2015 Orders Only [facility] Cardiology [address] [facility] [address] [place] [address] Valentin Vitale MD [address] [place] [address] Social History Tobacco Use Types Packs/Day Years [...] Description 12/31/2024 10:30 AM EDT Office Visit [facility] Pulmonary [address] [facility] [address] [place] [address] Juan Morse MD [address] [place] [address] 1yr fu/ SOB/ pft prior/ late mornings 07/11/2025 11:00 AM EDT Office Visit [facility] Cardiology [address] [facility] [address] [place] [address] Jose Angel Starkey MD [address] [place] [address] 1 yr documented as of this encounter Procedures * Due to [place] state law, this organization might not be sharing negative HIV tests. Procedure Name Priority Date/Time Associated Diagnosis Comments CBC INCLUDES DIFFERENTIAL AND PLATELET COUNT Routine 08/27/2015 8:34 AM EDT Abnormal cardiovascular stress test Atherosclerosis of coronary artery, angina presence unspecified, unspecified vessel or lesion type, unspecified whether [place] or transplanted heart [I25.10] Paroxysmal atrial fibrillation (HCC) [I48.0] Hyperlipidemia, unspecified hyperlipidemia type [E78.5] Essential hypertension with goal blood pressure less than 130/80 [I10] TSH, 3RD GENERATION Routine 08/27/2015 8 :34 AM EDT Abnormal cardiovascular stress test Atherosclerosis of coronary artery, angina presence unspecified, unspecified vessel or lesion type, unspecified whether [place] or transplanted heart [I25.10] Paroxysmal atrial fibrillation (HCC) [I48.0] Hyperlipidemia, unspecified hyperlipidemia type [E78.5] Essential hypertension with goal blood pressure less than 130/80 [I10] LIPID PANEL WITH REFLEX TO DIRECT LDL Routine 08/27/2015 8:34 AM EDT Abnormal cardiovascular stress test Atherosclerosis of coronary artery, angina presence unspecified, unspecified vessel or lesion type, unspecified whether [place] or transplanted heart [I25.10] Paroxysmal atrial fibrillation (HCC) [I48.0] Hyperlipidemia, unspecified hyperlipidemia type [E78.5] Essential hypertension with goal blood pressure less than 130/80 [I10] BASIC METABOLIC PANEL WITH (GFR) Routine 08/27/2015 8:34 AM EDT Abnormal cardiovascular stress test Atherosclerosis of coronary artery, angina presence unspecified, unspecified vessel or lesion type, unspecified whether [place] or transplanted heart [I25.10] Paroxysmal atrial fibrillation [...] - 200 mg/dL [facility] Comment:{CHOLESTEROL, TOTAL {[id number]) HDL Cholesterol 39(L) > OR = 40 mg/dL [facility] Comment:{HDL CHOLESTEROL {[id number]) Triglyceride 176(H) <150 mg/dL [facility] Comment:{TRIGLYCERIDES {[id number]) LDL Cholesterol 38 <130 mg/dL (calc) [facility] Comment: {LDL-CHOLESTEROL {[id number]) Desirable range <100 mg/dL for patients with CHD or diabetes and <70 mg/dL for diabetic patients with known heart disease. CHOL/HDL Ratio 2.9 < OR = 5.0 (calc) [facility] Comment:{CHOL/HDLC RATIO {[id number]) Cholesterol Non-HDL 73 mg/dL (calc) [facility] Comment: {NON HDL CHOLESTEROL {[id number]) Target for non-HDL cholesterol is 30 mg/dL higher than LDL cholesterol target. 08/27/2015 8:34 AM EDT 08/27/2015 7:39 PM EDT Narrative Resulting Agency Comment [id number] Valentin Vitale MD LABORATORY Final Result [facility] [address] [place] [address] * TSH, 3RD GENERATION (08/27/2015 8:34 AM EDT) TSH 1.24 0.40 - 4.50 mIU/L [facility] Comment:{TSH {[id number]) 08/27/2015 8:34 AM EDT 08/27/2015 7:39 PM EDT Narrative Resulting Agency Comment [id number] Valentin Vitale MD LABORATORY Final Result [facility] [address] [place] [address] * BASIC METABOLIC PANEL WITH (GFR) (08/27/2015 8:34 AM EDT) Glucose 99 65 - 99 mg/dL [facility] Comment: {GLUCOSE {[id number]) Fasting reference interval Urea Nitrogen Blood (BUN) 12 7 - 25 mg/dL [facility] Comment:{UREA NITROGEN (BUN) {[id number]) Creatinine 1.10 0.70 - 1.25 mg/dL [facility] Comment: {CREATININE {[id number]) For patients >49 years of age, the reference limit for Creatinine is approximately 13% higher for people identified as -Swiss. GFR 70 > OR = 60 mL/min/1 .73m2 [facility] Comment:{eGFR NON-AFR. AMERI CAN {[id number]) GFR () 81 > OR = 60 mL/min/1 .73m2 [facility] Comment:{eGFR AMERIC AN {[id number]) BUN/Creatinine Ratio NOT APPLICABLE 6 - 22 (calc) [facility] Comment:{BUN/CREATININE RATI O {[id number]) Sodium 139 135 - 146 mmol/L [facility] Comment:{SODIUM {[id number]) Potassium 4.7 3.5 - 5.3 mmol/L [facility] Comment:{POTASSIUM {[id number]) Chloride 105 98 - 110 mmol/L [facility] Comment:{CHLORIDE {[id number]) Carbon dioxide 26 19 - 30 mmol/L [facility] Comment:{CARBON DIOXIDE {[id number]) Calcium 9.4 8.6 - 10.3 mg/dL [facility] Comment:{CALCIUM {[id number]) 08/27/2015 8:34 AM EDT 08/27/2015 7:39 [...] needs for GFR calculation. Resulting Agency Comment [id number] Valentin Vitale MD LABORATORY Final Result [facility] [address] [place] [address] * CBC INCLUDES DIFFERENTIAL AND PLATELET COUNT (08/27/2015 8:34 AM EDT) WBC 6.0 3.8 - 10.8 Thousand/u L [facility] Comment:{WHITE BLOOD CELL CO UNT {[id number]) RBC 4.88 4.20 - 5.80 Million/uL [facility] Comment:{RED BLOOD CELL COUN T {[id number]) Hemoglobin 15.2 13.2 - 17.1 g/dL [facility] Comment:{HEMOGLOBIN {[id number]) Hematocrit 44.6 38.5 - 50.0 % [facility] Comment:{HEMATOCRIT {[id number]) MCV 91.5 80.0 - 100.0 fL [facility] Comment:{MCV {[id number]) MCH 31.2 27.0 - 33.0 pg [facility] Comment:{MCH {[id number]) MCHC 34.1 32.0 - 36.0 g/dL [facility] Comment:{MCHC {[id number]) RDW 12.9 11.0 - 15.0 % [facility] Comment:{RDW {[id number]) PLT 191 140 - 400 Thousand/u L [facility] Comment:{PLATELET COUNT {[id number]) MPV 8.9 7.5 - 11.5 fL [facility] Comment:{MPV {[id number]) Neutrophils # 2856 1500 - 7800 cells/uL [facility] Comment:{ABSOLUTE NEUTROPHIL S {[id number]) Lymphocytes # 2508 850 - 3900 cells/uL [facility] Comment:{ABSOLUTE LYMPHOCYTE S {[id number]) Monocytes # 486 200 - 950 cells/uL [facility] Comment:{ABSOLUTE MONOCYTES {[id number]) Eosinophils # 126 15 - 500 cells/uL [facility] Comment:{ABSOLUTE EOSINOPHIL S {[id number]) Basophils # 24 0 - 200 cells/uL [facility] Comment:{ABSOLUTE BASOPHILS {[id number]) Neutrophils % 47.6 % [facility] Comment:{NEUTROPHILS {[id number]) Lymphocytes % 41.8 % [facility] Comment:{LYMPHOCYTES {[id number]) Monocytes % 8.1 % [facility] Comment:{MONOCYTES {[id number]) Eosinophils % 2.1 % [facility] Comment:{EOSINOPHILS {[id number]) Basophils % 0.4 % [facility] Comment:{BASOPHILS {[id number]) 08/27/2015 8:34 AM EDT 08/27/2015 7:39 PM EDT Narrative Resulting Agency Comment [id number] us Valentin Vitale MD LAB SAME DAY RESULT Final Resul t [facility] [address] [place] [address] documented in this encounter Visit Diagnoses Diagnosis Abnormal cardiovascular stress test Other nonspecific abnormal cardiovascular system function study Atherosclerosis of coronary artery, angina presence unspecified, unspecified vessel or lesion type, unspecified whether [place] or transplanted heart [I25.10] Paroxysmal atrial fibrillation (HCC) [I48.0] Atrial fibrillation Hyperlipidemia, unspecified hyperlipidemia type [E78.5] Essential hypertension with goal blood pressure less than 130/80 [I10] documented in this encounter Additional Health Concerns Infection Onset Date Last Indicated Resolved Time COVID-19 Rule-Out 06/08/2020 06/08/2020 06/08/2020 7:17 PM EDT documented as of this encounter Care Teams Adjunct Faculty For Medical Terminology Relationship Specialty Start Date End Date Gabe Do [facility] [address] [place] [address] PCP - General 03/24/06 08/22/17 Marija King DO [facility] [address] [place] [address] PCP - General Family Medicine 08/23/17 05/11/21 Cathleen Palmer MD [facility] [address] [address] PCP - General Family Medicine 09/28/22 documented as of this encounter
--- OUTSIDE RECORDS SUMMARY | 2024-12-05 12:42 | XMS_ITS | Encounter Summary ---
Author Organization [facility] Address [address] [place] [address] Care Team Providers Care Brand Marketing Coordinator Name Role Phone Marija King DO Primary Care Provider [phone] Cathleen Palmer MD Primary Care Provider [phone] Reason for Referral * OUTPT PROCEDURES AND DIAGNOSTICS (Routine) - Closed Specialty Diagnoses / Procedures Referred By Contac t Referred To Contact CT Scan Diagnoses Other nonspecific abnormal finding of lung field Procedures CT CHEST W/O CONTRAST (DX: ? NODULE ON CXR R91.8/ 793.2) (WITHIN 1 WK) Juan Morse MD [address] [place] [address] Phone: tel: fax: Referral ID Status Reason Start Date Expiration Date V isits Requested Visits Authorized [id number] Closed Continuity of Care 04/09/2018 07/08/2018 1 1 Encounter Details Date Type Department Care Team (Late st Contact Info) Description 04/04/2018 Orders Only [facility] Pulmonary [address] 123 [facility] [address] [place] [address] Juan Morse MD [address] [place] [address] Social History Tobacco Use Types Packs/Day Years [...] Description 12/31/2024 10:30 AM EDT Office Visit [facility] Pulmonary [address] 123 [facility] [address] [place] [address] Juan Morse MD [address] [place] [address] 1yr fu/ SOB/ pft prior/ late mornings 07/11/2025 11:00 AM EDT Office Visit [facility] Cardiology [address] 123 [facility] [address] [place] [address] Jose Angel Starkey MD [address] [place] [address] 1 yr documented as of this encounter Results * Due to [place] state law, this organization might not be sharing negative HIV tests. * (ABNORMAL) CT CHEST W/O CONTRAST (DX: ? NODULE ON CXR R91.8/ 793.2) (WITHIN 1 WK) FC (04/13/2018 9:02 AM EST) [facility](A) [facility] Anatomical Region Laterality Modality CHEST [...] documented as of this encounter Care Teams Brand Marketing Coordinator Relationship Specialty Start Date End Date Marija King DO PCP - General Family Medicine 08/23/17 05/11/21 [place] [address] PCP - General Family Medicine 09/28/22 documented as of this encounter
--- OUTSIDE RECORDS SUMMARY | 2024-12-05 12:42 | XMS_ITS | Encounter Summary ---
Author Organization [facility] Address [address] [place] [address] Care Team Providers Care Jewelry Dipper Name Role Phone Eznate Marija Lovely VARGAS Primary Care Provider [phone] Cathleen Palmer MD Primary Care Provider [phone] Encounter Details Date Type Department Care Team (Late Contact Info) Description 10/31/2017 Orders Only [facility] Pulmonary [address] [phone] Juan Morse MD [address] [place] [address] Social History Tobacco Use Types Packs/Day Years [...] Description 12/31/2024 10:30 AM EDT Office Visit [facility] Pulmonary [address] 123 [facility] [address] [place] [address] Juan Morse MD [address] [place], [place] [id number] 1yr fu/ SOB/ pft prior/ late mornings 07/11/2025 11:00 AM EDT Office Visit [facility] Cardiology [address] [facility] [address] [place] [address] Jose Angel Starkey MD [address] [place] [address] 1 yr documented as of this encounter Procedures * Due to [place] law, this organization might not be sharing negative HIV tests. Procedure Name Priority Date/Time Associated Diagnosis Comments [facility] Routine 10/31/2017 2:46 PM EDT Cough SOB (shortness of breath) CHICKEN FEATHERS (E85)IGE Routine 10/31/2017 2:46 PM EDT Cough SOB (shortness of breath) EOSINOPHILS, ABSOLUTE Routine 10/31/2017 2:46 PM EDT Cough SOB (shortness of breath) documented in this encounter Results * Due to [place] law, this organization might not be sharing negative HIV tests. * CHICKEN FEATHERS (E85)IGE (10/31/2017 2:46 PM EDT) Chicken Feathers (E85) IgE <0.10 kU/L [facility] Chicken Feathers (E85) Class 0 [facility] 10/31/2017 2:46 PM EDT 10/31/2017 9:49 PM EDT Narrative Resulting Agency Comment [id number] Juan Morse MD LABORATORY Final Result [facility] [address] [place] [address] * EOSINOPHILS, ABSOLUTE (10/31/2017 2:46 PM EDT) WBC 7.4 3.8 - 10.8 Thousand/u L [facility] Eosinophils # 163 15 - 500 cells/uL [facility] Eosinophils % 2.2 % [facility] 10/31/2017 2:46 PM EDT 10/31/2017 9:49 PM EDT Narrative Resulting Agency Comment [id number] Juan Morse MD LABORATORY Final Result [facility] [address] [place] [address] * [facility] (10/31/2017 2:46 PM EDT) IgE 4 <BB=991 kU/L [facility] Constantino Grass (G6) IgE <0.10 kU/L [facility] Constantino Grass (G6) Class 0 [facility] Effie Grass([place]ent[place] Blue)(G8) IgE <0.10 kU/L [facility] Effie Grass([place] Blue)(G8) Class 0 [facility] Common Ragweed (Short)(W1) IgE <0.10 kU/L [facility] Common Ragweed (Short)(W1) Class 0 [facility] Chadian Plantain (W9) IgE <0.10 kU/L [facility] Chadian Plantain (W9) Class 0 [facility] [place]'s Quarters (Goosefoot) (W10) IgE <0.10 kU/L [facility] [place] (Goosefoot) (W10) Class 0 [facility] [place] (T7) IgE <0.10 kU/L [facility] [place] (T7) Class 0 [facility] Cat Dander [...] IgE <0.10 kU/L [facility] House Dust ([place]-Jackie) (H2) Class 0 [facility] Dermatophagoides Farinae(D2) IgE <0.10 kU/L [facility] Dermatophagoides Farinae(D2) Class 0 [facility] 10/31/2017 2:46 PM EDT 10/31/2017 9:49 PM EDT Narrative Resulting Agency Comment [id number] Juan Morse MD LABORATORY Final Result [facility] [address] [place] [address] documented in this encounter Visit Diagnoses Diagnosis Cough SOB (shortness of breath) Shortness of breath documented in this encounter Additional Health Concerns Infection Onset Date Last Indicated Resolved Time COVID-19 Rule-Out 06/08/2020 06/08/2020 06/08/2020 7:17 PM EDT documented as of this encounter Care Teams Jewelry Dipper Relationship Specialty Start Date End Date Marija King DO PCP - General Family Medicine 08/23/17 05/11/21 Cathleen Palmer MD [address] [address] PCP - General Family Medicine 09/28/22 documented as of this encounter
--- OUTSIDE RECORDS SUMMARY | 2024-12-05 12:42 | XMS_ITS | Encounter Summary ---
Author Organization [facility] Address [address] [place] [address] Care Team Providers Care Brick Baker Name Role Phone Cathleen Palmer MD Primary Care Provider [phone] Encounter Details Date Type Department Care Team (Late st Contact Info) Description 09/29/2022 Orders Only [facility] Pulmonary [address] [phone] Juan Morse MD [address] [place] [address] Social History Tobacco Use Types Packs/Day Years [...] Office Visit [facility] Pulmonary [address] [phone] Juan Morse MD [address] [place] [address] 1yr fu/ SOB/ pft prior/ late mornings 07/11/2025 11:00 AM EDT Office Visit [facility] Cardiology [address] [facility] [address] [place] [address] Jose Angel Starkey MD [address] [place] [address] 1 yr documented as of this encounter [...] on filedocumented in this encounter Care Teams Brick Baker Relationship Specialty Start Date End Date Cathleen Palmer MD [facility] [address] [facility] [address] [place] [address] PCP - General Family Medicine 09/28/22 documented as of this encounter
--- OUTSIDE RECORDS SUMMARY | 2024-12-05 12:42 | XMS_ITS | Encounter Summary ---
Author Organization [facility] Address [address] [place] [address] Care Team Providers Care Resaw Feeder Name Role Phone ChristineMarija Lovely VARGAS Primary Care Provider [phone] Cathleen Palmer MD Primary Care Provider [phone] Encounter Details Date Type Department Care Team (Late Contact Info) Description 03/03/2018 Orders Only [facility] Cardiology [address] [facility] [address] [place] [address] Kathryn Bansal DO [address] [place] [address] Medications Social History Tobacco Use Types Packs/Day [...] - [place] Pulmonary [address] [facility] [address] [place] [address] Juan Morse MD [address] [place] [address] 1yr fu/ SOB/ pft prior/ late mornings 07/11/2025 11:00 AM EDT Office Visit [facility] Cardiology [address] [facility] [address] [place] [address] Jose Angel Starkey MD [address] [place] [address] 1 yr documented as of this encounter Visit Diagnoses Not on filedocumented in this encounter Additional Health Concerns Infection Onset Date Last Indicated Resolved Time COVID-19 Rule-Out 06/08/2020 06/08/2020 06/08/2020 7:17 PM EDT documented as of this encounter Care Teams Resaw Feeder Relationship Specialty Start Date End Date Marija King DO PCP - General Family Medicine 08/23/17 05/11/21 Cathleen Palmer MD [place] [address] [address] PCP - General Family Medicine 09/28/22 documented as of this encounter
--- OUTSIDE RECORDS SUMMARY | 2024-12-05 12:42 | XMS_ITS | Encounter Summary ---
Author Organization [facility] Address [address] [place] [address] Care Team Providers Care Garment Fitter Name Role Phone Marija Kign Lovely VARGAS Primary Care Provider [phone] Cathleen Palmer MD Primary Care Provider [phone] Encounter Details Date Type Department Care Team (Late Contact Info) Description 10/01/2018 Orders Only [facility] Pulmonary [address] [address] Juan Morse MD [address] [place] [address] Medications Social History Tobacco Use Types Packs/Day [...] Description 12/31/2024 10:30 AM EDT Office Visit [facility] Pulmonary [address] 123 [facility] [address] [place] [address] Juan Morse MD [address] [place] [address] 1yr fu/ SOB/ pft prior/ late mornings 07/11/2025 11:00 AM EDT Office Visit [facility] Cardiology [address] [facility] [address] [place] [address] Jose Angel Starkey MD [address] [place] [address] 1 yr documented as of this encounter Visit Diagnoses Diagnosis Cough documented in this encounter Additional Health Concerns Infection Onset Date Last Indicated Resolved Time COVID-19 Rule-Out 06/08/2020 06/08/2020 06/08/2020 7:17 PM EDT documented as of this encounter Care Teams Garment Fitter Relationship Specialty Start Date End Date Marija King DO PCP - General Family Medicine 08/23/17 05/11/21 Cathleen Palmer MD [place] [address] [address] [address] PCP - General Family Medicine 09/28/22 documented as of this encounter
--- OUTSIDE RECORDS SUMMARY | 2024-12-05 12:42 | XMS_ITS | Encounter Summary ---
Author Organization [facility] Address [address] [place] [address] Care Team Providers Care Packer Dried Beef Name Role Phone Cathleen Palmer MD Primary Care Provider [phone] Encounter Details Date Type Department Care Team (Late Contact Info) Description 12/16/[address] [facility] Pulmonary [address] [phone] Juan Morse MD [address] [place] [address] Medications Social History Tobacco Use Types Packs/Day [...] [facility] Pulmonary [address] 123 [facility] [address] [place] [phone] Juan Morse MD [address] [place] [address] 1yr fu/ SOB/ pft prior/ late mornings 07/11/2025 11:00 AM EDT Office Visit [facility] Cardiology [address] 123 [facility] [address] [place] [address] Jose Angel Starkey MD 123 [place] [address] 1 yr documented as of this encounter Visit Diagnoses Not on filedocumented in this encounter Care Teams Packer Dried Beef Relationship Specialty Start Date End Date Cathleen Palmer MD [address] [address] PCP - General Family Medicine 09/28/22 documented as of this encounter
--- OUTSIDE RECORDS SUMMARY | 2024-12-05 12:42 | XMS_ITS | Encounter Summary ---
Author Organization [facility] Address [address] [place] [address] Care Team Providers Care Large Sheetfed Press Operator Name Role Phone Mindy Kingh Lovely VARGAS Primary Care Provider [phone] Cathleen Palmer MD Primary Care Provider [phone] Reason for Visit * Reason Comments Follow Up Encounter Details Date Type Department Care Team ([facility] st Contact Info) Description 02/20/2018 Telephone [facility] Neurology [address] [address] Alex Hummel MD [address] [id number] Follow Up Social History Tobacco Use Types [...] Phone 02/21/18 4:30 PM Alex Hummel MD [facility] [phone] 05/03/18 3:00 PM Juan Morse MD [facility] Pulmonary [address] 08/29/18 3:00 PM Jose Angel Starkey MD [facility] Cardiology [address] * Telephone Encounter - [...] 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 He has some college education. He is [...] normal. I administered version 7.3 of the Abie Cognitive Assessment. He scored 24/30. He missed [...] 10:37 A TT: 11:09 A Doc #: [id number] cc: MD Alex Das MD Jonathan Tisdell, [...] coord care. 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, I could see him next week possibly [...] Upcoming Encounters Date Type Department Care Team ([facility] Contact Info) Description 12/31/2024 10:30 AM EDT Office Visit [facility] Pulmonary [address] 123 [facility] [address] [place] [address] Juan Morse MD [address] [place] [address] 1yr fu/ SOB/ pft prior/ late mornings 07/11/2025 11:00 AM EDT Office Visit [facility] Cardiology [address] 123 [facility] [address] [place] [address] Jose Angel Starkey MD [address] [place] [address] 1 yr documented as of this encounter Visit Diagnoses Not on filedocumented in this encounter Additional Health Concerns Infection Onset Date Last Indicated Resolved Time COVID-19 Rule-Out 06/08/2020 06/08/2020 06/08/2020 7:17 PM EDT documented as of this encounter Care Teams Large Sheetfed Press Operator Relationship Specialty Start Date End Date Marija King DO PCP - General Family Medicine 08/23/17 05/11/21 [place] [address] PCP - General Family Medicine 09/28/22 documented as of this encounter
== END 2024-12-05 11:09 | disposition home or self-care (01) ==
LOC: HO.HBST 10:36
PROVIDERS: PCP Family Medicine; Visit Provider Counselor Mental Health
DX: F43.20 Adjustment disorder, unspecified (principal); Z98.84 Bariatric surgery status
CPT/HCPCS: 90832

== ENCOUNTER 2025-01-24 09:44 | Outpatient (AMB) | payer BC, SELFPAY ==
--- NOTE | 2025-01-24 09:35 | A.OFFVIS_ITS ---
VS Expanded 01/24/25 09:36 Height 5 ft 10 in Weight 177 lb BMI 25.4 Intake Visit Reasons: TV PO LSG 11/28/24 Allergies No Known Allergies Allergy (Verified 12/04/24 14:50) Medication List - Last Reconciled 01/24/25 by ELOISE Jacques amlodipine 10 mg PO DAILY Held on 11/29/24. Instructions: Resume on 11/29/24. Only resume according to parameters given by Dr. Gardner divalproex ER 1,000 mg PO BEDTIME fluticasone propion-salmeterol 250-50 mcg/dose (Wixela Inhub) 1 inh inhalation BID isosorbide mononitrate ER 60 mg PO DAILY Held on 11/29/24. Instructions: Resume on 11/29/24. Only resume according to parameters given by Dr. Gardner lisinopril 5 mg PO DAILY Held on 11/29/24. Instructions: Resume on 11/29/24. Only resume according to parameters given by Dr. Gardner metoprolol succinate ER 50 mg PO DAILY Held on 11/29/24. Instructions: Resume on 11/29/24. Only resume according to parameters given by Dr. Gardner ondansetron 4 mg PO Q12H PRN pantoprazole 40 mg PO DAILY@0630 rivaroxaban (Xarelto) 20 mg PO DAILY Held on 11/29/24. Instructions: Resume on 11/29/24. Only resume when ins tructed to do so by Dr. Gardner simvastatin 40 mg PO BEDTIME sucralfate 10 mL PO BID HPI Comments Details: This?is a?74?yo F who is s/p LSG 11/28/2024. Presents for 7w post op visit. Weight loss of 13.4lb since last OV at 1w postop.? No complaints of nausea, emesis, abdominal pain or reflux, or constipation. Resumed Xarelto. Checking BP, maybe once a week needs metoprolol and half amlodipine. Present meal plan includes: two days ago I was starving and ate chicken too fast [employer] bar 1 meal per day right now- planning to increase to 2 meals per day soon, likely when he gets to healthy BMI Exercise routine includes: 1 mile walk in AM 120-140 karina, then walks on treadmill to get to 300 calories occasionally will increase to 2 miles PFSH Medical History (Updated 12/07/24 @ 00:00 by Serina Marin) LUIZA (obstructive sleep apnea) Bronchiectasis Mild cognitive impairment H/O coronary angiogram Hx of sinus bradycardia Hx of atrial tachycardia Heart palpitations Bronchitis Asthma Seizure Hyperlipidemia GERD (gastroesophageal reflux disease) CAD (coronary artery disease) Hypertension BMI 36.0-36.9,adult Obesity Surgical History (Updated 12/04/24 @ 14:51 by Beronica Garcia CMA) S/P gastric sleeve procedure History of esophagogastroduodenoscopy (EGD) History of cardiac cath H/O colonoscopy Social History (Updated 12/04/24 @ 14:51 by Beronica Garcia CMA) Household Members: Family Housing: Apartment Are you a primary home care provider to a significant other at home: No Do you presently have visiting nurse or other home services: No Alcohol intake: former Comment: a beer per every few months Patient Tobacco Use Status: Former Tobacco user Tobacco use type: Cigarette Years Smoked: 48 Telehealth Telehealth Telehealth Platform: Telephone Location of provider rendering services: other Location of patient: address on file Patient Identification confirmed using: Name, : Yes Telehealth method: voice only Patient verbally consented to treatment: Yes Patient verbally consented to billing insurance company: Yes Patient informed of any privacy concerns related to visit: Yes Minutes spent on Phone/Video with Pt.: 12 Assessment & Plan Assessment & Plan (1) Overweight: Code(s): E66.3 - Overweight Category: Medical (2) S/P laparoscopic sleeve gastrectomy: Code(s): Z98.84 - Bariatric surgery status Category: Surgical Plan Pt to continue meal plan per Dr Triana, continue communicating weekly. Exercise is adequate. Continue to dose BP meds per parameters. No restrictions on exercise. Discussed abstaining from alcohol until 3mo postop. RTC
[2025-01-24 09:36] VITALS: BMI 25.4
--- OUTSIDE RECORDS SUMMARY | 2025-01-24 11:06 | XMS_ITS | Encounter Summary ---
Author Organization [facility] Address [address] [place] [address] Care Team Providers Care Song And Dance Performer Name Role Phone Christine Marija Lovely VARGAS Primary Care Provider [phone] Cathleen aPlmer MD Primary Care Provider [phone] Reason for Visit * Reason Comments E-prescribing Refill Request Encounter Details Date Type Department Care Team ([facility] Contact Info) Description 06/10/2019 Refill [facility] Cardiology [address] 123 [facility] [address] [place] [address] Jose Angel Starkey MD [address] [place] [address] E-prescribing Refill Request Social History Tobacco Use [...] Upcoming Encounters Date Type Department Care Team ([facility] Contact Info) Description 05/05/2025 10:45 AM EST Office Visit [facility] Pulmonary [address] 123 [facility] [address] [place] [address] Juan Morse MD 123 [place] [address] 1yr fu/ SOB/ pft prior/ 07/11/2025 11:00 AM EDT Office Visit [facility] Cardiology [address] 123 [facility] [address] [place] [address] Jose Angel Starkey MD [address] [place] [address] 1 yr documented as of this encounter Visit Diagnoses Diagnosis Paroxysmal atrial fibrillation (HCC) Atrial fibrillation documented in this encounter Additional Health Concerns Infection Onset Date Last Indicated Resolved Time COVID-19 Rule-Out 06/08/2020 06/08/2020 06/08/2020 7:17 PM EDT documented as of this encounter Care Teams Song And Dance Performer Relationship Specialty Start Date End Date Marija King DO PCP - General Family Medicine 08/23/17 05/11/21 Cathleen Palmer MD [address] [address] PCP - General Family Medicine 09/28/22 documented as of this encounter
--- OUTSIDE RECORDS SUMMARY | 2025-01-24 11:06 | XMS_ITS | Encounter Summary ---
Author Organization [facility] Address [address] [place] [address] Care Team Providers Care Health Safety Coordinator Name Role Phone Marija King DO Primary Care Provider [phone] Cathleen Palmer MD Primary Care Provider [phone] Encounter Details Date Type Department Care Team ([facility] st Contact Info) Description 07/20/2020 Orders Only [facility] Cardiology [address] 123 [facility] [address] [place] [address] Zhane Dorantes NP 123 [facility] [address] [place] [address] Social History Tobacco Use Types Packs/Day Years [...] his labs as requested. 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 but [...] Care Team (Late st Contact Info) Description 05/05/2025 10:45 AM EST Office Visit [facility] Pulmonary [address] [place] [address] [address] [place] [address] Juan Morse MD [address] [place] [address] 1yr fu/ SOB/ pft prior/ 07/11/2025 11:00 AM EDT Office Visit [facility] Cardiology [address] 123 [facility] [address] [place] [address] Jose Angel Starkey MD [address] [place] [address] 1 yr documented as of this encounter Procedures * Due to [facility] law, this organization might not be sharing negative HIV tests. Procedure Name Priority Date/Time Associated Diagnosis Comments VENIPUNCTURE Routine 07/20/2020 12:05 PM EDT Coronary artery disease, unspecified vessel or lesion type, unspecified whether angina present, unspecified whether stillaguamish or transplanted heart documented in this encounter Results * Due to [place] [employer] law, this organization might not be sharing [...] LDL-C. Oliver SAM et al. BEAR. 2013;310(19): 9282-1733 (http://education.Qustreet/faq/JXQ788) CHOL/HDL Ratio 2.8 <5.0 (calc) [facility] Cholesterol Non-HDL 85 <130 mg/dL (calc) [facility] Comment: For patients with diabetes plus 1 major ASCVD risk factor, treating to a non-HDL-C goal of <100 mg/dL (LDL-C of <70 mg/dL) is considered a therapeutic option. 07/20/2020 12:0 5 PM EDT 07/20/2020 9:33 PM EDT Narrative Resulting Agency Comment [id number] us Zhane Dorantes REGIONAL OPERATIONS MANAGER LABORATORY Final Res ult [facility] [address] [place] [address] documented in this encounter Visit Diagnoses Diagnosis Coronary artery disease, unspecified vessel or lesion type, unspecified whether angina present, unspecified whether stillaguamish or transplanted heart documented in this encounter Care Teams Health Safety Coordinator Relationship Specialty Start Date End Date Marija King DO PCP - General Family Medicine 08/23/17 05/11/21 [place] [address] PCP - General Family Medicine 09/28/22 documented as of this encounter
--- OUTSIDE RECORDS SUMMARY | 2025-01-24 11:06 | XMS_ITS | Encounter Summary ---
Author Organization [facility] Address [address] [place] [address] Care Team Providers Care Nurses Assistant Name Role Phone Cathleen Palmer MD Primary Care Provider [phone] Reason for Visit * Reason Comments E-prescribing Refill Request Encounter Details Date Type Department Care Team ([facility] Contact Info) Description 10/08/2024 Refill [facility] Pulmonary [address] [address] Juan Morse MD [address] [place] [address] E-prescribing Refill Request Social History Tobacco Use [...] Visit History Last Visit: Date: 12/05/2023 Department: [facility] Provider: JUAN MORSE Visit Type: Office Visit Next Scheduled Visit: Date: 12/31/2024 Department: [facility] Provider: JUAN MORSE Visit Type: Office Visit Patient's Preferred Pharmacy: [facility]/pharmacy #[id number] [place] [address] [address] [facility] [address] [facility]/pharmacy #[id number] [facility] [address] [id number] [address] [facility] [address] [facility] [phone] [facility]/pharmacy #[id number] [address] [facility] [address] [facility] [address] (Medication refill pended for provider to review and send to selected pharmacy) documented in this encounter Plan of Treatment Upcoming Encounters Date Type Department Care Team (Late st Contact Info) Description 05/05/2025 10:45 AM EST Office Visit [facility] Pulmonary [address] 123 [facility] 390 [place] [address] Juan Morse MD [address] [place] [address] 1yr fu/ SOB/ pft prior/ 07/11/2025 11:00 AM EDT Office Visit [facility] Cardiology [address] 123 [facility] [address] [place] [address] Jose Angel Starkey MD [address] [place] [address] 1 yr documented as of this encounter Visit Diagnoses Diagnosis Bronchiectasis without complication (HCC) Bronchiectasis without acute exacerbation documented in this encounter Care Teams Nurses Assistant Relationship Specialty Start Date End Date Cathleen Palmer MD [address] [address] PCP - General Family Medicine 09/28/22 documented as of this encounter
--- OUTSIDE RECORDS SUMMARY | 2025-01-24 11:06 | XMS_ITS | Encounter Summary ---
Author Organization [facility] Address [address] [place] [address] Care Team Providers Care Computer Aided Design Drafter Name Role Phone Marija King Lovely VARGAS Primary Care Provider [phone] Cathleen Palmer MD Primary Care Provider [phone] Encounter Details Date Type Department Care Team ([facility] st Contact Info) Description 11/24/2020 Orders Only [facility] Cardiology [address] [address] Jose Angel Starkey MD 123 [place] [address] Social History Tobacco Use Types Packs/Day Years [...] Description 05/05/2025 10:45 AM EST Office Visit [facility] Pulmonary [address] 123 [facility] 390 [place] [address] Juan Morse MD [address] [place] [address] 1yr fu/ SOB/ pft prior/ 07/11/2025 11:00 AM EDT Office Visit [facility] Cardiology [address] 123 [facility] 290 [place] [address] Jose Angel Starkey MD [address] [place] [address] 1 yr documented as of this encounter Procedures * Due to [place] [employer] law, this organization might not be sharing negative HIV tests. Procedure Name Priority Date/Time Associated Diagnosis Comments VENIPUNCTURE Routine 11/24/2020 9:45 AM EDT Hypertension, unspecified type documented in this encounter Results * Due to [place] [employer] law, this organization might not be sharing [...] approximately 13% higher for people identified as -[place]gent[place]. EGFR 51(L) > OR = 60 mL/min/1. [...] needs for GFR calculation. Resulting Agency Comment [id number] us Jose Angel Starkey MD LABORATORY Final Result Performing Organization Address City/State/[facility] Co de Phone Number [facility] [address] [place] [address] documented in this encounter Visit Diagnoses Diagnosis Hypertension, unspecified type documented in this encounter Care Teams Computer Aided Design Drafter Relationship Specialty Start Date End Date Marija King DO PCP - General Family Medicine 08/23/17 05/11/21 [place] [address] PCP - General Family Medicine 09/28/22 documented as of this encounter
--- OUTSIDE RECORDS SUMMARY | 2025-01-24 11:06 | XMS_ITS | Encounter Summary ---
Author Organization [facility] Address [address] [place] [address] Care Team Providers Care Lead Level Designer Name Role Phone HiGabe Primary Care Provider [phone] Marija King DO Primary Care Provider [phone] Cathleen Palmer MD Primary Care Provider [phone] Encounter Details Date Type Department Care Team (Late st Contact Info) Description 08/26/2015 Orders Only [facility] Cardiology [address] 123 [facility] 290 [place] [address] Valentin Vitale MD [address] [place] [address] Medications Social History Tobacco Use Types Packs/Day [...] Description 05/05/2025 10:45 AM EST Office Visit [facility] Pulmonary [address] [facility] 390 [place] [address] Juan Morse MD [address] [place] [address] 1yr fu/ SOB/ pft prior/ 07/11/2025 11:00 AM EDT Office Visit [facility] Cardiology [address] [facility] [address] [place] [address] Jose Angel Starkey MD [address] [place] [address] 1 yr documented as of this encounter Visit Diagnoses Diagnosis Paroxysmal atrial fibrillation (HCC)- Primary Atrial fibrillation documented in this encounter Additional Health Concerns Infection Onset Date Last Indicated Resolved Time COVID-19 Rule-Out 06/08/2020 06/08/2020 06/08/2020 7:17 PM EDT documented as of this encounter Care Teams Lead Level Designer Relationship Specialty Start Date End Date Gabe Do [facility] [address] [place] [address] PCP - General 03/24/06 08/22/17 Marija King DO [facility] [address] [place] [address] PCP - General Family Medicine 08/23/17 05/11/21 Cathleen Palmer MD [facility] [address] [address] PCP - General Family Medicine 09/28/22 documented as of this encounter
--- OUTSIDE RECORDS SUMMARY | 2025-01-24 11:06 | XMS_ITS | Encounter Summary ---
Author Organization [facility] Address [address] [place] [address] Care Team Providers Care Supervisor [employer] Name Role Phone Marija King Lovely VARGAS Primary Care Provider [phone] Cathleen Palmer MD Primary Care Provider [phone] Encounter Details Date Type Department Care Team (Late Contact Info) Description 05/03/2019 Orders Only [facility] [address] [place] [phone] Alex Hummel MD [address] [place] [address] Social History Tobacco Use Types Packs/Day Years [...] Department Care Team (Late Contact Info) Description 05/05/2025 10:45 AM EST Office Visit [facility] Pulmonary [address] [place] [address] Juan Morse MD 123 [place], [place] [id number] 1yr fu/ SOB/ pft prior/ 07/11/2025 11:00 AM EDT Office Visit [facility] Cardiology [address] 123 [facility] [address] [place] [address] Jose Angel Starkey MD [address] [place] [address] 1 yr documented as of this encounter Procedures * Due to [place] [employer] law, this organization might not be sharing negative HIV tests. Procedure Name Priority Date/Time Associated Diagnosis Comments VENIPUNCTURE Routine 05/03/2019 9:32 AM EST Seizure documented in this encounter Results * Due to [place] [employer] law, this organization might not be sharing negative HIV tests. * (ABNORMAL) VALPROIC ACID (05/03/2019 9:32 AM EST) Valproate 30.5(L) 50.0 - 100.0 mg/L [facility] 05/03/2019 9:32 AM EST 05/04/2019 Narrative Resulting Agency Comment [id number] Alex Hummel MD LAB SAME DAY RESULT Final Resu lt Performing Organization Address City/State/[facility] Co de Phone Number [facility] [address] [place] [address] documented in this encounter Visit Diagnoses Diagnosis Seizure (HCC) Other convulsions documented in this encounter Additional Health Concerns Infection Onset Date Last Indicated Resolved Time COVID-19 Rule-Out 06/08/2020 06/08/2020 06/08/2020 7:17 PM EDT documented as of this encounter Care Teams Supervisor [employer]crete [employer] Plant Relationship Specialty Start Date End Date Marija King DO PCP - General Family Medicine 08/23/17 05/11/21 Cathleen Palmer MD [address] [address] PCP - General Family Medicine 09/28/22 documented as of this encounter
--- OUTSIDE RECORDS SUMMARY | 2025-01-24 11:06 | XMS_ITS | Encounter Summary ---
Author Organization [facility] Address [address] [place] [address] Care Team Providers Care Resolution Rep Name Role Phone Marija King DO Primary Care Provider [phone] Cathleen Palmer MD Primary Care Provider [phone] Encounter Details Date Type Department Care Team (Late Contact Info) Description 05/08/2020 Orders Only [facility] Cardiology [address] [address] Jose Angel Starkey MD [address] [place] [address] Social History Tobacco Use Types Packs/Day Years [...] Description 05/05/2025 10:45 AM EST Office Visit [facility] Pulmonary [address] 123 [facility] [address] [place] [address] Juan Morse MD [address] [place] [address] 1yr fu/ SOB/ pft prior/ 07/11/2025 11:00 AM EDT Office Visit [facility] Cardiology [address] [facility] [address] [place] [address] Jose Angel Starkey MD [address] [place] [address] 1 yr documented as of this encounter Procedures * Due to [place] Duda law, this organization might not be sharing negative HIV tests. Procedure Name Priority Date/Time Associated Diagnosis Comments VENIPUNCTURE Routine 05/08/2020 11:51 AM EST Chronic chest pain Atherosclerosis of coronary artery, angina presence unspecified, unspecified vessel or lesion type, unspecified whether kake or transplanted heart [I25.10] CBC INCLUDES DIFFERENTIAL AND PLATELET COUNT Routine 05/08/2020 11:51 AM EST Chronic chest pain Atherosclerosis of coronary artery, angina presence unspecified, unspecified vessel or lesion type, unspecified whether kake or transplanted heart [I25.10] BASIC METABOLIC PANEL WITH (GFR) Routine 05/08/2020 11:51 AM EST Chronic chest pain Atherosclerosis of coronary artery, angina presence unspecified, unspecified vessel or lesion type, unspecified whether kake or transplanted heart [I25.10] documented in this encounter Results * Due to [place] Duda law, this organization might not be sharing [...] approximately 13% higher for people identified as -Q[place]. EGFR 60 > OR = 60 mL/min/1. [...] needs for GFR calculation. Resulting Agency Comment [id number] us Jose Angel Starkey MD LABORATORY Final Result Performing Organization Address City/State/[facility] Co de Phone Number [facility] [address] [place] [address] * CBC INCLUDES DIFFERENTIAL AND PLATELET COUNT [...] 1:42 PM EST Narrative Resulting Agency Comment [id number] Jose Angel Starkey MD LAB SAME DAY RESULT Final Res ult Performing Organization Address [facility] de Phone Number [facility] [address] [place] [address] * (ABNORMAL) PROTHROMBIN TIME (PT) (INR), BLOOD (05/08/2020 11:51 AM EST) INR 1.2(H) [facility] Comment: Reference Range 0.9-1.1 Moderate-intensity Warfarin Therapy 2.0-3.0 Higher-intensity Warfarin Therapy 3.0-4.0 PT 12.7(H) 9.0 - 11.5 sec [facility] Comment: For additional information, please refer to http://education.[employer]/faq/YUK884 (This link is being provided for informational/ educational purposes only.) 05/08/2020 11:5 1 AM EST 05/08/2020 1:42 PM EST Narrative Resulting Agency Comment [id number] Jose Angel Starkey MD LAB SAME DAY RESULT Final Res ult Performing Organization Address [facility] de Phone Number [facility] [address] [place] [address] documented in this encounter Visit Diagnoses Diagnosis Chronic chest pain Chest pain, unspecified Atherosclerosis of coronary artery, angina presence unspecified, unspecified vessel or lesion type, unspecified whether kake or transplanted heart [I25.10] documented in this encounter Additional Health Concerns Infection Onset Date Last Indicated Resolved Time COVID-19 Rule-Out 06/08/2020 06/08/2020 06/08/2020 7:17 PM EDT documented as of this encounter Care Teams Resolution Rep Relationship Specialty Start Date End Date Marija King DO PCP - General Family Medicine 08/23/17 05/11/21 [place] [address] PCP - General Family Medicine 09/28/22 documented as of this encounter
--- OUTSIDE RECORDS SUMMARY | 2025-01-24 11:06 | XMS_ITS | Clinical Summary ---
Author Organization [facility] Address [address] [place] [address] Care Team Providers Care Out Of School Hours Care Worker Name Role Phone Cathleen Palmer MD Primary [...] lesion type, unspecified whether kake or transplanted heart,Paroxysmal atrial fibrillation (HCC),Hyperlipidem ia, [...] AT BEDTIME 120 tablet 2 3 Active Rivaroxaban (Xarelto) 20 MG tabletIndications: Paroxysmal atrial fibrillation (HCC) Take one tablet (20 mg total) by mouth 1 (one) time each day with dinner. 90 tablet 3 4 Active Cyclobenzaprine HCl (FLEXERIL) 10 MG tablet Take 1 tablet by mouth 3 (three) times a day. Active Isosorbide Mononitrate CR (IMDUR) 60 MG 24 hr tablet Take one tablet (60 mg total) by mouth 1 (one) time each day in the morning. 90 tablet 3 5 Active Metoprolol Succinate (TOPROL-XL) 50 MG 24 hr tablet TAKE 1 TABLET BY MOUTH EVERY DAY 90 tablet 3 5 Active Wixela Inhub 250-50 MCG/ACT diskus inhalerIndications :Bronchiectasis without complication (HCC) Inhale one puff 2 (two) times a day. 1 each 3 5 Active Lisinopril (PRINIVIL,ZESTRIL) 10 MG tabletIndications: Hypertension, unspecified type TAKE 1 TABLET BY MOUTH EVERY DAY 90 tablet 3 5 Active Simvastatin (ZOCOR) 40 MG tablet TAKE ONE TABLET (40 MG TOTAL) BY MOUTH EVERY NIGHT. 90 tablet 3 5 Active amLODIPine Besylate (NORVASC) 10 MG tabletIndications: Hypertension, unspecified type TAKE 1 TABLET BY MOUTH EVERY DAY 90 tablet 3 5 Active Active Problems [...] Department Care Team Description 12/03/2024 Refill [facility] Cardiology [address] [place] [phone] Jayesh Starkey MD E-prescribing Refill Request from [...] Description 05/05/2025 10:45 AM EST Office Visit [facility] Pulmonary [address] 123 [facility] [address] [place] [address] Juan Morse MD [address] [place] [address] 1yr fu/ SOB/ pft prior/ 07/11/2025 11:00 AM EDT Office Visit [facility] Cardiology [address] [facility] [address] [place] [address] Jayesh Starkey MD [address] [place] [address] 1 yr Health Maintenance Due Date Last Done Comments Parathyroid Hormone Screening 1949 Colon Cancer Screening 1994 Abdominal Aorta Imaging 2014 DTaP/Tdap/Td (2 - Td or Tdap) 05/28/2020 05/28/2010, 05/28/1999 Zoster (Shingrix) (2 of 2) 04/20/2023 02/23/2023 RSV (1 - 1-dose 75+ series) 2024 COVID-19 Vaccine ( - season) 2024 02/24/2022, 08/11/2021, 02/08/2021, Additional history [...] Zoster (Zostavax) Discontinued Procedures * Due to [place] Death by [employer] law, this organization might not be sharing [...] type, unspecified whether angina present, unspecified whether kake or transplanted heart HEP C ANTIBODY (EIA-2) Routine 08/01/2003 4:44 PM EDT from Last 3 Months or Most Recently Relevant to Health Maintenance Results * Due to [place] Death by Party law, this organization might not be sharing [...] Abnormal ECG Confirmed by JAYESH STARKEY ([id number]), purchase request editor KAREN MULTANI ([id number]) on 06/29/2023 7:33:59 [...] Lipidol. 2015;9:129-169. LDL Cholesterol 56 mg/dL (calc) [employer] Comment: Reference range: <100 Desirable range <100 mg/dL for primary prevention; <70 mg/dL for patients with CHD or diabetic patients with > or = 2 CHD risk factors. LDL-C is now calculated using the Oliver-López calculation, which is a validated novel method providing better accuracy than the Friedewald equation in the estimation of LDL-C. Oliver SS et al. BEAR. 2013;310(19): 2301-2835 (http://education.[employer]/faq/VUL726) CHOL/HDL Ratio 2.8 <5.0 (calc) [facility] Cholesterol Non-HDL 85 <130 mg/dL (calc) [facility] Comment: For patients with diabetes plus 1 major ASCVD risk factor, treating to a non-HDL-C goal of <100 mg/dL (LDL-C of <70 mg/dL) is considered a therapeutic option. 07/20/2020 12:0 5 PM EDT 07/20/2020 9:33 PM EDT Narrative Resulting Agency Comment [id number] us Zhane Dorantes MACHINE SHOP SUPERVISOR LABORATORY Final Res ult [facility] [address] [place] [address] * HEP C ANTIBODY (EIA-2) (08/01/2003 4:44 PM EDT) HEPATITIS C AB NEGATIVE [facility] (CLIA# [id number]) 08/01/2003 4:44 PM EDT 08/01/2003 4:44 PM EDT Narrative [facility] (CLIA# [id number]) - 08/01/2003 4:44 PM EDT Ordered by UNKNOWN PROVIDER SST tube received unspun us Unknown Provider LABORATORY Final Result [facility] (CLIA# [id number]) [address] [place] [address] from Last 3 Months or Most Recently Relevant to Health Maintenance Insurance [facility] FEE FOR [facility] PPO * Guarantor: St[employer] Account Type Relation to Patient Date of Phone Billing Address [facility] Corporate [address] [place] [address] Care Teams Out Of School Hours Care Worker Relationship Specialty Start Date End [place] [address] PCP - General Family Medicine 09/28/22
--- OUTSIDE RECORDS SUMMARY | 2025-01-24 11:06 | XMS_ITS | Encounter Summary ---
Author Organization [facility] Address [address] [place] [address] Care Team Providers Care Production Reproduction Manager Name Role Phone Marija King DO Primary Care Provider [phone] Cathleen Palmer MD Primary Care Provider [phone] Reason for Visit * Reason Onset Date Comments Refill Request 06/02/2019 Encounter Details Date Type Department Care Team (Late st Contact Info) Description 06/02/2019 Refill [facility] Pulmonary [address] 123 [facility] [address] [place] [address] Juan Morse MD [address] [place] [address] Refill Request Social History Tobacco Use Types [...] Description 05/05/2025 10:45 AM EST Office Visit [facility] Pulmonary [address] 123 [facility] [address] [place] [address] Juan Morse MD [address] [place] [address] 1yr fu/ SOB/ pft prior/ 07/11/2025 11:00 AM EDT Office Visit [facility] Cardiology [address] 123 [facility] [address] [place] [address] Jose Angel Starkey MD [address] [place] [address] 1 yr documented as of this encounter Visit Diagnoses Not on filedocumented in this encounter Additional Health Concerns Infection Onset Date Last Indicated Resolved Time COVID-19 Rule-Out 06/08/2020 06/08/2020 06/08/2020 7:17 PM EDT documented as of this encounter Care Teams Production Reproduction Manager Relationship Specialty Start Date End Date Marija King DO PCP - General Family Medicine 08/23/17 05/11/21 Cathleen Palmer MD [address] [address] PCP - General Family Medicine 09/28/22 documented as of this encounter
--- OUTSIDE RECORDS SUMMARY | 2025-01-24 11:06 | XMS_ITS | Encounter Summary ---
Author Organization [facility] Address [address] [place] [address] Care Team Providers Care Mold Filler Plastic Dolls Name Role Phone HiGabe Primary Care Provider [phone] Marija King DO Primary Care Provider [phone] Cathleen Palmer MD Primary Care Provider [phone] Encounter Details Date Type Department Care Team (Late st Contact Info) Description 05/28/[address] [facility] Infectious Disease [address] [facility] [address] [place] [address] Marcello Ness MD [address] [place] [address] Social History Tobacco Use Types Packs/Day Years [...] Description 05/05/2025 10:45 AM EST Office Visit [facility] Pulmonary [address] 123 [facility] [address] [place] [address] Juan Morse MD [address] [place] [address] 1yr fu/ SOB/ pft prior/ 07/11/2025 11:00 AM EDT Office Visit [facility] Cardiology [address] [facility] [address] [place] [address] Jose Angel Starkey MD [address] [place] [address] 1 yr documented as of this encounter Procedures * Due to [place] [employer] law, this organization might not be sharing [...] in this encounter Results * Due to [place] [employer] law, this organization might not be sharing negative HIV tests. * MUMPS ANTIBODY (IGG) (05/28/2010) MUMPS VIRUS AB.IGG 2.8 (IMMUNE) SEE BELOW [facility] Comment:REFERENCE: 1.1 OR > INDICATES ANTIBODY 05/28/2010 05/28/2010 3:4 2 PM EST Marcello Ness MD LABORATORY Final Result [facility] [address] [place] [address] * RUBEOLA IGG AB (05/28/2010) RUBEOLA IGG AB 5.4 (IMMUNE) SEE BELOW [facility] Comment: UNITS: INDEX VALUE REFERENCE: 1.1 OR > INDICATES ANTIBODY 05/28/2010 05/28/2010 3:4 2 PM EST Marcello Ness MD LABORATORY Final Result Performing Organization Address City/[facility] Co de Phone Number [facility] [address] [place] [address] * RUBELLA IGG AB (05/28/2010) RUBELLA IGG AB 4.97 (IMMUNE) SEE BELOW [facility] Comment: REFERENCE: 1.1 OR > INDICATES ANTIBODY THE PRESENCE OF RUBELLA IGG ANTIBODY SUGGESTS A CURRENT OR PAST INFECTION OR IMMUNIZATION WITH RUBELLA VIRUS. 05/28/2010 05/28/2010 3:4 2 PM EST Marcello Ness MD LABORATORY Final Result Performing Organization Address [facility] Co de Phone Number [facility] [address] [place] [address] documented in this encounter Visit Diagnoses Diagnosis Other specified counseling Need for prophylactic vaccination with typhoid-paratyphoid alone (TAB) Need for prophylactic vaccination with combined tkapixhpma-njbgcaj-dypkzbhxw (DTP) vaccine documented in this encounter Additional Health Concerns Infection Onset Date Last Indicated Resolved Time COVID-19 Rule-Out 06/08/2020 06/08/2020 06/08/2020 7:17 PM EDT documented as of this encounter Care Teams Mold Filler Plastic Dolls Relationship Specialty Start Date End Date Gabe Do [facility] [address] [facility] [place] [address] PCP - General 03/24/06 08/22/17 Marija King DO [facility] [address] [facility] [place] [address] PCP - General Family Medicine 08/23/17 05/11/21 [place] [address] PCP - General Family Medicine 09/28/22 documented as of this encounter
--- OUTSIDE RECORDS SUMMARY | 2025-01-24 11:07 | XMS_ITS | Encounter Summary ---
Author Organization [facility] Address [address] [place] [address] Care Team Providers Care Battery Test Engineer Name Role Phone Eznate Marija Lovely VARGAS Primary Care Provider Cathleen Palmer MD Primary Care Provider Encounter Details Date Type Department Care Team (Late Contact Info) Description 10/01/2018 Orders Only [facility] Pulmonary [address] [id number] Juan Morse MD [address] [place] [address] Medications Social History Tobacco Use Types Packs/Day [...] Description 05/05/2025 10:45 AM EST Office Visit [facility] Pulmonary [address] 123 [facility] [address] [place] [address] Juan Morse MD [address] [place], [place] [address] 1yr fu/ SOB/ pft prior/ 07/11/2025 11:00 AM EDT Office Visit [facility] Cardiology [address] [facility] [address] [place] [address] Jose Angel Starkey MD [address] [place] [address] 1 yr documented as of this encounter Visit Diagnoses Diagnosis Cough documented in this encounter Additional Health Concerns Infection Onset Date Last Indicated Resolved Time COVID-19 Rule-Out 06/08/2020 06/08/2020 06/08/2020 7:17 PM EDT documented as of this encounter Care Teams Battery Test Engineer Relationship Specialty Start Date End Date Marija King DO PCP - General Family Medicine 08/23/17 05/11/21 Cathleen Palmer MD [address] [address] PCP - General Family Medicine 09/28/22 documented as of this encounter
--- OUTSIDE RECORDS SUMMARY | 2025-01-24 11:07 | XMS_ITS | Encounter Summary ---
Author Organization [facility] Address [address] [place] [address] Care Team Providers Care Engine Oiler Name Role Phone Marija King DO Primary Care Provider [phone] Cathleen Palmer MD Primary Care Provider [phone] Encounter Details Date Type Department Care Team (Late Contact Info) Description 12/19/2018 [facility] Pulmonary [address] [facility] [address] [place] [address] Juan Morse MD [address] [place] [address] Social History Tobacco Use Types Packs/Day Years [...] Fonseca RN - 12/19/2018 3:36 PM EDT 25eightt message sent on 12/27 documented in this encounter Plan of Treatment Upcoming Encounters Date Type Department Care Team (Late st Contact Info) Description 05/05/2025 10:45 AM EST Office Visit [facility] Pulmonary [address] [facility] [address] [place] [address] Juan Morse MD [address] [place] [address] 1yr fu/ SOB/ pft prior/ 07/11/2025 11:00 AM EDT Office Visit [facility] Cardiology [address] [facility] [address] [place] [address] Jose Angel Starkey MD [address] [place] [address] 1 yr documented as of this encounter Procedures * Due to [place] [employer] law, this organization might not be sharing negative HIV tests. Procedure Name Priority Date/Time Associated Diagnosis Comments C-REACTIVE PROTEIN (CRP) - INFLAMMATION Routine 12/19/2018 3:36 PM EDT Recurrent respiratory infection IMMUNOGLOBULIN G,SUBCLASSES 1-4 SERUM Routine 12/19/2018 3:36 PM EDT Recurrent respiratory infection VENIPUNCTURE Routine 12/19/2018 3:36 PM EDT Recurrent respiratory infection documented in this encounter Results * Due to [place] [employer] law, this organization might not be sharing negative HIV tests. * C-REACTIVE PROTEIN (CRP) - INFLAMMATION (12/19/2018 3:36 PM EDT) C reactive protein 0.9 <8.0 mg/L [facility] 12/19/2018 3:36 PM EDT 12/19/2018 11:34 PM EDT Narrative Resulting Agency Comment [id number] us Juan Morse MD LABORATORY Final Result [facility] [address] [place] [address] * IMMUNOGLOBULIN QUANTITATION (IGG, IGM, IGA) (12/19/2018 3:36 PM EDT) IgA 142 20 - 320 mg/dL [facility] IgG 1024 600 - 1540 mg/dL [facility] IgM 112 50 - 300 mg/dL [facility] 12/19/2018 3:36 PM EDT 12/19/2018 11:34 PM EDT Narrative Resulting Agency Comment [id number] Juan Morse MD LABORATORY Final Result Performing Organization Address City/[facility] Co de Phone Number [facility] [address] [place] [address] * IMMUNOGLOBULIN G,SUBCLASSES 1-4 SERUM (12/19/2018 3:36 [...] 11:34 PM EDT Narrative Resulting Agency Comment [id number] Juan Morse MD LABORATORY Final Result Performing Organization Address City/[facility] de Phone Number [facility] [address] [place] [address] documented in this encounter Visit Diagnoses Diagnosis Recurrent respiratory infection Other diseases of respiratory system, not elsewhere classified documented in this encounter Additional Health Concerns Infection Onset Date Last Indicated Resolved Time COVID-19 Rule-Out 06/08/2020 06/08/2020 06/08/2020 7:17 PM EDT documented as of this encounter Care Teams Engine Oiler Relationship Specialty Start Date End Date Marija King DO PCP - General Family Medicine 08/23/17 05/11/21 [place] [address] PCP - General Family Medicine 09/28/22 documented as of this encounter
--- OUTSIDE RECORDS SUMMARY | 2025-01-24 11:07 | XMS_ITS | Encounter Summary ---
Author Organization [facility] Address [address] [place] [address] Care Team Providers Care Perch Mender Name Role Phone EzMarija sullivan Lovely VARGAS Primary Care Provider [phone] Cathleen Palmer MD Primary Care Provider [phone] Reason for Visit * Reason Onset Date Comments Refill Request 01/28/2019 Encounter Details Date Type Department Care Team (Late Contact Info) Description 01/28/2019 Refill [facility] Cardiology [address] 123 [facility] [address] [place] [address] Kim Roberson, RN Refill Request Social History [...] Visit [facility] Pulmonary [address] [facility] [address] [place] [address] Juan Morse MD [address] [place] [address] 1yr fu/ SOB/ pft prior/ 07/11/2025 11:00 AM EDT Office Visit [facility] Cardiology [address] [facility] [address] [place] [address] Jose Angel Starkey MD [address] [place] [address] 1 yr documented as of this encounter Visit Diagnoses Not on filedocumented in this encounter Additional Health Concerns Infection Onset Date Last Indicated Resolved Time COVID-19 Rule-Out 06/08/2020 06/08/2020 06/08/2020 7:17 PM EDT documented as of this encounter Care Teams Perch Mender Relationship Specialty Start Date End Date Marija King DO PCP - General Family Medicine 08/23/17 05/11/21 Cathleen Palmer MD [address] [address] PCP - General Family Medicine 09/28/22 documented as of this encounter
--- OUTSIDE RECORDS SUMMARY | 2025-01-24 11:07 | XMS_ITS | Encounter Summary ---
Author Organization [facility] Address [address] [place] [address] Care Team Providers Care Registered Nurse Obstetrics Name Role Phone HiGabe Primary Care Provider [phone] Marija King DO Primary Care Provider [phone] Cathleen Palmer MD Primary Care Provider [phone] Encounter Details Date Type Department Care Team (Late st Contact Info) Description 08/27/2015 Orders Only [facility] Cardiology [address] 123 [facility] [address] [place] [address] Valentin Vitale MD [address] [place] [address] Social History Tobacco Use Types Packs/Day Years [...] Description 05/05/2025 10:45 AM EST Office Visit [facility] Pulmonary [address] 123 [facility] [address] [place] [address] Juan Morse MD [address] [place] [address] 1yr fu/ SOB/ pft prior/ 07/11/2025 11:00 AM EDT Office Visit [facility] Cardiology [address] 123 [facility] [address] [place] [address] Jose Angel Starkey MD [address] [place] [address] 1 yr documented as of this encounter Procedures * Due to [place] state law, this organization might not be sharing negative HIV tests. Procedure Name Priority Date/Time Associated Diagnosis Comments CBC INCLUDES DIFFERENTIAL AND PLATELET COUNT Routine 08/27/2015 8:34 AM EDT Abnormal cardiovascular stress test Atherosclerosis of coronary artery, angina presence unspecified, unspecified vessel or lesion type, unspecified whether [place] or transplanted heart [I25.10] Paroxysmal atrial fibrillation (HCC) [I48.0] Hyperlipidemia, unspecified hyperlipidemia type [E78.5] Essential hypertension with goal blood pressure less than 130/80 [I10] TSH, 3RD GENERATION Routine 08/27/2015 8 :34 AM EDT Abnormal cardiovascular stress test Atherosclerosis of coronary artery, angina presence unspecified, unspecified vessel or lesion type, unspecified whether [place] or transplanted heart [I25.10] Paroxysmal atrial fibrillation (HCC) [I48.0] Hyperlipidemia, unspecified hyperlipidemia type [E78.5] Essential hypertension with goal blood pressure less than 130/80 [I10] LIPID PANEL WITH REFLEX TO DIRECT LDL Routine 08/27/2015 8:34 AM EDT Abnormal cardiovascular stress test Atherosclerosis of coronary artery, angina presence unspecified, unspecified vessel or lesion type, unspecified whether [place] or transplanted heart [I25.10] Paroxysmal atrial fibrillation (HCC) [I48.0] Hyperlipidemia, unspecified hyperlipidemia type [E78.5] Essential hypertension with goal blood pressure less than 130/80 [I10] BASIC METABOLIC PANEL WITH (GFR) Routine 08/27/2015 8:34 AM EDT Abnormal cardiovascular stress test Atherosclerosis of coronary artery, angina presence unspecified, unspecified vessel or lesion type, unspecified whether [place] or transplanted heart [I25.10] Paroxysmal atrial fibrillation [...] - 200 mg/dL [facility] Comment:{CHOLESTEROL, TOTAL {[id number]) HDL Cholesterol 39(L) > OR = 40 mg/dL [facility] Comment:{HDL CHOLESTEROL {[id number]) Triglyceride 176(H) <150 mg/dL [facility] Comment:{TRIGLYCERIDES {[id number]) LDL Cholesterol 38 <130 mg/dL (calc) [facility] Comment: {LDL-CHOLESTEROL {[id number]) Desirable range <100 mg/dL for patients with CHD or diabetes and <70 mg/dL for diabetic patients with known heart disease. CHOL/HDL Ratio 2.9 < OR = 5.0 (calc) [facility] Comment:{CHOL/HDLC RATIO {[id number]) Cholesterol Non-HDL 73 mg/dL (calc) [facility] Comment: {NON HDL CHOLESTEROL {[id number]) Target for non-HDL cholesterol is 30 mg/dL higher than LDL cholesterol target. 08/27/2015 8:34 AM EDT 08/27/2015 7:39 PM EDT Narrative Resulting Agency Comment [id number] us Valentin Vitale MD LABORATORY Final Result [facility] [address] [place] [address] * TSH, 3RD GENERATION (08/27/2015 8:34 AM EDT) TSH 1.24 0.40 - 4.50 mIU/L [facility] Comment:{TSH {[id number]) 08/27/2015 8:34 AM EDT 08/27/2015 7:39 PM EDT Narrative Resulting Agency Comment [id number] Valentin Vitale MD LABORATORY Final Result [facility] [address] [place] [address] * BASIC METABOLIC PANEL WITH (GFR) (08/27/2015 8:34 AM EDT) Glucose 99 65 - 99 mg/dL [facility] Comment: {GLUCOSE {[id number]) Fasting reference interval Urea Nitrogen Blood (BUN) 12 7 - 25 mg/dL [facility] Comment:{UREA NITROGEN (BUN) {[id number]) Creatinine 1.10 0.70 - 1.25 mg/dL [facility] Comment: {CREATININE {[id number]) For patients >49 years of age, the reference limit for Creatinine is approximately 13% higher for people identified as -Maltese. GFR 70 > OR = 60 mL/min/1 .73m2 [facility] Comment:{eGFR NON-AFR. AMERI CAN {[id number]) GFR () 81 > OR = 60 mL/min/1 .73m2 [facility] Comment:{eGFR AMERIC AN {[id number]) BUN/Creatinine Ratio NOT APPLICABLE 6 - 22 (calc) [facility] Comment:{BUN/CREATININE RATI O {[id number]) Sodium 139 135 - 146 mmol/L [facility] Comment:{SODIUM {[id number]) Potassium 4.7 3.5 - 5.3 mmol/L [facility] Comment:{POTASSIUM {[id number]) Chloride 105 98 - 110 mmol/L [facility] Comment:{CHLORIDE {[id number]) Carbon dioxide 26 19 - 30 mmol/L [facility] Comment:{CARBON DIOXIDE {[id number]) Calcium 9.4 8.6 - 10.3 mg/dL [facility] Comment:{CALCIUM {[id number]) 08/27/2015 8:34 AM EDT 08/27/2015 7:39 [...] needs for GFR calculation. Resulting Agency Comment [id number] Valentin Vitale MD LABORATORY Final Result [facility] [address] [place] [address] * CBC INCLUDES DIFFERENTIAL AND PLATELET COUNT (08/27/2015 8:34 AM EDT) WBC 6.0 3.8 - 10.8 Thousand/u L [facility] Comment:{WHITE BLOOD CELL CO UNT {[id number]) RBC 4.88 4.20 - 5.80 Million/uL [facility] Comment:{RED BLOOD CELL COUN T {[id number]) Hemoglobin 15.2 13.2 - 17.1 g/dL [facility] Comment:{HEMOGLOBIN {[id number]) Hematocrit 44.6 38.5 - 50.0 % [facility] Comment:{HEMATOCRIT {[id number]) MCV 91.5 80.0 - 100.0 fL [facility] Comment:{MCV {[id number]) MCH 31.2 27.0 - 33.0 pg [facility] Comment:{MCH {[id number]) MCHC 34.1 32.0 - 36.0 g/dL [facility] Comment:{MCHC {[id number]) RDW 12.9 11.0 - 15.0 % [facility] Comment:{RDW {[id number]) PLT 191 140 - 400 Thousand/u L [facility] Comment:{PLATELET COUNT {[id number]) MPV 8.9 7.5 - 11.5 fL [facility] Comment:{MPV {[id number]) Neutrophils # 2856 1500 - 7800 cells/uL [facility] Comment:{ABSOLUTE NEUTROPHIL S {[id number]) Lymphocytes # 2508 850 - 3900 cells/uL [facility] Comment:{ABSOLUTE LYMPHOCYTE S {[id number]) Monocytes # 486 200 - 950 cells/uL [facility] Comment:{ABSOLUTE MONOCYTES {[id number]) Eosinophils # 126 15 - 500 cells/uL [facility] Comment:{ABSOLUTE EOSINOPHIL S {[id number]) Basophils # 24 0 - 200 cells/uL [facility] Comment:{ABSOLUTE BASOPHILS {[id number]) Neutrophils % 47.6 % [facility] Comment:{NEUTROPHILS {[id number]) Lymphocytes % 41.8 % [facility] Comment:{LYMPHOCYTES {[id number]) Monocytes % 8.1 % [facility] Comment:{MONOCYTES {[id number]) Eosinophils % 2.1 % [facility] Comment:{EOSINOPHILS {[id number]) Basophils % 0.4 % [facility] Comment:{BASOPHILS {[id number]) 08/27/2015 8:34 AM EDT 08/27/2015 7:39 PM EDT Narrative Resulting Agency Comment [id number] us Valentin Vitale MD LAB SAME DAY RESULT Final Resul t [facility] [address] [place] [address] documented in this encounter Visit Diagnoses Diagnosis Abnormal cardiovascular stress test Other nonspecific abnormal cardiovascular system function study Atherosclerosis of coronary artery, angina presence unspecified, unspecified vessel or lesion type, unspecified whether [place] or transplanted heart [I25.10] Paroxysmal atrial fibrillation (HCC) [I48.0] Atrial fibrillation Hyperlipidemia, unspecified hyperlipidemia type [E78.5] Essential hypertension with goal blood pressure less than 130/80 [I10] documented in this encounter Additional Health Concerns Infection Onset Date Last Indicated Resolved Time COVID-19 Rule-Out 06/08/2020 06/08/2020 06/08/2020 7:17 PM EDT documented as of this encounter Care Teams Registered Nurse Obstetrics Relationship Specialty Start Date End Date Gabe Do [facility] [address] PCP - General 03/24/06 08/22/17 Marija King DO [facility] [address] [place] [address] PCP - General Family Medicine 08/23/17 05/11/21 Cathleen Palmer MD [address] [address] PCP - General Family Medicine 09/28/22 documented as of this encounter
--- OUTSIDE RECORDS SUMMARY | 2025-01-24 11:07 | XMS_ITS | Encounter Summary ---
Author Organization [facility] Address [address] [place] [address] Care Team Providers Care Rope Laying Machine Operator Name Role Phone Cathleen Palmer MD Primary Care Provider Encounter Details Date Type Department Care Team (Late st Contact Info) Description 09/29/2022 Orders Only [facility] Pulmonary [address] [phone] Juan Morse MD [address] [place] [address] Social History Tobacco Use Types Packs/Day Years [...] Description 05/05/2025 10:45 AM EST Office Visit [facility] Pulmonary [address] [phone] Juan Morse MD [address] [place] [address] 1yr fu/ SOB/ pft prior/ 07/11/2025 11:00 AM EDT Office Visit [facility] Cardiology [address] 123 [facility] [address] [place] [address] Jose Angel Starkey MD [address] [place] [address] 1 yr documented as of this encounter [...] on filedocumented in this encounter Care Teams Rope Laying Machine Operator Relationship Specialty Start Date End Date Cathleen Palmer MD [facility] [address] [address] PCP - General Family Medicine 09/28/22 documented as of this encounter
--- OUTSIDE RECORDS SUMMARY | 2025-01-24 11:07 | XMS_ITS | Encounter Summary ---
Author Organization [facility] Address [address] [place] [address] Care Team Providers Care Bar Attendant Name Role Phone Christine Marija Lovely VARGAS Primary Care Provider [phone] Cathleen Palmer MD Primary Care Provider [phone] Encounter Details Date Type Department Care Team (Late Contact Info) Description 10/31/2017 Orders Only [facility] Pulmonary [address] 123 [facility] [address] [place] [address] Juan Morse MD [address] [place] [id number] Social History Tobacco Use Types Packs/Day Years [...] Description 05/05/2025 10:45 AM EST Office Visit [facility] Pulmonary [address] 123 [facility] [address] [place] [address] Juan Morse MD [address] [place], [place] [phone] 1yr fu/ SOB/ pft prior/ 07/11/2025 11:00 AM EDT Office Visit [facility] Cardiology [address] 123 [facility] [address] [place] [address] Jose Angel Starkey MD [address] [place] [address] 1 yr documented as of this encounter Procedures * Due to [place] [employer] law, this organization might not be sharing [...] 9:49 PM EDT Narrative Resulting Agency Comment [id number] Juan Morse MD LABORATORY Final Result [facility] [address] [place] [address] * EOSINOPHILS, ABSOLUTE (10/31/2017 2:46 PM EDT) WBC 7.4 3.8 - 10.8 Thousand/u L [facility] Eosinophils # 163 15 - 500 cells/uL [facility] Eosinophils % 2.2 % [facility] 10/31/2017 2:46 PM EDT 10/31/2017 9:49 PM EDT Narrative Resulting Agency Comment [id number] Juan Morse MD LABORATORY Final Result [facility] [address] [place] [address] * [facility] (10/31/2017 2:46 PM EDT) IgE 4 <MC=587 kU/L [facility] Constantino Grass (G6) IgE <0.10 kU/L [facility] Constantino Grass (G6) Class 0 [facility] Effie Grass(Kent[place] Blue)(G8) IgE <0.10 kU/L [facility] Effie Grass([place] Blue)(G8) Class 0 [facility] Common Ragweed (Short)(W1) IgE <0.10 kU/L [facility] Common Ragweed (Short)(W1) Class 0 [facility] Turkish Plantain (W9) IgE <0.10 kU/L [facility] Turkish Plantain (W9) Class 0 [facility] [place] (Goosefoot) (W10) IgE <0.10 kU/L [facility] [place] (Goosefoot) (W10) Class 0 [facility] [place] (T7) IgE <0.10 kU/L [facility] [place] (T7) Class 0 [facility] Cat Dander [...] 9:49 PM EDT Narrative Resulting Agency Comment [id number] Juan Morse MD LABORATORY Final Result [facility] [address] [place] [address] documented in this encounter Visit Diagnoses Diagnosis Cough SOB (shortness of breath) Shortness of breath documented in this encounter Additional Health Concerns Infection Onset Date Last Indicated Resolved Time COVID-19 Rule-Out 06/08/2020 06/08/2020 06/08/2020 7:17 PM EDT documented as of this encounter Care Teams Bar Attendant Relationship Specialty Start Date End Date Marija King DO PCP - General Family Medicine 08/23/17 05/11/21 Cathleen Palmer MD [address] [address] PCP - General Family Medicine 09/28/22 documented as of this encounter
--- OUTSIDE RECORDS SUMMARY | 2025-01-24 11:07 | XMS_ITS | Encounter Summary ---
Author Organization [facility] Address [address] [place] [address] Care Team Providers Care Park Aide Name Role Phone Marija King DO Primary Care Provider [phone] Cathleen Palmer MD Primary Care Provider [phone] Reason for Referral * OUTPT PROCEDURES AND DIAGNOSTICS (Routine) - Closed Specialty Diagnoses / Procedures Referred By Contac t Referred To Contact CT Scan Diagnoses Other nonspecific abnormal finding of lung field Procedures CT CHEST W/O CONTRAST (DX: ? NODULE ON CXR R91.8/ 793.2) (WITHIN 1 WK) Juan Morse MD [address] [place] [address] Phone: tel: fax: Referral ID Status Reason Start Date Expiration Date V isits Requested Visits Authorized [id number] Closed Continuity of Care 04/09/2018 07/08/2018 1 1 Encounter Details Date Type Department Care Team (Late st Contact Info) Description 04/04/2018 Orders Only [facility] Pulmonary [address] 123 [facility] [address] [place] [address] Juan Morse MD [address] [place] [address] Social History Tobacco Use Types Packs/Day Years [...] Description 05/05/2025 10:45 AM EST Office Visit [facility] Pulmonary [address] 123 [facility] [address] [place] [address] Juan Morse MD [address] [place] [address] 1yr fu/ SOB/ pft prior/ 07/11/2025 11:00 AM EDT Office Visit [facility] Cardiology [address] 123 [facility] [address] [place] [address] Jose Angel Starkey MD [address] [place] [address] 1 yr documented as of this encounter Results * Due to [place] state law, this organization might not be sharing negative HIV tests. * (ABNORMAL) CT CHEST W/O CONTRAST (DX: ? NODULE ON CXR R91.8/ 793.2) (WITHIN 1 WK) FC (04/13/2018 9:02 AM EST) F[facility] 99(A) [facility] Anatomical Region Laterality Modality CHEST [...] documented as of this encounter Care Teams Park Aide Relationship Specialty Start Date End Date Marija King DO PCP - General Family Medicine 08/23/17 05/11/21 [place] [address] PCP - General Family Medicine 09/28/22 documented as of this encounter
--- OUTSIDE RECORDS SUMMARY | 2025-01-24 11:07 | XMS_ITS | Encounter Summary ---
Author Organization [facility] Address [address] [place] [address] Care Team Providers Care Final Inspector And Tester Name Role Phone Cathleen Palmer MD Primary Care Provider [phone] Reason for Visit * Reason Comments E-prescribing Refill Request Encounter Details Date Type Department Care Team ([facility] st Contact Info) Description 06/14/2021 Refill [facility] Neurology [address] [address] Alex Hummel MD [address] [facility] [address] [place] [address] [place] [address] E-prescribing Refill Request Social History Tobacco Use [...] Phone 07/22/21 10:30 AM Alex Hummel MD [facility] Neurology [address] 05/20/22 10:00 AM Jose Angel Starkey MD [facility] Cardiology [address] Pertinent lab [...] Description 05/05/2025 10:45 AM EST Office Visit [facility] Pulmonary [address] 123 [facility] [address] [place] [address] Juan Morse MD [address] [place] [address] 1yr fu/ SOB/ pft prior/ 07/11/2025 11:00 AM EDT Office Visit [facility] Cardiology [address] 123 [facility] [address] [place] [address] Jose Angel Starkey MD [address] [place] [address] 1 yr documented as of this encounter Visit Diagnoses Not on filedocumented in this encounter Care Teams Final Inspector And Tester Relationship Specialty Start Date End [place] [address] PCP - General Family Medicine 09/28/22 documented as of this encounter
--- OUTSIDE RECORDS SUMMARY | 2025-01-24 11:07 | XMS_ITS | Clinical Summary ---
Author Organization [facility] Address [address] [place] [address] Care Team Providers Care Manager Planning Name Role Phone Marija King DO Primary Care Provider [phone] Allergies No known active allergies Medications aspirin [...] 08/05/2003, 12/03/1999 Procedures * Due to [place] [employer] law, this organization might not be sharing negative HIV tests. Procedure Name Priority Date/Time Associated Diagnosis Comments BASIC METABOLIC PANEL Routine 12/05/2014 9:09 AM EDT from Last 3 Months or Most Recently Relevant to Health Maintenance Results * Due to [place] [employer] law, this organization might not be sharing negative HIV tests. * (ABNORMAL) Basic Metabolic Panel (12/05/2014 9:09 AM EDT) Sodium Blood 139 135 - 145 mmol/L [facility] Potassium Blood 4.9 3.5 - 5.3 mmol/L [facility] Chloride Blood 104 97 - 110 mmol/L [facility] Carbon Dioxide 27 24 - 32 mmol/L [facility] Gap 8 5 - 15 [facility] Glucose 102(H) 70 - 99 mg/dL [facility] BUN 9 7 - 23 mg/dL [facility] Creatinine 1.02 0.60 - 1.30 mg/dL [facility] eGFR Non- >60 >60 [facility] Comment: Units = [...] Calcium Blood 9.1 8.7 - 10.7 mg/dL [facility] 12/05/2014 9:09 AM EDT 12/05/2014 9:41 AM EDT us Mitesh Gillespie MD LAB BLOOD ORDERABLES Final Res ult [facility] [address] [place] [address], [place] from Last 3 Months or Most Recently Relevant to Health Maintenance Insurance [employer] PPO/EPO/IND Advance Directives * Full Code (Latest Code Status on File) Date Activated Date Inactivated Comments 06/09/2020 1:31 PM 06/09/2020 7:11 PM * Full Code Date Activated Date Inactivated Comments 06/09/2020 11:18 AM 06/09/2020 1:31 PM Care Teams Manager Planning Relationship Specialty Start Date End Date Marija King DO [address] [place] [address] PCP - General 06/03/20
--- OUTSIDE RECORDS SUMMARY | 2025-01-24 11:07 | XMS_ITS | Encounter Summary ---
Author Organization [facility] Address [address] [place] [address] Care Team Providers Care Fitter Mechanic Name Role Phone Cathleen Palmer MD Primary Care Provider [phone] Encounter Details Date Type Department Care Team (Late Contact Info) Description 05/21/2021 Refill [facility] Neurology [address] 123 [facility] [address] [place] [phone] Alex Hummel MD [address] [address] Social History Tobacco Use Types Packs/Day Years [...] Description 05/05/2025 10:45 AM EST Office Visit [facility] Pulmonary [address] 123 [facility] [address] [place] [address] Juan Morse MD [address] [place] [address] 1yr fu/ SOB/ pft prior/ 07/11/2025 11:00 AM EDT Office Visit [facility] Cardiology [address] 123 [facility] [address] [place] [address] Jose Angel Starkey MD [address] [place] [address] 1 yr documented as of this encounter Visit Diagnoses Not on filedocumented in this encounter Care Teams Fitter Mechanic Relationship Specialty Start Date End Date Cathleen Palmer MD [place] [id number] [address] [address] PCP - General Family Medicine 09/28/22 documented as of this encounter
--- OUTSIDE RECORDS SUMMARY | 2025-01-24 11:07 | XMS_ITS | Encounter Summary ---
Author Organization [facility] Address [address] [place] [address] Care Team Providers Care Market Master Name Role Phone Marija King DO Primary Care Provider [phone] Encounter Details Date Type Department Care Team (Late st Contact Info) Description 11/17/2020 myChart Message [facility] Revenue Cycle Management [address] [place] [address] Mychart, Generic Provider [address] [place] [phone] [facility] Customer Service Request Social History Tobacco [...] on filedocumented in this encounter Care Teams Market Master Relationship Specialty Start Date End Date Marija King DO [address] [place] [address] PCP - General 06/03/20 documented as of this encounter
--- OUTSIDE RECORDS SUMMARY | 2025-01-24 11:07 | XMS_ITS | Encounter Summary ---
Author Organization [facility] Address [address] [place] [address] Care Team Providers Care Contracts Law Professor Name Role Phone Cathleen Palmer MD Primary Care Provider [phone] Encounter Details Date Type Department Care Team (Late Contact Info) Description 12/16/2021 Orders Only [facility] Pulmonary [address] [phone] Juan Morse MD [address] [place] [address] Medications Social History Tobacco Use Types Packs/Day [...] Description 05/05/2025 10:45 AM EST Office Visit [facility] Pulmonary [address] [phone] Juan Morse MD [address] [place] [address] 1yr fu/ SOB/ pft prior/ 07/11/2025 11:00 AM EDT Office Visit [facility] Cardiology [address] [facility] [address] [place] [address] Jose Angel Starkey MD [address] [place] [address] 1 yr documented as of this encounter Visit Diagnoses Not on filedocumented in this encounter Care Teams Contracts Law Professor Relationship Specialty Start Date End Date Cathleen Palmer MD [place] [address] [address] PCP - General Family Medicine 09/28/22 documented as of this encounter
--- OUTSIDE RECORDS SUMMARY | 2025-01-24 11:07 | XMS_ITS | Encounter Summary ---
Author Organization [facility] Address [address] [place] [address] Care Team Providers Care Avionics Systems Integration Specialist Name Role Phone EzMarija sullivan Lovely VARGAS Primary Care Provider [phone] Cathleen Palmer MD Primary Care Provider [phone] Reason for Visit * Reason Onset Date Comments Refill Request 01/28/2019 Encounter Details Date Type Department Care Team (Late Contact Info) Description 01/28/2019 Refill [facility] Cardiology [address] [facility] [address] [place] [id number] Kim Roberson, RN Refill Request Social History [...] Description 05/05/2025 10:45 AM EST Office Visit [facility] Pulmonary [address] [facility] [address] [place] [id number] Juan Morse MD [address] [place] [address] 1yr fu/ SOB/ pft prior/ 07/11/2025 11:00 AM EDT Office Visit [facility] Cardiology [address] [facility] [address] [place] [address] Jose Angel Starkey MD [address] [place] [address] 1 yr documented as of this encounter Visit Diagnoses Not on filedocumented in this encounter Additional Health Concerns Infection Onset Date Last Indicated Resolved Time COVID-19 Rule-Out 06/08/2020 06/08/2020 06/08/2020 7:17 PM EDT documented as of this encounter Care Teams Avionics Systems Integration Specialist Relationship Specialty Start Date End Date Marija King DO PCP - General Family Medicine 08/23/17 05/11/21 Cathleen Palmer MD [address] [address] PCP - General Family Medicine 09/28/22 documented as of this encounter
--- OUTSIDE RECORDS SUMMARY | 2025-01-24 11:07 | XMS_ITS | Patient Health Record ---
Author Organization [facility] Address [address] [place] [address] Care Team Providers Care Nuclear Security Officer Name Role Phone Hi Gabe Primary Care Provider Volodymyr Bush Unavailable [phone] Reason For Referral No Information Medications Medication [...] W/U Status Risk Notes Problem Otitic barotrauma (10852086) Barotitis, initial encounter (T70.0XXA) Active confirmed Problem Acute non-suppurative otitis media - serous (405800829) Right acute serous otitis media, recurrence not specified (H65.01) Active confirmed Plan Of Treatment No Information Insurance Providers Payer Name Payer Address Payer Phone Subscriber Number Group Number Insured Name Patient Relationship to Insured Coverage Start Date Coverage End Date [facility] [address] CHRISTIAN Grimes [id number] [phone] [id number] Santos Hawkins Self - patient is the insured Medical (General) History Medical History History ICD Code coronary artery disease Surgical History Surgery Date(Month/Year) tonsillectomy [place] adenoidectomy rotator cuff tear repair
--- OUTSIDE RECORDS SUMMARY | 2025-01-24 11:07 | XMS_ITS | Encounter Summary ---
Author Organization [facility] Address [address] [place] [address] Care Team Providers Care Inspector Fuel Hose Name Role Phone Mindy Kingh Lovely VARGAS Primary Care Provider [phone] Cathleen Palmer MD Primary Care Provider [phone] Reason for Visit * Reason Comments Follow Up Encounter Details Date Type Department Care Team ([facility] st Contact Info) Description 02/20/2018 Telephone [facility] Neurology [address] [address] Alex Hummel MD [address] [address] Follow Up Social History Tobacco Use Types [...] Phone 02/21/18 4:30 PM Alex Hummel MD [facility] [phone] 05/03/18 3:00 PM Juan Morse MD [facility] Pulmonary [address] 08/29/18 3:00 PM Jose Angel Starkey MD [facility] Cardiology [address] * Telephone [...] 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 He has some college education. He is [...] normal. I administered version 7.3 of the [place] Cognitive Assessment. He scored 24/30. 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, I could see him next week possibly [...] Description 05/05/2025 10:45 AM EST Office Visit [facility] Pulmonary [address] [facility] [address] [place] [address] Juan Morse MD [address] [place] [address] 1yr fu/ SOB/ pft prior/ 07/11/2025 11:00 AM EDT Office Visit [facility] Cardiology [address] [facility] [address] [place] [address] Jose Angel Starkey MD [address] [place] [address] 1 yr documented as of this encounter Visit Diagnoses Not on filedocumented in this encounter Additional Health Concerns Infection Onset Date Last Indicated Resolved Time COVID-19 Rule-Out 06/08/2020 06/08/2020 06/08/2020 7:17 PM EDT documented as of this encounter Care Teams Inspector Fuel Hose Relationship Specialty Start Date End Date Marija King DO PCP - General Family Medicine 08/23/17 05/11/21 Cathleen Palmer MD [address] [address] PCP - General Family Medicine 09/28/22 documented as of this encounter
--- OUTSIDE RECORDS SUMMARY | 2025-01-24 11:07 | XMS_ITS | Encounter Summary ---
Author Organization [facility] Address [address] [place] [address] Care Team Providers Care Director Print Name Role Phone ChristineMarija Lovely VARGAS Primary Care Provider [phone] Cathleen Palmer MD Primary Care Provider [phone] Encounter Details Date Type Department Care Team (Late Contact Info) Description 03/03/2018 Orders Only [facility] Cardiology [address] [facility] [address] [place] [address] Kathryn Bansal DO [address] [place] [address] Medications Social History Tobacco Use Types Packs/Day [...] Description 05/05/2025 10:45 AM EST Office Visit [facility] Pulmonary [address] [facility] [address] [place] [address] Juan Morse MD [address] [place] [address] 1yr fu/ SOB/ pft prior/ 07/11/2025 11:00 AM EDT Office Visit [facility] Cardiology [address] [facility] [address] [place] [address] Jose Angel Starkey MD [address] [place] [address] 1 yr documented as of this encounter Visit Diagnoses Not on filedocumented in this encounter Additional Health Concerns Infection Onset Date Last Indicated Resolved Time COVID-19 Rule-Out 06/08/2020 06/08/2020 06/08/2020 7:17 PM EDT documented as of this encounter Care Teams Director Print Relationship Specialty Start Date End Date Marija King DO PCP - General Family Medicine 08/23/17 05/11/21 Cathleen Palmer MD [place] [id number] [address] [address] PCP - General Family Medicine 09/28/22 documented as of this encounter
== END 2025-01-24 09:47 | disposition home or self-care (01) ==
LOC: HO.HBS 09:44
PROVIDERS: PCP Family Medicine; Visit Provider Physician Assistant Surgical
DX: E66.3 Overweight (principal); Z68.25 Body mass index [BMI] 25.0-25.9, adult; Z90.3 Acquired absence of stomach [part of]; Z98.84 Bariatric surgery status
CPT/HCPCS: 99024